=== PATIENT | male | born 1990 | race Caucasian/White ===

== ENCOUNTER 2016-10-01 17:45 | Emergency (ER) | payer OTHER ==
[~2016-10-01] VITALS: Ht 165.1 cm; Wt 89.3 kg
[~2016-10-01 17:45] MED LIST: ATOR-22 PO; HMLI SC
[2016-10-01 17:59] VITALS: TEMP 37.1; Ht 165.1 cm; Wt 89.3 kg
--- NOTE | 2016-10-01 18:12 | EMERGENCY ROOM VISIT NOTE ---
ED Visit Note First contact with patient: 18:04 CHIEF COMPLAINT: Hand injury HISTORY OF PRESENT ILLNESS: This 25-year-old male patient presented to the emergency department ambulatory after they injured the right hand when he punched a treadmill 2 days ago because he was angry and didn't want to punch the other person. He denies any suicidal or homicidal ideation. There was no audible snap or crack at that time. The patient rates the pain as sharp and 4 / 10. The patient denies any numbness or tingling. The patient does not have injuries to the wrist. Normal range of motion of the wrist. The patient states he had a ligament in the right fifth finger repaired last December by an orthopedist in [place]. The patient states he was initially able to bend and straighten the right fifth finger but over time swelling has developed and he is unable to straighten the finger. REVIEW OF SYSTEMS: A 6 system review of systems was completed with positives and pertinent negatives in the HPI. ALLERGIES: Tylenol, Keflex, morphine, Zofran MEDICATIONS: Insulin, Protonix, Lipitor PMH: Diabetes, hyperlipidemia, GERD SOCIAL HISTORY: The patient does not smoke. PHYSICAL EXAM: Vital Signs: Reviewed Nurse's notes, vital signs stable. GENERAL : This is a 25-year-old male, in no acute distress, but appears to be in pain, well-developed, well-nourished. MUSCULOSKELETAL: There is deformity of the right hand, fifth finger. There is tenderness diffusely over the finger and over the third MCP. There is no thenar or hypothenar eminence atrophy. The patient is unable to fully extend the right fifth finger. [employer] strength 4/5. There is no laceration. Capillary refill less than 2 seconds. No tenderness of the fingers or wrist. Full range of motion of the wrist. No snuff box tenderness. Radial pulse 2+. NEURO: Alert and oriented to person, place, and time. Normal sensation to light and sharp touch. EMERGENCY DEPARTMENT COURSE: I examined the patient. An x-ray of the right hand was reviewed by myself and radiology and shows old traumatic change with no acute fracture. The patient was placed in a metal splint by the emergency department sterile preparation technician and the position was satisfactory. The patient states that he had ligamentous repair to the right fifth finger last December by an orthopedist in [place]. There is no obvious acute bony abnormality. The patient insists that he is normally able to fully extend and bend his finger. He was put in a splint and should contact his orthopedist first thing in the morning to schedule a follow-up appointment for further evaluation and management. He should return with any worsening symptoms. The patient was discharged home in good condition. RIGHT HAND MIN 3 VIEWS ROUTINE CLINICAL HISTORY: right hand injury, pain Right trauma. Pain. COMPARISON: None. DISCUSSION: Deformity of proximal interphalangeal joint fifth finger. This has the appearance of an old posttraumatic finding. No well-defined acute bony abnormality. Mild soft tissue edema. Deformity distal phalanx of the thumb again felt to be secondary to old post traumatic change. There is no evidence for soft tissue swelling. IMPRESSION: Findings consistent with old post traumatic changes involving the thumb and fifth finger. Mild soft tissue edema. No well-defined acute bony abnormality. Problem List Medical Problems: (1) Acute renal insufficiency Status: Resolved (2) Anxiety Status: Chronic (3) Anxiety Status: Resolved (4) Anxiety Status: Resolved (5) Arm pain, right Status: Resolved (6) DIAB MARIAH WO COMPL, TYPE I [JUVENILE TYPE], NOT UNCNTRLD Status: Chronic (7) Diabetic ketoacidosis Status: Resolved (8) DKA, type 1, not at goal Status: Resolved (9) Fall Status: Resolved (10) Foot pain Status: Resolved (11) Fractured great toe Status: Resolved (12) Hyperglycemia Status: Resolved (13) Hyperglycemia Status: Resolved (14) Injury of wrist, left Status: Resolved (15) Substance abuse Status: Chronic (16) Substance abuse Status: Resolved Surgical Problems: (1) ACUTE APPENDICITIS NOS Status: Resolved (2) Arthroscopy of knee joint Status: Resolved Current/Historical Medications Scheduled Aspirin (Aspirin Ec), 81 MG PO QAM Atorvastatin (Lipitor), 20 MG PO QAM Biotin (Biotin), 1,000 MCG PO DAILY Cinnamon (Cinnamon), 1,000 MG PO QAM Insulin Glargine (Lantus Solostar), 60 UNITS SC HS Insulin Lispro (Human) (Humalog), 1 DOSE SC ACHS Multivitamin (Multivitamin), 1 TAB PO QAM Pantoprazole (Protonix), 40 MG PO QAM Allergies Coded Allergies: Cephalexin (Verified Allergy, Unknown, hives, 06/05/16) Ondansetron (Verified Allergy, Unknown, HIVES, 06/05/16) Acetaminophen (Verified Adverse Reaction, Unknown, GI SYMPTOMS, 06/05/16) Morphine (Unverified Adverse Reaction, Unknown, does not want it, 06/05/16 ) Vital Signs Date Time Temp Pulse Resp B/P Pulse Ox O2 Delivery O2 Flow Rate FiO2 10/01/16 19:37 108 18 110/72 97 10/01/16 17:59 37.1 108 20 120/76 97 Room Air Departure Information Impression Primary Impression: Finger sprain Additional Impression: Hand contusion Dispostion Home / Self-Care Condition GOOD Referrals Wilber Madrid M.D. (PCP) Patient Instructions ED Sprain Finger, My [facility] Additional Instructions Contact your orthopedist first thing in the morning to schedule a follow-up appointment for further evaluation and management Wear the splint until seen by orthopedics Motrin 600 mg every 6-8 hours for moderate pain Return with any worsening symptoms Problem Qualifiers Primary Impression: Finger sprain Encounter type: initial encounter
--- NOTE | 2016-10-01 18:35 | DIAGNOSTIC IMAGING REPORT ---
RIGHT HAND MIN 3 VIEWS ROUTINE CLINICAL HISTORY: right hand injury, pain Right trauma. Pain. COMPARISON: None. DISCUSSION: Deformity of proximal interphalangeal joint fifth finger. This has the appearance of an old posttraumatic finding. No well-defined acute bony abnormality. Mild soft tissue edema. Deformity distal phalanx of the thumb again felt to be secondary to old post traumatic change. There is no evidence for soft tissue swelling. IMPRESSION: Findings consistent with old post traumatic changes involving the thumb and fifth finger. Mild soft tissue edema. No well-defined acute bony abnormality. Electronically signed by: Keyshawn Ziegler M.D. 10/01/2016 6:34 PM Dictated Date/Time: 10/01/2016 6:33 PM
[2016-10-01 19:37] VITALS: BP 110/72; PULSE 108; O2SAT 97
[2016-10-15] MEDS ORDERED: SULF800T23 PO (09:54)
[2017-02-10] MEDS ORDERED: INSDGIPEN SC (02:07)
[2017-02-10] MEDS ORDERED: PANT40TA PO (02:24)
[2017-02-10] MEDS ORDERED: MULT-506 PO (02:25)
[2017-02-10] MEDS ORDERED: CINN500T PO (09:17)
[2017-02-10] MEDS ORDERED: ASPI81TA28 PO (15:40)
[2017-02-10] MEDS ORDERED: INSU100I SC (19:05)
[2017-02-12] MEDS ORDERED: LORA-741 PO (15:28)
[2017-02-12] MEDS ORDERED: INSDGIPEN SC (15:28)
[2017-02-12] MEDS ORDERED: FLX10 PO (15:28)
[2017-02-12] MEDS ORDERED: INSU100I SC (15:28)
[2017-02-12] MEDS ORDERED: ULT50X PO (15:28)
[2017-02-12] MEDS ORDERED: PANT40TA PO (15:28)
[2017-02-12] MEDS ORDERED: PROM12.56 PO (15:28)
== END 2016-10-01 19:26 | disposition home or self-care (01) ==
LOC: C.EDB 17:47 → C.EDD 19:26
DX: S63.616A Unspecified sprain of right little finger, initial encounter (principal); S60.221A Contusion of right hand, initial encounter; W22.8XXA Striking against or struck by other objects, initial encounter; E11.9 Type 2 diabetes mellitus without complications; E78.5 Hyperlipidemia, unspecified; K21.9 Gastro-esophageal reflux disease without esophagitis; F41.9 Anxiety disorder, unspecified; Z79.4 Long term (current) use of insulin

== ENCOUNTER 2016-10-03 16:10 | Emergency (ER) | payer OTHER ==
[~2016-10-03] VITALS: Ht 165.1 cm; Wt 87.9 kg
[2016-10-03 16:17] VITALS: TEMP 36.4; Ht 165.1 cm; Wt 87.9 kg
--- NOTE | 2016-10-03 16:40 | EMERGENCY ROOM VISIT NOTE ---
ED Visit Note First contact with patient: 16:20 CHIEF COMPLAINT: Finger injury HISTORY OF PRESENT ILLNESS: This 25-year-old male patient presents to the emergency department ambulatory complaining of pain in the right third finger. The patient reports that he punched a treadmill 4 days ago and injured his right hand. He was seen here 2 days ago and diagnosed with a sprain. He reports that he previously had a surgery on the right fifth finger and it has been swollen since the surgery. He has followed up with his orthopedist, who told him there is nothing to do about it. He is concerned because there has been increased swelling and pain in the right third finger. He has not been wearing a finger splint. He reports he has been icing the finger and taking naproxen at home without relief. He denies any new injuries to the hand. Full range of motion of the finger. No previous fractures of this finger. He rates his discomfort a 4/10. REVIEW OF SYSTEMS: A 6 system review of systems was completed with positives and pertinent negatives in the HPI. ALLERGIES: Acetaminophen, cephalexin, morphine, Zofran MEDICATIONS: See med list PMH: Diabetes SOCIAL HISTORY: The patient lives locally with family. Nonsmoker. PHYSICAL EXAM: Vital Signs: Reviewed Nurse's notes, vital signs stable. GENERAL : This is a 25-year-old male, in no acute distress, well-developed, well- nourished. MUSCULOSKELETAL: There is no deformity of the right third finger. There is mild swelling, ecchymosis and tenderness of the MCP as well as mild tenderness of the PIP. The patient has full flexion and extension of the right third finger and strength to resistance is 5/5. There is no laceration. Capillary refill less than 2 seconds. No tenderness of the remaining fingers or hand. Full range of motion of the wrist. NEURO: Alert and oriented to person, place, and time. Normal sensation to light and sharp touch. RADIOGRAPHIC FINDINGS: RIGHT FINGER(S) MIN 2 VIEWS ROUTINE CLINICAL HISTORY: right third finger pain, worsening swelling Right pain COMPARISON: None. DISCUSSION: Moderate generalized soft tissue edema. No acute bony abnormality. Cortical margins are intact. IMPRESSION: Soft tissue edema. No acute bony abnormality. EMERGENCY DEPARTMENT COURSE: I examined the patient. An x-ray of the right third finger was reviewed by myself and radiology and showed no acute findings. The finger was immobilized by a metal finger splint under my direction and the position was satisfactory. The patient was encouraged to continue taking naproxen and applying ice to the finger at home. He will follow-up with his established orthopedist if his symptoms do not improve in 1-2 weeks. I did review the patient's record on the [place] prescription drug monitoring program. In the last year, he has received 36 prescriptions for controlled medications from 16 different prescribers and has felt these and 15 different pharmacies. I do feel there is concern for drug-seeking behavior. The patient verbalized his understanding of my assessment and treatment plan and was discharged home in good condition. DIAGNOSIS: Right finger pain Problem List Medical Problems: (1) Acute renal insufficiency Status: Resolved (2) Anxiety Status: Chronic (3) Anxiety Status: Resolved (4) Anxiety Status: Resolved (5) Arm pain, right Status: Resolved (6) DIAB MARIAH WO COMPL, TYPE I [JUVENILE TYPE], NOT UNCNTRLD Status: Chronic (7) Diabetic ketoacidosis Status: Resolved (8) DKA, type 1, not at goal Status: Resolved (9) Fall Status: Resolved (10) Foot pain Status: Resolved (11) Fractured great toe Status: Resolved (12) Hyperglycemia Status: Resolved (13) Hyperglycemia Status: Resolved (14) Injury of wrist, left Status: Resolved (15) Substance abuse Status: Chronic (16) Substance abuse Status: Resolved Surgical Problems: (1) ACUTE APPENDICITIS NOS Status: Resolved (2) Arthroscopy of knee joint Status: Resolved Current/Historical Medications Scheduled Aspirin (Aspirin Ec), 81 MG PO QAM Atorvastatin (Lipitor), 20 MG PO QAM Biotin (Biotin), 1,000 MCG PO DAILY Cinnamon (Cinnamon), 1,000 MG PO QAM Insulin Glargine (Lantus Solostar), 60 UNITS SC HS Insulin Lispro (Human) (Humalog), 1 DOSE SC ACHS Multivitamin (Multivitamin), 1 TAB PO QAM Pantoprazole (Protonix), 40 MG PO QAM Allergies Coded Allergies: Cephalexin (Verified Allergy, Unknown, hives, 10/03/16) Ondansetron (Verified Allergy, Unknown, HIVES, 10/03/16) Acetaminophen (Verified Adverse Reaction, Unknown, GI SYMPTOMS, 10/03/16) Morphine (Unverified Adverse Reaction, Unknown, does not want it, 10/03/16) Vital Signs Date Time Temp Pulse Resp B/P Pulse Ox O2 Delivery O2 Flow Rate FiO2 10/03/16 16:17 36.4 115 16 126/64 98 Room Air Departure Information Impression Primary Impression: Finger injury Dispostion Home / Self-Care Condition GOOD Referrals Wilber Madrid M.D. (PCP) Patient Instructions My [facility] Additional Instructions You have been treated in the Emergency Department for finger Pain. For pain control, you can use the following [id number] medicines (if >12 yo): - Regular strength (325mg/tab) Tylenol (acetaminophen) 2 tabs every 4-6 hours as needed. Do not exceed 12 tablets in a 24 hour period. Avoid taking more than 4 grams (4000 mg) of Tylenol per day. This includes any other sources of acetaminophen you may take on a regular basis. - Regular strength (200 mg/tab) Advil (ibuprofen) 1-2 tabs every 4-6 hours as needed. Do not exceed a dose of 3200 mg per day. If this is a recent injury (<24 hrs), ice can be applied to the area of pain for the first 3 days to help decrease pain and inflammation. Wear the splint for the next 4-5 days, then as needed for pain. Follow-up with your established orthopedist if you have persistent pain in 1-2 weeks. Return to the Emergency Department if your current symptoms worsen despite treatment course outlined above, or if you develop any of the following symptoms : intractable pain despite aforementioned treatment course or new onset of numbness or tingling of the fingers. Problem Qualifiers Primary Impression: Finger injury Laterality: right
--- NOTE | 2016-10-03 16:51 | DIAGNOSTIC IMAGING REPORT ---
RIGHT FINGER(S) MIN 2 VIEWS ROUTINE CLINICAL HISTORY: right third finger pain, worsening swelling Right pain COMPARISON: None. DISCUSSION: Moderate generalized soft tissue edema. No acute bony abnormality. Cortical margins are intact. IMPRESSION: Soft tissue edema. No acute bony abnormality. Electronically signed by: Keyshawn Ziegler M.D. 10/03/2016 4:50 PM Dictated Date/Time: 10/03/2016 4:50 PM
[2016-10-03 17:05] VITALS: BP 129/79; PULSE 99; O2SAT 98
[2016-10-15] MEDS ORDERED: SULF800T23 PO (09:54)
[2017-02-10] MEDS ORDERED: INSDGIPEN SC (02:07)
[2017-02-10] MEDS ORDERED: PANT40TA PO (02:24)
[2017-02-10] MEDS ORDERED: MULT-506 PO (02:25)
[2017-02-10] MEDS ORDERED: CINN500T PO (09:17)
[2017-02-10] MEDS ORDERED: ASPI81TA28 PO (15:40)
[2017-02-10] MEDS ORDERED: INSU100I SC (19:05)
[2017-02-12] MEDS ORDERED: PANT40TA PO (15:28)
[2017-02-12] MEDS ORDERED: PROM12.56 PO (15:28)
[2017-02-12] MEDS ORDERED: INSU100I SC (15:28)
[2017-02-12] MEDS ORDERED: ULT50X PO (15:28)
[2017-02-12] MEDS ORDERED: INSDGIPEN SC (15:28)
[2017-02-12] MEDS ORDERED: LORA-741 PO (15:28)
[2017-02-12] MEDS ORDERED: FLX10 PO (15:28)
== END 2016-10-03 17:06 | disposition home or self-care (01) ==
LOC: C.EDB 16:11 → C.EDD 17:06
DX: S69.91XA Unspecified injury of right wrist, hand and finger(s), initial encounter (principal); W22.8XXA Striking against or struck by other objects, initial encounter; E11.9 Type 2 diabetes mellitus without complications; F41.9 Anxiety disorder, unspecified; Z79.82 Long term (current) use of aspirin; Z79.4 Long term (current) use of insulin

== ENCOUNTER 2016-10-05 18:19 | Emergency (ER) | payer OTHER ==
[~2016-10-05] VITALS: Ht 165.1 cm; Wt 87.8 kg
[~2016-10-05 18:19] MED LIST changes: -HMLI SC
[2016-10-05 18:39] VITALS: TEMP 37; Ht 165.1 cm; Wt 87.8 kg
--- NOTE | 2016-10-05 20:29 | DIAGNOSTIC IMAGING REPORT ---
LEFT HAND MIN 3 VIEWS ROUTINE CLINICAL HISTORY: left hand eval for fx trauma. Pain. COMPARISON: None. DISCUSSION: The bones and joint spaces appear intact. There is no evidence of fracture, dislocation or bony disease. There is no evidence for soft tissue swelling. IMPRESSION: Negative study. Electronically signed by: Keyshawn Ziegler M.D. 10/05/2016 8:28 PM Dictated Date/Time: 10/05/2016 8:28 PM
[2016-10-05] MEDS ORDERED: IBUPROFEN 600 MG TAB PO STA (21:07)
[2016-10-05 21:51] VITALS: BP 124/84; PULSE 84; O2SAT 96
--- NOTE | 2016-10-06 01:06 | EMERGENCY ROOM VISIT NOTE ---
History Report prepared by Waqas: Michelet Polanco Under the Supervision of: Dr. Sumit Gilbert M.D. First contact with patient: 19:44 Chief Complaint: LACERATION/CUT (NON-SUTURE) Stated Complaint: FELT A POP,CAN'T MOVE LF INDEX FINGER,STITCHES Nursing Triage Summary: I had stitches put in 8 days ago. I took my stitches out by myself. I think I took them out to early the wound "came back open" History of Present Illness The patient is a 25 year old male who presents to the Emergency Room with complaints of a finger laceration on his left hand that occurred somewhere between 8-12 days ago. The patient was seen by Michael Medina, where he had sutures placed. The patient removed the sutures himself two days ago, and has since experienced opening of the laceration. The patient notes that he felt a popping sensation in the hand at approximately 1130 this morning when he was grasping something. He has had trouble moving the pointer finger since he heard the popping sound. The patient's laceration was from a knife. The patient was here for a right hand injury on the 15 and 17 of this month. The patient follows up with Orthopedics in [place]. Source of History: patient Onset: 8-12 days ago Position: hand (left) Quality: other (actively bleeding laceration) Timing: other (persistent) Note: Patient unable to move pointer finger right hand. Review of Systems See HPI for pertinent positives & negatives. A total of 6 systems reviewed and were otherwise negative. Past Medical & Surgical Medical Problems: (1) Acute renal insufficiency (2) Anxiety (3) Anxiety (4) Anxiety (5) Arm pain, right (6) DIAB MARIAH WO COMPL, TYPE I [JUVENILE TYPE], NOT UNCNTRLD (7) Diabetic ketoacidosis (8) DKA, type 1, not at goal (9) Fall (10) Foot pain (11) Fractured great toe (12) Hyperglycemia (13) Hyperglycemia (14) Injury of wrist, left (15) Substance abuse (16) Substance abuse Surgical Problems: (1) ACUTE APPENDICITIS NOS (2) Arthroscopy of knee joint Family History Diabetes mellitus FHx: hypertension FHx: seizures Kidney disease Social History Smoking Status: Never Smoker Alcohol Use: none Marital Status: single Housing Status: lives with family Occupation Status: unemployed Current/Historical Medications Scheduled Aspirin (Aspirin Ec), 81 MG PO QAM Atorvastatin (Lipitor), 20 MG PO QAM Biotin (Biotin), 1,000 MCG PO DAILY Cinnamon (Cinnamon), 1,000 MG PO QAM Insulin Glargine (Lantus Solostar), 60 UNITS SC HS Insulin Lispro (Human) (Humalog), 1 DOSE SC ACHS Multivitamin (Multivitamin), 1 TAB PO QAM Pantoprazole (Protonix), 40 MG PO QAM Allergies Coded Allergies: Cephalexin (Verified Allergy, Unknown, hives, 10/03/16) Ondansetron (Verified Allergy, Unknown, HIVES, 10/03/16) Acetaminophen (Verified Adverse Reaction, Unknown, GI SYMPTOMS, 10/03/16) Morphine (Unverified Adverse Reaction, Unknown, does not want it, 10/03/16) Physical Exam Vital Signs Date Time Temp Pulse Resp B/P Pulse Ox O2 Delivery O2 Flow Rate FiO2 10/05/16 21:51 84 16 124/84 96 10/05/16 20:59 84 16 124/84 95 Room Air 10/05/16 18:39 37.0 118 18 120/73 97 Room Air Physical Exam Constitutional: Vital signs reviewed. Musculoskeletal: There is a healing laceration to the left hand between the second and first digit. There is dehiscence of the wound on the dorsum of the hand without active bleeding. No signs of cellulitis or discharge. Distal capillary refill is less than 2 seconds. The patient is unable to extend the left second digit at the MCP, DIP or PIP. He is able to flex the finger against resistance. Integumentary: See above. Neurological: The patient is awake and alert. As above. Psychiatric: Normal affect. Medical Decision & Procedures ER Provider Diagnostic Interpretation: X-ray results as stated below per interpretation by me and the radiologist: LEFT HAND MIN 3 VIEWS ROUTINE CLINICAL HISTORY: left hand eval for fx trauma. Pain. COMPARISON: None. DISCUSSION: The bones and joint spaces appear intact. There is no evidence of fracture, dislocation or bony disease. There is no evidence for soft tissue swelling. IMPRESSION: Negative study. Electronically signed by: Keyshawn Ziegler M.D. 10/05/2016 8:28 PM Dictated Date/Time: 10/05/2016 8:28 PM Medications Administered Medications (Trade) Dose Ordered Sig/Oral Route Start Time Stop Time Status Last Admin Dose Admin Ibuprofen (Motrin Tab) 600 mg NOW STAT PO 10/05/16 21:07 10/05/16 21:08 DC 10/05/16 21:25 600 MG ED Course 1948: The patient was evaluated in room A11a. A complete history and physical exam was performed. 2034: Discussed the X-ray findings and diagnosis. He verbalized agreement of the treatment plan. He was discharged home. Medical Decision This is a 25-year-old male presents with left hand pain. I did perform a limited focused review of portions of the patient's old chart on the electronic medical record. The patient was here two days ago for right 3rd finger pain. He had an unremarkable hand X-ray, and was placed in a splint. The patient was here on the after punching a treadmill two days prior. He had an X-ray of the right hand that showed old traumatic changes of the thumb and 5th finger. I did evaluate the patient as noted above. The patient has wound dehiscence from a laceration that was repaired approximately 9-12 days ago at another hospital. He took out his own stitches which likely caused the dehiscence. I explained to them that we could not repair the wound at this time as this will cause increased likelihood of infection. The patient also developed pain today and when grasping an object. He is unable to extend the left second digit and likely has a extensor tendon injury. It seems most likely that the patient suffered a partial tendon injury from the knife wound which then ruptured today while he was grasping something. I did order and personally review the patient' s hand x-ray as described above. The patient's wound was cleaned and dressed. He was placed in a volar splint extending all the way to the fingers in extension. I did offer to refer him to our orthopedic doctors here but he stated that he would prefer to follow up with his own orthopedic physician in [place]. He was told that he should see his orthopedist in the next several days for repair of his extensor tendon injury. The patient is currently on an antibiotic and will continue to take this antibiotic to prevent infection. He was discharged in good condition. Impression Primary Impression: Injury of extensor tendon of left hand Additional Impression: Wound dehiscence Scribe Attestation The scribe's documentation has been prepared under my direct and personally reviewed by me in its entirety. I confirm that the note above accurately reflects all work, treatment, procedures, and medical decision making performed by me. Departure Information Dispostion Home / Self-Care Referrals Wilber Madrid M.D. (PCP) Forms HOME CARE DOCUMENTATION FORM, IMPORTANT VISIT INFORMATION, WORK / SCHOOL INSTRUCTIONS Patient Instructions ED Rupture Tendon Finger, My [facility] Additional Instructions You have been examined and treated today on an emergency basis only. This is not a substitute for, or an effort to provide, complete comprehensive medical care. It is impossible to recognize and treat all injuries or illnesses in a single emergency department visit. It is therefore important that you follow up closely with your orthopedic physician early this week. Call as soon as possible for an appointment. Return for worsening symptoms or if you develop fever, vomiting, pus from the wound or any other concerning symptoms. Do not remove your splint. Problem Qualifiers Primary Impression: Injury of extensor tendon of left hand
[2016-10-15] MEDS ORDERED: SULF800T23 PO (09:54)
[2017-02-10] MEDS ORDERED: INSDGIPEN SC (02:07)
[2017-02-10] MEDS ORDERED: PANT40TA PO (02:24)
[2017-02-10] MEDS ORDERED: MULT-506 PO (02:25)
[2017-02-10] MEDS ORDERED: CINN500T PO (09:17)
[2017-02-10] MEDS ORDERED: ASPI81TA28 PO (15:40)
[2017-02-10] MEDS ORDERED: INSU100I SC (19:05)
[2017-02-12] MEDS ORDERED: LORA-741 PO (15:28)
[2017-02-12] MEDS ORDERED: PANT40TA PO (15:28)
[2017-02-12] MEDS ORDERED: ULT50X PO (15:28)
[2017-02-12] MEDS ORDERED: INSU100I SC (15:28)
[2017-02-12] MEDS ORDERED: FLX10 PO (15:28)
[2017-02-12] MEDS ORDERED: INSDGIPEN SC (15:28)
[2017-02-12] MEDS ORDERED: PROM12.56 PO (15:28)
== END 2016-10-05 21:25 | disposition home or self-care (01) ==
LOC: C.EDB 18:20 → C.EDA 21:25
DX: T81.30XA Disruption of wound, unspecified, initial encounter (principal); S69.91XA Unspecified injury of right wrist, hand and finger(s), initial encounter; W22.8XXA Striking against or struck by other objects, initial encounter; E11.9 Type 2 diabetes mellitus without complications; F41.9 Anxiety disorder, unspecified; Z79.4 Long term (current) use of insulin

== ENCOUNTER 2016-10-06 00:45 | Emergency (ER) | payer OTHER ==
[~2016-10-06] VITALS: Ht 165.1 cm; Wt 89.8 kg
[2016-10-06 00:50] VITALS: TEMP 37; Ht 165.1 cm; Wt 89.8 kg
--- NOTE | 2016-10-06 01:24 | EMERGENCY ROOM VISIT NOTE ---
History Report prepared by Waqas: Carlos Stephens Under the Supervision of: Dr. Anh Minaya M.D. First contact with patient: 00:55 Chief Complaint: MENTAL HEALTH EVALUATION Stated Complaint: [facility] History of Present Illness The patient is a 25 year old male who presents to the Emergency Room with complaints of his current mental status that began to worsen several weeks prior to arrival. The patient was in the Emergency Department yesterday for an injury to his left hand. After returning home from this visit the patient admittedly took 8-9 Klonopin pills, that he admits to buying off of the street. He estimates that he took the pills at 2230. He attributes his declining mental status to the stress he has been experiencing in his life. He notes that he recently lost a good job and cannot find a new one and has had to get several surgeries lately. The patient denies having any suicidal plans but claims that he "wouldn't care" if he were to kill himself. He has tried to get help from [facility] and [facility] and [facility] said they were not compatible due to a missed appointment. He is currently on antibiotics for a staff infection in his finger. 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 Review of Systems See HPI for pertinent positives & negatives. A total of 10 systems reviewed and were otherwise negative. Past Medical & Surgical Medical Problems: (1) Acute renal insufficiency (2) Anxiety (3) Anxiety (4) Anxiety (5) Arm pain, right (6) DIAB MARIAH WO COMPL, TYPE I [JUVENILE TYPE], NOT UNCNTRLD (7) Diabetic ketoacidosis (8) DKA, type 1, not at goal (9) Fall (10) Foot pain (11) Fractured great toe (12) Hyperglycemia (13) Hyperglycemia (14) Injury of wrist, left (15) Substance abuse (16) Substance abuse Surgical Problems: (1) ACUTE APPENDICITIS NOS (2) Arthroscopy of knee joint Family History Diabetes mellitus FHx: hypertension FHx: seizures Kidney disease Social History Smoking Status: Never Smoker Alcohol Use: none Marital Status: single Housing Status: lives with family Occupation Status: unemployed Current/Historical Medications Scheduled Aspirin (Aspirin Ec), 81 MG PO QAM Atorvastatin (Lipitor), 20 MG PO QAM Biotin (Biotin), 1,000 MCG PO DAILY Cinnamon (Cinnamon), 1,000 MG PO QAM Insulin Glargine (Lantus Solostar), 60 UNITS SC HS Insulin Lispro (Human) (Humalog), 1 DOSE SC ACHS Multivitamin (Multivitamin), 1 TAB PO QAM Pantoprazole (Protonix), 40 MG PO QAM Allergies Coded Allergies: Cephalexin (Verified Allergy, Unknown, hives, 10/06/16) Ondansetron (Verified Allergy, Unknown, HIVES, 10/06/16) Acetaminophen (Verified Adverse Reaction, Unknown, GI SYMPTOMS, 10/06/16) Morphine (Unverified Adverse Reaction, Unknown, does not want it, 10/06/16) Physical Exam Vital Signs Date Time Temp Pulse Resp B/P Pulse Ox O2 Delivery O2 Flow Rate FiO2 10/06/16 05:16 98 18 133/79 98 Room Air 10/06/16 04:10 109 18 106/84 99 Room Air 10/06/16 03:00 110 20 145/92 96 Room Air 10/06/16 00:50 37.0 98 18 123/83 97 Room Air Physical Exam Vital signs reviewed. General: Well-appearing male, in no significant distress. HEENT: No scleral icterus, PERRLA, neck supple. Atraumatic. Cardiovascular: Regular rate and rhythm, no extra sounds. Pulmonary: Clear to auscultation bilaterally, normal work of breathing. Abdomen: Soft, nontender, nondistended, positive bowel sounds. Musculoskeletal: Atraumatic, no peripheral edema. Extremities: Bandage over the left hand. Neurologic: Patient awake alert and oriented x 3, full strength in all 4 extremities. Cranial nerves 2 through 12 grossly intact. Skin: Warm, dry, no rash Psych: Positive passive suicidal ideation, negative homicidal. Medical Decision & Procedures Laboratory Results 10/06/16 00:25 Red Blood Count 5.63, Mean Corpuscular Volume 75.7, Mean Corpuscular Hemoglobin 26.3, Mean Corpuscular Hemoglobin Concent 34.7, Mean Platelet Volume 11.6, Neutrophils (%) (Auto) 57.6, Lymphocytes (%) (Auto) 35.8, Monocytes (%) (Auto) 5.4, Eosinophils (%) (Auto) 0.8, Basophils (%) (Auto) 0.2, Neutrophils # (Auto) 2.98, Lymphocytes # (Auto) 1.85, Monocytes # (Auto) 0.28, Eosinophils # (Auto) 0.04, Basophils # (Auto) 0.01 10/06/16 00:25 Test 10/06/16 00:00 10/06/16 00:25 10/06/16 06:02 Urine Color YELLOW Urine Appearance CLEAR (CLEAR) Urine pH 7.5 (4.5-7.5) Urine Specific [place] 1.032 (1.000-1.030) Urine Protein NEG (NEG) Urine Glucose (UA) 3+ (NEG) Urine Ketones NEG (NEG) Urine Occult Blood NEG (NEG) Urine Nitrite NEG (NEG) Urine Bilirubin NEG (NEG) Urine Urobilinogen NEG (NEG) Urine Leukocyte Esterase NEG (NEG) Urine Opiates Screen NEG (NEG) Urine Methadone, Qualitative NEG (NEG) Urine Barbiturates NEG (NEG) Urine Phencyclidine (PCP) Level NEG (NEG) Ur Amphetamine/Methamphetamine NEG (NEG) MDMA (Ecstasy) Screen NEG (NEG) Urine Benzodiazepines Screen NEG (NEG) Urine Cocaine Metabolite NEG (NEG) Urine Marijuana (THC) NEG (NEG) White Blood Count 5.17 K/uL (4.8-10.8) Red Blood Count 5.63 M/uL (4.7-6.1) Hemoglobin 14.8 g/dL (14.0-18.0) Hematocrit 42.6 % (42-52) Mean Corpuscular Volume 75.7 fL (80-100) Mean Corpuscular Hemoglobin 26.3 pg (25-34) Mean Corpuscular Hemoglobin Concent 34.7 g/dl (32-36) Platelet Count 184 K/uL (130-400) Mean Platelet Volume 11.6 fL (7.4-10.4) Neutrophils (%) (Auto) 57.6 % Lymphocytes (%) (Auto) 35.8 % Monocytes (%) (Auto) 5.4 % Eosinophils (%) (Auto) 0.8 % Basophils (%) (Auto) 0.2 % Neutrophils # (Auto) 2.98 K/uL (1.4-6.5) Lymphocytes # (Auto) 1.85 K/uL (1.2-3.4) Monocytes # (Auto) 0.28 K/uL (0.11-0.59) Eosinophils # (Auto) 0.04 K/uL (0-0.5) Basophils # (Auto) 0.01 K/uL (0-0.2) RDW Standard Deviation 36.9 fL (36.4-46.3) RDW Coefficient of Variation 13.4 % (11.5-14.5) Immature Granulocyte % (Auto) 0.2 % Immature Granulocyte # (Auto) 0.01 K/uL (0.00-0.02) Anion Gap 13.0 mmol/L (3-11) Est Creatinine Clear Calc Drug Dose 68.4 ml/min Estimated GFR () 63.6 Estimated GFR (Non- 54.8 BUN/Creatinine Ratio 8.2 (10-20) Calcium Level 9.1 mg/dl (8.5-10.1) Total Bilirubin 1.1 mg/dl (0.2-1) Direct Bilirubin 0.2 mg/dl (0-0.2) Aspartate Amino Transf (AST/SGOT) 20 U/L (15-37) Alanine Aminotransferase (ALT/SGPT) 35 U/L (12-78) Alkaline Phosphatase 85 U/L (45-117) Total Protein 7.5 gm/dl (6.4-8.2) Albumin 3.7 gm/dl (3.4-5.0) Beta-Hydroxybutyric Acid 1.06 mg/dL (0.2-2.81) Salicylates Level < 1.7 mg/dl (2.8-20) Acetaminophen Level < 2 ug/ml (10-30) Ethyl Alcohol mg/dL < 3.0 mg/dl (0-3) Bedside Glucose 235 mg/dl (70-99) Laboratory results per my review. Medications Administered Medications (Trade) Dose Ordered Sig/Oral Route Start Time Stop Time Status Last Admin Dose Admin Insulin Human Regular (novoLIN-R U-100 PER UNIT) 10 units NOW STAT SC 10/06/16 02:32 10/06/16 02:33 DC 10/06/16 02:42 10 UNITS Insulin Human Regular 10 units 10 units NOW STAT SC 10/06/16 03:48 10/06/16 03:50 DC 10/06/16 04:06 10 UNITS Sodium Chloride (Nss 1000ml) 1,000 ml @ 999 mls/hr Q1H1M STAT IV 10/06/16 03:48 10/06/16 04:48 DC 10/06/16 04:12 999 MLS/HR Hydroxyzine HCl (Vistaril Tab) 50 mg NOW STAT PO 10/06/16 04:38 10/06/16 04:39 DC 10/06/16 04:43 50 MG Insulin Human Regular (novoLIN-R U-100 PER UNIT) 10 units NOW STAT SC 10/06/16 05:19 10/06/16 05:20 DC 10/06/16 05:25 10 UNITS ED Course 0112: Past medical records reviewed. The patient was evaluated in room A7. A complete history and physical examination was performed. 0232: Ordered 10 unites Regular Human Insulin SC. 0348: Ordered Sodium Chloride 1000 mL @ 999 mL/hr IV, Regular Human Insulin 10 unites SC. 0438: Ordered Hydroxyzine HCl 50 mg PO. 0519: Ordered Regular Human Insulin 10 units SC. 0730: The patient will be signed out to Dr. Shirley at change of shift. Medical Decision The patient's history was concerning for possible psychiatric disturbance. Differential diagnosis: Etiologies such as mood disorder, infection, hypoglycemia, electrolyte abnormalities, cardiac sources, intracerebral event, toxicologic, neurologic, as well as others were entertained. This patient was evaluated and appeared to be in no significant distress. Physical examination reveals a bandage to the left hand that was placed several hours prior to arrival by this emergency department. The patient admits that he took 8-9 Klonopin tablets after getting home last evening. He brought this medication "on the street." His father noticed that he was behaving in an odd manner and force the patient to vomit. At this time the patient has no altered mentation. He does not appear to be lethargic. Patient was medically evaluated and found to be markedly hyperglycemic with a blood sugar of around 700. Patient was given several doses of subcutaneous regular insulin. He states he has been compliant with his insulin although he was recently discharged from his primary care's practice. The patient was hydrated with normal saline solution. He was tolerating by mouth food and fluid. The patient will remain on frequent every 4 hour blood sugar checks while awaiting mental health evaluation. A 302 petitioning statement has been placed on the chart by the county delegate as the patient verbalized a thought to shoot himself in the head. The case has been signed out to Dr. Shirley at the change of shift pending placement. Impression Primary Impression: Suicidal ideation Additional Impressions: Overdose of drug/medicinal substance Substance abuse Hyperglycemia Non-compliance Scribe Attestation The scribe's documentation has been prepared under my direction and personally reviewed by me in its entirety. I confirm that the note above accurately reflects all work, treatment, procedures, and medical decision making performed by me. Departure Information Dispostion Still a Patient (Pt will be signed out to Dr. Shirley at change of shift) Referrals Wilber Madrid M.D. (PCP) Patient Instructions My [facility] Problem Qualifiers Additional Impressions: Overdose of drug/medicinal substance Encounter type: initial encounter Injury intent: undetermined intent Qualified Codes: T50.904A - Poisoning by unspecified drugs, medicaments and biological substances, undetermined, initial encounter
[2016-10-06 01:38] LABS: BASO % 0.2 %; BASO ABS # 0.01 K/uL (0-0.2); COMPLETE YES; EOS % 0.8 %; HEMATOCRIT 42.6 % (42-52); IG% 0.2 %; LYMPH % 35.8 %; LYMPH ABS # 1.85 K/uL (1.2-3.4); MEAN CELL VOLUME 75.7 fL (80-100); MEAN CORPUSCULAR HEMOGLOBIN 26.3 pg (25-34); MEAN CORPUSCULAR HGB CONC 34.7 g/dl (32-36); MEAN PLATELET VOLUME 11.6 fL (7.4-10.4); MONO % 5.4 %; NEUT % 57.6 %; PLATELET COUNT 184 K/uL (130-400); RED BLOOD COUNT 5.63 M/uL (4.7-6.1); WHITE BLOOD COUNT 5.17 K/uL (4.8-10.8)
[2016-10-06 01:48] LABS: URINE APPEARANCE CLEAR (CLEAR); URINE BILIRUBIN NEG (NEG); URINE COLOR YELLOW; URINE NITRITE NEG (NEG); URINE PH 7.5 (4.5-7.5); URINE SPECIFIC GRAVITY 1.032 (1.000-1.030); UROBILINOGEN NEG (NEG); ZZUR CULT IF INDIC CLEAN CATCH NO
[2016-10-06 01:53] LABS: MANUAL MICROSCOPIC REQUIRED? NO; REVIEW REQ? NO
[2016-10-06 02:06] LABS: ACETAMINOPHEN < 2 ug/ml (10-30)
[2016-10-06 02:07] LABS: BUN/CREATININE RATIO 8.2 (10-20); CALCIUM 9.1 mg/dl (8.5-10.1); CREATININE 1.7 mg/dl (0.60-1.40); POTASSIUM 4.6 mmol/L (3.5-5.1)
[2016-10-06 02:08] LABS: BENZODIAZEPINE, URINE NEG (NEG); COCAINE,URINE NEG (NEG); PHENCYCLIDINE, URINE NEG (NEG)
[2016-10-06 02:28] LABS: BETA-HYDROXYBUTYRATE 1.06 mg/dL (0.2-2.81)
[2016-10-06] MEDS ORDERED: NovoLIN-R INSULIN PER UNIT CHARGE SC STA ×3 (02:32→05:19)
[2016-10-06] MEDS ORDERED: SODIUM CHLORIDE 0.9% 1000ML 1,000 ML IV STA (03:48)
[2016-10-06] MEDS ORDERED: hydrOXYzine HCL 25 MG TAB PO STA (04:38)
[2016-10-06] MEDS ORDERED: IBUPROFEN 600 MG TAB PO STA (09:15)
[2016-10-06] MEDS ORDERED: LORAZEPAM 1 MG TAB SL STA (09:26)
--- NOTE | 2016-10-06 10:23 | EMERGENCY ROOM VISIT NOTE ---
ED Visit Note 25-year-old male signed off to me from Dr. Minaya at change of shift. The patient is awaiting bed placement and transport. Medications were renewed. Patient was ordered pain medication and anxiolytic. Patient was evaluated at 1020. Patient is now asleep.
[2016-10-06 12:27] VITALS: BP 99/56; PULSE 76; O2SAT 96
[2016-10-12 14:31] LABS: SYNTHETIC CANNABINOIDS QL URIN NEGATIVE (Negative)
[2016-10-15] MEDS ORDERED: SULF800T23 PO (09:54)
[2017-02-10] MEDS ORDERED: INSDGIPEN SC (02:07)
[2017-02-10] MEDS ORDERED: PANT40TA PO (02:24)
[2017-02-10] MEDS ORDERED: MULT-506 PO (02:25)
[2017-02-10] MEDS ORDERED: CINN500T PO (09:17)
[2017-02-10] MEDS ORDERED: ASPI81TA28 PO (15:40)
[2017-02-10] MEDS ORDERED: INSU100I SC (19:05)
[2017-02-12] MEDS ORDERED: FLX10 PO (15:28)
[2017-02-12] MEDS ORDERED: PANT40TA PO (15:28)
[2017-02-12] MEDS ORDERED: INSDGIPEN SC (15:28)
[2017-02-12] MEDS ORDERED: LORA-741 PO (15:28)
[2017-02-12] MEDS ORDERED: ULT50X PO (15:28)
[2017-02-12] MEDS ORDERED: PROM12.56 PO (15:28)
[2017-02-12] MEDS ORDERED: INSU100I SC (15:28)
== END 2016-10-06 12:45 ==
LOC: C.EDB 00:46 → C.EDA 12:45
DX: T50.904A Poisoning by unspecified drugs, medicaments and biological substances, undetermined, initial encounter (principal); F41.9 Anxiety disorder, unspecified; E11.65 Type 2 diabetes mellitus with hyperglycemia; R45.851 Suicidal ideations; Z91.19 Patient's noncompliance with other medical treatment and regimen

== ENCOUNTER → 2016-10-15 | Day surgery (SDC) | payer OTHER ==
[~2016-10-15] MED LIST changes: +ASPI81TA28 PO; +ATROPINE SULFATE 0.1 MG/ML 5ML SYR IV PRN; +BIOT1TAB5 PO; +BUPIVACAINE 0.5 % 5 MG/1 ML MPF 30ML VIAL ONE; +CEFAZOLIN 1000MG/55 ML D5W IV SCH; +CINN500T PO; +DEXAMETHASONE SOD INJ 4 MG/ML VIAL ONE; +DiphenhydrAMINE HCL 50 MG/ML VIAL ONE; +FENTANYL CITRATE INJ 50 MCG/1 ML 2 ML VIAL IV PRN; +FENTANYL CITRATE INJ 50 MCG/1 ML 2 ML VIAL ONE; +FLX10 PO; +INSDGI SC; +INSDGIPEN SC; +INSU100I SC; +LACTATED RINGER'S 1000ML 1,000 ML IV SCH; +LIDOCAINE HCL 1% 20 ML VIAL ONE; +LIDOCAINE HCL 2% 2 ML VIAL (20MG/ML) ONE; +LIDOCAINE/EPINEPHRINE 1% INJ 50 ML VIAL ONE; +LORA-741 PO; +METOCLOPRAMIDE HCL INJ 5 MG/ML 2 ML VIAL IV PRN; +METOCLOPRAMIDE HCL INJ 5 MG/ML 2 ML VIAL ONE; +METOPROLOL TARTRATE 1 MG/ML VIAL ONE; +MIDAZOLAM HCL 1 MG/ML 2ML VIAL ONE; +MULT-506 PO; +NAPR-1169 PO; +OXYCODONE HCL IR 5 MG TAB (IMMEDIATE RELEASE) PO PRN; +PANT40TA PO; +POVIDONE-IODINE OP SOLN 30 ML BTL ONE; +PROM12.56 PO; +PROM25TA9 PO; +PROPOFOL IV EMULSION 10 MG/ML 20 ML VIAL IV ONE; +SODIUM CHLORIDE 0.9% 1000ML 1,000 ML IV SCH; +SULF800T23 PO; +ULT50X PO
--- NOTE | 2016-10-15 07:55 | History & Physical Bridge Note ---
H&P Re-Evaluation Bridge Note: I have examined the patient, reviewed the History & Physical and in the interval since the performance of the History & Physical I have noted the following changes of clinical significance: No changes noted
--- NOTE | 2016-10-15 09:49 | [facility] Post Operative Brief Note ---
Immediate Operative Summary Operative Date Oct 15, 2016. Pre-Operative Diagnosis Left Index Finger Extensor Tendon Laceration Post-Operative Diagnosis Same Procedure(s) Performed Left Index Finger Extensor Tendon Repair Surgeon Dr. Rodriguez [employer] Supervisor Surgeon(s) Omi Wyatt PA-C Estimated Blood Loss Minimal Findings partial EIP and complete EDC lacerations to left index finger with laceration to exctensor ryan Specimens None Anesthesia general Complication(s) None Disposition Recovery Room / PACU
--- NOTE | 2016-10-15 09:58 | Discharge Instructions-SurgCtr ---
Discharge Instructions Visit Reason for Visit: Left Index Finger Extensor Tendon Laceration Discharge Discharge Diagnosis / Problem: s/p left index finger extensor tendon repair Discharge Goals Goal(s): Decrease discomfort, Improve function, Increase independence Activity Recommendations Activity Limitations: as noted below Lifting Limitations: none Exercise/Sports Limitations: none (with left upper extremity ) Shower/Bathe: keep incision dry Driving or Machine Use: not until cleared by Dr. Rodriguez Anesthesia . Post Anesthesia Instructions: If you have had General Anesthesia or IV Sedation: * Do not drive today. * Resume driving when surgeon permits. * Do not make important decisions or sign legal documents today. * Call surgeon for: 1. Temperature elevations greater than 101 degrees F. 2. Uncontrollable pain. 3. Excessive bleeding. 4. Persistent nausea and vomiting. 5. Medication intolerance (nausea, vomiting or rash). * For nausea and vomiting use only clear liquids such as: tea, soda, bouillon until nausea subsides, then gradually increase diet as tolerated. * If you have any concerns or questions, call your surgeon's office. If physician is unavailable and it is an emergency, call 911 or go to the nearest emergency room. . Instructions / Follow-Up Instructions / Follow-Up DIET: * Resume previous diet. MEDICATIONS: * Please take your prescriptions as instructed at your pre-op appointment and/ or see medication discharge instructions listed above. * If concerns develop, call your physician's office at . SPECIAL CARE INSTRUCTIONS: * Ice/Elevate as instructed. * Keep dressing clean, dry, intact. * Your surgical extremity may be discolored due to prepping agents used on the skin. A bluish-green tint is a normal variant and should not cause alarm. Call your doctor at [phone] if: * Temperature above 101 degrees * Pain not relieved by pain medicine ordered * There is increased drainage or redness from any incision * You have any unanswered questions, problems or concerns. FOLLOW UP VISIT: * If not already scheduled, please call the office at to schedule a follow-up appointment. Diet Recommendations Home Diet: resume previous diet Procedures Procedures Performed: Left Index Finger Extensor Tendon Repair Pending Studies Studies pending at discharge: no Medical Emergencies . Who to Call and When: Medical Emergencies: If at any time you feel your situation is an emergency, please call 911 immediately. . Non-Emergent Contact Non-Emergency issues call your: Primary Care Provider . . "Provider Documentation" section prepared by Naun Wyatt. [place] Drug Monitoring Program Search Results: patient reviewed within database
--- NOTE | 2016-10-15 10:03 | [facility] Operative Report ---
Operative Report Operative Date Oct 15, 2016. Pre-Operative Diagnosis Left Index Finger Extensor Tendon Laceration Post-Operative Diagnosis Same Procedure(s) Performed Left Index Finger Extensor Tendon Repair Surgeon Dr. Rodriguez Multi Operation Forming Machine Setter Surgeon(s) Omi Wyatt PA-C Estimated Blood Loss Minimal Findings same Specimens None Drains none Anesthesia general Complication(s) None Disposition Recovery Room / PACU Implants none Indications sustained injury to left hand, MRI obtained, surgery recommended, consents signed. Description of Procedure taken to the OR, prepped and draped, I was present the entire case, please see Dr. Rodriguez's op note for further detail. I attest to the content of the Intraoperative Record and any orders documented therein. Any exceptions are noted below.
--- NOTE | 2016-10-15 10:32 | OPERATIVE REPORT ---
DATE OF OPERATION: 10/15/2016 PREOPERATIVE DIAGNOSIS: Left hand index finger extensor tendon laceration. POSTOPERATIVE DIAGNOSIS: Same. PROCEDURE: Repair of partial laceration to the extensor indices proprius and complete laceration to the extensor digitorum communis as well as the radial side of the extensor ryan on the left index finger. SURGEON: Dr. Rodriguez. DOCUMENT MANAGEMENT CONSULTANT: Naun Wyatt PA-C. SECOND DOCUMENT MANAGEMENT CONSULTANT: СЕРГЕЙ S[employer]iqi student. ANESTHESIA: General. INDICATIONS FOR PROCEDURE: The patient is a 25-year-old male who is 2 weeks status post a laceration to the right first webspace. He had this treated initially in an Emergency Room. He states that 1 week ago, he developed pain and a pop and lost the ability to extend his index finger. He was evaluated, had an MRI done. His exam is suggestive of extensor tendon injury in zone 6. MRI confirms injury to the extensor digitorum communis tendon. His treatment options, risks and benefits were discussed, and he elected to proceed with operative intervention and exploration. PROCEDURE IN DETAIL: Informed consent was obtained. The patient identified as Kenny Oliva. He identified the operative site as the left index finger, I marked it with my initials. A preop surgical timeout performed. A preop dose of IV antibiotics was given. He was taken to the operating room, positioned supine on the operating room table with left arm on a hand table, tourniquet was applied to the left upper arm. The limb was prepped and draped in usual sterile fashion. DVT prophylaxis was not indicated. The arm was prescrubbed prior to start of the procedure. The cascade of the hand looked normal. There was a 2 cm laceration with some induration and swelling in the first webspace area. This was healed without any evidence of infection, drainage or erythema. The limb was exsanguinated with Esmarch, tourniquet inflated to 225 mmHg after standard prep and drape. A longitudinal incision was made from the MP joint, about 4 cm proximally. Blunt dissection was performed down to the subcutaneous tissues. Granulation tissue was noted and debrided. The extensor digitorum communis tendon was completely lacerated and retracted proximally. It was easily retrieved and opposed. There was at least a 50% laceration of the EIP tendon located ulnarly. These lacerations were just at the proximal extent of the extensor ryan. There was also a complete laceration down to the bone of the extensor ryan radially. The granulation tissue was debrided. The injury did not involve the joint. Irrigation with sterile saline and Betadine lavage was performed. I then repaired both the EIP and EDC tendons to the index finger using 4-0 FiberWire, modified Thapa stitch, reinforced with a 6-0 Prolene running reversed locked cross stitch. The extensor ryan laceration which was about 1.5 cm in length was repaired with a #4 FiberWire running reversed locked cross stitch. The tourniquet was let down after 34 minutes of inflation. 0.5% Marcaine plain was injected into the skin and subcutaneous tissues and superficial radial nerve block. 10 mL of the Marcaine were utilized. About 10 mL of 1% lidocaine with epinephrine was placed with sponge and used topically to help control bleeding. Hemostasis was controlled with electrocautery and pressure as well as the lidocaine with epinephrine. The skin was then closed with interrupted 4-0 nylon horizontal mattress stitches. A bulky hand dressing was applied, Xeroform, 4 x 4's, and a splint with all of the fingers in neutral extension, the thumb was left free. This was a volar splint. The patient was then awakened from anesthesia without difficulty and taken to recovery room in stable condition. There were no specimens or complications. Counts were correct at the end of case. Blood loss was minimal. At the conclusion of the operation, I spoke to the patient's family and informed them of my findings. Postoperative instructions were given. Plan will be likely for immobilization as being best suited for this patient rather than the dynamic splinting. The drug website is queried. He has multiple prescriptions over the past several months from multiple providers and I discussed with the patient before surgery that if he has a narcotic issue, that he should seek help. We would do management of his postoperative pain with narcotics as is appropriate. I attest to the content of the Intraoperative Record and any orders documented therein. Any exceptions are noted below. BRISA
--- NOTE | 2016-10-15 10:36 | Anesthesia Progress Nt - [facility] ---
Anesthesia Post Op Note Date & Time Oct 15, 2016 at 10:35 Vital Signs Pain Intensity: 2 Vital Signs Past 12 Hours Date Time Temp Pulse Resp B/P Pulse Ox O2 Delivery O2 Flow Rate FiO2 10/15/16 10:30 102 16 95 10/15/16 10:30 98 16 10/15/16 10:29 127/94 10/15/16 10:25 91 15 100 10/15/16 10:25 90 15 10/15/16 10:24 121/86 10/15/16 10:20 91 14 100 10/15/16 10:20 91 14 10/15/16 10:19 127/85 10/15/16 10:15 92 12 95 10/15/16 10:15 88 12 10/15/16 10:14 126/95 10/15/16 10:10 91 13 10/15/16 10:10 91 13 100 10/15/16 10:09 112/89 10/15/16 10:05 92 14 10/15/16 10:05 92 14 99 10/15/16 10:04 118/86 10/15/16 10:00 99 17 100 10/15/16 10:00 98 17 10/15/16 09:59 132/89 10/15/16 09:56 36.2 99 16 121/95 100 Mask 6 10/15/16 09:55 98 15 10/15/16 09:55 97 15 100 10/15/16 07:31 36.6 100 20 130/102 98 Room Air Notes Mental Status: alert / awake / arousable, participated in evaluation Pt Amnestic to Procedure: Yes Nausea / Vomiting: adequately controlled Pain: adequately controlled Airway Patency, RR, SpO2: stable & adequate BP & HR: stable & adequate Hydration State: stable & adequate Anesthetic Complications: no major complications apparent
[2016-10-15 11:00] VITALS: TEMP 36.5
[2016-10-15 11:18] VITALS: BP 119/78; PULSE 93; O2SAT 97
== END | disposition home or self-care (01) ==
LOC: X.SURG 07:19
PROVIDERS: ATTEND Physical Medicine & Rehabilitation Sports Medicine
DX: S66.321A Laceration of extensor muscle, fascia and tendon of left index finger at wrist and hand level, initial encounter (principal); X58.XXXA Exposure to other specified factors, initial encounter; E11.9 Type 2 diabetes mellitus without complications; E66.9 Obesity, unspecified; Z79.4 Long term (current) use of insulin

== ENCOUNTER 2016-10-22 00:57 | Emergency (ER) | payer OTHER ==
[~2016-10-22] VITALS: Ht 152.4 cm; Wt 91.2 kg
[~2016-10-22 00:57] MED LIST changes: -ASPI81TA28 PO; -ATROPINE SULFATE 0.1 MG/ML 5ML SYR IV PRN; -BIOT1TAB5 PO; -BUPIVACAINE 0.5 % 5 MG/1 ML MPF 30ML VIAL ONE; -CEFAZOLIN 1000MG/55 ML D5W IV SCH; -CINN500T PO; -DEXAMETHASONE SOD INJ 4 MG/ML VIAL ONE; -DiphenhydrAMINE HCL 50 MG/ML VIAL ONE; -FENTANYL CITRATE INJ 50 MCG/1 ML 2 ML VIAL IV PRN; -FENTANYL CITRATE INJ 50 MCG/1 ML 2 ML VIAL ONE; -FLX10 PO; -INSDGI SC; -INSDGIPEN SC; -INSU100I SC; -LACTATED RINGER'S 1000ML 1,000 ML IV SCH; -LIDOCAINE HCL 1% 20 ML VIAL ONE; -LIDOCAINE HCL 2% 2 ML VIAL (20MG/ML) ONE; -LIDOCAINE/EPINEPHRINE 1% INJ 50 ML VIAL ONE; -LORA-741 PO; -METOCLOPRAMIDE HCL INJ 5 MG/ML 2 ML VIAL IV PRN; -METOCLOPRAMIDE HCL INJ 5 MG/ML 2 ML VIAL ONE; -METOPROLOL TARTRATE 1 MG/ML VIAL ONE; -MIDAZOLAM HCL 1 MG/ML 2ML VIAL ONE; -MULT-506 PO; -NAPR-1169 PO; -OXYCODONE HCL IR 5 MG TAB (IMMEDIATE RELEASE) PO PRN; -PANT40TA PO; -POVIDONE-IODINE OP SOLN 30 ML BTL ONE; -PROM12.56 PO; -PROM25TA9 PO; -PROPOFOL IV EMULSION 10 MG/ML 20 ML VIAL IV ONE; -SODIUM CHLORIDE 0.9% 1000ML 1,000 ML IV SCH; -SULF800T23 PO; -ULT50X PO
[2016-10-22 01:02] VITALS: TEMP 37; Ht 152.4 cm; Wt 91.2 kg
[2016-10-22] MEDS ORDERED: LORAZEPAM 1 MG TAB SL STA (01:19)
[2016-10-22 01:37] LABS: BASO % 0.3 %; BASO ABS # 0.02 K/uL (0-0.2); EOS % 2.3 %; HEMATOCRIT 43.2 % (42-52); IG% 0.2 %; LYMPH % 46.2 %; LYMPH ABS # 2.79 K/uL (1.2-3.4); MEAN CELL VOLUME 74.7 fL (80-100); MEAN CORPUSCULAR HEMOGLOBIN 26.8 pg (25-34); MEAN CORPUSCULAR HGB CONC 35.9 g/dl (32-36); MEAN PLATELET VOLUME 10.8 fL (7.4-10.4); MONO % 5.6 %; NEUT % 45.4 %; PLATELET COUNT 340 K/uL (130-400); RED BLOOD COUNT 5.78 M/uL (4.7-6.1); WHITE BLOOD COUNT 6.04 K/uL (4.8-10.8)
[2016-10-22 01:54] LABS: BUN/CREATININE RATIO 12.7 (10-20); CALCIUM 8.9 mg/dl (8.5-10.1); CREATININE 1.3 mg/dl (0.60-1.40); POTASSIUM 3.8 mmol/L (3.5-5.1)
[2016-10-22 02:04] LABS: BETA-HYDROXYBUTYRATE 1.17 mg/dL (0.2-2.81); THYROID STIMULATING HORMONE 1.16 uIu/ml (0.300-4.500)
[2016-10-22] MEDS ORDERED: KETOROLAC TROMETHAMINE 60 MG/2 ML VIAL IM STA (02:09)
[2016-10-22] MEDS ORDERED: METOCLOPRAMIDE HCL 5 MG TAB PO ONE (02:15)
[2016-10-22 02:32] LABS: BENZODIAZEPINE, URINE NEG (NEG); COCAINE,URINE NEG (NEG); PHENCYCLIDINE, URINE NEG (NEG)
--- NOTE | 2016-10-22 02:33 | EMERGENCY ROOM VISIT NOTE ---
History First contact with patient: 01:12 Chief Complaint: ANXIETY Stated Complaint: SLEEPING HEADACHES ANXIETY History of Present Illness The patient is a 25 year old male who presents to the Emergency Room with complaints of feeling anxious, unable to sleep and headache for the past few days. Patient was discharged from [facility] last week for behavioral health issues. He has a scheduled follow-up for his exam. Patient states the doctor there was listed schedule this but has not. Patient denies chest pain, dyspnea , fever, chills, vomiting, diarrhea, cough, congestion. Patient denies suicidal or homicidal ideations. Patient states he would like to see a therapist does not currently have one. He just had hand surgery last week and like to have this checked out to make sure it is okay. He had a tendon repair by orthopedics here. Review of Systems See HPI for pertinent positives & negatives. A total of 10 systems reviewed and were otherwise negative. Past Medical/Surgical History Medical Problems: (1) Acute renal insufficiency (2) Anxiety (3) Anxiety (4) Anxiety (5) Arm pain, right (6) DIAB MARIAH WO COMPL, TYPE I [JUVENILE TYPE], NOT UNCNTRLD (7) Diabetic ketoacidosis (8) DKA, type 1, not at goal (9) Fall (10) Foot pain (11) Fractured great toe (12) Hyperglycemia (13) Hyperglycemia (14) Injury of wrist, left (15) Substance abuse (16) Substance abuse Surgical Problems: (1) ACUTE APPENDICITIS NOS (2) Arthroscopy of knee joint Family History Diabetes mellitus FHx: hypertension FHx: seizures Kidney disease Social History Smoking Status: Never Smoker Alcohol Use: none Marital Status: single Housing Status: lives with family Occupation Status: unemployed Current/Historical Medications Scheduled Aspirin (Aspirin Ec), 81 MG PO QAM Atorvastatin (Lipitor), 20 MG PO QAM Biotin (Biotin), 1,000 MCG PO DAILY Cinnamon (Cinnamon), 1,000 MG PO QAM Insulin Glargine (Lantus Solostar), 60 UNITS SC HS Insulin Lispro (Human) (Humalog), 1 DOSE SC ACHS Multivitamin (Multivitamin), 1 TAB PO QAM Pantoprazole (Protonix), 40 MG PO QAM Allergies Coded Allergies: Cephalexin (Verified Allergy, Unknown, hives, 10/22/16) Ondansetron (Verified Allergy, Unknown, HIVES, 10/22/16) Acetaminophen (Verified Adverse Reaction, Unknown, GI SYMPTOMS, 10/22/16) Morphine (Unverified Adverse Reaction, Unknown, does not want it, 10/22/16) Physical Exam Vital Signs Date Time Temp Pulse Resp B/P Pulse Ox O2 Delivery O2 Flow Rate FiO2 10/22/16 02:08 118 18 131/95 97 Room Air 10/22/16 01:02 37.0 132 20 144/94 97 Room Air Physical Exam VITALS: Vitals are noted on the nurse's note and reviewed by myself. Vital signs stable. GENERAL: White male anxious-appearing, in no acute distress, nondiaphoretic, well-developed well-nourished. SKIN: The skin was without rashes, erythema, edema, or bruising. There is no tenting of the skin. Capillary reflex less than 2 seconds. HEAD: Normocephalic atraumatic. EARS: External auditory canals clear, tympanic membranes pearly [place] without erythema or effusion bilaterally. EYES: Pupils equal round and reactive to light and accommodation. Conjunctivae without injection, sclerae without icterus. Extraocular movements intact. NOSE: Patent, turbinates without inflammation or discharge. MOUTH: Mucous membranes moist. Pharynx without erythema or exudate. Uvula midline. Airway patent. Tongue does not deviate. NECK: Supple without nuchal rigidity. No lymphadenopathy. No thyromegaly. Cervical spine is nontender. No JVD. HEART: Regular rate and rhythm without murmurs gallops or rubs. LUNGS: Clear to auscultation bilaterally without wheezes, rales or rhonchi. No dullness to percussion. No retractions or accessory muscle use. ABDOMEN: Positive bowel sounds x 4. Normal tympanic percussion. Soft, nontender, without masses or organomegaly. Funez sign negative. No guarding or rebound tenderness. MUSCULOSKELETAL: No muscle atrophy, erythema, or edema noted. Left hand with sutures intact with no signs of infection. NEURO: Patient was alert and oriented to person place and time. Normal sensation to light and sharp touch. No focal neurological deficits. Cranial nerves II through XII grossly intact. Cerebellar exam intact. No pronator drift Psych: Cooperative, anxious Medical Decision & Procedures Laboratory Results 10/22/16 01:30 Red Blood Count 5.78, Mean Corpuscular Volume 74.7, Mean Corpuscular Hemoglobin 26.8, Mean Corpuscular Hemoglobin Concent 35.9, Mean Platelet Volume 10.8, Neutrophils (%) (Auto) 45.4, Lymphocytes (%) (Auto) 46.2, Monocytes (%) (Auto) 5.6, Eosinophils (%) (Auto) 2.3, Basophils (%) (Auto) 0.3, Neutrophils # (Auto) 2.74, Lymphocytes # (Auto) 2.79, Monocytes # (Auto) 0.34, Eosinophils # (Auto) 0.14, Basophils # (Auto) 0.02 10/22/16 01:30 Test 10/22/16 01:30 10/22/16 01:46 10/22/16 02:08 White Blood Count 6.04 K/uL (4.8-10.8) Red Blood Count 5.78 M/uL (4.7-6.1) Hemoglobin 15.5 g/dL (14.0-18.0) Hematocrit 43.2 % (42-52) Mean Corpuscular Volume 74.7 fL (80-100) Mean Corpuscular Hemoglobin 26.8 pg (25-34) Mean Corpuscular Hemoglobin Concent 35.9 g/dl (32-36) Platelet Count 340 K/uL (130-400) Mean Platelet Volume 10.8 fL (7.4-10.4) Neutrophils (%) (Auto) 45.4 % Lymphocytes (%) (Auto) 46.2 % Monocytes (%) (Auto) 5.6 % Eosinophils (%) (Auto) 2.3 % Basophils (%) (Auto) 0.3 % Neutrophils # (Auto) 2.74 K/uL (1.4-6.5) Lymphocytes # (Auto) 2.79 K/uL (1.2-3.4) Monocytes # (Auto) 0.34 K/uL (0.11-0.59) Eosinophils # (Auto) 0.14 K/uL (0-0.5) Basophils # (Auto) 0.02 K/uL (0-0.2) RDW Standard Deviation 37.8 fL (36.4-46.3) RDW Coefficient of Variation 14.1 % (11.5-14.5) Immature Granulocyte % (Auto) 0.2 % Immature Granulocyte # (Auto) 0.01 K/uL (0.00-0.02) Anion Gap 13.0 mmol/L (3-11) Est Creatinine Clear Calc Drug Dose 81.7 ml/min Estimated GFR () 87.9 Estimated GFR (Non- 75.8 BUN/Creatinine Ratio 12.7 (10-20) Calcium Level 8.9 mg/dl (8.5-10.1) Total Bilirubin 1.2 mg/dl (0.2-1) Direct Bilirubin 0.2 mg/dl (0-0.2) Aspartate Amino Transf (AST/SGOT) 21 U/L (15-37) Alanine Aminotransferase (ALT/SGPT) 35 U/L (12-78) Alkaline Phosphatase 82 U/L (45-117) Total Protein 7.8 gm/dl (6.4-8.2) Albumin 3.8 gm/dl (3.4-5.0) Beta-Hydroxybutyric Acid 1.17 mg/dL (0.2-2.81) Thyroid Stimulating Hormone (TSH) 1.160 uIu/ml (0.300-4.500) Medications Administered Medications (Trade) Dose Ordered Sig/Oral Route Start Time Stop Time Status Last Admin Dose Admin Lorazepam (Ativan Tab) 1 mg NOW STAT SL 10/22/16 01:19 10/22/16 01:22 DC 10/22/16 01:30 1 MG Ketorolac Tromethamine (Toradol Inj) 60 mg NOW STAT IM 10/22/16 02:09 10/22/16 02:11 DC 10/22/16 02:16 60 MG Metoclopramide HCl (Reglan Tab) 10 mg NOW ONCE PO 10/22/16 02:15 10/22/16 02:16 DC 10/22/16 02:14 10 MG ED Course Prior records/ancillary studies reviewed. Triage Nursing notes reviewed. Additional history obtained from friends. The patient's history was concerning for possible psychiatric disturbance. Differential diagnosis: Etiologies such as mood disorder, infection, hypoglycemia, electrolyte abnormalities, cardiac sources, intracerebral event, toxicologic, neurologic, as well as others were entertained. Physical examination: The physical examination was performed as above and was completely benign. No emergent medical pathologies were noted. ER treatment provided: Ativan, Toradol, Reglan On reassessment the patient felt better. Diagnostic interpretation by me: The labs revealed hyperglycemia without DKA Patient's right had to leave and patient stated he wanted no further workup and would like to leave. I felt this is reasonable as he had no thoughts of suicidal or homicidal ideation. He was strongly encouraged to follow up outpatient with family care and psychiatry. He was encouraged to stay but declined. He was discharged home in his friends care in stable condition By the evaluation outlined above emergent etiologies such as infection, hypoglycemia, electrolyte abnormalities, cardiac sources, intracerebral event, toxicologic, neurologic,as well as others were deemed relatively unlikely. It appears the patient is dealing with a psychiatric disturbance. The pt informed about the findings as listed above. All questions were answered and pleased with the treatment. Return instructions were outlined and the patient was discharged in stable condition. Referral: The patient was referred back to their primary care physician for follow-up in 2 to 3 days for a recheck of the current condition. Case reviewed with my attending Medical Decision As above Impression Primary Impression: Acute anxiety Additional Impressions: Headache Hyperglycemia Departure Information Dispostion Home / Self-Care Condition GOOD Referrals No Doctor, Assigned (PCP) Forms HOME CARE DOCUMENTATION FORM, IMPORTANT VISIT INFORMATION Patient Instructions My [facility] Additional Instructions DO NOT drive, drink alcohol, operate machinery, or perform dangerous activities today. You were given medications in the ER that can affect your ability to safely function or operate a vehicle. Monitor your blood sugars. Rest today in a quiet, peaceful, dark environment and get a full 8-10 hrs of sleep tonight. Avoid loud noises, smoke/smoking, alcohol, bright lights, stress, or physical exertion today to minimize the chance the headache may return. Continue current medications. Ibuprofen(Motrin, Advil) may be used for fever or pain. Use 600mg every six hours as needed. Take with food. Avoid using more than 2400mg in a 24 hour period. Do not use 2400mg per day for more than three consecutive days without physician direction. Prolonged inappropriate use can lead to stomach upset or ulcers. Return to the ER for passing out, worsening headache, vision problems, neck stiffness/pain, fevers, vomiting, worsening of your condition, or as needed. Follow up with your primary physician and/or a neurologist in 2-3 days for a recheck of your current condition and for further workup for your anxiety. Problem Qualifiers
[2016-10-22 02:35] VITALS: BP 136/91; PULSE 109; O2SAT 98
[2016-10-22 02:36] LABS: ANISOCYTOSIS PRESENT; COMPLETE YES
[2017-02-10] MEDS ORDERED: INSDGIPEN SC (02:07)
[2017-02-10] MEDS ORDERED: PANT40TA PO (02:24)
[2017-02-10] MEDS ORDERED: MULT-506 PO (02:25)
[2017-02-10] MEDS ORDERED: CINN500T PO (09:17)
[2017-02-10] MEDS ORDERED: ASPI81TA28 PO (15:40)
[2017-02-10] MEDS ORDERED: INSU100I SC (19:05)
[2017-02-12] MEDS ORDERED: INSDGIPEN SC (15:28)
[2017-02-12] MEDS ORDERED: FLX10 PO (15:28)
[2017-02-12] MEDS ORDERED: PANT40TA PO (15:28)
[2017-02-12] MEDS ORDERED: LORA-741 PO (15:28)
[2017-02-12] MEDS ORDERED: PROM12.56 PO (15:28)
[2017-02-12] MEDS ORDERED: ULT50X PO (15:28)
[2017-02-12] MEDS ORDERED: INSU100I SC (15:28)
== END 2016-10-22 02:37 | disposition home or self-care (01) ==
LOC: C.EDB 00:58 → C.EDA 02:37
DX: F41.9 Anxiety disorder, unspecified (principal); E11.65 Type 2 diabetes mellitus with hyperglycemia; R51 Headache

== ENCOUNTER 2017-01-29 14:05 | Emergency (ER) | payer OTHER ==
[~2017-01-29] VITALS: Ht 165.1 cm; Wt 86.9 kg
[2017-01-29 14:09] VITALS: TEMP 36.8; Ht 165.1 cm; Wt 86.9 kg
--- NOTE | 2017-01-29 16:29 | EMERGENCY ROOM VISIT NOTE ---
History First contact with patient: 16:19 Chief Complaint: DEHYDRATION Stated Complaint: SUNBURN, FATIGUE, VOMITING, DEHYDRATION-WORK REL History of Present Illness The patient is a 26 year old male who presents to the Emergency Room via private vehicle with complaints of "sunburn, fatigue, vomiting, dehydration, work-related". 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 Sunburn also extends down his backside of his legs. He states that he felt fatigued, and since then every time he tries to drink water he vomits. There is now associated headache and nausea which he rates as a 5/ 10. He feels dehydrated and his mouth is dry. He has feels lightheaded and fatigued. He believes that he has vomited 7 or 9 times a day. He states that he makes quick movements like crouching down he will become lightheaded and blurred vision. He has not urinated since yesterday. Review of Systems A complete 10-point Review of Systems was discussed with the patient, with pertinent positives and negatives listed in the History of Present Illness. All remaining Review of Systems questions can be considered negative unless otherwise specified. Past Medical/Surgical History Medical Problems: (1) Acute renal insufficiency (2) Anxiety (3) Anxiety (4) Anxiety (5) Arm pain, right (6) DIAB MARIAH WO COMPL, TYPE I [JUVENILE TYPE], NOT UNCNTRLD (7) Diabetic ketoacidosis (8) DKA, type 1, not at goal (9) Fall (10) Foot pain (11) Fractured great toe (12) Hyperglycemia (13) Hyperglycemia (14) Injury of wrist, left (15) Substance abuse (16) Substance abuse Surgical Problems: (1) ACUTE APPENDICITIS NOS (2) Arthroscopy of knee joint Family History Diabetes mellitus FHx: hypertension FHx: seizures Kidney disease Social History Smoking Status: Never Smoker Alcohol Use: none Marital Status: single Housing Status: lives with family Occupation Status: employed Current/Historical Medications Scheduled Aspirin (Aspirin Ec), 81 MG PO QAM Biotin (Biotin), 1,000 MCG PO DAILY Cinnamon (Cinnamon), 1,000 MG PO QAM Insulin Glargine (Lantus Solostar), 60 UNITS SC HS Insulin Lispro (Human) (Humalog), 1 DOSE SC ACHS Multivitamin (Multivitamin), 1 TAB PO QAM Naproxen (Naprosyn), 1,000 MG PO DAILY Pantoprazole (Protonix), 40 MG PO QAM Allergies Coded Allergies: Cephalexin (Verified Allergy, Unknown, hives, 01/29/17) Ondansetron (Verified Allergy, Unknown, HIVES, 01/29/17) Acetaminophen (Verified Adverse Reaction, Unknown, GI SYMPTOMS, 01/29/17) Morphine (Unverified Adverse Reaction, Unknown, does not want it, 01/29/17) Physical Exam Vital Signs Date Time Temp Pulse Resp B/P (MAP) Pulse Ox O2 Delivery O2 Flow Rate FiO2 01/29/17 19:36 84 18 136/94 92 01/29/17 17:46 89 01/29/17 17:36 79 22 144/84 100 Room Air 83 146/95 98 155/91 01/29/17 17:04 98 Room Air 01/29/17 17:04 102 18 102/70 97 Room Air 01/29/17 16:09 97 20 124/80 97 Room Air 01/29/17 14:09 36.8 107 18 136/74 98 Room Air Physical Exam VITAL SIGNS - Vital signs and nursing notes were reviewed. Afebrile, normotensive, tachycardic at a rate of 107 bpm, and is saturating well on room air 98%. GENERAL -26-year-old male appearing his stated age who is in no acute distress. Communicates well with provider and answers questions appropriately. SKIN - there is evidence of first-degree burn on the head, neck, shoulders and some the face. This is consistent with a sunburn. HEAD - NC/AT. EYES - PERRL with EOMI bilaterally. Sclera anicteric. Palpebral conjunctiva pink and moist with no injection noted. EARS - No deformities of external structures noted on gross examination bilaterally. No pain elicited with palpation of the tragus bilaterally. External auditory canals without discharge or otorrhea. Tympanic membranes pearly [place] without retraction or bulging. No fluid or purulent material visualized behind the TM. Handle of malleus, umbo, cone of light, pars tensa/ flaccid all easily visualized. NOSE - Midline and without cyanosis. No epistaxis or purulent drainage noted. Septum midline without deviation or septal hematoma noted. MOUTH/OROPHARYNX - Without perioral cyanosis. Buccal mucosa pink and moist but showing signs of dehydration and without leukoplakia. Tongue midline with equal elevation of palate bilaterally. No tonsillar hypertrophy, erythema, or exudates noted. Fair dentition noted. NECK - Neck with FROM. Supple to palpation. No lymphadenopathy noted. No nuchal rigidity. No meningismus. LUNGS - Chest wall symmetric without accessory muscle use, intercostals retractions, or central cyanosis. Normal vesicular breath sounds CTA B/L. No wheezes, rales, or rhonchi appreciated. CARDIAC - RRR with S1/S2. No murmur, rubs, or gallops appreciated. ABDOMEN - Abdominal contour without pulsations or visible masses. BS normoactive all four quadrants. No tenderness, palpable masses, hepatosplenomegaly, or ascites noted. EXTREMITIES - No clubbing or peripheral cyanosis. No pretibial edema present. +5 /5 strength noted in UE/LE bilaterally. NEUROLOGIC - Cranial nerves II through XII grossly intact. Sensory intact to light touch throughout. PSYCH - A&OPt is very pleasant and interacts well with examiner. Medical Decision & Procedures Laboratory Results 01/29/17 17:00 Red Blood Count 5.74, Mean Corpuscular Volume 77.7, Mean Corpuscular Hemoglobin 27.2, Mean Corpuscular Hemoglobin Concent 35.0, Mean Platelet Volume 10.1, Neutrophils (%) (Auto) 61.5, Lymphocytes (%) (Auto) 28.2, Monocytes (%) (Auto) 9.3, Eosinophils (%) (Auto) 0.6, Basophils (%) (Auto) 0.2, Neutrophils # (Auto) 3.10, Lymphocytes # (Auto) 1.42, Monocytes # (Auto) 0.47, Eosinophils # (Auto) 0.03, Basophils # (Auto) 0.01 01/29/17 17:00 Test 01/29/17 17:00 01/29/17 17:29 01/29/17 17:37 White Blood Count 5.04 K/uL (4.8-10.8) Red Blood Count 5.74 M/uL (4.7-6.1) Hemoglobin 15.6 g/dL (14.0-18.0) Hematocrit 44.6 % (42-52) Mean Corpuscular Volume 77.7 fL (80-100) Mean Corpuscular Hemoglobin 27.2 pg (25-34) Mean Corpuscular Hemoglobin Concent 35.0 g/dl (32-36) Platelet Count 273 K/uL (130-400) Mean Platelet Volume 10.1 fL (7.4-10.4) Neutrophils (%) (Auto) 61.5 % Lymphocytes (%) (Auto) 28.2 % Monocytes (%) (Auto) 9.3 % Eosinophils (%) (Auto) 0.6 % Basophils (%) (Auto) 0.2 % Neutrophils # (Auto) 3.10 K/uL (1.4-6.5) Lymphocytes # (Auto) 1.42 K/uL (1.2-3.4) Monocytes # (Auto) 0.47 K/uL (0.11-0.59) Eosinophils # (Auto) 0.03 K/uL (0-0.5) Basophils # (Auto) 0.01 K/uL (0-0.2) RDW Standard Deviation 38.1 fL (36.4-46.3) RDW Coefficient of Variation 13.6 % (11.5-14.5) Immature Granulocyte % (Auto) 0.2 % Immature Granulocyte # (Auto) 0.01 K/uL (0.00-0.02) Anion Gap 5.0 mmol/L (3-11) Est Creatinine Clear Calc Drug Dose 153.3 ml/min Estimated GFR () 147.5 Estimated GFR (Non- 127.3 BUN/Creatinine Ratio 15.9 (10-20) Calcium Level 7.9 mg/dl (8.5-10.1) Magnesium Level 2.4 mg/dl (1.8-2.4) Total Bilirubin 0.2 mg/dl (0.2-1) Aspartate Amino Transf (AST/SGOT) 18 U/L (15-37) Alanine Aminotransferase (ALT/SGPT) 82 U/L (12-78) Alkaline Phosphatase 150 U/L (45-117) Total Creatine Kinase 128 U/L (39-308) Creatine Kinase MB 1.4 ng/ml (0.5-3.6) Creatine Kinase MB Ratio 1.1 (0-3.0) Total Protein 6.3 gm/dl (6.4-8.2) Albumin 3.0 gm/dl (3.4-5.0) Globulin 3.3 gm/dl (2.5-4.0) Albumin/Globulin Ratio 0.9 (0.9-2) Lipase 314 U/L (73-393) Beta-Hydroxybutyric Acid 2.08 mg/dL (0.2-2.81) Thyroid Stimulating Hormone (TSH) 0.501 uIu/ml (0.300-4.500) Urine Color YELLOW Urine Appearance CLEAR (CLEAR) Urine pH 6.5 (4.5-7.5) Urine Specific [place] 1.018 (1.000-1.030) Urine Protein NEG (NEG) Urine Glucose (UA) 3+ (NEG) Urine Ketones NEG (NEG) Urine Occult Blood 2+ (NEG) Urine Nitrite NEG (NEG) Urine Bilirubin NEG (NEG) Urine Urobilinogen NEG (NEG) Urine Leukocyte Esterase NEG (NEG) Urine WBC (Auto) 1-5 /hpf (0-5) Urine RBC (Auto) >30 /hpf (0-4) Urine Hyaline Casts (Auto) 0 /lpf (0-5) Urine Epithelial Cells (Auto) 0-5 /lpf (0-5) Urine Bacteria (Auto) NEG (NEG) Urine Opiates Screen NEG (NEG) Urine Methadone, Qualitative NEG (NEG) Urine Barbiturates NEG (NEG) Urine Phencyclidine (PCP) Level NEG (NEG) Ur Amphetamine/Methamphetamine NEG (NEG) MDMA (Ecstasy) Screen NEG (NEG) Urine Benzodiazepines Screen NEG (NEG) Urine Cocaine Metabolite NEG (NEG) Urine Marijuana (THC) NEG (NEG) Lactic Acid Level 1.6 mmol/L (0.4-2.0) Medications Administered Medications (Trade) Dose Ordered Sig/Oarl Route Start Time Stop Time Status Last Admin Dose Admin Sodium Chloride 1,000 ml @ 999 mls/hr Q1H1M STAT IV 01/29/17 16:30 01/29/17 17:30 DC 01/29/17 17:26 999 MLS/HR Ketorolac Tromethamine (Toradol Inj) 15 mg NOW STAT IV 01/29/17 16:35 01/29/17 16:37 DC 01/29/17 17:27 15 MG Promethazine HCl 12.5 mg/Sodium Chloride 50.5 ml @ 204 mls/hr NOW STAT IV 01/29/17 16:35 01/29/17 16:49 DC 01/29/17 17:26 204 MLS/HR Sodium Chloride 1,000 ml @ 200 mls/hr Q5H STAT IV 01/29/17 17:25 01/29/17 20:09 DC 01/29/17 17:25 200 MLS/HR Potassium Chloride (Klor-Con M10) 40 meq NOW STAT PO 01/29/17 18:28 01/29/17 18:29 DC 01/29/17 19:14 40 MEQ Ketorolac Tromethamine (Toradol Inj) 15 mg NOW STAT IV 01/29/17 18:41 01/29/17 18:42 DC 01/29/17 19:14 15 MG Medical Decision Patient was seen and evaluated as above. He presents to us today after working out in the hot sun yesterday as well as today symptoms to include fatigue, vomiting, and dehydration. The patient is nontoxic in appearance. There is no evidence of meningitis. There has been no fevers. He is afebrile upon presentation. He is slightly tachycardic, which I believe is likely secondary to dehydration. IV access was initiated, and the above workup was performed. His CBC reveals no leukocytosis or concerning anemia. His CMP does reveal potassium low at 3.4, carbon dioxide high at 34, glucose of 126, lactic 1.6, calcium low 7.9, this corrected ionized calcium was found to be normal, ALT high at 82, alkaline phosphatase high at 150, total protein low at 6.3, albumin low at 3. His beta hydroxybutyric acid was normal at 2.08. TSH within normal limits. Urine reveals 2+ occult blood, greater than 30 red blood cells. Urine drug screen is negative. The patient was treated with 15 mg of Toradol intravenously as I was concerned that he may have impaired kidney function, however this was not the case and he is reevaluated and was still feeling pain therefore was given another 15 mg. I do believe he could've tolerated the 30 mg dose initially therefore believe that the 2 smaller 15 mg doses will be okay. I do not believe imaging would be of any benefit. He was hydrated with normal saline. He is reevaluated and still was not feeling any better, and the case was discussed with my attending. The decision was made then to obtain a bladder scan. Orthostatics negative. Before the bladder scan could be completed, I was informed by the staff that the patient was requesting to be discharged. I then went to the patient and he states that the person that he has with has to go to work, and that is his only ride therefore he would like to leave. I informed him that we have not completed his workup or treatment however he states that he would like to be discharged. I will accommodate this request. This request was at 7:10 PM. Patient was educated to return with any worrisome symptoms and is to follow-up with his family doctor. He states that he was in the process of attempting to find one, therefore informed him that he should call back to our emergency department here, with number provided first thing tomorrow morning to speak with our immigration case manager regarding help to establish follow-up. I do believe this is reasonable. He was educated upon worrisome symptoms which to return, had questions answered prior to discharge, and was discharged home in good condition. He was given 40 MEQ of KDUR for the hypokalemia. EKG reveals normal sinus rhythm, rate of 84 bpm, no ectopy or ischemic change noted. In evaluation short of this patient following differential diagnoses were entertained: Sepsis, rhabdomyolysis, fatigue, dehydration, sunburn, among others. I suspect the patient is likely expressing fatigue secondary to dehydration. I do not suspect any emergent process. Impression Primary Impression: Fatigue Additional Impressions: Dehydration Hypokalemia Departure Information Dispostion Home / Self-Care Condition FAIR Referrals No Doctor, Assigned (PCP) Patient Instructions My [facility] Additional Instructions You were seen in the emergency Department for fatigue, dehydration and other pains. At your request, you are respectfully being discharged. I do recommend that you follow-up with a family doctor, for your low calcium, potassium, and for your elevated liver chemical and alkaline phosphatase. It is recommended that you call here to the emergency department at [phone] and asked for a continuous pillowcase cutter to help find a family doctor for you Please return with any worsening of your symptoms. Please return to the emergency department with any new/concerning symptoms. Thank you for your time. Problem Qualifiers
[2017-01-29] MEDS ORDERED: SODIUM CHLORIDE 0.9% 1000ML 1,000 ML IV STA ×2 (16:30→17:25)
[2017-01-29] MEDS ORDERED: PROMETHAZINE HCL INJ 12.5 MG in SODIUM CHLORIDE 0.9% 50ML 50 ML IV STA (16:35)
[2017-01-29] MEDS ORDERED: KETOROLAC TROMETHAMINE 15 MG/ML VIAL IV STA ×2 (16:35→18:41)
[2017-01-29] MEDS ORDERED: NAPR-1169 PO (16:36)
[2017-01-29 17:04] VITALS: O2SAT 98
[2017-01-29 17:12] LABS: BASO % 0.2 %; BASO ABS # 0.01 K/uL (0-0.2); COMPLETE YES; EOS % 0.6 %; HEMATOCRIT 44.6 % (42-52); IG% 0.2 %; LYMPH % 28.2 %; LYMPH ABS # 1.42 K/uL (1.2-3.4); MEAN CELL VOLUME 77.7 fL (80-100); MEAN CORPUSCULAR HEMOGLOBIN 27.2 pg (25-34); MEAN PLATELET VOLUME 10.1 fL (7.4-10.4); MONO % 9.3 %; NEUT % 61.5 %; PLATELET COUNT 273 K/uL (130-400); RED BLOOD COUNT 5.74 M/uL (4.7-6.1); WHITE BLOOD COUNT 5.04 K/uL (4.8-10.8)
[2017-01-29 17:32] LABS: BUN/CREATININE RATIO 15.9 (10-20); CALCIUM 7.9 mg/dl (8.5-10.1); CREATININE 0.74 mg/dl (0.60-1.40); MAGNESIUM 2.4 mg/dl (1.8-2.4); POTASSIUM 3.4 mmol/L (3.5-5.1)
[2017-01-29 17:43] LABS: ALB/GLOB RATIO 0.9 (0.9-2); CKMB/CK RATIO 1.1 (0-3.0); THYROID STIMULATING HORMONE 0.501 uIu/ml (0.300-4.500)
[2017-01-29 18:05] LABS: URINE APPEARANCE CLEAR (CLEAR); URINE BILIRUBIN NEG (NEG); URINE COLOR YELLOW; URINE EPITHELIAL CELL AUTO 0-5 /lpf (0-5); URINE NITRITE NEG (NEG); URINE PH 6.5 (4.5-7.5); URINE SPECIFIC GRAVITY 1.018 (1.000-1.030); UROBILINOGEN NEG (NEG); ZZUR CULT IF INDIC CLEAN CATCH NO
[2017-01-29 18:07] LABS: MANUAL MICROSCOPIC REQUIRED? NO; REVIEW REQ? NO
[2017-01-29] MEDS ORDERED: POTASSIUM CHLORIDE 10 MEQ TABCR PO STA (18:28)
[2017-01-29 19:15] LABS: BENZODIAZEPINE, URINE NEG (NEG); COCAINE,URINE NEG (NEG); PHENCYCLIDINE, URINE NEG (NEG)
[2017-01-29 19:36] VITALS: BP 136/94; PULSE 84; O2SAT 92
[2017-02-10] MEDS ORDERED: INSDGIPEN SC (02:07)
[2017-02-10] MEDS ORDERED: PANT40TA PO (02:24)
[2017-02-10] MEDS ORDERED: MULT-506 PO (02:25)
[2017-02-10] MEDS ORDERED: CINN500T PO (09:17)
[2017-02-10] MEDS ORDERED: ASPI81TA28 PO (15:40)
[2017-02-10] MEDS ORDERED: INSU100I SC (19:05)
[2017-02-12] MEDS ORDERED: ULT50X PO (15:28)
[2017-02-12] MEDS ORDERED: PANT40TA PO (15:28)
[2017-02-12] MEDS ORDERED: PROM12.56 PO (15:28)
[2017-02-12] MEDS ORDERED: FLX10 PO (15:28)
[2017-02-12] MEDS ORDERED: LORA-741 PO (15:28)
[2017-02-12] MEDS ORDERED: INSDGIPEN SC (15:28)
[2017-02-12] MEDS ORDERED: INSU100I SC (15:28)
== END 2017-01-29 19:37 | disposition home or self-care (01) ==
LOC: C.EDB 14:07 → C.EDC 19:37
DX: E86.0 Dehydration (principal); E87.6 Hypokalemia; L55.9 Sunburn, unspecified; E10.9 Type 1 diabetes mellitus without complications; R53.83 Other fatigue

== ENCOUNTER 2017-02-02 07:06 | Emergency (ER) | payer OTHER ==
[~2017-02-02] VITALS: Ht 165.1 cm; Wt 88.5 kg
[2017-02-02 07:06] VITALS: TEMP 36.6; Ht 165.1 cm; Wt 88.5 kg
[~2017-02-02 07:06] MED LIST changes: -ATOR-22 PO; +NAPR-1169 PO
[2017-02-02] MEDS ORDERED: SODIUM CHLORIDE 0.9% 1000ML 1,000 ML IV STA (07:41)
--- NOTE | 2017-02-02 07:51 | EMERGENCY ROOM VISIT NOTE ---
History Report prepared by Waqas: Mignon Hassan Under the Supervision of: Dr. Anh Minaya M.D. First contact with patient: 07:15 Chief Complaint: ABDOMINAL PAIN Stated Complaint: STOMACH AND BACK PAIN, CRAMPING IN LEGS History of Present Illness The patient is a 26 year old male who presents to the Emergency Room with complaints of constant left lower quadrant abdominal pain that started 4 days ago. He describes the pain as discomfort. The patient was evaluated in the ED 4 days ago for sunburn, dehydration, fatigue, and vomiting. He got sunburn at work 5 days ago. When he was evaluated in the ED 4 days ago, he was experiencing nausea and persistent vomiting. The patient states that he has not vomited since being evaluated, but he is still nauseous. He is also experiencing bilateral leg cramping. The patient states that he has not had a bowel movement for the last 2 days. He was experiencing diarrhea 4 days ago, but he states that he has not experienced any diarrhea since then. However, he states that he has only had 1 bowel movement since he was evaluated in the ED. The patient denies fevers, but states that he doesn't check his fever. He also denies chest pain and shortness of breath. He states that he was also experiencing bilateral back pain 4 days ago and he states that has worsened since he was evaluated. The patient expresses concern about his kidneys because he is diabetic. He states that he would like to make sure there is nothing wrong with his kidneys before he returns to work. The patient states that his blood sugars have been normal and his BSG this morning was 174. The patient states that he has been urinating more than when he was last evaluated in the ED , but he is still not urinating as much as he normally does. Source of History: patient, other (Patient's EMR) Onset: 4 days ago Position: abdomen (LLQ) Quality: other (discomfort) Timing: constant Associated Symptoms: + nausea, + back pain (bilateral), + urinary symptoms ( somewhat decreased frequency), No fevers, No chest pain, No SOB, No vomiting, No diarrhea Note: bilateral leg cramping Review of Systems See HPI for pertinent positives & negatives. A total of 10 systems reviewed and were otherwise negative. Past Medical & Surgical Medical Problems: (1) Acute renal insufficiency (2) Anxiety (3) Anxiety (4) Anxiety (5) Arm pain, right (6) DIAB MARIAH WO COMPL, TYPE I [JUVENILE TYPE], NOT UNCNTRLD (7) Diabetic ketoacidosis (8) DKA, type 1, not at goal (9) Fall (10) Foot pain (11) Fractured great toe (12) Hyperglycemia (13) Hyperglycemia (14) Injury of wrist, left (15) Substance abuse (16) Substance abuse Surgical Problems: (1) ACUTE APPENDICITIS NOS (2) Arthroscopy of knee joint Family History Diabetes mellitus FHx: hypertension FHx: seizures Kidney disease Social History Smoking Status: Never Smoker Alcohol Use: none Marital Status: single Housing Status: lives with family Occupation Status: employed Current/Historical Medications Scheduled Aspirin (Aspirin Ec), 81 MG PO QAM Biotin (Biotin), 1,000 MCG PO DAILY Cinnamon (Cinnamon), 1,000 MG PO QAM Insulin Glargine (Lantus Solostar), 60 UNITS SC HS Insulin Lispro (Human) (Humalog), 1 DOSE SC ACHS Multivitamin (Multivitamin), 1 TAB PO QAM Pantoprazole (Protonix), 40 MG PO QAM Allergies Coded Allergies: Cephalexin (Verified Allergy, Unknown, hives, 01/29/17) Ondansetron (Verified Allergy, Unknown, HIVES, 01/29/17) Acetaminophen (Verified Adverse Reaction, Unknown, GI SYMPTOMS, 01/29/17) Physical Exam Vital Signs Date Time Temp Pulse Resp B/P (MAP) Pulse Ox O2 Delivery O2 Flow Rate FiO2 02/02/17 10:17 72 20 122/78 98 02/02/17 08:39 78 20 136/85 98 Room Air 02/02/17 07:06 36.6 82 20 124/83 99 Room Air Physical Exam Vital signs reviewed. General: Well-appearing male, in no significant distress. HEENT: No scleral icterus, PERRLA, neck supple, sunburn to back of neck. Atraumatic. Cardiovascular: Regular rate and rhythm, no extra sounds. Pulmonary: Clear to auscultation bilaterally, normal work of breathing. Abdomen: Soft, left lower quadrant tenderness, no rebound, no guarding, nondistended, positive bowel sounds. Musculoskeletal: Atraumatic, mild bilateral CVA tenderness, no peripheral edema. Neurologic: Patient awake alert and oriented x 3, full strength in all 4 extremities. Cranial nerves 2 through 12 grossly intact. Skin: Warm, dry, no rash Medical Decision & Procedures Laboratory Results 02/02/17 07:25 Red Blood Count 5.20, Mean Corpuscular Volume 78.8, Mean Corpuscular Hemoglobin 27.1, Mean Corpuscular Hemoglobin Concent 34.4, Mean Platelet Volume 10.5, Neutrophils (%) (Auto) 35.8, Lymphocytes (%) (Auto) 49.1, Monocytes (%) (Auto) 10.8, Eosinophils (%) (Auto) 4.0, Basophils (%) (Auto) 0.3, Neutrophils # (Auto ) 1.26, Lymphocytes # (Auto) 1.73, Monocytes # (Auto) 0.38, Eosinophils # (Auto ) 0.14, Basophils # (Auto) 0.01 02/02/17 07:25 Test 02/02/17 07:25 02/02/17 09:54 02/02/17 09:55 White Blood Count 3.52 K/uL (4.8-10.8) Red Blood Count 5.20 M/uL (4.7-6.1) Hemoglobin 14.1 g/dL (14.0-18.0) Hematocrit 41.0 % (42-52) Mean Corpuscular Volume 78.8 fL (80-100) Mean Corpuscular Hemoglobin 27.1 pg (25-34) Mean Corpuscular Hemoglobin Concent 34.4 g/dl (32-36) Platelet Count 245 K/uL (130-400) Mean Platelet Volume 10.5 fL (7.4-10.4) Neutrophils (%) (Auto) 35.8 % Lymphocytes (%) (Auto) 49.1 % Monocytes (%) (Auto) 10.8 % Eosinophils (%) (Auto) 4.0 % Basophils (%) (Auto) 0.3 % Neutrophils # (Auto) 1.26 K/uL (1.4-6.5) Lymphocytes # (Auto) 1.73 K/uL (1.2-3.4) Monocytes # (Auto) 0.38 K/uL (0.11-0.59) Eosinophils # (Auto) 0.14 K/uL (0-0.5) Basophils # (Auto) 0.01 K/uL (0-0.2) RDW Standard Deviation 38.4 fL (36.4-46.3) RDW Coefficient of Variation 13.5 % (11.5-14.5) Immature Granulocyte % (Auto) 0.0 % Immature Granulocyte # (Auto) 0.00 K/uL (0.00-0.02) Anion Gap 7.0 mmol/L (3-11) Est Creatinine Clear Calc Drug Dose 104.1 ml/min Estimated GFR () 106.8 Estimated GFR (Non- 92.2 BUN/Creatinine Ratio 6.1 (10-20) Calcium Level 8.3 mg/dl (8.5-10.1) Magnesium Level 1.8 mg/dl (1.8-2.4) Total Bilirubin 0.7 mg/dl (0.2-1) Direct Bilirubin 0.2 mg/dl (0-0.2) Aspartate Amino Transf (AST/SGOT) 20 U/L (15-37) Alanine Aminotransferase (ALT/SGPT) 25 U/L (12-78) Alkaline Phosphatase 84 U/L (45-117) Total Protein 6.8 gm/dl (6.4-8.2) Albumin 3.2 gm/dl (3.4-5.0) Beta-Hydroxybutyric Acid 0.94 mg/dL (0.2-2.81) Urine Color DK YELLOW Urine Appearance CLEAR (CLEAR) Urine pH 5.5 (4.5-7.5) Urine Specific [place] 1.029 (1.000-1.030) Urine Protein NEG (NEG) Urine Glucose (UA) 3+ (NEG) Urine Ketones NEG (NEG) Urine Occult Blood 3+ (NEG) Urine Nitrite NEG (NEG) Urine Bilirubin NEG (NEG) Urine Urobilinogen NEG (NEG) Urine Leukocyte Esterase NEG (NEG) Urine WBC (Auto) 1-5 /hpf (0-5) Urine RBC (Auto) >30 /hpf (0-4) Urine Hyaline Casts (Auto) 0 /lpf (0-5) Urine Epithelial Cells (Auto) 5-10 /lpf (0-5) Urine Bacteria (Auto) NEG (NEG) Bedside Glucose 226 mg/dl (70-99) Laboratory results per my review. Medications Administered Medications (Trade) Dose Ordered Sig/Oral Route Start Time Stop Time Status Last Admin Dose Admin Sodium Chloride 1,000 ml @ 999 mls/hr Q1H1M STAT IV 02/02/17 07:41 02/02/17 08:41 DC 02/02/17 07:49 999 MLS/HR ED Course 0723: Past medical records reviewed. The patient was evaluated in room A2. A complete history and physical examination was performed. 0741: Ordered Sodium Chloride 1000 ml @ 999 mls/hr IV 0928: Ordered Insulin Human Regular 10 units SC 1004: The patient's nurse informed me that the patient's BSG is 226 so I canceled the insulin. 1014: Upon reevaluation, the patient appeared to have improvement of his symptoms. I discussed findings with him. He verbalized agreement of the treatment plan. He was discharged home. Medical Decision Differentials include gastroenteritis, food borne illness, infections, appendicitis, diverticulitis, inflammatory bowel disease, obstruction, GI bleed , biliary pathology. Medication Reconciliation: I attest that I have personally reviewed the patient' s current medication list. Blood Pressure Screening: Patient was found to have a slightly elevated blood pressure due to circumstances. I do not believe that the patient requires hypertension monitoring. This pt was evaluated and appeared to be in no distress. IVF were initiated and lab work was sent. Pt is noted to be hyperglycemic and to have a mild leukopenia. This is likely a viral illness. Insulin was ordered, but after recheck of BG the insulin was cancelled. Pt was asked to continue his medication regimen as he would normally. He was made aware of the findings and agrees with plan for outpt management. He will return to the ED for worsening of symptoms or any medical concerns. Impression Primary Impression: Nausea Additional Impression: Hyperglycemia Scribe Attestation The scribe's documentation has been prepared under my direction and personally reviewed by me in its entirety. I confirm that the note above accurately reflects all work, treatment, procedures, and medical decision making performed by me. Departure Information Dispostion Home / Self-Care Referrals No Doctor, Assigned (PCP) Forms HOME CARE DOCUMENTATION FORM, IMPORTANT VISIT INFORMATION Patient Instructions My [facility] Additional Instructions Diagnosis: Hyperglycemia, nausea Please drink plenty of clear fluids. Check your blood sugars frequently and correct with insulin as directed. Follow-up with your physician this week for reevaluation. Return to the ER for worsening of symptoms or any medical concerns. Problem Qualifiers
[2017-02-02 07:54] LABS: BASO % 0.3 %; BASO ABS # 0.01 K/uL (0-0.2); COMPLETE YES; LYMPH % 49.1 %; LYMPH ABS # 1.73 K/uL (1.2-3.4); MEAN CELL VOLUME 78.8 fL (80-100); MEAN CORPUSCULAR HEMOGLOBIN 27.1 pg (25-34); MEAN CORPUSCULAR HGB CONC 34.4 g/dl (32-36); MEAN PLATELET VOLUME 10.5 fL (7.4-10.4); MONO % 10.8 %; NEUT % 35.8 %; PLATELET COUNT 245 K/uL (130-400); WHITE BLOOD COUNT 3.52 K/uL (4.8-10.8)
[2017-02-02 08:10] LABS: BUN/CREATININE RATIO 6.1 (10-20); CREATININE 1.1 mg/dl (0.60-1.40); MAGNESIUM 1.8 mg/dl (1.8-2.4); POTASSIUM 4.1 mmol/L (3.5-5.1)
[2017-02-02 08:11] LABS: CALCIUM 8.3 mg/dl (8.5-10.1)
[2017-02-02 08:20] LABS: BETA-HYDROXYBUTYRATE 0.94 mg/dL (0.2-2.81)
[2017-02-02] MEDS ORDERED: NovoLIN-R INSULIN PER UNIT CHARGE SC STA (09:28)
[2017-02-02 10:07] LABS: URINE APPEARANCE CLEAR (CLEAR); URINE BILIRUBIN NEG (NEG); URINE NITRITE NEG (NEG); URINE PH 5.5 (4.5-7.5); URINE SPECIFIC GRAVITY 1.029 (1.000-1.030); UROBILINOGEN NEG (NEG); ZZUR CULT IF INDIC CLEAN CATCH NO
[2017-02-02 10:09] LABS: MANUAL MICROSCOPIC REQUIRED? NO; REVIEW REQ? NO; URINE COLOR DK YELLOW
[2017-02-02 10:17] VITALS: BP 122/78; PULSE 72; O2SAT 98
[2017-02-10] MEDS ORDERED: INSDGIPEN SC (02:07)
[2017-02-10] MEDS ORDERED: PANT40TA PO (02:24)
[2017-02-10] MEDS ORDERED: MULT-506 PO (02:25)
[2017-02-10] MEDS ORDERED: CINN500T PO (09:17)
[2017-02-10] MEDS ORDERED: ASPI81TA28 PO (15:40)
[2017-02-10] MEDS ORDERED: INSU100I SC (19:05)
[2017-02-12] MEDS ORDERED: LORA-741 PO (15:28)
[2017-02-12] MEDS ORDERED: PROM12.56 PO (15:28)
[2017-02-12] MEDS ORDERED: INSU100I SC (15:28)
[2017-02-12] MEDS ORDERED: ULT50X PO (15:28)
[2017-02-12] MEDS ORDERED: FLX10 PO (15:28)
[2017-02-12] MEDS ORDERED: PANT40TA PO (15:28)
[2017-02-12] MEDS ORDERED: INSDGIPEN SC (15:28)
== END 2017-02-02 10:18 | disposition home or self-care (01) ==
LOC: C.EDB 07:07 → C.EDA 10:18
DX: R11.0 Nausea (principal); E10.65 Type 1 diabetes mellitus with hyperglycemia; F41.9 Anxiety disorder, unspecified; Z79.82 Long term (current) use of aspirin; Z79.4 Long term (current) use of insulin; Z83.3 Family history of diabetes mellitus; Z82.49 Family history of ischemic heart disease and other diseases of the circulatory system; Z82.0 Family history of epilepsy and other diseases of the nervous system

== ENCOUNTER 2017-02-05 07:43 | Emergency (ER) | payer OTHER ==
[~2017-02-05] VITALS: Ht 165.1 cm; Wt 86.6 kg
[2017-02-05 07:46] VITALS: TEMP 36.7; Ht 165.1 cm; Wt 86.6 kg
[2017-02-05] MEDS ORDERED: PROMETHAZINE HCL INJ 12.5 MG in SODIUM CHLORIDE 0.9% 50ML 50 ML IV STA (08:16)
[2017-02-05] MEDS ORDERED: SODIUM CHLORIDE 0.9% 1000ML 2,000 ML IV STA (08:16)
[2017-02-05] MEDS ORDERED: ACETAMINOPHEN IV 1,000 MG in EMPTY BAG 0 ML IV STA (08:48)
[2017-02-05 08:54] LABS: BASO % 0.2 %; BASO ABS # 0.01 K/uL (0-0.2); COMPLETE YES; EOS % 2.8 %; IG% 0.2 %; LYMPH % 45.3 %; LYMPH ABS # 2.42 K/uL (1.2-3.4); MEAN CELL VOLUME 76.9 fL (80-100); MEAN CORPUSCULAR HEMOGLOBIN 26.9 pg (25-34); MONO % 7.7 %; NEUT % 43.8 %; PLATELET COUNT 305 K/uL (130-400); RED BLOOD COUNT 5.72 M/uL (4.7-6.1); WHITE BLOOD COUNT 5.34 K/uL (4.8-10.8)
[2017-02-05 09:04] LABS: BENZODIAZEPINE, URINE NEG (NEG); COCAINE,URINE NEG (NEG); PHENCYCLIDINE, URINE NEG (NEG)
[2017-02-05 09:05] VITALS: O2SAT 99
[2017-02-05 09:14] LABS: BUN/CREATININE RATIO 10.3 (10-20); CALCIUM 8.9 mg/dl (8.5-10.1); CREATININE 1.1 mg/dl (0.60-1.40); MAGNESIUM 1.9 mg/dl (1.8-2.4)
[2017-02-05 09:25] LABS: BETA-HYDROXYBUTYRATE 0.99 mg/dL (0.2-2.81); THYROID STIMULATING HORMONE 2.86 uIu/ml (0.300-4.500)
--- NOTE | 2017-02-05 09:45 | EMERGENCY ROOM VISIT NOTE ---
History First contact with patient: 07:53 Chief Complaint: NAUSEA Stated Complaint: NAUSEA, DIZZY, MUSCLE CRAMPING/PAIN Nursing Triage Summary: Pt verbalizes this is his 3rd visit since last . Pt verbalizes dizziness, nausea, and stomach cramps ongoing since he had a really bad sunburn that brought him in the first time. History of Present Illness The patient is a 26 year old male who presents to the Emergency Room with complaints of nausea with occasional vomiting, lightheadedness, leg cramps that has been going on for the past week. This is the patient's third ER visit for the same symptoms. He was initially seen after a bad sunburn, he was given IV hydration and states he had been feeling better when he went home. His main complaints today are persistent nausea and his leg cramps. He has not been taking any medications at home for his pain or nausea. He is a type I diabetic and states he has been taking his insulin as prescribed, blood sugars have been in the 200s per patient. He denies any fevers or chills, hematemesis, headache , vision changes, neck pain, chest pain, shortness of breath, abdominal pain, diarrhea, dysuria or urinary frequency. Patient does note that he currently does not have a PCP and is trying to get established with someone to follow up. Review of Systems A complete 10 point review of systems was reviewed with the patient with pertinent positives and negatives as per history of present illness. All else were negative. Past Medical/Surgical History Medical Problems: (1) Acute renal insufficiency (2) Anxiety (3) Anxiety (4) Anxiety (5) Arm pain, right (6) DIAB MARIAH WO COMPL, TYPE I [JUVENILE TYPE], NOT UNCNTRLD (7) Diabetic ketoacidosis (8) DKA, type 1, not at goal (9) Fall (10) Foot pain (11) Fractured great toe (12) Hyperglycemia (13) Hyperglycemia (14) Injury of wrist, left (15) Substance abuse (16) Substance abuse Surgical Problems: (1) ACUTE APPENDICITIS NOS (2) Arthroscopy of knee joint Family History Diabetes mellitus FHx: hypertension FHx: seizures Kidney disease Social History Smoking Status: Never Smoker Alcohol Use: none Marital Status: single Housing Status: lives with family Occupation Status: employed Current/Historical Medications Scheduled Aspirin (Aspirin Ec), 81 MG PO QAM Biotin (Biotin), 1,000 MCG PO DAILY Cinnamon (Cinnamon), 1,000 MG PO QAM Insulin Glargine (Lantus Solostar), 60 UNITS SC HS Insulin Lispro (Human) (Humalog), 1 DOSE SC ACHS Multivitamin (Multivitamin), 1 TAB PO QAM Pantoprazole (Protonix), 40 MG PO QAM Allergies Coded Allergies: Cephalexin (Verified Allergy, Unknown, hives, 01/29/17) Ondansetron (Verified Allergy, Unknown, HIVES, 01/29/17) Acetaminophen (Verified Adverse Reaction, Unknown, GI SYMPTOMS, 01/29/17) Physical Exam Vital Signs Date Time Temp Pulse Resp B/P (MAP) Pulse Ox O2 Delivery O2 Flow Rate FiO2 02/05/17 11:20 70 18 121/74 97 02/05/17 10:25 80 16 115/68 99 Room Air 02/05/17 09:18 71 16 112/81 97 Room Air 02/05/17 09:06 77 16 125/89 99 02/05/17 09:05 99 Room Air 02/05/17 08:51 78 129/82 81 126/85 82 125/89 02/05/17 08:45 88 02/05/17 07:46 36.7 92 18 130/84 97 Room Air Physical Exam CONSTITUTIONAL: No acute distress. Nontoxic-appearing, mildly dehydrated. Well appearing and well nourished. Alert and oriented X 4 with normal affect. HEENT: Normocephalic, atraumatic. Pupils equal, round and reactive to light, EOMI. TMs normal. Pharynx normal. Tacky mucous membranes. NECK: Supple, full active range of motion without discomfort. RESPIRATORY: Clear to auscultation bilaterally with no wheezing, crackles, rhonchi or stridor. Equal expansion bilaterally. CARDIOVASCULAR: Regular rate and rhythm with no murmurs, rubs or gallops. Normal peripheral perfusion. No edema. GASTROINTESTINAL: Soft, nontender, nondistended. Bowel sounds present in all quadrants. No CVA tenderness. MUSCULOSKELETAL: Full range of motion of all joints without discomfort. Bilateral mild tenderness to the calves, no swelling or edema, no warmth, no erythema. INTEGUMENTARY: No rash or other significant dermatologic conditions noted. NEUROLOGIC: Cranial nerves II-XII grossly intact. No focal neurologic deficits noted. Medical Decision & Procedures Laboratory Results 02/05/17 08:45 Red Blood Count 5.72, Mean Corpuscular Volume 76.9, Mean Corpuscular Hemoglobin 26.9, Mean Corpuscular Hemoglobin Concent 35.0, Mean Platelet Volume 10.0, Neutrophils (%) (Auto) 43.8, Lymphocytes (%) (Auto) 45.3, Monocytes (%) (Auto) 7.7, Eosinophils (%) (Auto) 2.8, Basophils (%) (Auto) 0.2, Neutrophils # (Auto) 2.34, Lymphocytes # (Auto) 2.42, Monocytes # (Auto) 0.41, Eosinophils # (Auto) 0.15, Basophils # (Auto) 0.01 02/05/17 08:45 Test 02/05/17 08:00 02/05/17 08:26 02/05/17 08:45 02/05/17 08:48 Urine Color YELLOW Urine Appearance CLEAR (CLEAR) Urine pH 5.0 (4.5-7.5) Urine Specific [place] 1.030 (1.000-1.030) Urine Protein NEG (NEG) Urine Glucose (UA) 3+ (NEG) Urine Ketones NEG (NEG) Urine Occult Blood 3+ (NEG) Urine Nitrite NEG (NEG) Urine Bilirubin NEG (NEG) Urine Urobilinogen NEG (NEG) Urine Leukocyte Esterase NEG (NEG) Urine WBC (Auto) 1-5 /hpf (0-5) Urine RBC (Auto) >30 /hpf (0-4) Urine Hyaline Casts (Auto) 1-5 /lpf (0-5) Urine Epithelial Cells (Auto) 0-5 /lpf (0-5) Urine Bacteria (Auto) NEG (NEG) Urine Opiates Screen NEG (NEG) Urine Methadone, Qualitative NEG (NEG) Urine Barbiturates NEG (NEG) Urine Phencyclidine (PCP) Level NEG (NEG) Ur Amphetamine/Methamphetamine NEG (NEG) MDMA (Ecstasy) Screen NEG (NEG) Urine Benzodiazepines Screen NEG (NEG) Urine Cocaine Metabolite NEG (NEG) Urine Marijuana (THC) NEG (NEG) Bedside Glucose 229 mg/dl (70-99) White Blood Count 5.34 K/uL (4.8-10.8) Red Blood Count 5.72 M/uL (4.7-6.1) Hemoglobin 15.4 g/dL (14.0-18.0) Hematocrit 44.0 % (42-52) Mean Corpuscular Volume 76.9 fL (80-100) Mean Corpuscular Hemoglobin 26.9 pg (25-34) Mean Corpuscular Hemoglobin Concent 35.0 g/dl (32-36) Platelet Count 305 K/uL (130-400) Mean Platelet Volume 10.0 fL (7.4-10.4) Neutrophils (%) (Auto) 43.8 % Lymphocytes (%) (Auto) 45.3 % Monocytes (%) (Auto) 7.7 % Eosinophils (%) (Auto) 2.8 % Basophils (%) (Auto) 0.2 % Neutrophils # (Auto) 2.34 K/uL (1.4-6.5) Lymphocytes # (Auto) 2.42 K/uL (1.2-3.4) Monocytes # (Auto) 0.41 K/uL (0.11-0.59) Eosinophils # (Auto) 0.15 K/uL (0-0.5) Basophils # (Auto) 0.01 K/uL (0-0.2) RDW Standard Deviation 36.9 fL (36.4-46.3) RDW Coefficient of Variation 13.2 % (11.5-14.5) Immature Granulocyte % (Auto) 0.2 % Immature Granulocyte # (Auto) 0.01 K/uL (0.00-0.02) Anion Gap 7.0 mmol/L (3-11) Est Creatinine Clear Calc Drug Dose 103.0 ml/min Estimated GFR () 106.8 Estimated GFR (Non- 92.2 BUN/Creatinine Ratio 10.3 (10-20) Calcium Level 8.9 mg/dl (8.5-10.1) Magnesium Level 1.9 mg/dl (1.8-2.4) Total Bilirubin 0.7 mg/dl (0.2-1) Direct Bilirubin 0.2 mg/dl (0-0.2) Aspartate Amino Transf (AST/SGOT) 14 U/L (15-37) Alanine Aminotransferase (ALT/SGPT) 25 U/L (12-78) Alkaline Phosphatase 94 U/L (45-117) Total Creatine Kinase 47 U/L (39-308) Total Protein 7.7 gm/dl (6.4-8.2) Albumin 3.8 gm/dl (3.4-5.0) Beta-Hydroxybutyric Acid 0.99 mg/dL (0.2-2.81) Thyroid Stimulating Hormone (TSH) 2.860 uIu/ml (0.300-4.500) Bedside Lactic Acid Venous 1.89 mmol/L (0.90-1.70) Medications Administered Medications (Trade) Dose Ordered Sig/Oral Route Start Time Stop Time Status Last Admin Dose Admin Sodium Chloride 2,000 ml @ 999 mls/hr Q2H1M STAT IV 02/05/17 08:16 02/05/17 10:16 DC 02/05/17 08:16 999 MLS/HR Promethazine HCl 12.5 mg/Sodium Chloride 50.5 ml @ 204 mls/hr NOW STAT IV 02/05/17 08:16 02/05/17 08:30 DC 02/05/17 08:16 204 MLS/HR Acetaminophen 1000 mg/Empty Bag 100 ml @ 400 mls/hr NOW STAT IV 02/05/17 08:48 02/05/17 09:02 DC 02/05/17 09:12 400 MLS/HR Medical Decision CC: Patient presenting with complaint of nausea, lightheadedness, leg cramps Interpretation of Labs: No leukocytosis, no anemia, hyperglycemic, no other significant electrolyte abnormalities, normal bicarbonate and gap is closed, normal renal function, normal liver function, normal CPK level. Negative serum acetones. Glucosuria, but no ketonuria. Differential Diagnosis: Includes, but not limited to dehydration, electrolyte abnormalities, DKA, rhabdomyolysis, deconditioning, muscle spasms, muscle cramping, viral illness, myositis Medication Reconciliation: I attest that I have personally reviewed the patient' s current medication list. Vital signs review: I reviewed the patient's vital signs and interpret them as follows: T: Afebrile; BP: normotensive; HR: Within normal limits; RR: Within normal limits; Pulse Ox: Within normal limits on room air. Blood pressure screening: The patient was found to have normal blood pressure on screening and does not require follow-up for repeat blood pressure check. Summary: Patient was evaluated at bedside, history of physical exam performed. Patient is alert and oriented, no acute distress and nontoxic appearing. He appears mildly dehydrated by exam. Orthostatic vital signs performed which are negative per nursing staff. Patient's greatest complaint is his nausea and his muscle cramps in his legs. Orders were placed at bedside for labs, UA, IV fluid bolus, IV Tylenol and Phenergan, to evaluate for dehydration, DKA, rhabdomyolysis, etc. Patient discussed with Dr. Wolff, who agrees with my assessment and plan. Labs reviewed, patient noted to be hyperglycemic, but no other lab findings to support diagnosis of DKA, no rhabdomyolysis, normal renal function. Patient does not significantly dehydrated on labs, and he was adequately fluid resuscitated. Patient reassessed multiple times throughout ED stay, he did have good improvement in his symptoms after medications, IV fluids. This is the patient's third visit to the ED for the same complaints. When asked about a PCP, he states he has been dismissed from multiple practices because he did not keep appointments. Case management spoke with the patient and provided him with contact information for multiple family practices he may contact to get established with a new PCP. Patient was updated on all results and plan for discharge home, he was comfortable with this plan and verbalized understanding. Patient was instructed to follow up with a PCP regarding his diabetes management , as he does not currently have a PCP. Patient was discharged home in stable condition and ambulatory. Impression Primary Impression: Dehydration, mild Additional Impression: Muscle cramps Departure Information Dispostion Home / Self-Care Condition GOOD Referrals No Doctor, Assigned (PCP) Patient Instructions ED Dehydration, ED Hyperglycemia Diabetic, [facility] Additional Instructions You have been treated in the Emergency Department today for Dehydration and muscle cramps. Laboratory results have ruled out any emergent reasons for further evaluation or admission. It is ESSENTIAL that you maintain adequate hydration with oral fluids! Some suggestions include: - Water is the IDEAL replacement for lost fluids. You should initially sip at the water to help facilitate increased intestinal absorption rate and to decrease the possibility of nausea/vomiting. - Carbohydrate/Electrolyte-Containing Drinks (i.e. Gatorade, Powerade, Pedialyte). All of these are good choices, but it is important to remember that all of these drinks contain a high concentration of sugar. - Popsicles, ice chips, and fruit juices are all other options. - My FAVORITE dehydration remedy is to mix a 1:1 solution of bottled Gatorade with bottled water. This dilution allows for a palatable flavor with added benefit of a reduction in the amount of sugar consumption. As with all Emergency Department visits, you should follow-up with a Primary Care Provider for reevaluation. You have been provided with contact information , it is important for you to get established with a PCP to continue managing your symptoms, as well as monitor and manage your diabetes. Return to the Emergency Department if your current symptoms worsen despite treatment course outlined above, or if you develop any of the following symptoms : increased thirst, weakness, severe dizziness or passing out, palpitations, confusion, sluggishness, inability to sweat, or decreased urine output. Work Instructions Return To Work: 1 day Specific Date: 02/05/2017 Lifting Limitations: none Additional Work Instructions: Patient may return to work with no restrictions. Problem Qualifiers
[2017-02-05 09:52] LABS: URINE APPEARANCE CLEAR (CLEAR); URINE BILIRUBIN NEG (NEG); URINE COLOR YELLOW; URINE EPITHELIAL CELL AUTO 0-5 /lpf (0-5); URINE NITRITE NEG (NEG); UROBILINOGEN NEG (NEG); ZZUR CULT IF INDIC CLEAN CATCH NO
[2017-02-05 10:00] LABS: MANUAL MICROSCOPIC REQUIRED? NO; REVIEW REQ? NO
[2017-02-05 11:20] VITALS: BP 121/74; PULSE 70; O2SAT 97
[2017-02-10] MEDS ORDERED: INSDGIPEN SC (02:07)
[2017-02-10] MEDS ORDERED: PANT40TA PO (02:24)
[2017-02-10] MEDS ORDERED: MULT-506 PO (02:25)
[2017-02-10] MEDS ORDERED: CINN500T PO (09:17)
[2017-02-10] MEDS ORDERED: ASPI81TA28 PO (15:40)
[2017-02-10] MEDS ORDERED: INSU100I SC (19:05)
[2017-02-12] MEDS ORDERED: LORA-741 PO (15:28)
[2017-02-12] MEDS ORDERED: FLX10 PO (15:28)
[2017-02-12] MEDS ORDERED: INSDGIPEN SC (15:28)
[2017-02-12] MEDS ORDERED: ULT50X PO (15:28)
[2017-02-12] MEDS ORDERED: INSU100I SC (15:28)
[2017-02-12] MEDS ORDERED: PROM12.56 PO (15:28)
[2017-02-12] MEDS ORDERED: PANT40TA PO (15:28)
== END 2017-02-05 11:21 | disposition home or self-care (01) ==
LOC: C.EDB 07:45
DX: E86.0 Dehydration (principal); R25.2 Cramp and spasm; E10.9 Type 1 diabetes mellitus without complications; Z79.4 Long term (current) use of insulin; F41.9 Anxiety disorder, unspecified; Z83.3 Family history of diabetes mellitus; Z82.49 Family history of ischemic heart disease and other diseases of the circulatory system; Z84.1 Family history of disorders of kidney and ureter; Z82.0 Family history of epilepsy and other diseases of the nervous system; Z79.82 Long term (current) use of aspirin; Z79.899 Other long term (current) drug therapy

== ENCOUNTER 2017-02-10 19:23 | Observation (INO) | payer OTHER ==
[~2017-02-10] VITALS: Ht 165.1 cm; Wt 86.5 kg
[~2017-02-10 19:23] MED LIST changes: +ASPI81TA28 PO; +CINN500T PO; +INSDGIPEN SC; +INSU100I SC; +MULT-506 PO; -NAPR-1169 PO; +PANT40TA PO
[2017-02-10] MEDS ORDERED: DiphenhydrAMINE HCL 50 MG/ML VIAL IV STA (20:11)
[2017-02-10] MEDS ORDERED: METOCLOPRAMIDE HCL INJ 5 MG/ML 2 ML VIAL IV STA (20:11)
[2017-02-10] MEDS ORDERED: MoRPHine SULFATE 4 MG/ML 1 ML CARP\\VIAL IV STA ×2 (20:11→22:32)
[2017-02-10 20:15] LABS: COMPLETE YES; EOS % 1.4 %; HEMATOCRIT 41.5 % (42-52); IG% 0.2 %; LYMPH % 33.9 %; LYMPH ABS # 1.69 K/uL (1.2-3.4); MEAN CORPUSCULAR HEMOGLOBIN 25.9 pg (25-34); MEAN CORPUSCULAR HGB CONC 33.3 g/dl (32-36); MEAN PLATELET VOLUME 10.7 fL (7.4-10.4); MONO % 8.6 %; NEUT % 55.9 %; PLATELET COUNT 303 K/uL (130-400); RED BLOOD COUNT 5.32 M/uL (4.7-6.1); WHITE BLOOD COUNT 4.99 K/uL (4.8-10.8)
[2017-02-10 20:41] LABS: ALB/GLOB RATIO 0.9 (0.9-2); ALKALINE PHOSPHATASE 104 U/L (45-117); ALT/SGPT 19 U/L (12-78); BLOOD UREA NITROGEN 12 mg/dl (7-18); BUN/CREATININE RATIO 10.3 (10-20); CALCIUM 8.7 mg/dl (8.5-10.1); CARBON DIOXIDE 29 mmol/L (21-32); CHLORIDE 102 mmol/L (98-107); GLUCOSE 376 mg/dl (70-99); SODIUM 138 mmol/L (136-145)
[2017-02-10 20:50] LABS: URINE APPEARANCE CLEAR (CLEAR); URINE BILIRUBIN NEG (NEG); URINE COLOR YELLOW; URINE NITRITE NEG (NEG); URINE PH 8.5 (4.5-7.5); URINE SPECIFIC GRAVITY 1.031 (1.000-1.030); UROBILINOGEN NEG (NEG)
[2017-02-10 20:55] LABS: BETA-HYDROXYBUTYRATE 1.26 mg/dL (0.2-2.81)
[2017-02-10 20:57] LABS: MANUAL MICROSCOPIC REQUIRED? NO; REVIEW REQ? NO
[2017-02-10 21:26] LABS: POTASSIUM 4.4 mmol/L (3.5-5.1)
[2017-02-10] MEDS ORDERED: SODIUM CHLORIDE 0.9% 1000ML 1,000 ML IV STA ×2 (21:27→22:24)
[2017-02-10] MEDS ORDERED: PROCHLORPERAZINE 5 MG/ML 2 ML VIAL IV STA (21:42)
[2017-02-10] MEDS ORDERED: BIOT1TAB5 PO (21:47)
[2017-02-10] MEDS ORDERED: OPTIRAY 320 IV PRN (22:15)
--- NOTE | 2017-02-10 22:15 | DIAGNOSTIC IMAGING REPORT ---
ABDOMEN AND PELVIS CT WITH IV AND ORAL CONTRAST CT DOSE: 414.99 mGy.cm HISTORY: Pain abd pain, n/v TECHNIQUE: Multiaxial CT images of the abdomen and pelvis were performed following the use of intravenous and oral contrast. COMPARISON STUDY: 06/01/2016 FINDINGS: The lung bases are clear. The liver, spleen, gallbladder, pancreas, kidneys, and adrenal glands are within normal limits. No bowel wall thickening or obstruction. The pelvic organs are unremarkable. No suspicious lytic or blastic osseous lesions. IMPRESSION: No significant abnormality identified within the abdomen or pelvis. Electronically signed by: Keyshawn Ziegler M.D. 02/10/2017 10:14 PM Dictated Date/Time: 02/10/2017 10:11 PM
[2017-02-10] MEDS ORDERED: NovoLIN-R INSULIN PER UNIT CHARGE IV STA (22:24)
[2017-02-10] MEDS ORDERED: PROMETHAZINE HCL INJ 25 MG in SODIUM CHLORIDE 0.9% 50ML 50 ML IV STA (22:32)
[2017-02-10] MEDS ORDERED: PANTOprazole INJ 40 MG in SYRINGE 0 ML IV ONE (22:45)
[2017-02-10] MEDS ORDERED: LORAZEPAM 2 MG/ML 1 ML VIAL IV STA (23:05)
--- NOTE | 2017-02-10 23:10 | EMERGENCY ROOM VISIT NOTE ---
History Report prepared by Waqas: Sheryl Griffin Under the Supervision of: Dr. Roxanna Aguilar D.O. First contact with patient: 19:35 Chief Complaint: ABDOMINAL PAIN Stated Complaint: STOMACH PAIN, NAUSEA,LWR CRAMPS,BACK PAIN Nursing Triage Summary: pt reports abdominal pain X 1 week with NV that has increased since that time , reports inability to keep food down History of Present Illness The patient is a 26 year old male who presents to the Emergency Room with complaints of persistent upper abdominal pain starting 1.5 weeks ago. He describes his pain as sharp. He also complains of nausea and vomiting. His symptoms worsen when he eats. When he eats, he first develops abdominal pain. 20 -30 minutes later he starts becoming nauseous and vomits. He has been unable to keep food down. He also has had lower extremity cramping for the past 2 weeks. He has been urinating less. He is passing gas, but has not had a bowel movement in 4 days. He has a history of acid reflux. He currently denies any acid or belching. He denies any diet changes or medication changes. He denies any sick contacts. He has not had any abdominal surgeries. He has a history of diabetes and his blood sugar has been in control. He did not take Lantus today because he did not eat. Source of History: patient Onset: 1.5 weeks ago Position: abdomen (upper) Quality: sharp Timing: other (persistent) Modifying Factors (Worsening): eating Associated Symptoms: + nausea, + vomiting Note: Pt reports decreased urination, lower extremity cramping, constipation. Pt denies belching. Review of Systems See HPI for pertinent positives & negatives. A total of 10 systems reviewed and were otherwise negative. Past Medical & Surgical Medical Problems: (1) Acute renal insufficiency (2) Anxiety (3) Anxiety (4) Anxiety (5) Arm pain, right (6) DIAB MARIAH WO COMPL, TYPE I [JUVENILE TYPE], NOT UNCNTRLD (7) Diabetic ketoacidosis (8) DKA, type 1, not at goal (9) Fall (10) Foot pain (11) Fractured great toe (12) Hyperglycemia (13) Hyperglycemia (14) Injury of wrist, left (15) Substance abuse (16) Substance abuse Surgical Problems: (1) ACUTE APPENDICITIS NOS (2) Arthroscopy of knee joint Family History Diabetes mellitus FHx: hypertension FHx: seizures Kidney disease Social History Smoking Status: Never Smoker Alcohol Use: none Marital Status: single Housing Status: lives with family Occupation Status: employed Current/Historical Medications Scheduled Aspirin (Aspirin Ec), 81 MG PO QAM Biotin (Biotin), 1,000 MCG PO DAILY Cinnamon (Cinnamon), 1,000 MG PO QAM Insulin Glargine (Lantus Solostar), 60 UNITS SC HS Insulin Lispro (Human) (Humalog), 1 DOSE SC ACHS Multivitamin (Multivitamin), 1 TAB PO QAM Pantoprazole (Protonix), 40 MG PO QAM Allergies Coded Allergies: Cephalexin (Verified Allergy, Unknown, hives, 01/29/17) Ondansetron (Verified Allergy, Unknown, HIVES, 01/29/17) Acetaminophen (Verified Adverse Reaction, Unknown, GI SYMPTOMS, 01/29/17) Physical Exam Vital Signs Date Time Temp Pulse Resp B/P (MAP) Pulse Ox O2 Delivery O2 Flow Rate FiO2 02/10/17 23:13 73 24 02/10/17 23:01 134/89 02/10/17 22:58 74 16 130/75 02/10/17 22:58 71 16 130/75 98 Room Air 02/10/17 22:43 84 20 02/10/17 22:28 87 25 02/10/17 21:52 75 16 118/77 96 Room Air 02/10/17 21:43 90 21 02/10/17 21:31 118/77 02/10/17 21:28 70 27 98 02/10/17 21:13 76 25 97 02/10/17 21:01 133/78 02/10/17 20:58 72 15 98 02/10/17 20:53 70 21 98 02/10/17 20:44 132/79 02/10/17 20:44 71 20 132/79 97 Room Air 02/10/17 20:38 88 16 02/10/17 20:23 74 27 98 02/10/17 20:14 89 02/10/17 19:27 36.8 105 20 125/78 98 Room Air Physical Exam GENERAL: alert, well appearing, well nourished, no distress, non-toxic EYE EXAM: normal conjunctiva, PERRL and EOM's grossly intact OROPHARYNX: no exudate, no erythema, lips, buccal mucosa, and tongue normal and mucous membranes are moist NECK: supple, no nuchal rigidity, no adenopathy, non-tender LUNGS: Clear to auscultation. Normal chest wall mechanics HEART: no murmurs, S1 normal and S2 normal ABDOMEN: abdomen soft, mid abdominal tenderness to palpation, normo-active bowel sounds, no masses, no rebound or guarding, no organomegaly. BACK: Back is symmetrical on inspection and there is no deformity, no midline tenderness, no CVA tenderness. SKIN: no rashes and no bruising UPPER EXTREMITIES: upper extremities are grossly normal. LOWER EXTREMITIES: No pitting edema. NEURO EXAM: Normal sensorium, cranial nerves II-XII grossly intact, normal speech, no gross weakness of arms, no gross weakness of legs. Medical Decision & Procedures ER Provider Diagnostic Interpretation: Radiology results have been interpreted by the radiologist and reviewed by me. ABDOMEN AND PELVIS CT WITH IV AND ORAL CONTRAST CT DOSE: 414.99 mGy.cm HISTORY: Pain abd pain, n/v TECHNIQUE: Multiaxial CT images of the abdomen and pelvis were performed following the use of intravenous and oral contrast. COMPARISON STUDY: 06/01/2016 FINDINGS: The lung bases are clear. The liver, spleen, gallbladder, pancreas, kidneys, and adrenal glands are within normal limits. No bowel wall thickening or obstruction. The pelvic organs are unremarkable. No suspicious lytic or blastic osseous lesions. IMPRESSION: No significant abnormality identified within the abdomen or pelvis. Electronically signed by: Keyshawn Ziegler M.D. 02/10/2017 10:14 PM Dictated Date/Time: 02/10/2017 10:11 PM Laboratory Results Test 02/10/17 20:00 02/10/17 20:40 Globulin 3.8 gm/dl (2.5-4.0) Albumin/Globulin Ratio 0.9 (0.9-2) Lipase 158 U/L (73-393) Beta-Hydroxybutyric Acid 1.26 mg/dL (0.2-2.81) Urine Color YELLOW Urine Appearance CLEAR (CLEAR) Urine pH 8.5 (4.5-7.5) Urine Specific [place] 1.031 (1.000-1.030) Urine Protein NEG (NEG) Urine Glucose (UA) 3+ (NEG) Urine Ketones NEG (NEG) Urine Occult Blood NEG (NEG) Urine Nitrite NEG (NEG) Urine Bilirubin NEG (NEG) Urine Urobilinogen NEG (NEG) Urine Leukocyte Esterase NEG (NEG) Urine Opiates Screen POS (NEG) Urine Methadone, Qualitative NEG (NEG) Urine Barbiturates NEG (NEG) Urine Phencyclidine (PCP) Level NEG (NEG) Ur Amphetamine/Methamphetamine NEG (NEG) MDMA (Ecstasy) Screen NEG (NEG) Urine Benzodiazepines Screen NEG (NEG) Urine Cocaine Metabolite NEG (NEG) Urine Marijuana (THC) NEG (NEG) Laboratory results per my review. Medications Administered Medications (Trade) Dose Ordered Sig/Oral Route Start Time Stop Time Status Last Admin Dose Admin Morphine Sulfate (MoRPHine SULFATE INJ) 4 mg NOW STAT IV 02/10/17 20:11 02/10/17 20:13 DC 02/10/17 20:26 4 MG Metoclopramide HCl (Reglan Inj) 10 mg NOW STAT IV 02/10/17 20:11 02/10/17 20:13 DC 02/10/17 20:22 10 MG Diphenhydramine HCl (Benadryl Inj) 25 mg NOW STAT IV 02/10/17 20:11 02/10/17 20:13 DC 02/10/17 20:19 25 MG Sodium Chloride 1,000 ml @ 999 mls/hr Q1H1M STAT IV 02/10/17 21:27 02/10/17 22:27 DC 02/10/17 21:47 999 MLS/HR Prochlorperazine Edisylate (Compazine Inj) 5 mg NOW STAT IV 02/10/17 21:42 02/10/17 21:43 DC 02/10/17 21:51 5 MG Insulin Human Regular (novoLIN-R U-100 PER UNIT) 4 units NOW STAT IV 02/10/17 22:24 02/10/17 22:25 DC 02/10/17 22:49 4 UNITS Sodium Chloride 1,000 ml @ 999 mls/hr Q1H1M STAT IV 02/10/17 22:24 02/10/17 23:24 DC 02/10/17 22:54 999 MLS/HR Morphine Sulfate (MoRPHine SULFATE INJ) 4 mg NOW STAT IV 02/10/17 22:32 02/10/17 22:33 DC 02/10/17 22:51 4 MG Pantoprazole Sodium 40 mg/ Syringe 10 ml @ 5 mls/min NOW ONCE IV 02/10/17 22:45 02/10/17 22:46 DC 02/10/17 22:53 5 MLS/MIN Promethazine HCl 25 mg/Sodium Chloride 51 ml @ 204 mls/hr NOW STAT IV 02/10/17 22:32 02/10/17 22:46 DC 02/10/17 22:55 204 MLS/HR Lorazepam (Ativan Inj) 1 mg NOW STAT IV 02/10/17 23:05 02/10/17 23:06 DC 02/10/17 23:05 1 MG ED Course 1935: The patient was evaluated in room C1B. A complete history and physical exam was performed. 2011: Benadryl Inj 25 mg IV, Reglan Inj 10 mg IV, Morphine Sulfate 4 mg IV. 2126: NSS 1000 ml @ 999 mls/hr IV. 2: Compazine Inj 5 mg IV. 4: NSS 1000 ml @ 999 mls/hr IV, Insulin Human Regular 4 units IV. 2226: I reevaluated the patient. He is still having pain and was actively vomiting as I entered the room. I discussed the findings and the treatment plan with the patient. He expresses agreement and understanding. He will be evaluated for further management. 2232: Promethazine HCl 25 mg/Sodium Chloride 51 ml @ 204 mls/hr IV, Morphine Sulfate 4 mg IV. 2245: Pantoprazole Sodium 40 mg/Syringe 10 ml @ 5 mls/min IV. 2259: I reviewed the patient's case with Dr. Christianson, [facility] hosptialist. He will evaluate the patient for further management. 2305: Lorazepam 1 mg IV. Medical Decision Differential diagnosis: Etiologies such as appendicitis, diverticulitis, PUD, biliary pathology, UTI, pancreatitis, obstruction, volvulus, perforation, mesenteric ischemia, aortic pathology, infections, inflammatory bowel disease, renal colic, as well as others were entertained. Medication Reconciliation: I attest that I have personally reviewed the patient' s current medication list. Blood pressure screening: Patient was found to have a slightly elevated blood pressure due to circumstances. I do not believe that the patient requires hypertension monitoring. Pt with persistent vomiting and pain despite hydration, antiemetics, and pain meds. Labs and imaging otw reassuring. Doubt DKA. Given hx of DM, possible gastroparesis. Discussed possible med rxn, viral syndrome also. This is now pt 's 3rd visit to ER in a week for these sx. Pt admitted for continued treatment. Consults Time Called: 2238 Consulting Physician: Dr. Christianson, [facility] hosptialist Returned Call: [phone] I reviewed the patient's case with him. He will evaluate the patient for further management. Impression Primary Impression: Abdominal pain Additional Impressions: Vomiting Gastroparesis Hyperglycemia Scribe Attestation The scribe's documentation has been prepared under my direction and personally reviewed by me in its entirety. I confirm that the note above accurately reflects all work, treatment, procedures, and medical decision making performed by me. Departure Information Dispostion Being Evaluated By Hospitalist Referrals No Doctor, Assigned (PCP) Patient Instructions My [facility] Problem Qualifiers Primary Impression: Abdominal pain Abdominal location: generalized Qualified Codes: R10.84 - Generalized abdominal pain Additional Impressions: Vomiting Vomiting type: unspecified Vomiting Intractability: non-intractable Nausea presence: unspecified Qualified Codes: R11.10 - Vomiting, unspecified
[2017-02-10] MEDS ORDERED: GLUCOSE 10 TABS/TUBE PO PRN (23:15)
[2017-02-10] MEDS ORDERED: GLUCOSE 40% GEL 15 GM TUBE PO PRN (23:15)
[2017-02-10] MEDS ORDERED: INSULIN GLARGINE SOLOSTAR 100 UNITS/ML 3 ML PEN SC SCH (23:15)
[2017-02-10] MEDS ORDERED: GLUCAGON FOR INJ 1 MG VIAL SQ PRN (23:15)
[2017-02-10] MEDS ORDERED: DEXTROSE 50% 50 ML SYR IV PRN (23:15)
[2017-02-10] MEDS ORDERED: NSS + 20MEQ KCL 1000ML 1,000 ML IV SCH (23:15)
[2017-02-10] MEDS ORDERED: KETOROLAC TROMETHAMINE 30 MG/ML VIAL IV PRN (23:30)
--- NOTE | 2017-02-10 23:33 | History and Physical ---
History & Physical Date & Time of Service: Feb 10, 2017 at 23:23 Chief Complaint: Stomach Pain, Nausea,Lwr Cramps,Back Pain Primary Care Physician: No Doctor, Assigned History of Present Illness Source: patient The patient is a 26-year-old male presents emergency department with generalized abdominal pain over the past 1 1/2 weeks, with the development of nausea and vomiting over the past 2-3 days. He has not had symptoms such as these in the past. He has not had any significant oral intake in the past 4 days, and reports she's been holding his Lantus insulin at bedtime and primarily controlling his blood sugars with Humalog. He has not had any recent travels or sick exposures. He has not eaten any questionable foods in his refrigerator, and has not eaten out recently either. He has not had any bowel movement in the past 4 days. He feels generally fatigued, has had intermittent leg cramps of the past 1-2 weeks, and reports an approximate 10 pound weight loss during that interval time. Past Medical/Surgical History Medical Problems: (1) Acute renal insufficiency Status: Resolved (2) Anxiety Status: Chronic (3) Anxiety Status: Resolved (4) Anxiety Status: Resolved (5) Arm pain, right Status: Resolved (6) DIAB MARIAH WO COMPL, TYPE I [JUVENILE TYPE], NOT UNCNTRLD Status: Chronic (7) Diabetic ketoacidosis Status: Resolved (8) DKA, type 1, not at goal Status: Resolved (9) Fall Status: Resolved (10) Foot pain Status: Resolved (11) Fractured great toe Status: Resolved (12) Hyperglycemia Status: Resolved (13) Hyperglycemia Status: Resolved (14) Injury of wrist, left Status: Resolved (15) Substance abuse Status: Chronic (16) Substance abuse Status: Resolved Surgical Problems: (1) ACUTE APPENDICITIS NOS Status: Resolved (2) Arthroscopy of knee joint Status: Resolved Family History Diabetes mellitus FHx: hypertension FHx: seizures Kidney disease Social History Smoking Status: Never Smoker Smokeless Tobacco Use: No Alcohol Use: none Drug Use: none Marital Status: single Housing status: lives with family Occupational Status: employed Multi-Drug Resistant Organisms History of MDRO: No Allergies Coded Allergies: Cephalexin (Verified Allergy, Unknown, hives, 01/29/17) Ondansetron (Verified Allergy, Unknown, HIVES, 01/29/17) Acetaminophen (Verified Adverse Reaction, Unknown, GI SYMPTOMS, 01/29/17) Home Medications Scheduled Aspirin (Aspirin Ec), 81 MG PO QAM Biotin (Biotin), 1,000 MCG PO DAILY Cinnamon (Cinnamon), 1,000 MG PO QAM Insulin Glargine (Lantus Solostar), 60 UNITS SC HS Insulin Lispro (Human) (Humalog), 1 DOSE SC ACHS Multivitamin (Multivitamin), 1 TAB PO QAM Pantoprazole (Protonix), 40 MG PO QAM Review of Systems The patient denies chest pain, palpitations, shortness of breath, cough, lower extremity swelling, sore throat, fevers, chills, sweats, fatigue, blood in urine or stool, dysuria, urinary frequency or urgency, lightheadedness, dizziness, headache, memory loss, rash, abnormal bruising or bleeding, imbalance , focal or generalized weaknesS, arthralgias, back or neck pain, night sweats, or allergy symptoms. The review of systems is otherwise negative other than for that already noted above, and at least 10 systems have been reviewed. Physical Exam Vital Signs Date Time Temp Pulse Resp B/P (MAP) Pulse Ox O2 Delivery O2 Flow Rate FiO2 02/10/17 22:58 71 16 130/75 98 Room Air 02/10/17 21:52 75 16 118/77 96 Room Air 02/10/17 20:53 70 21 98 02/10/17 20:44 132/79 02/10/17 20:44 71 20 132/79 97 Room Air 02/10/17 20:38 88 16 02/10/17 20:23 74 27 98 02/10/17 20:14 89 02/10/17 19:27 36.8 105 20 125/78 98 Room Air The patient is awake, well-developed and adequately nourished, alert and oriented 3, normocephalic and atraumatic, lying in bed and in no acute distress. HEENT--PERRL, EOMI, mucous membranes and oropharynx dry. Neck--supple, no JVD or bruits, thyroid normal, trachea midline, no adenopathy. Heart--normal S1 and S2, no extra beats, no murmurs, rubs or gallops. Lungs--clear bilaterally with good air movement, no respiratory distress, no accessory muscle use. Abdomen--normal bowel sounds and soft, nontender and nondistended, no hernias or masses, no organomegaly. Extremities--no cyanosis, clubbing or edema. There are good distal pulses b/l. Dermatologic--normal skin turgor, normal color, warm and dry, no abnormal lymph nodes, no rash. Neurologic--cranial nerves II through XII grossly intact. Rheumatologic--normal range of motion, nontender, muscles and joints. Psychiatric--normal affect. Diagnostics Laboratory Results Results Past 24 Hours Test 02/10/17 20:00 02/10/17 20:40 02/10/17 21:06 02/10/17 22:45 Range/Units White Blood Count 4.99 4.8-10.8 K/uL Red Blood Count 5.32 4.7-6.1 M/uL Hemoglobin 13.8 14.0-18.0 g/dL Hematocrit 41.5 42-52 % Mean Corpuscular Volume 78.0 80-100 fL Mean Corpuscular Hemoglobin 25.9 25-34 pg Mean Corpuscular Hemoglobin Concent 33.3 32-36 g/dl Platelet Count 303 130-400 K/uL Mean Platelet Volume 10.7 7.4-10.4 fL Neutrophils (%) (Auto) 55.9 % Lymphocytes (%) (Auto) 33.9 % Monocytes (%) (Auto) 8.6 % Eosinophils (%) (Auto) 1.4 % Basophils (%) (Auto) 0.0 % Neutrophils # (Auto) 2.79 1.4-6.5 K/uL Lymphocytes # (Auto) 1.69 1.2-3.4 K/uL Monocytes # (Auto) 0.43 0.11-0.59 K/uL Eosinophils # (Auto) 0.07 0-0.5 K/uL Basophils # (Auto) 0.00 0-0.2 K/uL RDW Standard Deviation 37.5 36.4-46.3 fL RDW Coefficient of Variation 13.3 11.5-14.5 % Immature Granulocyte % (Auto) 0.2 % Immature Granulocyte # (Auto) 0.01 0.00-0.02 K/uL Sodium Level 138 136-145 mmol/L Potassium Level 4.4 3.5-5.1 mmol/L Chloride Level 102 98-107 mmol/L Carbon Dioxide Level 29 21-32 mmol/L Anion Gap 7.0 3-11 mmol/L Blood Urea Nitrogen 12 7-18 mg/dl Creatinine 1.20 0.60-1.40 mg/dl Est Creatinine Clear Calc Drug Dose 94.3 ml/min Estimated GFR () 96.1 Estimated GFR (Non- 83.0 BUN/Creatinine Ratio 10.3 10-20 Random Glucose 376 70-99 mg/dl Lactic Acid Level 3.3 0.4-2.0 mmol/L Calcium Level 8.7 8.5-10.1 mg/dl Total Bilirubin 0.7 0.2-1 mg/dl Aspartate Amino Transf (AST/SGOT) 8 15-37 U/L Alanine Aminotransferase (ALT/SGPT) 19 12-78 U/L Alkaline Phosphatase 104 45-117 U/L Total Protein 7.4 6.4-8.2 gm/dl Albumin 3.6 3.4-5.0 gm/dl Globulin 3.8 2.5-4.0 gm/dl Albumin/Globulin Ratio 0.9 0.9-2 Lipase 158 73-393 U/L Beta-Hydroxybutyric Acid 1.26 0.2-2.81 mg/dL Urine Color YELLOW Urine Appearance CLEAR CLEAR Urine pH 8.5 4.5-7.5 Urine Specific [place] 1.031 1.000-1.030 Urine Protein NEG NEG Urine Glucose (UA) 3+ NEG Urine Ketones NEG NEG Urine Occult Blood NEG NEG Urine Nitrite NEG NEG Urine Bilirubin NEG NEG Urine Urobilinogen NEG NEG Urine Leukocyte Esterase NEG NEG Bedside Glucose 385 70-99 mg/dl Test 02/10/17 23:05 Range/Units Diagnostic Radiology Patient Name: BRIE MENDEZ Unit Number: [id number] Dictated: 02/10/172210 Transcribed: 02/10/172210 MS Printed Date/Time: [~ rep prt dt]/[~ rep prt tm] [~ rep ct labl] - [~ rep ct ivnm] [facility] [place] [address] Dictated: 02/10/172210 Transcribed: 02/10/172210 MS Printed Date/Time: [~ rep prt dt]/[~ rep prt tm] [~ rep ct labl] - [~ rep ct ivnm] [~ rep ct add3]] ABDOMEN AND PELVIS CT WITH IV AND ORAL CONTRAST CT DOSE: 414.99 mGy.cm HISTORY: Pain abd pain, n/v TECHNIQUE: Multiaxial CT images of the abdomen and pelvis were performed following the use of intravenous and oral contrast. COMPARISON STUDY: 06/01/2016 FINDINGS: The lung bases are clear. The liver, spleen, gallbladder, pancreas, kidneys, and adrenal glands are within normal limits. No bowel wall thickening or obstruction. The pelvic organs are unremarkable. No suspicious lytic or blastic osseous lesions. IMPRESSION: No significant abnormality identified within the abdomen or pelvis. Electronically signed by: Keyshawn Ziegler M.D. 02/10/2017 10:14 PM Dictated Date/Time: 02/10/2017 10:11 PM The status of this report is Signed. Draft = Not yet reviewed or approved by Radiologist. Signed = Reviewed and approved by Radiologist. <AttendingPhy></AttendingPhy> <FamilyPhy>No Doctor, Assigned</FamilyPhy> < PrimaryPhy>No Doctor, Assigned</PrimaryPhy> <UnitNumber>[id number]</UnitNumber> <VisitNumber>[id number]</VisitNumber> <PatientName>BRIE MENDEZ</ PatientName> <DateOfBirth>1990</DateOfBirth> <Location>[facility]</Location> < ServiceDate>02/10/17</ServiceDate> <MNE>ESINDI</MNE> <OrderingPhy>Roxanna Aguilar DO</OrderingPhy> <OrderingPhyMNE>f rep ord dr quiroz</OrderingPhyMNE> < DictatingPhyMNE>f rep dict dr quiroz</DictatingPhyMNE> <CCListMNE>f rep ct mne</ CCListMNE> <AdmittingPhyMNE>f pt admit dr quiroz</AdmittingPhyMNE> <AttendingPhyMNE >f pt attend dr quiroz</AttendingPhyMNE> <ConsultingPhyMNE>f pt consult dr quiroz</ConsultingPhyMNE> <FamilyPhyMNE>f pt fam dr quiroz</FamilyPhyMNE> <OtherPhyMNE>f pt other dr quiroz</OtherPhyMNE> < PrimaryPhyMNE>f pt prim care dr quiroz</PrimaryPhyMNE> <ReferringPhyMNE>f pt referring dr quiroz</ReferringPhyMNE> Impression Assessment and Plan Intractable nausea, vomiting, abdominal pain with dehydration and lactic acidosis--patient will be admitted to the medical surgical floor, with diabetic diet as tolerated. We'll aggressively hydrate with IV fluids. Patient reports an allergy to Zofran. He'll be placed on Phenergan 25 mg IV every 6 hours when necessary, continue his pantoprazole 40 mg by mouth every morning, and add dicyclomine 10 mg by mouth every 6 hours when necessary. Lorazepam 1 mg IV every 6 hours when necessary to help with spasms if not controlled by above. Diabetes mellitus type 1--usually is on Lantus 60 units subcutaneous at bedtime. We'll place him on 15 units of Lantus subcutaneous tonight. Place on Accu-Cheks before meals and at bedtime with NovoLog coverage per scale. Patient may choose his own diabetic coverage. We will hold cinnamon and aspirin for tonight. GERD--continue pantoprazole 40 mg by mouth every morning. The patient may have an element of diabetic gastroparesis, but this workup can be a pursued in the outpatient setting, unless his symptoms are persistent. Level of Care Med/Surg Advanced Directives Existing Advance Directive: No Existing Living Will: No Existing Power of Welder Fitter Helper: No Resuscitation Status FULL RESUSCITATION VTE Prophylaxis VTE Risk Assessment Done? Y/N: Yes Risk Level: Low Given or contraindicated: Treatment not indicated Social Service Consult None Apply
[2017-02-10] MEDS ORDERED: LORAZEPAM 2 MG/ML 1 ML VIAL IV PRN (23:45)
[2017-02-11 00:05] VITALS: BP 148/94; PULSE 77; TEMP 36.7; O2SAT 100; BMI 31.7
[2017-02-11] MEDS: NSS + 20MEQ KCL 1000ML 1,000 ML IV SCH ×4 (00:51→15:56)
[2017-02-11 00:57] LABS: BENZODIAZEPINE, URINE NEG (NEG); COCAINE,URINE NEG (NEG); PHENCYCLIDINE, URINE NEG (NEG)
[2017-02-11] MEDS: ZOLPIDEM TARTRATE 5 MG TAB PO PRN ×2 (00:59→22:00)
[2017-02-11] MEDS: DICYCLOMINE HCL 10 MG CAP PO PRN ×2 (01:40→16:00)
[2017-02-11 06:58] VITALS: BP 129/84; PULSE 79; TEMP 36.5; O2SAT 99
[2017-02-11 07:25] LABS: MEAN CELL VOLUME 77.6 fL (80-100); MEAN CORPUSCULAR HEMOGLOBIN 25.3 pg (25-34); MEAN CORPUSCULAR HGB CONC 32.6 g/dl (32-36); MEAN PLATELET VOLUME 10.2 fL (7.4-10.4); PLATELET COUNT 246 K/uL (130-400); WHITE BLOOD COUNT 5.86 K/uL (4.8-10.8)
[2017-02-11 07:38] LABS: PROTHROMBIN TIME (PATIENT) 10.9 SECONDS (9.0-12.0)
[2017-02-11 07:56] LABS: BUN/CREATININE RATIO 8.9 (10-20); CALCIUM 8.2 mg/dl (8.5-10.1); CREATININE 0.89 mg/dl (0.60-1.40); MAGNESIUM 1.7 mg/dl (1.8-2.4); POTASSIUM 4.2 mmol/L (3.5-5.1)
[2017-02-11 08:03] LABS: BASO % 0.2 %; BASO ABS # 0.01 K/uL (0-0.2); COMPLETE YES; EOS % 2.4 %; LARGE PLATELETS 1+; LYMPH % 51.7 %; LYMPH ABS # 3.03 K/uL (1.2-3.4); MICROCYTOSIS PRESENT; MONO % 9.9 %; NEUT % 35.8 %
[2017-02-11] MEDS: IV FLUIDS COMPLETED PRN (08:52)
[2017-02-11] MEDS: INSULIN ASPART 100 UNITS/ML 3 ML PEN SC SCH ×4 (08:57→20:54)
[2017-02-11] MEDS ORDERED: NON-FORMULARY MEDICATION (Biotin 1,000 MCG) PO SCH (09:00)
[2017-02-11] MEDS: MULTIVITAMIN TAB PO SCH (10:00)
[2017-02-11] MEDS: PROMETHAZINE HCL INJ 25 MG in SODIUM CHLORIDE 0.9% 50ML 50 ML IV PRN ×2 (10:00→16:44)
[2017-02-11] MEDS: PANTOprazole SOD 40 MG TAB PO SCH (10:00)
[2017-02-11] MEDS ORDERED: NURSING VERBAL MED ORDER ONE ×3 (11:30→18:30)
[2017-02-11] MEDS ORDERED: INSULIN GLARGINE SOLOSTAR 100 UNITS/ML 3 ML PEN SC SCH ×2 (12:00→21:00)
[2017-02-11] MEDS ORDERED: METOCLOPRAMIDE HCL INJ 10 MG in SYRINGE 0 ML IV ONE (13:15)
--- NOTE | 2017-02-11 15:24 | Progress Note ---
Subjective Date of Service: Feb 11, 2017. Subjective Pt evaluation today including: conversation w/ patient, physical exam, lab review, review of studies, review of inpatient medication list Pain: moderate abdominal pain, 5 out of 10 PO Intake: improving Voiding: no voiding problems seemed to respond to Reglan, will continue discussed that imaging and lab work without etiology of symptoms Problem List Medical Problems: (1) Abdominal pain Status: Acute (2) Acute anxiety Status: Acute (3) Anxiety Status: Chronic (4) Dehydration Status: Acute (5) Dehydration, mild Status: Acute (6) DIAB MARIAH WO COMPL, TYPE I [JUVENILE TYPE], NOT UNCNTRLD Status: Chronic (7) Fatigue Status: Acute (8) Finger injury Status: Acute (9) Finger sprain Status: Acute (10) Gastroparesis Status: Acute (11) Hand contusion Status: Acute (12) Herpes labialis Status: Acute (13) Hypokalemia Status: Acute (14) Migraine Status: Acute (15) Muscle cramps Status: Acute (16) Nausea Status: Acute (17) Non-compliance Status: Acute (18) Overdose of drug/medicinal substance Status: Acute (19) Substance abuse Status: Chronic (20) Suicidal ideation Status: Acute (21) Vomiting Status: Acute Review of Systems Constitutional: + weakness, + fatigue Abdomen: + pain, + nausea, + vomiting, + constipation All Other Systems: Reviewed and Negative Medications Current Inpatient Medications Medications (Trade) Dose Ordered Sig/Oral Route Start Time Stop Time Status Last Admin Dose Admin Ioversol (Optiray 320) 111 ml UD PRN IV 02/10/17 22:15 02/14/17 22:14 Zolpidem Tartrate (Ambien Tab) 5 mg HSZ PRN PO 02/10/17 23:15 03/12/17 23:14 02/11/17 00:59 5 MG Multivitamins (Multivitamin Tab) 1 tab QAM PO 02/11/17 09:00 03/13/17 08:59 02/11/17 10:00 1 TAB Pantoprazole Sodium (Protonix Tab) 40 mg QAM PO 02/11/17 09:00 03/13/17 08:59 02/11/17 10:00 40 MG Insulin Aspart (novoLOG ASPART) SLIDING SCALE If C... ACHS SC 02/11/17 06:30 03/13/17 06:29 02/11/17 12:06 11 UNITS Glucose (Glucose 40% Gel) UD PRN PO 02/10/17 23:15 03/12/17 23:14 Glucose (Glucose Chew Tab) 1 tabs UD PRN PO 02/10/17 23:15 03/12/17 23:14 Dextrose (Dextrose 50% 50ML Syringe) 50 ml UD PRN IV 02/10/17 23:15 03/12/17 23:14 Glucagon (Glucagon Inj) 1 mg UD PRN SQ 02/10/17 23:15 03/12/17 23:14 Promethazine HCl 25 mg/Sodium Chloride 51 ml @ 204 mls/hr Q6H PRN IV 02/10/17 23:15 03/12/17 23:14 02/11/17 10:00 204 MLS/HR Potassium Chloride/Sodium Chloride 1,000 ml @ 100 mls/hr Q10H IV 02/11/17 00:12 03/13/17 00:11 02/11/17 08:52 250 MLS/HR Ketorolac Tromethamine (Toradol Inj) 30 mg Q6H PRN IV 02/10/17 23:30 02/15/17 23:29 Dicyclomine HCl (Bentyl Cap) 10 mg Q6H PRN PO 02/10/17 23:30 03/12/17 23:29 02/11/17 01:40 10 MG Miscellaneous (Iv Fluids Completed) 1 ea PRN PRN N/A 02/10/17 23:45 02/10/18 23:44 02/11/17 08:52 1 EA Lorazepam 1 mg/ Syringe 1 ml @ 1 mls/min Q6H PRN IV 02/11/17 00:15 03/13/17 00:14 Insulin Glargine (Lantus Solostar Pen) 60 unit HS SC 02/11/17 21:00 03/12/17 23:14 Metoclopramide HCl (Reglan Inj) 10 mg Q6H PRN IV 02/11/17 15:30 03/13/17 15:29 UNV Objective Vital Signs Date Time Temp Pulse Resp B/P (MAP) Pulse Ox O2 Delivery O2 Flow Rate FiO2 02/11/17 09:03 Room Air 02/11/17 06:58 36.5 79 18 129/84 (99) 99 Room Air 02/11/17 00:05 36.7 77 18 148/94 100 Room Air 02/10/17 23:54 69 22 98 02/10/17 23:39 72 20 98 02/10/17 23:35 71 16 145/101 97 02/10/17 23:34 145/101 02/10/17 23:13 73 24 02/10/17 23:01 134/89 02/10/17 22:58 74 16 130/75 02/10/17 22:58 71 16 130/75 98 Room Air 02/10/17 22:43 84 20 02/10/17 22:28 87 25 02/10/17 21:52 75 16 118/77 96 Room Air 02/10/17 21:43 90 21 02/10/17 21:31 118/77 02/10/17 21:28 70 27 98 02/10/17 21:13 76 25 97 02/10/17 21:01 133/78 02/10/17 20:58 72 15 98 02/10/17 20:53 70 21 98 02/10/17 20:44 132/79 02/10/17 20:44 71 20 132/79 97 Room Air 02/10/17 20:38 88 16 02/10/17 20:23 74 27 98 02/10/17 20:14 89 02/10/17 19:27 36.8 105 20 125/78 98 Room Air Physical Exam General Appearance: WD/WN, no apparent distress Eyes: normal inspection, EOMI, sclerae normal Neck: supple, no adenopathy, no JVD, trachea midline Respiratory/Chest: chest non-tender, lungs clear, normal breath sounds, no respiratory distress, no accessory muscle use Cardiovascular: regular rate, rhythm, no edema, no gallop, no JVD, no murmur Abdomen: normal bowel sounds, non tender, soft, no organomegaly Extremities: normal range of motion, non-tender, normal inspection, no pedal edema, no calf tenderness Neurologic/Psychiatric: 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 tested, no motor/sensory deficits, alert, normal mood/affect, oriented x 3 Skin: normal color, warm/dry, no rash Laboratory Results Last 24 Hours Test 6/27/17 20:00 02/10/17 20:40 02/10/17 21:06 02/10/17 22:45 White Blood Count 4.99 K/uL Red Blood Count 5.32 M/uL Hemoglobin 13.8 g/dL Hematocrit 41.5 % Mean Corpuscular Volume 78.0 fL Mean Corpuscular Hemoglobin 25.9 pg Mean Corpuscular Hemoglobin Concent 33.3 g/dl Platelet Count 303 K/uL Mean Platelet Volume 10.7 fL Neutrophils (%) (Auto) 55.9 % Lymphocytes (%) (Auto) 33.9 % Monocytes (%) (Auto) 8.6 % Eosinophils (%) (Auto) 1.4 % Basophils (%) (Auto) 0.0 % Neutrophils # (Auto) 2.79 K/uL Lymphocytes # (Auto) 1.69 K/uL Monocytes # (Auto) 0.43 K/uL Eosinophils # (Auto) 0.07 K/uL Basophils # (Auto) 0.00 K/uL RDW Standard Deviation 37.5 fL RDW Coefficient of Variation 13.3 % Immature Granulocyte % (Auto) 0.2 % Immature Granulocyte # (Auto) 0.01 K/uL Sodium Level 138 mmol/L Potassium Level mmol/L 4.4 mmol/L Chloride Level 102 mmol/L Carbon Dioxide Level 29 mmol/L Anion Gap 7.0 mmol/L Blood Urea Nitrogen 12 mg/dl Creatinine 1.20 mg/dl Est Creatinine Clear Calc Drug Dose 94.3 ml/min Estimated GFR () 96.1 Estimated GFR (Non- 83.0 BUN/Creatinine Ratio 10.3 Random Glucose 376 mg/dl Lactic Acid Level 3.3 mmol/L Calcium Level 8.7 mg/dl Total Bilirubin 0.7 mg/dl Aspartate Amino Transf (AST/SGOT) U/L 8 U/L Alanine Aminotransferase (ALT/SGPT) 19 U/L Alkaline Phosphatase 104 U/L Total Protein 7.4 gm/dl Albumin 3.6 gm/dl Globulin 3.8 gm/dl Albumin/Globulin Ratio 0.9 Lipase 158 U/L Beta-Hydroxybutyric Acid 1.26 mg/dL Urine Color YELLOW Urine Appearance CLEAR Urine pH 8.5 Urine Specific [place] 1.031 Urine Protein NEG Urine Glucose (UA) 3+ Urine Ketones NEG Urine Occult Blood NEG Urine Nitrite NEG Urine Bilirubin NEG Urine Urobilinogen NEG Urine Leukocyte Esterase NEG Urine Opiates Screen POS Urine Methadone, Qualitative NEG Urine Barbiturates NEG Urine Phencyclidine (PCP) Level NEG Ur Amphetamine/Methamphetamine NEG MDMA (Ecstasy) Screen NEG Urine Benzodiazepines Screen NEG Urine Cocaine Metabolite NEG Urine Marijuana (THC) NEG Bedside Glucose 385 mg/dl Test 02/10/17 23:33 02/11/17 00:23 02/11/17 06:42 02/11/17 07:08 Bedside Glucose 231 mg/dl 242 mg/dl 157 mg/dl Lactic Acid Level 1.7 mmol/L White Blood Count 5.86 K/uL Red Blood Count 4.90 M/uL Hemoglobin 12.4 g/dL Hematocrit 38.0 % Mean Corpuscular Volume 77.6 fL Mean Corpuscular Hemoglobin 25.3 pg Mean Corpuscular Hemoglobin Concent 32.6 g/dl Platelet Count 246 K/uL Mean Platelet Volume 10.2 fL Neutrophils (%) (Auto) 35.8 % Lymphocytes (%) (Auto) 51.7 % Monocytes (%) (Auto) 9.9 % Eosinophils (%) (Auto) 2.4 % Basophils (%) (Auto) 0.2 % Neutrophils # (Auto) 2.10 K/uL Lymphocytes # (Auto) 3.03 K/uL Monocytes # (Auto) 0.58 K/uL Eosinophils # (Auto) 0.14 K/uL Basophils # (Auto) 0.01 K/uL RDW Standard Deviation 37.2 fL RDW Coefficient of Variation 13.2 % Immature Granulocyte % (Auto) 0.0 % Immature Granulocyte # (Auto) 0.00 K/uL Large Platelets 1+ Microcytosis PRESENT Prothrombin Time 10.9 SECONDS Prothromb Time International Ratio 1.0 Activated Partial Thromboplast Time 26.7 SECONDS Partial Thromboplastin Ratio 1.0 Sodium Level 142 mmol/L Potassium Level 4.2 mmol/L Chloride Level 108 mmol/L Carbon Dioxide Level 28 mmol/L Anion Gap 6.0 mmol/L Blood Urea Nitrogen 8 mg/dl Creatinine 0.89 mg/dl Est Creatinine Clear Calc Drug Dose 127.2 ml/min Estimated GFR () 136.8 Estimated GFR (Non- 118.0 BUN/Creatinine Ratio 8.9 Random Glucose 190 mg/dl Calcium Level 8.2 mg/dl Magnesium Level 1.7 mg/dl Total Bilirubin 1.0 mg/dl Direct Bilirubin 0.2 mg/dl Aspartate Amino Transf (AST/SGOT) 8 U/L Alanine Aminotransferase (ALT/SGPT) 14 U/L Alkaline Phosphatase 67 U/L Total Protein 5.8 gm/dl Albumin 2.9 gm/dl Test 02/11/17 11:20 Bedside Glucose 330 mg/dl Assessment and Plan Intractable nausea, vomiting, abdominal pain with dehydration and lactic acidosis-- patient feeling better, responded well to Reglan planning on continuing Reglan CT scan and lab work without specific etiology could be viral illness or perhaps gastroparesis? would need outpatient work up continue fluids overnight and try to d/c tomorrow Diabetes mellitus type 1-- resume home dose of Lantus 60 units qHS, gave extra 15 units earlier today for hyperglycemia fluids Novolog GERD--continue pantoprazole 40 mg by mouth every morning. The patient may have an element of diabetic gastroparesis, but this workup can be a pursued in the outpatient setting, unless his symptoms are persistent.
[2017-02-11] MEDS ORDERED: METOCLOPRAMIDE HCL INJ 5 MG/ML 2 ML VIAL IV PRN (15:30)
[2017-02-11 16:00] VITALS: O2SAT 98
[2017-02-11 16:06] VITALS: BP 151/80; PULSE 74; TEMP 36.8; O2SAT 98
[2017-02-11 16:22] VITALS: BMI 31.7
[2017-02-11] MEDS: LORAZEPAM INJ 1 MG in SYRINGE 0.5 ML IV PRN (16:44)
[2017-02-11] MEDS: CYCLOBENZAPRINE HCL 10 MG TAB PO PRN (19:50)
[2017-02-11 23:38] VITALS: BP 134/82; PULSE 77; TEMP 36.7; O2SAT 97
[2017-02-12] MEDS: NSS + 20MEQ KCL 1000ML 1,000 ML IV SCH ×2 (00:32→08:22)
[2017-02-12 06:57] LABS: BASO % 0.2 %; BASO ABS # 0.01 K/uL (0-0.2); COMPLETE YES; EOS % 2.5 %; HEMATOCRIT 38.5 % (42-52); IG% 0.2 %; LYMPH % 44.8 %; LYMPH ABS # 2.52 K/uL (1.2-3.4); MEAN CELL VOLUME 77.2 fL (80-100); MEAN CORPUSCULAR HEMOGLOBIN 26.5 pg (25-34); MEAN CORPUSCULAR HGB CONC 34.3 g/dl (32-36); MEAN PLATELET VOLUME 10.4 fL (7.4-10.4); MONO % 5.7 %; NEUT % 46.6 %; PLATELET COUNT 259 K/uL (130-400); RED BLOOD COUNT 4.99 M/uL (4.7-6.1); WHITE BLOOD COUNT 5.62 K/uL (4.8-10.8)
[2017-02-12 07:06] LABS: PROTHROMBIN TIME (PATIENT) 10.7 SECONDS (9.0-12.0)
[2017-02-12 07:42] VITALS: BP 130/79; PULSE 65; TEMP 36.6; O2SAT 100
[2017-02-12 07:52] LABS: BUN/CREATININE RATIO 10.2 (10-20); CALCIUM 8.8 mg/dl (8.5-10.1); CREATININE 0.97 mg/dl (0.60-1.40); MAGNESIUM 1.6 mg/dl (1.8-2.4); POTASSIUM 4.4 mmol/L (3.5-5.1)
[2017-02-12 08:10] LABS: BETA-HYDROXYBUTYRATE 1.98 mg/dL (0.2-2.81)
[2017-02-12] MEDS: MULTIVITAMIN TAB PO SCH (08:22)
[2017-02-12] MEDS: PANTOprazole SOD 40 MG TAB PO SCH (08:23)
[2017-02-12] MEDS: DICYCLOMINE HCL 10 MG CAP PO PRN (08:23)
[2017-02-12] MEDS: IV FLUIDS COMPLETED PRN (08:23)
[2017-02-12] MEDS: CYCLOBENZAPRINE HCL 10 MG TAB PO PRN (08:23)
[2017-02-12] MEDS: INSULIN ASPART 100 UNITS/ML 3 ML PEN SC SCH ×2 (08:29→12:51)
[2017-02-12] MEDS: LORAZEPAM INJ 1 MG in SYRINGE 0.5 ML IV PRN ×2 (08:36→15:56)
[2017-02-12] MEDS: MAGNESIUM SULFATE 1GM / D5W 1 GM in PREMIXED IN D5W 100 ML IV SCH ×2 (10:14→11:37)
[2017-02-12] MEDS: TRAMADOL HCL 50 MG TAB PO PRN ×2 (10:38→14:28)
--- NOTE | 2017-02-12 11:08 | DIAGNOSTIC IMAGING REPORT ---
KUB HISTORY: Abdominal pain, nausea, left flank pain COMPARISON: Abdomen and pelvis CT 02/10/2017. FINDINGS: The bowel gas pattern is unremarkable. There are no dilated loops of small bowel to suggest an obstruction. No renal calculi. No ureteral calculi. No pneumoperitoneum or pneumatosis. IMPRESSION: No renal or ureteral stones. No evidence for bowel obstruction. Electronically signed by: Samuel Ramos M.D. 02/12/2017 11:07 AM Dictated Date/Time: 02/12/2017 11:06 AM
[2017-02-12 14:25] VITALS: Ht 165.1 cm; Wt 86.5 kg
[2017-02-12] MEDS ORDERED: LORA-741 PO (15:28)
[2017-02-12] MEDS ORDERED: PANT40TA PO (15:28)
[2017-02-12] MEDS ORDERED: PROM12.56 PO (15:28)
[2017-02-12] MEDS ORDERED: FLX10 PO (15:28)
[2017-02-12] MEDS ORDERED: ULT50X PO (15:28)
[2017-02-12] MEDS ORDERED: INSDGIPEN SC (15:28)
[2017-02-12] MEDS ORDERED: INSU100I SC (15:28)
--- NOTE | 2017-02-12 15:49 | Discharge Instructions ---
Discharge Instructions Date of Service Feb 12, 2017. Admission Reason for Admission: Abdominal Pain, Vomiting Discharge Discharge Diagnosis / Problem: Vomiting, left lower quadrant pain and flank pain, muscle spasms Discharge Goals Goal(s): Improve function, Improve disease control, Specific goals (follow up with new [facility] PCP) Activity Recommendations Activity Limitations: resume your previous activity Lifting Limitations: none Exercise/Sports Limitations: as tolerated May Resume Sexual Activity: when tolerated Shower/Bathe: no limitations Driving or Machine Use: DO NOT DRIVE WHILE ON ATIVAN OR ULTRAM . 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 CT of the abdomen/pelvis was normal, no evidence of kidney stones, diverticulitis, pancreatitis, enteritis, bowel obstruction. Lab work was also normal. suspect there are two issues: musculoskeletal pain and spasms as well as possible gastroparesis will provide you with Ultram, Flexeril and Ativan for muscle pain and spasms will provide you with Phenergan for nausea. Reglan is not intended for adjunct faculty for medical terminology use due to detrimental side effects and no real indication without a diagnosis Could consider getting a gastric emptying study to look for gastroparesis ( problem common to diabetics) but this can only be done as outpatient. FOLLOW UP - extremely important for you to keep your appointment with [facility] in 2 weeks - also, you need to re-establish care with endocrinology Current Hospital Diet Patient's current hospital diet: Diabetes Type 1 Diet Discharge Diet Recommended Diet: Diabetes Type 1 Diet Pending Studies Studies pending at discharge: no Medical Emergencies . Who to Call and When: Medical Emergencies: If at any time you feel your situation is an emergency, please call 911 immediately. . Non-Emergent Contact Non-Emergency issues call your: Primary Care Provider Call Non-Emergent contact if: you have any medication questions . . "Provider Documentation" section prepared by Delvin Arana. . VTE Core Measure Inpt VTE Proph given/why not?: Treatment not indicated [place] Drug Monitoring Program Search Results: patient reviewed within database Drug Monitoring Findings: last prescriptions filled were in November, short courses of both
[2017-02-12 16:06] VITALS: BP 124/71; PULSE 96; TEMP 36.7; O2SAT 96
[2017-02-12 16:08] VITALS: BP 124/71; PULSE 96; TEMP 36.7; O2SAT 96
[2017-02-13 12:34] LABS: COD UR NEGATIVE NG/ML (CUTOFF=50); HYDROCOD UR NEGATIVE NG/ML (CUTOFF=50); HYDROMOR UR NEGATIVE NG/ML (CUTOFF=50); MORPHINE UR 1050 NG/ML (CUTOFF=50); NORHYDROCODONE CONF UR NEGATIVE NG/ML (CUTOFF=50); OXYMORPH UR NEGATIVE NG/ML (CUTOFF=50)
--- NOTE | 2017-02-14 09:03 | Discharge Summary ---
Discharge Summary Date of Service February 12, 2017. Discharge Summary Admission Date: Feb 10, 2017 at 23:14 Discharge Date: Feb 12, 2017 Discharge Disposition: Home Principal Diagnosis: Abdominal pain, nausea vomiting Problems/Secondary Diagnoses: DM type I, poorly controlled, non-compliant Opioid abuse Procedures: none Consultations: none Medication Reconciliation New Medications: Lorazepam (Ativan) 0.5 Mg Tab 0.5 MG PO Q12 PRN for Muscle Spasms, #20 TAB Promethazine Hcl (Phenergan) 12.5 Mg Tab 1 TAB PO Q6 PRN for Nausea or Vomiting for 7 Days, #30 TAB Cyclobenzaprine HCl (Cyclobenzaprine HCl) 10 Mg Tab 10 MG PO Q8H PRN for MUSCLE SPASM, #20 TAB 0 Refills Insulin Glargine (Lantus Solostar) 100 Unit/Ml Inj 20 UNIT SC HS, #1 BOX 3 Refills Tramadol HCl (Tramadol HCl) 50 Mg Tab 50 MG PO Q4H PRN for Pain, #20 TAB 0 Refills Continued Medications: Aspirin (Aspirin Ec) 81 Mg Tab 81 MG PO QAM Biotin (Biotin) 1,000 Mcg Tab 1000 MCG PO DAILY Cinnamon (Cinnamon) 500 Mg Tab 1000 MG PO QAM Insulin Lispro (Human) (Humalog) 100 Unit/Ml Inj 1 DOSE SC ACHS, #1 BOX 3 Refills (This prescription has been renewed) COVERAGE DIRECTED BY SLIDING SCALE AND CARBOHYDRATE INTAKE Multivitamin (Multivitamin) Tab 1 TAB PO QAM Pantoprazole (Protonix) 40 Mg Tab 40 MG PO QAM, #30 TABS 3 Refills (This prescription has been renewed) Discontinued Medications: Insulin Glargine (Lantus Solostar) 100 Unit/Ml Inj 60 UNITS SC HS Discharge Exam Patient felt better on day of discharge but not great. He was keeping meals down but still had some nausea. He was urinating more. He was moving bowels. Discussed that the etiology of his symptoms was unclear, imaging and lab work did not show any abnormalities. Suggested a gastric emptying study to look for gastroparesis as he has long standing DM and poorly controlled, would need done as outpatient. He had some relief with Reglan but discussed that would not recommend continuing this outpatient due to detrimental sided effects, also, would not continue unless we actually had the diagnosis of gastroparesis. D/c home on Ultram for the pain and Flexeril and Ativan for his muscle spasms which were intense but relieved with these medications. Very short prescription given, told patient he needs to follow up with his new [facility] PCP in 2 weeks as previously scheduled. Prior to leaving, he said that he did not have a glucometer or test strips or lancets and would need new prescriptions. Checked with DM educator about what was on formulary for him and provided him with the prescriptions and a glucometer. Educator visited with him prior to d/c and discussed plan for his DM. Review of Systems: Constitutional: + weakness, No fever, No chills, No sweats, No weight loss, No fatigue, No problem reported Eyes: No worsening of vision, No eye pain, No redness, No discharge, No diplopia, No problem reported ENT: No hearing loss, No unusual epistaxis, No nasal symptoms, No sore throat, No tinnitus, No dental problems, No trouble swallowing, No problem reported Respiratory: No cough, No sputum, No wheezing, No shortness of breath, No dyspnea on exertion, No dyspnea at rest, No hemoptysis, No problem reported Cardiovascular: No chest pain, No orthopnea, No PND, No edema, No claudication, No palpitations, No problem reported Abdomen: + pain, + nausea, No vomiting, No diarrhea, No constipation, No GI bleeding Musculoskeletal: + muscle pain (spasms, intense in legs), No joint pain, No swelling, No calf pain, No problem reported Genitourinary - Male: No hematuria, No dysuria, No urinary frequency, No urinary urgency Neurologic: No memory loss, No paralysis, No weakness, No numbness/tingling , No vertigo, No balance problems, No problem reported Psychiatric: No depression symptoms, No anhedonism, No anxiety, No insomnia , No substance abuse, No problem reported Endocrine: No fatigue, No excessive thirst, No excessive urination, No problem reported Hematologic / Lymphatic: No abnormal bleeding/bruising, No clotting problems , No swollen lymph nodes, No night sweats, No problem reported Integumentary: No rash, No itch, No new/changing skin lesions, No color change, No bleeding, No problem reported Physical Exam: General Appearance: WD/WN, no apparent distress Eyes: normal inspection, EOMI, sclerae normal ENT: normal ENT inspection, hearing grossly normal, pharynx normal Neck: supple, no adenopathy, no JVD, trachea midline Respiratory/Chest: chest non-tender, lungs clear, normal breath sounds, no respiratory distress, no accessory muscle use Cardiovascular: regular rate, rhythm, no edema, no gallop, no JVD, no murmur , normal peripheral pulses Abdomen / GI: normal bowel sounds, non tender, soft, no organomegaly Extremities: normal inspection, no calf tenderness, normal capillary refill , no pedal edema, normal range of motion, pelvis stable Neurologic/Psychiatric: handbook writer II-XII nml as tested, no motor/sensory deficits , alert, normal mood/affect, normal reflexes, oriented x 3 Skin: normal color, warm/dry, no rash Hospital Course Intractable nausea, vomiting, abdominal pain with dehydration and lactic acidosis-- patient feeling better, responded well to Reglan suspect he has gastroparesis but would need gastric emptying study as outpatient CT scan and lab work without specific etiology tolerating diet, no vomiting d/c home on Phenergan PRN follow up with new [facility] PCP in 2 weeks, already scheduled, discuss getting a gastric emptying study Severe muscle cramps: better with Flexeril and Ativan reviewed [place] prescription monitoring, last script for Ativan was in November, only a few tablets will give a one week supply for the cramps to help keep him out of the hospital Diabetes mellitus type 1-- discussed with pharmacy, he received 15 units of Lantus the night before and sugars were 88 in the AM doubt that the 60 units he reported was accurate recommend 15 units of Lantus at night, Novolog SS and meal coverage provided patient with new glucometer, scripts for pen needles, test strips and finger stick follow with PCP and needs to re-establish care with endocrinology discussed all of this in detail with patient, unsure if he will be compliant GERD--continue pantoprazole 40 mg by mouth every morning Total Time Spent: Greater than 30 minutes This includes examination of the patient, discharge planning, medication reconciliation, and communication with other providers. Discharge Instructions Please refer to the electronic Patient Visit Report (Discharge Instructions) for additional information. Follow-Up [facility] PCP in two weeks Endocrinology
== END 2017-02-12 17:19 | disposition home or self-care (01) ==
LOC: C.EDB 19:24 → C.MS2W 23:14 → ENRESERV 23:26
PROVIDERS: ADMIT Hospitalist; ATTEND Internal Medicine
DX: R10.9 Unspecified abdominal pain (principal); R11.2 Nausea with vomiting, unspecified; K21.9 Gastro-esophageal reflux disease without esophagitis; E10.9 Type 1 diabetes mellitus without complications; Z79.82 Long term (current) use of aspirin; Z79.4 Long term (current) use of insulin; Z83.3 Family history of diabetes mellitus; Z82.49 Family history of ischemic heart disease and other diseases of the circulatory system; Z82.0 Family history of epilepsy and other diseases of the nervous system; Z84.1 Family history of disorders of kidney and ureter

== ENCOUNTER 2017-03-30 21:52 | Emergency (ER) | payer SELFPAY ==
[~2017-03-30] VITALS: Ht 165.1 cm; Wt 89.4 kg
[~2017-03-30 21:52] MED LIST changes: +BIOT1TAB5 PO; +FLX10 PO; +ULT50X PO
[2017-03-30 21:56] VITALS: TEMP 36.7; Ht 165.1 cm; Wt 89.4 kg
[2017-03-30] MEDS ORDERED: NovoLIN-R INSULIN PER UNIT CHARGE IV STA (22:17)
[2017-03-30] MEDS ORDERED: PROMETHAZINE HCL INJ 25 MG/ML 1 ML VIAL IV STA (22:17)
[2017-03-30] MEDS ORDERED: SODIUM CHLORIDE 0.9% 1000ML 1,000 ML IV STA ×2 (22:17)
[2017-03-30 22:32] LABS: COMPLETE YES; EOS % 2.1 %; HEMATOCRIT 39.8 % (42-52); IG% 0.2 %; LYMPH % 30.4 %; LYMPH ABS # 1.62 K/uL (1.2-3.4); MEAN CORPUSCULAR HEMOGLOBIN 25.9 pg (25-34); MEAN CORPUSCULAR HGB CONC 33.7 g/dl (32-36); MEAN PLATELET VOLUME 10.2 fL (7.4-10.4); MONO % 5.1 %; NEUT % 62.2 %; PLATELET COUNT 307 K/uL (130-400); RED BLOOD COUNT 5.17 M/uL (4.7-6.1); WHITE BLOOD COUNT 5.33 K/uL (4.8-10.8)
[2017-03-30 22:33] LABS: URINE APPEARANCE CLEAR (CLEAR); URINE BILIRUBIN NEG (NEG); URINE COLOR YELLOW; URINE NITRITE NEG (NEG); URINE SPECIFIC GRAVITY 1.021 (1.000-1.030); UROBILINOGEN NEG (NEG); ZZUR CULT IF INDIC CLEAN CATCH NO
[2017-03-30 22:36] LABS: MANUAL MICROSCOPIC REQUIRED? NO; REVIEW REQ? NO
--- NOTE | 2017-03-30 22:39 | EMERGENCY ROOM VISIT NOTE ---
History Report prepared by Waqas: Sheryl Griffin Under the Supervision of: Dr. Terry Benjamin M.D. First contact with patient: 22:06 Chief Complaint: HYPERGLYCEMIA Stated Complaint: HIGH BS,ABD PAIN,STIFF MUSCLES Nursing Triage Summary: pt reports my blood sugar is high and I have a stomach thing going on I was here befor for this. History of Present Illness The patient is a 26 year old male who presents to the Emergency Room with complaints of persistent hyperglycemia starting last night. The patient has a history of insulin dependent diabetes. He checked his blood sugar last night and found it to be 423. He ran out of Humalog yesterday and went to the pharmacy today, but found out that his insurance had lapsed. He took 80 units of Lantus 4 hours ago. He has also been having lower abdominal pain, nausea, vomiting, muscle aches for the past 5 days. He is sipping liquids, but unable to eat without vomiting. He rates his abdominal pain as a 4/10 in severity. He feels dehydrated. He denies any fever, cough, rhinorrhea, or sore throat. He notes that he had ulcers in his mouth which have resolved. He has had an appendectomy. He has a history of GERD. He has been told that he might have gastroparesis. He does not have a GI doctor. Source of History: patient Onset: last night Position: other (global) Symptom Intensity: 423 Quality: other (hyperglycemia) Timing: other (persistent) Associated Symptoms: + nausea, + vomiting, + abdominal pain, No fevers, No sorethroat, No cough Note: Pt reports muscle aches. Pt denies rhinorrhea. Review of Systems See HPI for pertinent positives & negatives. A total of 10 systems reviewed and were otherwise negative. Past Medical & Surgical Medical Problems: (1) Acute renal insufficiency (2) Anxiety (3) Anxiety (4) Anxiety (5) Arm pain, right (6) DIAB MARIAH WO COMPL, TYPE I [JUVENILE TYPE], NOT UNCNTRLD (7) Diabetic ketoacidosis (8) DKA, type 1, not at goal (9) Fall (10) Foot pain (11) Fractured great toe (12) Hyperglycemia (13) Hyperglycemia (14) Injury of wrist, left (15) Substance abuse (16) Substance abuse Surgical Problems: (1) ACUTE APPENDICITIS NOS (2) Arthroscopy of knee joint Family History Diabetes mellitus FHx: hypertension FHx: seizures Kidney disease Social History Smoking Status: Never Smoker Alcohol Use: none Drug Use: none Marital Status: single Housing Status: lives with family Occupation Status: employed Current/Historical Medications Scheduled Aspirin (Aspirin Ec), 81 MG PO QAM Biotin (Biotin), 1,000 MCG PO DAILY Cinnamon (Cinnamon), 1,000 MG PO QAM Insulin Glargine (Lantus Solostar), 20 UNIT SC HS Insulin Lispro (Human) (Humalog), 1 DOSE SC ACHS Multivitamin (Multivitamin), 1 TAB PO QAM Pantoprazole (Protonix), 40 MG PO QAM Scheduled PRN Cyclobenzaprine HCl (Cyclobenzaprine HCl), 10 MG PO Q8H PRN for MUSCLE SPASM Promethazine Hcl (Phenergan), 25 MG PO Q6H PRN for Nausea Allergies Coded Allergies: Cephalexin (Verified Allergy, Unknown, hives, 03/30/17) Ondansetron (Verified Allergy, Unknown, HIVES, 03/30/17) Acetaminophen (Verified Adverse Reaction, Unknown, GI SYMPTOMS, 03/30/17) Physical Exam Vital Signs Date Time Temp Pulse Resp B/P (MAP) Pulse Ox O2 Delivery O2 Flow Rate FiO2 03/30/17 23:00 96 18 169/86 99 Room Air 03/30/17 21:56 36.7 88 18 150/82 97 Room Air Physical Exam GENERAL: Patient is in no acute distress. HEENT: No acute trauma, normocephalic atraumatic, mucous membranes dry, no nasal congestion, no scleral icterus. NECK: No stridor, no adenopathy, no meningismus, trachea is midline. LUNGS: Clear to auscultation bilaterally, no wheeze, no rhonchi, breath sounds equal. HEART: Tachycardic with a regular rhythm, no murmurs. ABDOMEN: Soft, moderately tender in the lower quadrants bilaterally, bowel sounds positive, no hernias, no peritonitis. EXTREMITIES: No cyanosis or edema, full range of motion of all the joints without pain or difficulty, no signs for acute trauma. NEUROLOGIC: Oriented x 3, no acute motor or sensory deficits, no focal weakness. SKIN: No rash, no jaundice, no diaphoresis. Medical Decision & Procedures ER Provider Diagnostic Interpretation: X-ray results as stated below per interpretation by me and reviewed by the radiologist: Chest/Abdomen X-ray: No pneumonia, bowel obstruction, or free air. No significant constipation. Laboratory Results 03/30/17 22:20 Red Blood Count 5.17, Mean Corpuscular Volume 77.0, Mean Corpuscular Hemoglobin 25.9, Mean Corpuscular Hemoglobin Concent 33.7, Mean Platelet Volume 10.2, Neutrophils (%) (Auto) 62.2, Lymphocytes (%) (Auto) 30.4, Monocytes (%) (Auto) 5.1, Eosinophils (%) (Auto) 2.1, Basophils (%) (Auto) 0.0, Neutrophils # (Auto) 3.32, Lymphocytes # (Auto) 1.62, Monocytes # (Auto) 0.27, Eosinophils # (Auto) 0.11, Basophils # (Auto) 0.00 03/30/17 22:20 Test 03/30/17 22:20 03/30/17 22:30 03/30/17 23:23 White Blood Count 5.33 K/uL (4.8-10.8) Red Blood Count 5.17 M/uL (4.7-6.1) Hemoglobin 13.4 g/dL (14.0-18.0) Hematocrit 39.8 % (42-52) Mean Corpuscular Volume 77.0 fL (80-100) Mean Corpuscular Hemoglobin 25.9 pg (25-34) Mean Corpuscular Hemoglobin Concent 33.7 g/dl (32-36) Platelet Count 307 K/uL (130-400) Mean Platelet Volume 10.2 fL (7.4-10.4) Neutrophils (%) (Auto) 62.2 % Lymphocytes (%) (Auto) 30.4 % Monocytes (%) (Auto) 5.1 % Eosinophils (%) (Auto) 2.1 % Basophils (%) (Auto) 0.0 % Neutrophils # (Auto) 3.32 K/uL (1.4-6.5) Lymphocytes # (Auto) 1.62 K/uL (1.2-3.4) Monocytes # (Auto) 0.27 K/uL (0.11-0.59) Eosinophils # (Auto) 0.11 K/uL (0-0.5) Basophils # (Auto) 0.00 K/uL (0-0.2) RDW Standard Deviation 36.3 fL (36.4-46.3) RDW Coefficient of Variation 13.0 % (11.5-14.5) Immature Granulocyte % (Auto) 0.2 % Immature Granulocyte # (Auto) 0.01 K/uL (0.00-0.02) Urine Color YELLOW Urine Appearance CLEAR (CLEAR) Urine pH 8.0 (4.5-7.5) Urine Specific [place] 1.021 (1.000-1.030) Urine Protein NEG (NEG) Urine Glucose (UA) 3+ (NEG) Urine Ketones NEG (NEG) Urine Occult Blood NEG (NEG) Urine Nitrite NEG (NEG) Urine Bilirubin NEG (NEG) Urine Urobilinogen NEG (NEG) Urine Leukocyte Esterase NEG (NEG) Anion Gap 3.0 mmol/L (3-11) Est Creatinine Clear Calc Drug Dose 104.6 ml/min Estimated GFR () 106.8 Estimated GFR (Non- 92.2 BUN/Creatinine Ratio 8.5 (10-20) Calcium Level 9.0 mg/dl (8.5-10.1) Total Bilirubin 0.5 mg/dl (0.2-1) Aspartate Amino Transf (AST/SGOT) 17 U/L (15-37) Alanine Aminotransferase (ALT/SGPT) 25 U/L (12-78) Alkaline Phosphatase 91 U/L (45-117) Total Creatine Kinase 66 U/L (39-308) Total Protein 7.4 gm/dl (6.4-8.2) Albumin 3.4 gm/dl (3.4-5.0) Globulin 4.0 gm/dl (2.5-4.0) Albumin/Globulin Ratio 0.9 (0.9-2) Lipase 101 U/L (73-393) Beta-Hydroxybutyric Acid 0.87 mg/dL (0.2-2.81) Lactic Acid Level 2.0 mmol/L (0.4-2.0) Bedside Glucose 238 mg/dl (70-99) Laboratory results reviewed by me. Medications Administered Medications (Trade) Dose Ordered Sig/Oral Route Start Time Stop Time Status Last Admin Dose Admin Sodium Chloride 1,000 ml @ 999 mls/hr Q1H1M STAT IV 03/30/17 22:17 03/30/17 23:17 DC 03/30/17 22:17 999 MLS/HR Insulin Human Regular (novoLIN-R U-100 PER UNIT) 8 units NOW STAT IV 03/30/17 22:17 03/30/17 22:20 DC 03/30/17 22:39 8 UNITS Promethazine HCl 12.5 mg/Sodium Chloride 50.5 ml @ 202 mls/hr NOW STAT IV 03/30/17 22:44 03/30/17 22:58 DC 03/30/17 22:59 202 MLS/HR ED Course 2206: The student evaluated the patient at this time. We discussed findings, differentials, and treatment plan. 2217: Insulin Human Regular 8 units IV, NSS 1000 ml @ 999 mls/hr IV, NSS 1000 ml @ 200 mls/hr IV, Phenergan Inj 12.5 mg IV. 2220: The patient was evaluated in room B9. A complete history and physical exam was performed. 2341: I reevaluated the patient. I discussed results and discharge instructions : he verbalized understanding and agreement. The patient is ready for discharge. 2344: Tramadol HCl 100 mg PO, Tramadol HCl 100 mg PO. 2345: Tramadol HCl 1 homepack PO, Novolog Pen 1 ea SC. Medical Decision Differential diagnoses considered include DKA, hyperglycemia, dehydration, gastroparesis, constipation, viral illness, UTI, pneumonia. There is no leukocytosis or concerning anemia. Renal panel testing shows a sugar elevated at around 400, no kidney failure, no acidosis. There is no hepatitis or pancreatitis. Lactic acid level is not elevated making sepsis or severe dehydration less likely. Urinalysis shows glucose, no evidence for infection. Obstruction series shows no pneumonia, bowel obstruction or free air. The patient received IV saline, IV insulin. He was given IV Phenergan for nausea. He received oral tramadol for pain-this has helped him in the past. The patient has done well. Blood sugar is now in the 200s, he is not in DKA by our workup. There is no bowel obstruction. No fever, he is not toxic, there is no peritonitis. He has had this abdominal pain before and states he needs a workup for gastroparesis. I do think the patient can be discharged. He was given a tramadol home pack for pain. He received some Phenergan tablets to take home for nausea. He was given a Phenergan prescription. The patient was given a NovoLog pen to use for his short acting insulin, hopefully, this will tide him over until he can get the prescription issue resolved. Patient was encouraged to follow with his family doctor's office for further workup for the possible gastroparesis. The patient was encouraged to return for fever, persistent vomiting or worsening symptoms. Impression Primary Impression: Hyperglycemia Additional Impressions: Dehydration Vomiting Scribe Attestation The scribe's documentation has been prepared under my direction and personally reviewed by me in its entirety. I confirm that the note above accurately reflects all work, treatment, procedures, and medical decision making performed by me. Departure Information Dispostion Home / Self-Care Prescriptions Promethazine Hcl (Phenergan) 25 Mg Tab 25 MG PO Q6H Y for Nausea, #15 TAB Prov: Terry Benjamin M.D. 03/30/17 Referrals No Doctor, Assigned (PCP) Forms HOME CARE DOCUMENTATION FORM, IMPORTANT VISIT INFORMATION, WORK / SCHOOL INSTRUCTIONS Patient Instructions My [facility] [email or web address] Additional Instructions talk with your doctor about a gastric emptying study to help evaluate your pain and vomiting tramadol 1 tab every 6 hours for sever pain phenergan 1 tab every 6 hours for nausea insulin use as before set up [facility] appt this week for a recheck stay well hydated return for worsening symptoms or continued vomiting call your insurance company tomorrow imaging today was ok Problem Qualifiers
[2017-03-30] MEDS ORDERED: PROMETHAZINE HCL INJ 12.5 MG in SODIUM CHLORIDE 0.9% 50ML 50 ML IV STA (22:44)
[2017-03-30 23:04] LABS: ALB/GLOB RATIO 0.9 (0.9-2); BUN/CREATININE RATIO 8.5 (10-20); CREATININE 1.1 mg/dl (0.60-1.40); POTASSIUM 4.6 mmol/L (3.5-5.1)
[2017-03-30 23:25] LABS: BETA-HYDROXYBUTYRATE 0.87 mg/dL (0.2-2.81)
[2017-03-30] MEDS ORDERED: TRAMADOL HCL 50 MG TAB PO STA (23:44)
[2017-03-30] MEDS ORDERED: INSULIN ASPART 100 UNITS/ML 3 ML PEN SC SCH (23:45)
[2017-03-30] MEDS ORDERED: TRAMADOL HCL 50 MG HOME PACK PO ONE (23:45)
[2017-03-30] MEDS ORDERED: NURSING VERBAL MED ORDER ONE (23:45)
[2017-03-30] MEDS ORDERED: PROMETHAZINE HCL 25 MG TAB PO ONE (23:45)
[2017-03-30] MEDS ORDERED: PROM25TA9 PO (23:50)
[2017-03-30] MEDS ORDERED: EMPTY 8 DRAM VIAL ONE (23:53)
[2017-03-31 00:07] VITALS: BP 131/88; PULSE 97; O2SAT 99
[2017-03-31 06:17] LABS: ESTIMATED AVERAGE GLUCOSE 209 mg/dl; HA1C FLAG Normal (Normal)
--- NOTE | 2017-03-31 06:50 | DIAGNOSTIC IMAGING REPORT ---
ABDOMEN 2VIEW W/PA CHEST RTN CLINICAL HISTORY: 26 years-old Male presenting with ABDOMINAL PAIN/GI. TECHNIQUE: PA view of the chest and supine and upright views of the abdomen were obtained. COMPARISON: Plain radiograph of the abdomen from 02/12/2017. FINDINGS: Cardiomediastinal silhouette normal. Lungs and pleural spaces clear. Mild stool burden throughout the colon. Mild gaseous distention of small bowel in the right mid abdomen. No bowel obstruction. No evidence of free intraperitoneal gas, pneumatosis, or portal venous gas. No calcifications are notable over the kidneys or along the courses of the ureters allowing for stool and bowel gas somewhat degrading evaluation. Osseous structures normal. IMPRESSION: 1. No acute cardiopulmonary disease. 2. No convincing evidence of acute intra-abdominal pathology. Electronically signed by: Glen Quinn M.D. 03/31/2017 6:48 AM Dictated Date/Time: 03/31/2017 6:46 AM
== END 2017-03-31 00:14 | disposition home or self-care (01) ==
LOC: C.EDB 21:53
DX: E10.65 Type 1 diabetes mellitus with hyperglycemia (principal); E86.0 Dehydration; R11.10 Vomiting, unspecified; F41.9 Anxiety disorder, unspecified; K21.9 Gastro-esophageal reflux disease without esophagitis; Z87.81 Personal history of (healed) traumatic fracture; Z87.828 Personal history of other (healed) physical injury and trauma; Z91.81 History of falling; Z96.659 Presence of unspecified artificial knee joint; Z79.4 Long term (current) use of insulin; Z79.82 Long term (current) use of aspirin; Z79.899 Other long term (current) drug therapy; Z88.6 Allergy status to analgesic agent; Z88.8 Allergy status to other drugs, medicaments and biological substances; Z83.3 Family history of diabetes mellitus; Z82.49 Family history of ischemic heart disease and other diseases of the circulatory system; Z82.0 Family history of epilepsy and other diseases of the nervous system; Z84.1 Family history of disorders of kidney and ureter

== ENCOUNTER 2017-04-06 09:15 | Emergency (ER) | payer SELFPAY ==
[~2017-04-06] VITALS: Ht 165.1 cm; Wt 88.8 kg
[~2017-04-06 09:15] MED LIST changes: +PROM25TA9 PO; -ULT50X PO
[2017-04-06 09:22] VITALS: TEMP 36.9; Ht 165.1 cm; Wt 88.8 kg
[2017-04-06] MEDS ORDERED: INSDGI SC (10:05)
[2017-04-06] MEDS ORDERED: SODIUM CHLORIDE 0.9% 1000ML 1,000 ML IV STA ×2 (10:06→11:34)
[2017-04-06] MEDS ORDERED: METOCLOPRAMIDE HCL INJ 5 MG/ML 2 ML VIAL IV STA (10:06)
[2017-04-06] MEDS ORDERED: DiphenhydrAMINE HCL 50 MG/ML VIAL IV STA (10:06)
[2017-04-06 10:36] LABS: BASO % 0.2 %; BASO ABS # 0.01 K/uL (0-0.2); COMPLETE YES; EOS % 1.3 %; HEMATOCRIT 39.3 % (42-52); IG% 0.2 %; LYMPH % 30.4 %; LYMPH ABS # 1.82 K/uL (1.2-3.4); MEAN CELL VOLUME 76.3 fL (80-100); MEAN CORPUSCULAR HEMOGLOBIN 26.4 pg (25-34); MEAN CORPUSCULAR HGB CONC 34.6 g/dl (32-36); MEAN PLATELET VOLUME 10.5 fL (7.4-10.4); MONO % 5.5 %; NEUT % 62.4 %; PLATELET COUNT 257 K/uL (130-400); RED BLOOD COUNT 5.15 M/uL (4.7-6.1); WHITE BLOOD COUNT 5.98 K/uL (4.8-10.8)
--- NOTE | 2017-04-06 10:38 | EMERGENCY ROOM VISIT NOTE ---
History Report prepared by Waqas: Vadim Mckeon Under the Supervision of: Dr. Roxanna Aguilar D.O. First contact with patient: 09:48 Chief Complaint: ABDOMINAL PAIN Stated Complaint: STOMACH PAIN, NAUSEA Nursing Triage Summary: Pt c/o nausea, sharp pain in LLQ x 8 or 9 days. Pt associated constipation. Has been here 4-5 times. Did not follow up with GI. History of Present Illness The patient is a 26 year old male who presents to the Emergency Room with complaints of worsening sharp lower abdominal pain for the past 8-9 days. The patient additionally states that he has been having chills and vomiting at least 2-3 times per day, and it usually after eating or drinking. He states that he has been having normal bowel movements, and he states that he has not had any recent traumas. The patient also notes that he has been having dark urine recently. The patient states that he has not been taking his insulin recently because he does not have any insurance. States his glucose at home has been in the 300's when he checks it, but he doesn't check it regularly. States he did not follow-up with GI after his last visit. Pt denies headache, change in vision, fevers, chest pain, shortness of breath, nausea, vomiting, diarrhea, pain with urination, hematochezia and melena. Pt well known to the ER, has been here multiple times with complaints of abdominal pain or hyperglycemia and has been noncompliant following up with financial and community resources provided as well as resources provided for establishing a PCP and GI follow-up. Pt has previously has labs/xrays/CT and was admitted in the evaluation of his abdominal pain. Source of History: patient Onset: 8-9 days ago Position: abdomen (lower) Quality: sharp Timing: worsening Associated Symptoms: + chills, + vomiting Review of Systems See HPI for pertinent positives & negatives. A total of 10 systems reviewed and were otherwise negative. Past Medical & Surgical Medical Problems: (1) Acute renal insufficiency (2) Anxiety (3) Anxiety (4) Anxiety (5) Arm pain, right (6) DIAB MARIAH WO COMPL, TYPE I [JUVENILE TYPE], NOT UNCNTRLD (7) Diabetic ketoacidosis (8) DKA, type 1, not at goal (9) Fall (10) Foot pain (11) Fractured great toe (12) Hyperglycemia (13) Hyperglycemia (14) Injury of wrist, left (15) Substance abuse (16) Substance abuse Surgical Problems: (1) ACUTE APPENDICITIS NOS (2) Arthroscopy of knee joint Family History Diabetes mellitus FHx: hypertension FHx: seizures Kidney disease Social History Smoking Status: Never Smoker Alcohol Use: none Drug Use: none Marital Status: single Housing Status: lives with family Occupation Status: employed Current/Historical Medications Scheduled Aspirin (Aspirin Ec), 81 MG PO QAM Biotin (Biotin), 1,000 MCG PO DAILY Cinnamon (Cinnamon), 1,000 MG PO QAM Insulin Glargine (Lantus), 60 UNITS SC QPM Insulin Lispro (Human) (Humalog), 1 DOSE SC ACHS Multivitamin (Multivitamin), 1 TAB PO QAM Pantoprazole (Protonix), 40 MG PO QAM Scheduled PRN Promethazine Hcl (Phenergan), 25 MG PO Q6H PRN for Nausea Allergies Coded Allergies: Cephalexin (Verified Allergy, Unknown, hives, 04/06/17) Ondansetron (Verified Allergy, Unknown, HIVES, 04/06/17) Acetaminophen (Verified Adverse Reaction, Unknown, GI SYMPTOMS, 04/06/17) Physical Exam Vital Signs Date Time Temp Pulse Resp B/P (MAP) Pulse Ox O2 Delivery O2 Flow Rate FiO2 04/06/17 13:20 75 140/66 99 Room Air 04/06/17 11:11 86 18 121/74 99 Room Air 04/06/17 09:22 36.9 104 18 147/85 99 Room Air Physical Exam GENERAL: alert, well appearing, well nourished, no distress, non-toxic EYE EXAM: normal conjunctiva, PERRL and EOM's grossly intact OROPHARYNX: no exudate, no erythema, lips, buccal mucosa, and tongue normal and mucous membranes are moist NECK: supple, no nuchal rigidity, no adenopathy, non-tender LUNGS: Clear to auscultation. Normal chest wall mechanics HEART: no murmurs, S1 normal and S2 normal ABDOMEN: Mild lower abdominal pain with left greater than right. No pulsatile masses or organomegaly. Abdomen soft, normo-active bowel sounds, no masses, no rebound or guarding. BACK: Back is symmetrical on inspection and there is no deformity, no midline tenderness, no CVA tenderness. SKIN: no rashes and no bruising UPPER EXTREMITIES: upper extremities are grossly normal. LOWER EXTREMITIES: No pitting edema. NEURO EXAM: Normal sensorium, cranial nerves II-XII grossly intact, normal speech, no gross weakness of arms, no gross weakness of legs. Gross sensation intact. Medical Decision & Procedures ER Provider Diagnostic Interpretation: Radiology results have been interpreted by the radiologist and reviewed by me. ABDOMEN 2VIEW W/PA CHEST RTN HISTORY: 26 years-old Male abd pain, vomiting COMPARISON: Acute abdominal series radiographs 03/30/2017 TECHNIQUE: Frontal view of the chest with erect and supine views of the abdomen FINDINGS: Cardiac mediastinal and hilar silhouettes are within normal limits. No pneumothorax, pleural effusion or focal airspace consolidation. Postsurgical changes or posttraumatic osteolysis of the distal right clavicle is seen. No pneumoperitoneum or bowel obstruction identified. There are a few scattered air-fluid levels noted within gas-filled nondilated loops of small bowel throughout the abdomen. Negative for urolithiasis. IMPRESSION: 1. Nonobstructive bowel gas pattern without pneumoperitoneum. 2. A few scattered air-fluid levels within gas-filled nondilated loops of small bowel may reflect ileus or enteritis. 3. Postsurgical changes or posttraumatic osteolysis of the distal right clavicle is seen. The above report was generated using voice recognition software. It may contain grammatical, syntax or spelling errors. Electronically signed by: Sami Kevin M.D. 04/06/2017 12:13 PM Dictated Date/Time: 04/06/2017 12:11 PM Laboratory Results 04/06/17 10:20 Red Blood Count 5.15, Mean Corpuscular Volume 76.3, Mean Corpuscular Hemoglobin 26.4, Mean Corpuscular Hemoglobin Concent 34.6, Mean Platelet Volume 10.5, Neutrophils (%) (Auto) 62.4, Lymphocytes (%) (Auto) 30.4, Monocytes (%) (Auto) 5.5, Eosinophils (%) (Auto) 1.3, Basophils (%) (Auto) 0.2, Neutrophils # (Auto) 3.73, Lymphocytes # (Auto) 1.82, Monocytes # (Auto) 0.33, Eosinophils # (Auto) 0.08, Basophils # (Auto) 0.01 04/06/17 10:20 Test 04/06/17 10:20 04/06/17 11:10 04/06/17 11:57 04/06/17 13:14 White Blood Count 5.98 K/uL (4.8-10.8) Red Blood Count 5.15 M/uL (4.7-6.1) Hemoglobin 13.6 g/dL (14.0-18.0) Hematocrit 39.3 % (42-52) Mean Corpuscular Volume 76.3 fL (80-100) Mean Corpuscular Hemoglobin 26.4 pg (25-34) Mean Corpuscular Hemoglobin Concent 34.6 g/dl (32-36) Platelet Count 257 K/uL (130-400) Mean Platelet Volume 10.5 fL (7.4-10.4) Neutrophils (%) (Auto) 62.4 % Lymphocytes (%) (Auto) 30.4 % Monocytes (%) (Auto) 5.5 % Eosinophils (%) (Auto) 1.3 % Basophils (%) (Auto) 0.2 % Neutrophils # (Auto) 3.73 K/uL (1.4-6.5) Lymphocytes # (Auto) 1.82 K/uL (1.2-3.4) Monocytes # (Auto) 0.33 K/uL (0.11-0.59) Eosinophils # (Auto) 0.08 K/uL (0-0.5) Basophils # (Auto) 0.01 K/uL (0-0.2) RDW Standard Deviation 36.7 fL (36.4-46.3) RDW Coefficient of Variation 13.2 % (11.5-14.5) Immature Granulocyte % (Auto) 0.2 % Immature Granulocyte # (Auto) 0.01 K/uL (0.00-0.02) Anion Gap 9.0 mmol/L (3-11) Est Creatinine Clear Calc Drug Dose 104.2 ml/min Estimated GFR () 106.8 Estimated GFR (Non- 92.2 BUN/Creatinine Ratio 14.6 (10-20) Lactic Acid Level 2.4 mmol/L (0.4-2.0) Calcium Level 8.7 mg/dl (8.5-10.1) Total Bilirubin 0.5 mg/dl (0.2-1) Aspartate Amino Transf (AST/SGOT) 10 U/L (15-37) Alanine Aminotransferase (ALT/SGPT) 19 U/L (12-78) Alkaline Phosphatase 105 U/L (45-117) Total Protein 7.3 gm/dl (6.4-8.2) Albumin 3.5 gm/dl (3.4-5.0) Globulin 3.8 gm/dl (2.5-4.0) Albumin/Globulin Ratio 0.9 (0.9-2) Lipase 160 U/L (73-393) Beta-Hydroxybutyric Acid 1.06 mg/dL (0.2-2.81) Urine Color YELLOW Urine Appearance CLEAR (CLEAR) Urine pH 7.0 (4.5-7.5) Urine Specific [place] 1.037 (1.000-1.030) Urine Protein NEG (NEG) Urine Glucose (UA) 3+ (NEG) Urine Ketones NEG (NEG) Urine Occult Blood NEG (NEG) Urine Nitrite NEG (NEG) Urine Bilirubin NEG (NEG) Urine Urobilinogen NEG (NEG) Urine Leukocyte Esterase NEG (NEG) Urine Opiates Screen NEG (NEG) Urine Methadone, Qualitative NEG (NEG) Urine Barbiturates NEG (NEG) Urine Phencyclidine (PCP) Level NEG (NEG) Ur Amphetamine/Methamphetamine NEG (NEG) MDMA (Ecstasy) Screen NEG (NEG) Urine Benzodiazepines Screen NEG (NEG) Urine Cocaine Metabolite NEG (NEG) Urine Marijuana (THC) NEG (NEG) Bedside Glucose 196 mg/dl (70-99) Bedside Lactic Acid Venous 1.32 mmol/L (0.90-1.70) Laboratory results per my review. Medications Administered Medications (Trade) Dose Ordered Sig/Oral Route Start Time Stop Time Status Last Admin Dose Admin Sodium Chloride 1,000 ml @ 999 mls/hr Q1H1M STAT IV 04/06/17 10:06 04/06/17 11:06 DC 04/06/17 10:33 999 MLS/HR Metoclopramide HCl (Reglan Inj) 10 mg NOW STAT IV 04/06/17 10:06 04/06/17 10:09 DC 04/06/17 10:33 10 MG Diphenhydramine HCl (Benadryl Inj) 25 mg NOW STAT IV 04/06/17 10:06 04/06/17 10:09 DC 04/06/17 10:33 25 MG Sodium Chloride 1,000 ml @ 999 mls/hr Q1H1M STAT IV 04/06/17 11:34 04/06/17 12:34 DC 04/06/17 11:55 999 MLS/HR Dicyclomine HCl (Bentyl Tab) 20 mg NOW STAT PO 04/06/17 11:37 04/06/17 11:38 DC 04/06/17 11:55 20 MG ED Course 0948: The patient was evaluated in room B11. A complete history and physical exam was performed. 1006: Benadryl Inj 25mg IV, Reglan Inj 10mg IV, Sodium Chloride 1000 ml @ 999 mls/hr IV 1134: Sodium Chloride 1000 ml @ 999 mls/hr IV 1137: Bentyl Tab 20mg PO 1213: I reevaluated the patient, and he has had no real change, and I updated him on the results 1315: Upon reevaluation, the patient is feeling better. I discussed the findings and the treatment plan with the patient. He verbalizes agreement and understanding. He was discharged home. Medical Decision Differential diagnosis: Etiologies such as appendicitis, diverticulitis, PUD, biliary pathology, UTI, pancreatitis, obstruction, mesenteric ischemia, aortic pathology, infections, inflammatory bowel disease, renal colic, as well as others were entertained. Pt well known with chronic complaints of abdominal pain and with prior presentations no acute pathology has been found. I previously discussed with pt possibly due to constipation or gastroparesis, worsened with poor glucose control. No evidence this visit for acute infectious etiology, no evidence of DKA, renal impairment, no sbo, no perf, doubt mesenteric ischemia, uti, aaa, IBD. Pt tolerating po here. Likely component of malingering and drug seeking behavior and as asking for narcotics and has previously tested positive for them. Pt then requested to leave in order to see the eclipse outside. Pt well appearing here despite complaints. Pt discharged in good condition, seen here by lead case manager again and pt stated still has previously provided information for [facility]. Was encouraged to follow-up this time. Discussed sx to watch/return for , he verbalized understanding. No narcotics given during stay or at DC. Medication Reconcilliation Current Medication List: was personally reviewed by me Blood Pressure Screening Patient's blood pressure: Elevated blood pressure Blood pressure disposition: Elevated BP felt to be situational Impression Primary Impression: Left lower quadrant pain Additional Impression: Hyperglycemia Scribe Attestation The scribe's documentation has been prepared under my direction and personally reviewed by me in its entirety. I confirm that the note above accurately reflects all work, treatment, procedures, and medical decision making performed by me. Departure Information Dispostion Home / Self-Care Referrals No Doctor, Assigned (PCP) Forms HOME CARE DOCUMENTATION FORM, IMPORTANT VISIT INFORMATION Patient Instructions My [facility] Additional Instructions Please follow-up with [facility] as instructed by case management to get your routine medications and establish a local family doctor. If you have any new or concerning symptoms, worsening pain, very high or very low blood sugar readings , or any other new concerns, please return the emergency room. Problem Qualifiers
[2017-04-06 11:04] LABS: ALB/GLOB RATIO 0.9 (0.9-2); BUN/CREATININE RATIO 14.6 (10-20); CALCIUM 8.7 mg/dl (8.5-10.1); CREATININE 1.1 mg/dl (0.60-1.40)
[2017-04-06 11:17] LABS: BETA-HYDROXYBUTYRATE 1.06 mg/dL (0.2-2.81)
[2017-04-06 11:23] LABS: URINE APPEARANCE CLEAR (CLEAR); URINE BILIRUBIN NEG (NEG); URINE COLOR YELLOW; URINE NITRITE NEG (NEG); URINE SPECIFIC GRAVITY 1.037 (1.000-1.030); UROBILINOGEN NEG (NEG); ZZUR CULT IF INDIC CLEAN CATCH NO
[2017-04-06 11:30] LABS: MANUAL MICROSCOPIC REQUIRED? NO; REVIEW REQ? NO
[2017-04-06] MEDS ORDERED: DICYCLOMINE HCL 20 MG TAB PO STA (11:37)
[2017-04-06 11:42] LABS: BENZODIAZEPINE, URINE NEG (NEG); COCAINE,URINE NEG (NEG); PHENCYCLIDINE, URINE NEG (NEG)
--- NOTE | 2017-04-06 12:15 | DIAGNOSTIC IMAGING REPORT ---
ABDOMEN 2VIEW W/PA CHEST RTN HISTORY: 26 years-old Male abd pain, vomiting COMPARISON: Acute abdominal series radiographs 03/30/2017 TECHNIQUE: Frontal view of the chest with erect and supine views of the abdomen FINDINGS: Cardiac mediastinal and hilar silhouettes are within normal limits. No pneumothorax, pleural effusion or focal airspace consolidation. Postsurgical changes or posttraumatic osteolysis of the distal right clavicle is seen. No pneumoperitoneum or bowel obstruction identified. There are a few scattered air-fluid levels noted within gas-filled nondilated loops of small bowel throughout the abdomen. Negative for urolithiasis. IMPRESSION: 1. Nonobstructive bowel gas pattern without pneumoperitoneum. 2. A few scattered air-fluid levels within gas-filled nondilated loops of small bowel may reflect ileus or enteritis. 3. Postsurgical changes or posttraumatic osteolysis of the distal right clavicle is seen. The above report was generated using voice recognition software. It may contain grammatical, syntax or spelling errors. Electronically signed by: Sami Kevin M.D. 04/06/2017 12:13 PM Dictated Date/Time: 04/06/2017 12:11 PM
[2017-04-06 13:20] VITALS: BP 140/66; PULSE 75; O2SAT 99
== END 2017-04-06 13:39 | disposition home or self-care (01) ==
LOC: C.EDB 09:16
DX: R10.32 Left lower quadrant pain (principal); R73.9 Hyperglycemia, unspecified; F41.9 Anxiety disorder, unspecified; E11.9 Type 2 diabetes mellitus without complications; Z83.3 Family history of diabetes mellitus; Z82.49 Family history of ischemic heart disease and other diseases of the circulatory system; Z82.0 Family history of epilepsy and other diseases of the nervous system; Z79.82 Long term (current) use of aspirin; Z79.4 Long term (current) use of insulin

== ENCOUNTER 2017-05-10 02:29 | Emergency (ER) | payer OTHER ==
[~2017-05-10] VITALS: Ht 165.1 cm; Wt 90.0 kg
[~2017-05-10 02:29] MED LIST changes: -FLX10 PO; +INSDGI SC; -INSDGIPEN SC
[2017-05-10 02:35] VITALS: TEMP 37; Ht 165.1 cm; Wt 90.0 kg
[2017-05-10] MEDS ORDERED: ONDANSETRON INJ 2 MG/ML 2 ML VIAL IV STA (03:00)
[2017-05-10] MEDS ORDERED: SODIUM CHLORIDE 0.9% 1000ML 1,000 ML IV STA (03:00)
[2017-05-10] MEDS ORDERED: PROMETHAZINE HCL INJ 25 MG/ML 1 ML VIAL IV STA (03:11)
[2017-05-10 03:13] LABS: BASO % 0.2 %; BASO ABS # 0.01 K/uL (0-0.2); COMPLETE YES; EOS % 1.6 %; HEMATOCRIT 43.9 % (42-52); IG% 0.5 %; LYMPH % 41.1 %; MEAN CELL VOLUME 76.1 fL (80-100); MEAN CORPUSCULAR HEMOGLOBIN 26.2 pg (25-34); MEAN CORPUSCULAR HGB CONC 34.4 g/dl (32-36); MEAN PLATELET VOLUME 10.3 fL (7.4-10.4); MONO % 8.1 %; NEUT % 48.5 %; PLATELET COUNT 306 K/uL (130-400); RED BLOOD COUNT 5.77 M/uL (4.7-6.1); WHITE BLOOD COUNT 6.08 K/uL (4.8-10.8)
[2017-05-10 04:00] LABS: ALKALINE PHOSPHATASE 114 U/L (45-117); ALT/SGPT 30 U/L (12-78); AST/SGOT 15 U/L (15-37); BLOOD UREA NITROGEN 12 mg/dl (7-18); BUN/CREATININE RATIO 9.8 (10-20); CALCIUM 9.5 mg/dl (8.5-10.1); CARBON DIOXIDE 27 mmol/L (21-32); CHLORIDE 97 mmol/L (98-107); GLUCOSE 394 mg/dl (70-99); POTASSIUM 4.2 mmol/L (3.5-5.1); SODIUM 135 mmol/L (136-145)
[2017-05-10 04:02] LABS: URINE APPEARANCE CLEAR (CLEAR); URINE BILIRUBIN NEG (NEG); URINE COLOR YELLOW; URINE EPITHELIAL CELL AUTO 0-5 /lpf (0-5); URINE NITRITE NEG (NEG); UROBILINOGEN NEG (NEG); ZZUR CULT IF INDIC CLEAN CATCH NO
[2017-05-10 04:03] LABS: MANUAL MICROSCOPIC REQUIRED? NO; REVIEW REQ? NO
[2017-05-10 04:11] LABS: BETA-HYDROXYBUTYRATE 1.46 mg/dL (0.2-2.81)
--- NOTE | 2017-05-10 04:34 | EMERGENCY ROOM VISIT NOTE ---
History Report prepared by Waqas: Sheryl Griffin Under the Supervision of: Dr. Sahil Barrett D.O. First contact with patient: 02:51 Chief Complaint: ABDOMINAL PAIN Stated Complaint: ABD PAIN,VOMITING BLOOD Nursing Triage Summary: Patient reports a two month history of abdominal pain, now with hemtaemesis. Negative diarrhea. Intermittent pain. History of Present Illness The patient is a 26 year old male who presents to the Emergency Room with complaints of persistent hematemesis starting this morning. He woke up in the middle of the night today and vomited. He noticed some blood in the vomit. He vomited again upon arrival to the ED and he states that there was blood in the vomit again. He ate pizza today. The patient has been having intermittent lower abdominal pain and nausea for the past 2 months. The pain started to come back yesterday into today. He has been seen in the ED before and had a negative CT in January. 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 Source of History: patient Onset: this morning Position: other (global) Quality: other (hematemesis) Timing: other (persistent) Associated Symptoms: + nausea, + abdominal pain Review of Systems See HPI for pertinent positives & negatives. A total of 10 systems reviewed and were otherwise negative. Past Medical & Surgical Medical Problems: (1) Acute renal insufficiency (2) Anxiety (3) Anxiety (4) Anxiety (5) Arm pain, right (6) DIAB MARIAH WO COMPL, TYPE I [JUVENILE TYPE], NOT UNCNTRLD (7) Diabetic ketoacidosis (8) DKA, type 1, not at goal (9) Fall (10) Foot pain (11) Fractured great toe (12) Hyperglycemia (13) Hyperglycemia (14) Injury of wrist, left (15) Substance abuse (16) Substance abuse Surgical Problems: (1) ACUTE APPENDICITIS NOS (2) Arthroscopy of knee joint Family History Diabetes mellitus FHx: hypertension FHx: seizures Kidney disease Social History Smoking Status: Never Smoker Alcohol Use: none Drug Use: none Marital Status: single Housing Status: lives with family Occupation Status: employed Current/Historical Medications Scheduled Aspirin (Aspirin Ec), 81 MG PO QAM Biotin (Biotin), 1,000 MCG PO DAILY Cinnamon (Cinnamon), 1,000 MG PO QAM Insulin Glargine (Lantus), 60 UNITS SC QPM Insulin Lispro (Human) (Humalog), 1 DOSE SC ACHS Multivitamin (Multivitamin), 1 TAB PO QAM Pantoprazole (Protonix), 40 MG PO QAM Scheduled PRN Promethazine Hcl (Phenergan), 25 MG PO Q6H PRN for Nausea Allergies Coded Allergies: Cephalexin (Verified Allergy, Unknown, hives, 05/10/17) Ondansetron (Verified Allergy, Unknown, HIVES, 05/10/17) Acetaminophen (Verified Adverse Reaction, Unknown, GI SYMPTOMS, 05/10/17) Physical Exam Vital Signs Date Time Temp Pulse Resp B/P (MAP) Pulse Ox O2 Delivery O2 Flow Rate FiO2 05/10/17 02:35 37.0 122 18 144/88 97 Room Air Physical Exam CONSTITUTIONAL/VITAL SIGNS: Reviewed / noted above. GENERAL: Non-toxic in appearance. INTEGUMENTARY: Warm, dry, and [place]. HEAD: Normocephalic. EYES: without scleral icterus or trauma. ENT/OROPHARYNX: clear and moist. LYMPHADENOPATHY/NECK: Is supple without lymphadenopathy or meningismus. RESPIRATORY: Lungs clear and equal. CARDIOVASCULAR: Regular rate and rhythm. GI/ABDOMEN: Soft and nontender. No organomegaly or pulsatile mass. No rebound or guarding. Normal bowel sounds. EXTREMITIES: Warm and well perfused. BACK: No CVA tenderness. NEUROLOGICAL: Intact without focal deficits. PSYCHIATRIC: normal affect. MUSCULOSKELETAL: Normally developed with good muscle tone. Medical Decision & Procedures ER Provider Diagnostic Interpretation: Radiology results as stated below per my review and [facility] radiologist interpretation: CT Abdomen & Pelvis: No renal calculi. No hydronephrosis. No free fluid. Bowel is normal in caliber. Solid organs are otherwise unremarkable on a non-infused exam. Laboratory Results 05/10/17 03:00 Red Blood Count 5.77, Mean Corpuscular Volume 76.1, Mean Corpuscular Hemoglobin 26.2, Mean Corpuscular Hemoglobin Concent 34.4, Mean Platelet Volume 10.3, Neutrophils (%) (Auto) 48.5, Lymphocytes (%) (Auto) 41.1, Monocytes (%) (Auto) 8.1, Eosinophils (%) (Auto) 1.6, Basophils (%) (Auto) 0.2, Neutrophils # (Auto) 2.95, Lymphocytes # (Auto) 2.50, Monocytes # (Auto) 0.49, Eosinophils # (Auto) 0.10, Basophils # (Auto) 0.01 05/10/17 03:00 Test 05/10/17 03:00 05/10/17 03:30 White Blood Count 6.08 K/uL (4.8-10.8) Red Blood Count 5.77 M/uL (4.7-6.1) Hemoglobin 15.1 g/dL (14.0-18.0) Hematocrit 43.9 % (42-52) Mean Corpuscular Volume 76.1 fL (80-100) Mean Corpuscular Hemoglobin 26.2 pg (25-34) Mean Corpuscular Hemoglobin Concent 34.4 g/dl (32-36) Platelet Count 306 K/uL (130-400) Mean Platelet Volume 10.3 fL (7.4-10.4) Neutrophils (%) (Auto) 48.5 % Lymphocytes (%) (Auto) 41.1 % Monocytes (%) (Auto) 8.1 % Eosinophils (%) (Auto) 1.6 % Basophils (%) (Auto) 0.2 % Neutrophils # (Auto) 2.95 K/uL (1.4-6.5) Lymphocytes # (Auto) 2.50 K/uL (1.2-3.4) Monocytes # (Auto) 0.49 K/uL (0.11-0.59) Eosinophils # (Auto) 0.10 K/uL (0-0.5) Basophils # (Auto) 0.01 K/uL (0-0.2) RDW Standard Deviation 38.4 fL (36.4-46.3) RDW Coefficient of Variation 13.9 % (11.5-14.5) Immature Granulocyte % (Auto) 0.5 % Immature Granulocyte # (Auto) 0.03 K/uL (0.00-0.02) Anion Gap 11.0 mmol/L (3-11) Est Creatinine Clear Calc Drug Dose 96.2 ml/min Estimated GFR () 96.1 Estimated GFR (Non- 83.0 BUN/Creatinine Ratio 9.8 (10-20) Calcium Level 9.5 mg/dl (8.5-10.1) Total Bilirubin 0.5 mg/dl (0.2-1) Direct Bilirubin < 0.1 mg/dl (0-0.2) Aspartate Amino Transf (AST/SGOT) 15 U/L (15-37) Alanine Aminotransferase (ALT/SGPT) 30 U/L (12-78) Alkaline Phosphatase 114 U/L (45-117) Total Protein 8.1 gm/dl (6.4-8.2) Albumin 3.8 gm/dl (3.4-5.0) Lipase 127 U/L (73-393) Beta-Hydroxybutyric Acid 1.46 mg/dL (0.2-2.81) Urine Color YELLOW Urine Appearance CLEAR (CLEAR) Urine pH 7.0 (4.5-7.5) Urine Specific [place] 1.040 (1.000-1.030) Urine Protein NEG (NEG) Urine Glucose (UA) 3+ (NEG) Urine Ketones NEG (NEG) Urine Occult Blood NEG (NEG) Urine Nitrite NEG (NEG) Urine Bilirubin NEG (NEG) Urine Urobilinogen NEG (NEG) Urine Leukocyte Esterase NEG (NEG) Urine WBC (Auto) 0 /hpf (0-5) Urine RBC (Auto) 0-4 /hpf (0-4) Urine Hyaline Casts (Auto) 0 /lpf (0-5) Urine Epithelial Cells (Auto) 0-5 /lpf (0-5) Urine Bacteria (Auto) NEG (NEG) Laboratory results as stated above per my review. Medications Administered Medications (Trade) Dose Ordered Sig/Oral Route Start Time Stop Time Status Last Admin Dose Admin Sodium Chloride 1,000 ml @ 999 mls/hr Q1H1M STAT IV 05/10/17 03:00 05/10/17 04:00 DC 05/10/17 03:18 999 MLS/HR Promethazine HCl (Phenergan Inj) 25 mg NOW STAT IV 05/10/17 03:11 05/10/17 03:12 DC 05/10/17 03:17 25 MG ED Course 0253: Previous medical records were reviewed. The patient was evaluated in room B2. A complete history and physical examination was performed. 0300: NSS 1000 ml @ 999 mls/hr IV. 0311: Phenergan Inj 25 mg IV. 0435: On reevaluation, the patient is resting comfortably. I discussed the results and findings with the patient. He verbalized agreement of the treatment plan. He was discharged home. Medical Decision Differential diagnosis: Etiologies such as gastroenteritis, food borne illness, infections, appendicitis , diverticulitis, inflammatory bowel disease, obstruction, GI bleed, biliary pathology, as well as others were entertained. This is a 26-year-old male who presents to the ED with a chief complaint of nausea and vomiting. The patient states that he vomited tonight. He states that he has had some intermittent abdominal pain and vomiting for the past couple of months. He was concerned that he might have vomited blood. He states that he just ate pizza before vomiting. The patient has no other significant complaints. His vital signs revealed tachycardia with a heart rate of 122. CBC is normal, chemistry panel reveals elevated blood sugar with a glucose of 394. CT scan of the abdomen and pelvis did not show any acute process. Urine did not show infection. The patient was told the results. He was hydrated with IV fluids. He was given IV Phenergan. He was felt to be stable for discharge and outpatient follow-up. Medication Reconcilliation Current Medication List: was personally reviewed by me Blood Pressure Screening Patient's blood pressure: Elevated blood pressure Blood pressure disposition: Elevated BP felt to be situational Impression Primary Impression: Hyperglycemia Additional Impression: Abdominal pain, left lower quadrant Scribe Attestation The scribe's documentation has been prepared under my direction and personally reviewed by me in its entirety. I confirm that the note above accurately reflects all work, treatment, procedures, and medical decision making performed by me. Departure Information Dispostion Home / Self-Care Referrals No Doctor, Assigned (PCP) Patient Instructions Hyperglycemia, My [facility] Additional Instructions Your blood sugar today is high. Use your insulin as prescribed. Talk to your doctor for further evaluation of this. Your CAT scan did not show any abnormalities. Follow-up with your doctor for further care and evaluation in 1-2 days. Return to the emergency department for worsening or new symptoms or any concerns. You have been examined and treated today on an emergency basis only. This is not a substitute for, or an effort to provide, complete comprehensive medical care. It is impossible to recognize and treat all injuries or illnesses in a single emergency department visit. It is therefore important that you follow up closely with your doctor. Call as soon as possible for an appointment. Problem Qualifiers
[2017-05-10 05:01] VITALS: BP 137/84; PULSE 87; O2SAT 98
--- NOTE | 2017-05-10 06:45 | DIAGNOSTIC IMAGING REPORT ---
ABD/PELVIS WITHOUT FOR STONE CT DOSE: 1487.96 mGy.cm HISTORY: Pain LLQ pain TECHNIQUE: Multiaxial CT images of the abdomen and pelvis were performed without the use of intravenous and oral contrast according to the standard department stone protocol. A dose lowering technique was utilized adhering to the principles of ALARA. COMPARISON STUDY: 02/10/2017 FINDINGS: The lung bases are clear. The unenhanced liver, gallbladder, spleen, pancreas, and adrenal glands are unremarkable. No renal stones or hydronephrosis. No bowel wall thickening or obstruction. The pelvic organs are unremarkable. No suspicious lytic or blastic osseous lesions. IMPRESSION: No renal stones or hydronephrosis. Negative study The above report was generated using voice recognition software. It may contain grammatical, syntax or spelling errors. Electronically signed by: Keyshawn Ziegler M.D. 05/10/2017 6:44 AM Dictated Date/Time: 05/10/2017 6:43 AM
== END 2017-05-10 05:03 | disposition home or self-care (01) ==
LOC: C.EDB 02:30
DX: R11.2 Nausea with vomiting, unspecified (principal); E10.65 Type 1 diabetes mellitus with hyperglycemia; R10.32 Left lower quadrant pain; F41.9 Anxiety disorder, unspecified; Z83.3 Family history of diabetes mellitus; Z82.49 Family history of ischemic heart disease and other diseases of the circulatory system; Z82.0 Family history of epilepsy and other diseases of the nervous system; Z84.1 Family history of disorders of kidney and ureter; Z79.82 Long term (current) use of aspirin; Z79.4 Long term (current) use of insulin; Z79.899 Other long term (current) drug therapy

== ENCOUNTER → 2017-05-15 | Outpatient (CLI) | payer OTHER | END | disposition home or self-care (01) | LOC: C.RDSM 09:16 | PROVIDERS: ATTEND Physical Medicine & Rehabilitation Sports Medicine | DX: M79.642 Pain in left hand (principal); M79.641 Pain in right hand ==

== ENCOUNTER 2017-10-11 11:55 | Emergency (ER) | payer OTHER ==
[~2017-10-11] VITALS: Ht 165.1 cm; Wt 95.1 kg
[~2017-10-11 11:55] MED LIST changes: -PROM25TA9 PO
[2017-10-11 11:59] VITALS: TEMP 36.7; Ht 165.1 cm; Wt 95.1 kg
[2017-10-11 12:39] LABS: BASO % 0.3 %; BASO ABS # 0.02 K/uL (0-0.2); EOS % 3.4 %; HEMATOCRIT 43.5 % (42-52); HEMOGLOBIN 15.2 g/dL (14.0-18.0); IG# 0.01 K/uL (0.00-0.02); LYMPH % 47.9 %; LYMPH ABS # 2.79 K/uL (1.2-3.4); MEAN CELL VOLUME 75.9 fL (80-100); MEAN CORPUSCULAR HEMOGLOBIN 26.5 pg (25-34); MEAN CORPUSCULAR HGB CONC 34.9 g/dl (32-36); MEAN PLATELET VOLUME 10.2 fL (7.4-10.4); MONO % 9.1 %; MONO ABS # 0.53 K/uL (0.11-0.59); NEUT % 39.1 %; NEUT ABS # 2.28 K/uL (1.4-6.5); PLATELET COUNT 266 K/uL (130-400); RED CELL DISTRIBUTION WIDTH CV 14.1 % (11.5-14.5); RED CELL DISTRIBUTION WIDTH SD 38.7 fL (36.4-46.3); WHITE BLOOD COUNT 5.83 K/uL (4.8-10.8)
[2017-10-11 13:02] LABS: ALBUMIN 3.9 gm/dl (3.4-5.0); CALCIUM 9.2 mg/dl (8.5-10.1); CREATININE 1.07 mg/dl (0.60-1.40); POTASSIUM 3.4 mmol/L (3.5-5.1); TOTAL PROTEIN 7.6 gm/dl (6.4-8.2)
[2017-10-11] MEDS ORDERED: GI COCKTAIL PO STA (13:15)
[2017-10-11] MEDS ORDERED: SODIUM CHLORIDE 0.9% 1000ML 1,000 ML IV STA (13:15)
[2017-10-11] MEDS ORDERED: FAMOTIDINE 20 MG TAB PO ONE (13:15)
[2017-10-11] MEDS ORDERED: METOCLOPRAMIDE HCL INJ 5 MG/ML 2 ML VIAL IV. STA (13:23)
[2017-10-11] MEDS ORDERED: MoRPHine SULFATE 4 MG/ML 1 ML CARP\\VIAL IV STA (13:23)
--- NOTE | 2017-10-11 13:29 | EMERGENCY ROOM VISIT NOTE ---
History Report prepared by Sohaibsteve: Fabio Victoria Under the Supervision of: Dr. Jim Ruby M.D. First contact with patient: 12:55 Chief Complaint: ABDOMINAL PAIN Stated Complaint: NO INSULIN,STOMACH PAIN, CANT KEEP ANYTHING DOWN Nursing Triage Summary: patient with nausea and vomting for 6 days. lower abdominal pain and diarrhea. states that he as pain in the lower abdomen. states "I feel like shit"' patient also states he has been with out short acting insulin. he has lantus and has been taking. uable to find a doctor in the area per patient History of Present Illness The patient is a 26 year old white male with a past medical history of DM, DKA, and appendectomy who presents to the ED with a cc of constant lower abdominal pain beginning 8 days ago. He rates his discomfort as a 4/10 in severity. He reports he has not taken his insulin in a week. Positive nausea, vomiting, diarrhea, leg cramping, urinary discomfort, tobacco use and occasional alcohol use. Source of History: patient Onset: 8 days ago Position: abdomen (lower) Symptom Intensity: 4/10 Timing: constant Associated Symptoms: + nausea, + vomiting, + diarrhea, + urinary symptoms Review of Systems See HPI for pertinent positives and negatives. A total of ten systems were reviewed and were otherwise negative. Past Medical & Surgical Medical Problems: (1) Acute renal insufficiency (2) Anxiety (3) Anxiety (4) Anxiety (5) Arm pain, right (6) DIAB MARIAH WO COMPL, TYPE I [JUVENILE TYPE], NOT UNCNTRLD (7) Diabetic ketoacidosis (8) DKA, type 1, not at goal (9) Fall (10) Foot pain (11) Fractured great toe (12) Hyperglycemia (13) Hyperglycemia (14) Injury of wrist, left (15) Substance abuse (16) Substance abuse Surgical Problems: (1) ACUTE APPENDICITIS NOS (2) Arthroscopy of knee joint Family History Diabetes mellitus FHx: hypertension FHx: seizures Kidney disease Social History Smoking Status: Never Smoker Alcohol Use: none Drug Use: none Marital Status: single Housing Status: lives with family Occupation Status: employed Current/Historical Medications Scheduled Aspirin (Aspirin Ec), 81 MG PO QAM Biotin (Biotin), 1,000 MCG PO DAILY Cinnamon (Cinnamon), 1,000 MG PO QAM Insulin Glargine (Basaglar Kwikpen), 60 UNITS SQ HS Insulin Lispro (Human) (Humalog), 0 SQ ACHS Multivitamin (Multivitamin), 1 TAB PO QAM Pantoprazole (Protonix), 40 MG PO QAM Allergies Coded Allergies: Cephalexin (Verified Allergy, Unknown, hives, 10/11/17) Ondansetron (Verified Allergy, Unknown, HIVES, 10/11/17) Acetaminophen (Verified Adverse Reaction, Unknown, GI SYMPTOMS, 10/11/17) Physical Exam Vital Signs Date Time Temp Pulse Resp B/P (MAP) Pulse Ox O2 Delivery O2 Flow Rate FiO2 10/11/17 16:30 82 20 142/97 98 10/11/17 14:14 78 20 132/95 98 Room Air 10/11/17 11:59 36.7 91 20 134/57 96 Room Air Physical Exam GENERAL: Awake, alert, well-appearing, NAD, thinning hair, wears glasses. HENT: Normocephalic, atraumatic. EYES: Normal conjunctiva. Sclera non-icteric. NECK: Supple. No nuchal rigidity. FROM. RESPIRATORY: CTAB, no rhonchi, wheezing, crackles CARDIAC: RRR, no MRG ABDOMEN: Soft, NTND, BS+, nonsurgical abdomen. MSK: No chest wall TTP, no LE edema NEURO: GCS 15, CN 2-12 intact, moves all 4s on command SKIN: No rash or jaundice noted. Medical Decision & Procedures Laboratory Results 10/11/17 12:30 Red Blood Count 5.73, Mean Corpuscular Volume 75.9, Mean Corpuscular Hemoglobin 26.5, Mean Corpuscular Hemoglobin Concent 34.9, Mean Platelet Volume 10.2, Neutrophils (%) (Auto) 39.1, Lymphocytes (%) (Auto) 47.9, Monocytes (%) (Auto) 9.1, Eosinophils (%) (Auto) 3.4, Basophils (%) (Auto) 0.3, Neutrophils # (Auto) 2.28, Lymphocytes # (Auto) 2.79, Monocytes # (Auto) 0.53, Eosinophils # (Auto) 0.20, Basophils # (Auto) 0.02 10/11/17 12:30 Test 10/11/17 12:15 10/11/17 12:30 10/11/17 15:10/11/17 15:30 Bedside Glucose 156 mg/dl (70-99) White Blood Count 5.83 K/uL (4.8-10.8) Red Blood Count 5.73 M/uL (4.7-6.1) Hemoglobin 15.2 g/dL (14.0-18.0) Hematocrit 43.5 % (42-52) Mean Corpuscular Volume 75.9 fL (80-100) Mean Corpuscular Hemoglobin 26.5 pg (25-34) Mean Corpuscular Hemoglobin Concent 34.9 g/dl (32-36) Platelet Count 266 K/uL (130-400) Mean Platelet Volume 10.2 fL (7.4-10.4) Neutrophils (%) (Auto) 39.1 % Lymphocytes (%) (Auto) 47.9 % Monocytes (%) (Auto) 9.1 % Eosinophils (%) (Auto) 3.4 % Basophils (%) (Auto) 0.3 % Neutrophils # (Auto) 2.28 K/uL (1.4-6.5) Lymphocytes # (Auto) 2.79 K/uL (1.2-3.4) Monocytes # (Auto) 0.53 K/uL (0.11-0.59) Eosinophils # (Auto) 0.20 K/uL (0-0.5) Basophils # (Auto) 0.02 K/uL (0-0.2) RDW Standard Deviation 38.7 fL (36.4-46.3) RDW Coefficient of Variation 14.1 % (11.5-14.5) Immature Granulocyte % (Auto) 0.2 % Immature Granulocyte # (Auto) 0.01 K/uL (0.00-0.02) Anion Gap 7.0 mmol/L (3-11) Est Creatinine Clear Calc Drug Dose 110.9 ml/min Estimated GFR () 110.5 Estimated GFR (Non- 95.3 BUN/Creatinine Ratio 12.0 (10-20) Calcium Level 9.2 mg/dl (8.5-10.1) Phosphorus Level 3.2 mg/dl (2.5-4.9) Magnesium Level 1.8 mg/dl (1.8-2.4) Total Bilirubin 0.9 mg/dl (0.2-1) Direct Bilirubin 0.2 mg/dl (0-0.2) Aspartate Amino Transf (AST/SGOT) 25 U/L (15-37) Alanine Aminotransferase (ALT/SGPT) 29 U/L (12-78) Alkaline Phosphatase 78 U/L (45-117) Total Protein 7.7 gm/dl (6.4-8.2) Albumin 4.0 gm/dl (3.4-5.0) Globulin 3.7 gm/dl (2.5-4.0) Albumin/Globulin Ratio 1.1 (0.9-2) Lipase 88 U/L (73-393) Venous Blood pH 7.40 (7.36-7.41) Venous Blood Partial Pressure CO2 50 mmHg (38.0-50.0) Venous Blood Partial Pressure O2 41 mmHg Venous Blood HCO3 31 mmol/L Venous Blood Oxygen Saturation 73.3 % Venous Blood Base Excess 4.8 mEq/L Urine Color YELLOW Urine Appearance CLEAR (CLEAR) Urine pH 5.5 (4.5-7.5) Urine Specific [place] 1.017 (1.000-1.030) Urine Protein NEG (NEG) Urine Glucose (UA) 3+ (NEG) Urine Ketones NEG (NEG) Urine Occult Blood NEG (NEG) Urine Nitrite NEG (NEG) Urine Bilirubin NEG (NEG) Urine Urobilinogen NEG (NEG) Urine Leukocyte Esterase NEG (NEG) Laboratory results reviewed by me Medications Administered Medications (Trade) Dose Ordered Sig/Oral Route Start Time Stop Time Status Last Admin Dose Admin Famotidine (Pepcid Tab) 20 mg NOW ONCE PO 10/11/17 13:15 10/11/17 13:17 DC 10/11/17 14:06 20 MG Sodium Chloride 1,000 ml @ 999 mls/hr Q1H1M STAT IV 10/11/17 13:15 10/11/17 14:15 DC 10/11/17 14:08 999 MLS/HR Metoclopramide HCl (Reglan Inj) 10 mg NOW STAT IV. 10/11/17 13:23 10/11/17 13:25 DC 10/11/17 14:07 10 MG Morphine Sulfate (MoRPHine SULFATE INJ) 4 mg NOW STAT IV 10/11/17 13:23 10/11/17 13:25 DC 10/11/17 14:07 4 MG Lidocaine HCl (Viscous Lidocaine 2% Soln) 20 ml STK-MED ONCE .ROUTE 10/11/17 14:02 10/11/17 14:03 DC 10/11/17 14:02 20 ML Al Hydroxide/Mg Hydroxide (Maalox Susp) 30 ml STK-MED ONCE .ROUTE 10/11/17 14:02 10/11/17 14:03 DC 10/11/17 14:02 30 ML ED Course 1319: The patient was evaluated in room C05. A complete history and physical exam was performed. 1622: I reevaluated the patient. Discussed results and discharge instructions: He verbalized understanding and agreement. The patient is ready for discharge. Medical Decision Triage Nursing notes reviewed. The patient is a 26 year old white male with a past medical history of DM, DKA, and appendectomy who presents to the ED with a cc of constant abdominal pain beginning 8 days ago. The patient's presentation and history were concerning for etiologies such as appendicitis, diverticulitis, PUD, biliary pathology, UTI, pancreatitis, obstruction, mesenteric ischemia, aortic pathology, infections, inflammatory bowel disease, renal colic, as well as others were entertained. Patient was seen and evaluated the bedside. Patient is a prior history of diabetes and some renal insufficiency. Patient was complaining of some generalized abdominal pain 8 days with some associated loose nausea and vomiting. Patient is actively peeling water at the bedside. Patient has a fairly benign exam. Patient does not appear overly dry. Patient did have blood work completed along with a urinalysis and a VBG. Patient is a normal white blood cell count. Anion gap is normal. Blood glucose is less than 200. Patient does have some mild hyponatremia and some respiratory alkalosis. Patient's chest x-ray is clear. Patient was deemed suitable for outpatient follow-up and treatment at this time. Patient was spoken to by case management however the patient was uncooperative in terms of helping him find a PCP your help with his medication refills. Patient's VBG was fairly unremarkable. Patient is not in DKA and the patient does not have any other acute abnormality. Patient was deemed suitable for outpatient follow-up treatment at this time. Patient was given strict follow-up, discharge, and return precautions. All questions were answered. Patient was deemed suitable for outpatient follow-up at this time. Patient agreed with the plan of care and was safely discharged home. Medication Reconcilliation Current Medication List: was personally reviewed by [place] Blood Pressure Screening Patient's blood pressure: Elevated blood pressure Blood pressure disposition: Referred to PCP Impression Primary Impression: Abdominal pain Scribe Attestation The scribe's documentation has been prepared under my direction and personally reviewed by me in its entirety. I confirm that the note above accurately reflects all work, treatment, procedures, and medical decision making performed by me. Departure Information Dispostion Home / Self-Care Prescriptions Insulin Human Lispro (Humalog Kwikpen) 100 Units/Ml Inj 0 SC ACHS Y for sliding scale and carb countin for 30 Days, #30 PEN Prov: Jim Ruby M.D. 10/11/17 Insulin Lispro (Human) (Humalog) 100 Unit/Ml Inj 0 SQ ACHS, #1 VIAL per sliding scale and carb count Prov: Jim Ruby M.D. 10/11/17 Insulin Glargine (Basaglar Kwikpen) 100 Unit/Ml Inj 60 UNITS SQ HS for 30 Days, #1 VIAL 3 Refills Prov: Jim Ruby M.D. 10/11/17 Referrals Prince Rivero M.D. (PCP) Patient Instructions Abdominal Pain, Diabetes Activity Tips, Diabetes Body Care, My [facility] Additional Instructions Please return to the emergency department if you have worsening or recurrent symptoms not amenable to at-home treatment. Please call for a follow-up appointment with her primary care physician. Please take your medications as prescribed. If you have other concerns and/or complaints please feel free to also call your primary care physician's office or return the ED for further evaluation, management, and treatment. You may take 600 mg Ibuprofen every 6 hours as needed for pain with food for no more than 2 consecutive days. You may take tylenol 1000 mg every 6 hours as needed for pain. You may take motrin and tylenol separately or at the same time. Take your medications as prescribed. If taking an antibiotic consider taking a probiotic and/or eating yogurt, but at the least, please take with food as it can cause upset stomach. If culture results are not available at discharge, if they are positive for concern of infection, you will be informed of the results as soon as they are available. If you were seen between 11pm and 7AM all radiology reads will be re-read by our in house staff. If any major discrepancies are discovered, you will be notified. You have been examined and treated today on an emergency basis only. This is not a substitute for, or an effort to provide, complete comprehensive medical care. It is impossible to recognize and treat all injuries or illnesses in a single emergency department visit. It is therefore important that you follow up closely with [facility], your PCP, and/or your specialist(s). Call as soon as possible for an appointment. Thank you for your time and consideration. I look forward to speaking with you again soon. Please don't hesitate to call us if you have any questions. Problem Qualifiers Primary Impression: Abdominal pain Abdominal location: generalized Qualified Codes: R10.84 - Generalized abdominal pain
[2017-10-11] MEDS ORDERED: INSU100I SQ ×3 (13:46→16:43)
[2017-10-11] MEDS ORDERED: INSU100I23 SQ ×2 (13:46→16:33)
[2017-10-11 14:02] LABS: PHOSPHORUS 3.2 mg/dl (2.5-4.9); TOTAL PROTEIN 7.7 gm/dl (6.4-8.2)
[2017-10-11] MEDS ORDERED: ALUMINUM/MAGNESIUM SUSP 30 ML UDC ONE (14:02)
[2017-10-11] MEDS ORDERED: LIDOCAINE HCL 2% VISC SOLN 20 ML UDC ONE (14:02)
[2017-10-11 16:30] VITALS: BP 142/97; PULSE 82; O2SAT 98
[2017-10-11] MEDS ORDERED: HMLIS SC (17:04)
== END 2017-10-11 17:00 | disposition home or self-care (01) ==
LOC: C.EDB 11:57 → C.EDC 17:00
DX: R10.30 Lower abdominal pain, unspecified (principal); F17.200 Nicotine dependence, unspecified, uncomplicated; E10.9 Type 1 diabetes mellitus without complications; Z79.82 Long term (current) use of aspirin; Z79.4 Long term (current) use of insulin; Z83.3 Family history of diabetes mellitus; Z82.49 Family history of ischemic heart disease and other diseases of the circulatory system; Z82.0 Family history of epilepsy and other diseases of the nervous system; Z88.1 Allergy status to other antibiotic agents; Z88.8 Allergy status to other drugs, medicaments and biological substances; Z88.6 Allergy status to analgesic agent

== ENCOUNTER 2017-12-30 15:31 | Emergency (ER) | payer SELFPAY ==
[~2017-12-30] VITALS: Ht 167.6 cm; Wt 96.4 kg
[~2017-12-30 15:31] MED LIST changes: +HMLIS SC; -INSDGI SC; -INSU100I SC; +INSU100I SQ; +INSU100I23 SQ
[2017-12-30 15:40] VITALS: TEMP 36.9; Ht 167.6 cm; Wt 96.4 kg
--- NOTE | 2017-12-30 16:30 | DIAGNOSTIC IMAGING REPORT ---
R HAND MIN 3 VIEWS ROUTINE HISTORY: 27 years-old Male R hand pain and finger stiffness acute right hand pain with finger stiffness. Patient reports fixed flexion of the fifth digit COMPARISON: Right finger radiographs 05/15/2017 TECHNIQUE: 4 views of the right hand FINDINGS: Chronic appearing deformity of the first distal phalanx suggests sequela of remote trauma. Mild flexion of the fingers limits the study. Small somewhat out morphology of an osteophyte involves the radial base of the third proximal phalanx. There is approximately 70 degrees flexion of the fifth PIP joint with mild joint space narrowing and marginal osteophytic spurring. Mild soft tissue prominence. No acute fracture or opaque foreign body. IMPRESSION: 1. Unchanged flexion of the fifth PIP joint with mild associated degenerative changes, stable from comparison study 05/15/2017. 2. Suggested chronic posttraumatic morphology of the first distal phalanx. 3. No acute fracture. The above report was generated using voice recognition software. It may contain grammatical, syntax or spelling errors. Electronically signed by: Sami Kevin M.D. 12/30/2017 4:29 PM Dictated Date/Time: 12/30/2017 4:26 PM
[2017-12-30] MEDS ORDERED: CLIN300C10 PO (16:39)
[2017-12-30 16:54] VITALS: BP 155/87; PULSE 80; O2SAT 99
--- NOTE | 2017-12-30 20:17 | EMERGENCY ROOM VISIT NOTE ---
ED Visit Note First contact with patient: 15:43 Chief Complaint: Right hand pain and swelling. History of Present Illness: Mr. Oliva is a 27-year-old white male who ambulates into the ED complaining of right hand pain and swelling. Patient reports 5 or 6 days ago he was at work and does not remember what he struck the dorsal aspect of his right hand on but he sustained a superficial soft tissue injury. Over the last 5-6 days he reports he has been having increasing pain and swelling in the area of the soft tissue injury but also in the thenar eminence area. Currently he describes his pain as a throbbing sensation. Initial wound is between the second and third metacarpals. He rates his discomfort 6/10. His pain is nonradiating. His pain worsens with palpation and flexion and extension of the first through fourth MCP joints. He has not identified any alleviating factors related to the pain. He has not taken any medications for pain prior to arrival at the hospital. Associated with his pain he reports intermittently he has some mild paresthesias throughout the fingers and he has noted some mild redness over the dorsal aspect of the hand. He denies fevers, chills, sweats, other skin eruptions, other skin color changes , upper respiratory tract symptoms, shortness of breath, cough, decreased appetite, nausea, vomiting, forearm pain, wrist pain, other hand pain, finger pain, right hand weakness. Review of Systems: As noted above in history of present illness. Past Medical History: Diabetes, anxiety, renal insufficiency substance abuse, status post appendectomy, and unspecified knee joint arthroscopy Current Medications: Insulin. Allergies to Medications: Acetaminophen, cephalexin, Zofran. Social History: Patient is currently employed; he feels safe in his home environment; he denies tobacco use. Tetanus Immunization Status: Patient reports up-to-date. Physical Examination: Vital Signs: Date Time Temp Pulse Resp B/P (MAP) Pulse Ox O2 Delivery O2 Flow Rate FiO2 12/30/17 16:54 80 20 155/87 99 12/30/17 15:40 36.9 72 20 135/77 100 Room Air GENERAL: 27-year-old male in mild distress due to pain, nontoxic-appearing, afebrile and hemodynamically stable. NEUROLOGICAL: Awake, alert and oriented to person, place and time. Answering questions appropriately and following commands. Normal gait. Good hand eye coordination. SKIN: Warm, dry and pink. Right Hand: Over the dorsal aspect of the hand between the second and third metatarsals patient has a triangular-shaped superficial soft tissue injury. The wound does appear dirty but there is no active bleeding. There is mild erythema and swelling in the area but no lymphangitis. RIGHT HAND: Soft tissue injury as noted above. No gross bony deformity. There is also moderate tenderness and swelling over the thenar eminence but no erythema. The skin is not hot or does not appear cellulitic. Patient does have full range of motion of all MCP, PIP and DIP joints against resistance. He was able to feel light sensations to all dermatomes of his hands. Capillary refill was brisk in all fingers. ED Course: Patient is assessed as noted above. Patient's medication list was reviewed. Patient was offered pain medication and refused. Right Hand X-Rays: Were read by myself and the radiologist showing no acute fractures or dislocations. No foreign bodies noted in the tissue. Patient continues to have unchanged flexion of the fifth PIP joint with degenerative changes that was seen on a comparison film from 2017. Patient's wound was cleansed with antibacterial soap and water and a sterile bacitracin was applied. Additionally a marked up volar splint to immobilize his area of pain; the second and first MCP joint area was made and applied. Patient was educated about today's findings and instructed on his treatment plan ; he verbalized understanding and agreement with this plan. Clinical Impression: Localized swelling to the right hand. Right hand abrasion. Work-related injury. Decision-Making: Initially my differential diagnosis I considered foreign body, bony fracture, skin infection and other causes. Disposition: Patient discharged home in stable condition; prior to departure he was reassessed and subjectively reported he was feeling the same and rated his discomfort 6/10. Plan: Comfort measures were discussed with the patient including use of ibuprofen, ice and splint. Wound care, signs of infection were discussed with the patient. Patient was prescribed 300 mg of clindamycin 4 times a day for 7 days. Patient was signed off of work for 3 days and encouraged to follow-up with Workmen's Compensation for recheck and return to work instruction. Patient was encouraged return the ED for increasing swelling, uncontrolled pain , finger weakness/numbness, increasing redness/swelling, fevers or any new/ concerning symptoms.
== END 2017-12-30 16:56 | disposition home or self-care (01) ==
LOC: C.EDB 15:34 → C.EDD 16:56
DX: S60.511A Abrasion of right hand, initial encounter (principal); W22.8XXA Striking against or struck by other objects, initial encounter; Y99.0 Civilian activity done for income or pay; E11.9 Type 2 diabetes mellitus without complications; F41.9 Anxiety disorder, unspecified; Z90.49 Acquired absence of other specified parts of digestive tract; Z79.4 Long term (current) use of insulin; Z88.6 Allergy status to analgesic agent; Z88.1 Allergy status to other antibiotic agents; Z88.8 Allergy status to other drugs, medicaments and biological substances

== ENCOUNTER 2020-04-19 10:53 | Inpatient (IN) ==
[2020-04-19] MEDS ORDERED: KETOROLAC 30 MG/ML VIAL IV STA (11:40)
--- NOTE | 2020-04-19 11:40 | Emergency Department Note ---
History of Present Illness General Chief complaint: Foot Injury/Pain Stated complaint: left foot pain Time Seen by Provider: 04/19/20 11:07 History of Present Illness Maximum Pain Intensity: 8 This is a 29-year-old male that presents to the emergency department via private vehicle with complaints with left foot pain". The patient states that 2 days ago, around 8:30 in the morning on Thursday he began with left foot pain. He states that a few minutes before this he took off his boot and saw a brown spider. He then notes 2 small puncture wounds to the foot where the infection has seemed to develop from and now worsened. He was started on Augmentin when he initially presented here and states that despite taking this his symptoms continue to worsen. He now notes increased warmth, a burning/fiery sensation to the left foot and worsening redness. The pain is worse with movement and mildly better with rest. Overall discomfort is an 8/10. No fevers or chills. Home Medications Home Medications Medication Instructions Recorded Confirmed Type multivitamin,[id number] 1 tab PO QAM 12/13/19 04/19/20 History pantoprazole 40 mg tablet,delayed 40 mg PO BID #180 tab 01/13/20 04/19/20 Rx release atorvastatin 40 mg tablet 40 mg PO DAILY #90 tab 04/12/20 04/19/20 Rx insulin glargine 100 unit/mL (3 65 unit SQ QPM #15 ml 04/12/20 04/19/20 Rx mL) subcutaneous pen amoxicillin-pot clavulanate 1 tab PO Q12H 7 Days #14 tab 04/17/20 04/19/20 Rx [Augmentin] lisinopril 5 mg PO QAM 04/18/20 04/19/20 History trazodone 75 mg PO HS 04/18/20 04/19/20 History insulin aspart U-100 [Novolog 30 - 40 unit SQ DIRECTED 04/19/20 04/19/20 History Flexpen U-100 Insulin] naproxen sodium 220 mg PO Q12H PRN 04/19/20 04/19/20 History Allergies Allergy/AdvReac Type Severity Reaction Status Date / Time cephalexin Allergy Intermediate hives Verified 04/19/20 11:44 ondansetron Allergy Intermediate HIVES Verified 04/19/20 11:44 acetaminophen AdvReac Intermediate GI SYMPTOMS Verified 04/19/20 11:44 Past Med/Surg History Medical History Anxiety Diabetes mellitus type 1 Dyslipidemia Exercise-induced asthma no inhaler GERD (gastroesophageal reflux disease) Hypertension Migraine Substance abuse Surgical History History of appendectomy History of hand surgery History of inguinal hernia repair S/P shoulder surgery Family History Mother Gastroparesis Gastro-esophageal reflux Hypertension Family history of diabetes mellitus Father Hyperlipidemia Gastro-esophageal reflux Brother ADHD Grandfather Prostate cancer Myocardial infarction Aunt Diabetes Breast cancer Family history of diabetes mellitus Grandmother Liver cancer Lung cancer Family/Other Family history of diabetes mellitus cousin Other No family history of adverse response to anesthesia Denies family history of Ovarian cancer Colorectal cancer Social History Smoking Status: Never smoker Cigarettes Per Day: 1 can a day; Second Hand Exposure: No; Do You Dip or Chew Tobacco: Yes; Tobacco Cessation Education Requested by Patient: No Hx Alcohol Use: Yes Alcohol type: beer Hx Substance Use: No Preferred Language: Yoruba Communication Ability: Effective Visual Impairment: No Limitations Hearing Ability: Normal Liquor Establishment Manager Required: No Beliefs That Will Affect Care: None marital status: Single Current Living Situation: Parent and Family Other Information That Helps Us Care for You: No Feels Safe at Home: Yes Safety Concerns: Feels Safe At This Time Childhood Exposure to Second-Hand Smoke: No Dental Care, Regularly: Yes Physical Activity Frequency: 5-6 Times per Week Review of Systems A total of 10 systems reviewed and were otherwise negative Physical Exam Vital Signs Vital Signs - 24 hr 04/19/20 10:56 04/19/20 12:53 04/19/20 15:05 Temperature 36.6 C Temperature Source Oral Pulse Rate 104 H Pulse Rate [Right Finger] 96 H 89 Respiratory Rate 20 16 20 Respiratory Effort / Characteristics Non-Labored Spontaneous Non-Labored Spontaneous Non-Labored Spontaneous Respiratory Depth Normal Normal Normal Respiratory Pattern Regular Blood Pressure 149/90 H Blood Pressure [Right Arm] 145/108 H 158/107 H Blood Pressure Mean 109 Blood Pressure Mean [Right Arm] 120 124 Blood Pressure Position [Right Arm] Lying Pulse Oximetry 97 96 98 Oxygen Delivery Method Room Air Room Air Room Air Sepsis Recent Fever Within 48 Hours No Sepsis New/Unexplained Change in Mental Status No Sepsis Action Taken by Nursing No Action Required 04/19/20 16:43 Temperature Temperature Source Pulse Rate 89 Pulse Rate [Right Finger] Respiratory Rate 18 Respiratory Effort / Characteristics Respiratory Depth Respiratory Pattern Blood Pressure 143/88 H Blood Pressure [Right Arm] Blood Pressure Mean Blood Pressure Mean [Right Arm] Blood Pressure Position [Right Arm] Pulse Oximetry 97 Oxygen Delivery Method Room Air Sepsis Recent Fever Within 48 Hours Sepsis New/Unexplained Change in Mental Status Sepsis Action Taken by Nursing VITAL SIGNS - Vital signs and nursing notes were reviewed. Stable and afebrile. GENERAL -29 [id number] appearing his stated age who is in no acute distress. Communicates well with provider and answers questions appropriately. SKIN -overlying the distal/lateral aspect of dorsal left foot there is an area of erythema with a central 1.5 cm slight ulcerated area with a very small amount of yellowish drainage. No abscess. There is surrounding erythema that extends to cover about 75% of the dorsal left foot. It does not progress to the left ankle or left ledbetter. Cap refill in left toes are within normal limits. The plantar aspect of the foot is spared. Mild dorsal edema to the left foot. HEAD - NC/AT. LUNGS - Chest wall symmetric without accessory muscle use, intercostals retractions, or central cyanosis. Normal vesicular breath sounds CTA B/L. No wheezes, rales, or rhonchi appreciated. CARDIAC - RRR with S1/S2. No murmur, rubs, or gallops appreciated. EXTREMITIES - No clubbing or peripheral cyanosis. No pretibial edema present. Skin as above. Tenderness overlying the wound and erythema. There is mild increased warmth to the left foot. No fluctuance. +5/5 strength noted in UE/LE bilaterally. Patient is neurovascularly intact in the left lower extremity. Course Administered Medications Discontinued Medications Sodium Chloride (Nss 1000ml) 1,000 mls @ 999 mls/hr IV .Q1H1M [facility] Stop: 04/19/20 14:00 Last Infusion: 04/19/20 14:02 Dose: 0 mls/hr Documented by: [id number] Admin: 04/19/20 12:59 Dose: 999 mls/hr Documented by: [id number] Sodium Chloride (Nss 1000ml) 1,000 mls @ 999 mls/hr IV .Q1H1M [facility] Stop: 04/19/20 14:15 Last Infusion: 04/19/20 14:56 Dose: 0 mls/hr Documented by: [id number] Admin: 04/19/20 13:55 Dose: 999 mls/hr Documented by: [id number] Piperacillin Sod/Tazobactam Sod (Zosyn) 4.5 gm in 120 mls @ 240 mls/hr IV NOW ONE Stop: 04/19/20 14:40 Last Infusion: 04/19/20 14:56 Dose: 0 mls/hr Documented by: [id number] Admin: 04/19/20 14:25 Dose: 240 mls/hr Documented by: [id number] Daptomycin 475 mg/ Syringe 9.5 mls @ 4.75 mls/min IV NOW ONE; Protocol Stop: 04/19/20 14:12 Last Admin: 04/19/20 16:00 Dose: 4.75 mls/min Documented by: [id number] Ketorolac Tromethamine (Ketorolac 30 Mg/Ml Vial) 30 mg IV NOW STA Stop: 04/19/20 11:41 Last Admin: 04/19/20 12:04 Dose: Not Given Documented by: [id number] Ketorolac Tromethamine (Ketorolac 30 Mg/Ml Vial) Confirm Administered Dose 30 mg .ROUTE .STK-MED ONE Stop: 04/19/20 11:54 Last Admin: 04/19/20 12:42 Dose: Not Given Documented by: [id number] Ketorolac Tromethamine (Ketorolac 30 Mg/Ml Vial) 30 mg IV NOW ONE Stop: 04/19/20 15:09 Last Admin: 04/19/20 16:00 Dose: 30 mg Documented by: [id number] Morphine Sulfate (Morphine Sulfate 4 Mg/Ml 1 Ml Carp\\Vial) 4 mg IV NOW STA Stop: 04/19/20 11:59 Last Admin: 04/19/20 12:04 Dose: 4 mg Documented by: [id number] Morphine Sulfate (Morphine Sulfate 4 Mg/Ml 1 Ml Carp\\Vial) Confirm Administered Dose 4 mg .ROUTE .STK-MED ONE Stop: 04/19/20 12:03 Last Admin: 04/19/20 12:44 Dose: Not Given Documented by: [id number] Morphine Sulfate (Morphine Sulfate 4 Mg/Ml 1 Ml Carp\\Vial) 4 mg IV NOW STA Stop: 04/19/20 13:05 Last Admin: 04/19/20 13:56 Dose: 4 mg Documented by: [id number] Promethazine HCl (Promethazine Hcl 25 Mg Tab) 25 mg PO NOW ONE Stop: 04/19/20 15:07 Last Admin: 04/19/20 16:00 Dose: 25 mg Documented by: [id number] Medical Decision Making Laboratory Data Result diagrams: 04/19/20 11:58 04/19/20 11:58 Lab Results 04/19/20 04/19/20 04/19/20 Range/Units 11:58 11:58 11:58 WBC 6.11 (4.8-10.8) K/uL RBC 5.65 (4.7-6.1) M/uL Hgb 15.2 (14.0-18.0) g/dL Hct 44.5 (42-52) % MCV 78.8 L (80-100) fL MCH 26.9 (25-34) pg MCHC 34.2 (32-36) g/dL RDW Std Deviation 38.0 (36.4-46.3) fL RDW Coeff of Lana 13.5 (11.5-14.5) % Plt Count 196 (130-400) K/uL MPV 11.5 H (7.4-10.4) fL Immature Gran % (Auto) 0.3 % Neut % (Auto) 60.9 % Lymph % (Auto) 30.1 % [place] % (Auto) 6.9 % Eos % (Auto) 1.6 % Baso % (Auto) 0.2 % Neut # (Auto) 3.72 (1.4-6.5) K/uL Lymph # (Auto) 1.84 (1.2-3.4) K/uL [place] # (Auto) 0.42 (0.11-0.59) K/uL Eos # (Auto) 0.10 (0-0.5) K/uL Baso # (Auto) 0.01 (0-0.2) K/uL Immature Gran # (Auto) 0.02 (0.00-0.02) K/uL ESR (0-14) mm/hr Sodium 131 L (136-145) mmol/L Potassium 4.1 (3.5-5.1) mmol/L Chloride 96 L (98-107) mmol/L Carbon Dioxide 24 (21-32) mmol/L Anion Gap 11.0 (3-11) BUN 16 (7-18) mg/dl Creatinine 1.51 H (0.6-1.4) mg/dl Est Cr Clr Drug Dosing 82.4 ml/min Est GFR ( Amer) 71.3 Est GFR (Non-Af Amer) 61.5 BUN/Creatinine Ratio 10.6 (10-20) Glucose 583 H* (70-99) mg/dl POC Glucose (70-99) mg/dl Lactate 4.2 H* (0.4-2.0) mmol/L Calcium 9.7 (8.5-10.1) mg/dl Total Bilirubin 1.0 (0.2-1) mg/dl AST 65 H (15-37) U/L ALT 114 H (12-78) U/L Alkaline Phosphatase 131 H (45-117) U/L C-Reactive Protein (0-0.29) mg/dl Total Protein 7.8 (6.4-8.2) gm/dl Albumin 3.8 (3.4-5.0) gm/dl Globulin 4.0 (2.5-4.0) gm/dl Albumin/Globulin Ratio 1.0 (0.9-2) Beta-Hydroxybutyric Acd 1.73 (0.2-2.81) mg/dl 04/19/20 04/19/20 04/19/20 Range/Units 11:58 11:58 13:55 WBC (4.8-10.8) K/uL RBC (4.7-6.1) M/uL Hgb (14.0-18.0) g/dL Hct (42-52) % MCV (80-100) fL MCH (25-34) pg MCHC (32-36) g/dL RDW Std Deviation (36.4-46.3) fL RDW Coeff of Lana (11.5-14.5) % Plt Count (130-400) K/uL MPV (7.4-10.4) fL Immature Gran % (Auto) % Neut % (Auto) % Lymph % (Auto) % [place] % (Auto) % Eos % (Auto) % Baso % (Auto) % Neut # (Auto) (1.4-6.5) K/uL Lymph # (Auto) (1.2-3.4) K/uL [place] # (Auto) (0.11-0.59) K/uL Eos # (Auto) (0-0.5) K/uL Baso # (Auto) (0-0.2) K/uL Immature Gran # (Auto) (0.00-0.02) K/uL ESR 19 H (0-14) mm/hr Sodium (136-145) mmol/L Potassium (3.5-5.1) mmol/L Chloride (98-107) mmol/L Carbon Dioxide (21-32) mmol/L Anion Gap (3-11) BUN (7-18) mg/dl Creatinine (0.6-1.4) mg/dl Est Cr Clr Drug Dosing ml/min Est GFR ( Amer) Est GFR (Non-Af Amer) BUN/Creatinine Ratio (10-20) Glucose (70-99) mg/dl POC Glucose 411 H* (70-99) mg/dl Lactate (0.4-2.0) mmol/L Calcium (8.5-10.1) mg/dl Total Bilirubin (0.2-1) mg/dl AST (15-37) U/L ALT (12-78) U/L Alkaline Phosphatase (45-117) U/L C-Reactive Protein 0.92 H (0-0.29) mg/dl Total Protein (6.4-8.2) gm/dl Albumin (3.4-5.0) gm/dl Globulin (2.5-4.0) gm/dl Albumin/Globulin Ratio (0.9-2) Beta-Hydroxybutyric Acd (0.2-2.81) mg/dl 04/19/20 Range/Units 14:00 WBC (4.8-10.8) K/uL RBC (4.7-6.1) M/uL Hgb (14.0-18.0) g/dL Hct (42-52) % MCV (80-100) fL MCH (25-34) pg MCHC (32-36) g/dL RDW Std Deviation (36.4-46.3) fL RDW Coeff of Lana (11.5-14.5) % Plt Count (130-400) K/uL MPV (7.4-10.4) fL Immature Gran % (Auto) % Neut % (Auto) % Lymph % (Auto) % [place] % (Auto) % Eos % (Auto) % Baso % (Auto) % Neut # (Auto) (1.4-6.5) K/uL Lymph # (Auto) (1.2-3.4) K/uL [place] # (Auto) (0.11-0.59) K/uL Eos # (Auto) (0-0.5) K/uL Baso # (Auto) (0-0.2) K/uL Immature Gran # (Auto) (0.00-0.02) K/uL ESR (0-14) mm/hr Sodium (136-145) mmol/L Potassium (3.5-5.1) mmol/L Chloride (98-107) mmol/L Carbon Dioxide (21-32) mmol/L Anion Gap (3-11) BUN (7-18) mg/dl Creatinine (0.6-1.4) mg/dl Est Cr Clr Drug Dosing ml/min Est GFR ( Amer) Est GFR (Non-Af Amer) BUN/Creatinine Ratio (10-20) Glucose (70-99) mg/dl POC Glucose (70-99) mg/dl Lactate 2.4 H* (0.4-2.0) mmol/L Calcium (8.5-10.1) mg/dl Total Bilirubin (0.2-1) mg/dl AST (15-37) U/L ALT (12-78) U/L Alkaline Phosphatase (45-117) U/L C-Reactive Protein (0-0.29) mg/dl Total Protein (6.4-8.2) gm/dl Albumin (3.4-5.0) gm/dl Globulin (2.5-4.0) gm/dl Albumin/Globulin Ratio (0.9-2) Beta-Hydroxybutyric Acd (0.2-2.81) mg/dl ECG Data Additional Comments: Normal sinus rhythm at rate of 81 bpm. No ectopy or ischemic change. QRS 427. Compared EKG of May 31, 2018 and no significant change was found. MDM Narrative Patient was seen and evaluated as above in room B5. Review was performed of nursing notes and vital signs. I did review pertinent previous visits and patient history. After obtaining a thorough history and physical examination the above work up was performed. He presents to us today with worsening erythema and now pain to the dorsum of the left foot. I reviewed his previous record. He has been taking Augmentin. Vital signs stable. He is afebrile. X-ray was obtained as well as baseline labs. IV Toradol was ordered for pain but then I was called by the RN and notified that the patient took naproxen not long prior to arrival here and the patient would prefer to change to something different. A small dose of morphine was ordered pending work-up here. I also obtained blood cultures and lactic acid noting the increase in erythema and suspected infection. No leukocytosis or significant anemia. There is elevation in the patient's creatinine at 1.5 which is mildly elevated compared to baseline. Glucose and lactic acid elevated. I suspect a lactic acid elevation secondary to metabolic process and not infection. IV daptomycin and Zosyn ordered. Given the patient's hyperglycemia here in the setting of worsening infection despite p.o. antibiotics with further evaluation and management in the inpatient setting is warranted. Patient was in agreement and preferred inpatient management. Case was discussed with the attending physician. In the evaluation and treatment of this patient the following differential diagnoses were entertained: Fracture, dislocation, subluxation, contusion, cellulitis, abscess, osteomyelitis, sepsis, among others Impression & Plan Cellulitis of left foot, Elevated lactic acid level, Elevated LFTs, Hyperglyc emia Discharge Plan Visit Data Chief Complaint: Foot Injury/Pain Stated Complaint: left foot pain ED Provider: Anh Minaya ED Midlevel Provider: Nehemiah Reilly Discharge Problem: Cellulitis of left foot, Elevated lactic acid level, Elevated LFTs, Hyperglycemia Patient Disposition: Admitted As Inpatient Condition: Good Discharge Instructions Interventions: ED Discharge Assessment Last Done: 04/19/20 16:43 Forms Stand Alone Forms: [employer] Prescriptions Prescriptions: No Action pantoprazole 40 mg tablet,delayed release (DR/EC) 40 mg PO BID Qty: 180 RF: 1 Complete Multivitamin Tablet 1 tab PO QAM RF: 0 Lantus Solostar U-100 Insulin 100 unit/mL (3 mL) insulin pen 65 unit SQ QPM Qty: 15 RF: 5 atorvastatin 40 mg tablet 40 mg PO DAILY Qty: 90 RF: 3 trazodone 50 mg tablet 75 mg PO HS RF: 0 lisinopril 5 mg tablet 5 mg PO QAM RF: 0 amoxicillin-pot clavulanate [Augmentin] 875-125 mg tablet 1 tab PO Q12H 7 Days Qty: 14 RF: 0 naproxen sodium 220 mg Tablet 220 mg PO Q12H PRN (Reason: Pain) RF: 0 insulin aspart U-100 [Novolog Flexpen U-100 Insulin] 100 unit/mL (3 mL) insulin pen 30 - 40 unit SQ DIRECTED RF: 0 Referrals Referrals: Yamilex Booker CRNP [Primary Care Provider] -
[2020-04-19] MEDS ORDERED: KETOROLAC 30 MG/ML VIAL ONE (11:53)
[2020-04-19] MEDS ORDERED: MoRPHine SULFATE 4 MG/ML 1 ML CARP\\VIAL IV STA ×2 (11:58→13:04)
[2020-04-19] MEDS ORDERED: MoRPHine SULFATE 4 MG/ML 1 ML CARP\\VIAL ONE (12:02)
[2020-04-19 12:14] LABS: Basophils # (auto) 0.01 K/uL (0-0.2); Basophils % (auto) 0.2 %; Eosinophils % (auto) 1.6 %; Hematocrit (blood only) 44.5 % (42-52); Hemoglobin 15.2 g/dL (14.0-18.0); Immature Granulocytes # (auto) 0.02 K/uL (0.00-0.02); Immature Granulocytes % (auto) 0.3 %; Lymphocytes # (auto) 1.84 K/uL (1.2-3.4); Lymphocytes % (auto) 30.1 %; Mean Corpuscular Hemoglobin 26.9 pg (25-34); Mean Corpuscular Hgb Conc 34.2 g/dL (32-36); Mean Corpuscular Volume 78.8 fL (80-100); Mean Platelet Volume 11.5 fL (7.4-10.4); Monocytes # (auto) 0.42 K/uL (0.11-0.59); Monocytes % (auto) 6.9 %; Neutrophils # (auto) 3.72 K/uL (1.4-6.5); Neutrophils % (auto) 60.9 %; Platelet Count 196 K/uL (130-400); RDW Coefficient of Variation 13.5 % (11.5-14.5); Red Blood Count 5.65 M/uL (4.7-6.1); White Blood Count 6.11 K/uL (4.8-10.8)
[2020-04-19] MEDS ORDERED: SODIUM CHLORIDE 0.9% 1000ML 1,000 ML IV SCH ×2 (13:00→13:15)
--- NOTE | 2020-04-19 13:10 | XRay Report ---
LEFT FOOT 3 VIEWS HISTORY: L foot infection COMPARISON: None. FINDINGS: There is no fracture or dislocation. Medial soft tissue swelling within the midfoot. No rad iopaque foreign bodies. IMPRESSION: Medial soft tissue swelling within the left foot. No underlying bony abnormality. ACT 112: Negative or not required by law. Electronically signed by: Samuel Ramos M.D. 04/19/2020 12:41 PM
[2020-04-19 13:30] LABS: Albumin Level 3.8 gm/dl (3.4-5.0); BUN Creatinine Ratio 10.6 (10-20); Calcium 9.7 mg/dl (8.5-10.1); Creatinine Clr Calc Pharmacy 82.4 ml/min; Est GFR (African American) 71.3; Est GFR (Non-African American) 61.5; Potassium 4.1 mmol/L (3.5-5.1); Total Protein 7.8 gm/dl (6.4-8.2)
[2020-04-19 13:52] LABS: Beta-Hydroxybutyrate 1.73 mg/dl (0.2-2.81)
[2020-04-19] MEDS ORDERED: DAPTOmycin 475 MG in SYRINGE 0 ML IV ONE (14:11)
[2020-04-19] MEDS ORDERED: DAPTOMYCIN CONSULT ACTIVE PRN (14:11)
[2020-04-19] MEDS ORDERED: PIPERACILL/TAZOBAC CONSULT ACTIVE PRN (14:11)
[2020-04-19] MEDS ORDERED: PIPERACILLIN/TAZOBACTAM 4.5 GM/120 ML BAG IV ONE (14:11)
[2020-04-19] MEDS ORDERED: PROMETHAZINE HCL 25 MG TAB PO ONE (15:06)
[2020-04-19] MEDS ORDERED: KETOROLAC 30 MG/ML VIAL IV ONE (15:08)
--- NOTE | 2020-04-19 15:18 | History & Physical Report ---
Date of Service April 19, 2020 Assessment & Plan (1) Cellulitis of left foot: Previous history of MRSA, immunocompromise due to type 1 diabetes mellitus. Worsening despite Augmentin taken started 2 days ago in the ER. Daptomycin and Zosyn given in ER on this occasion - continue. Hold atorvastatin while on daptomycin. No abscess or necrotizing fasciitis suspected on exam. CRP/ESR added to labs to assess for progression. Good peripheral pulses - no need for arterial Doppler. Follow-up blood cultures. Elevate left lower extremity as much as possible to reduce swelling. Analgesia: Intolerant to acetaminophen 1st line: Toradol 15 mg IV PRN 2nd line: Tramadol 50 mg p.o. every 4 hourly PRN 3rd line: Morphine 2 mg IV q2h PRN Antiemetics: Allergy to ondansetron Phenergan 12.5 mg IV q6h PRN (2) Elevated lactic acid level: NSS to 1 L bolus given in ER. Continue IV fluids LR @ 150 ml/hr (3) Uncontrolled type 1 diabetes mellitus: HbA1c 10.3 Home regimen Lantus 65 units SQ every afternoon (took this last night), NovoLog 30-40 units before meals. Currently uncontrolled with hyperglycemia likely influenced by current infection. Give NovoLog 30 units now Increase Lantus dosing to 60 units SQ twice daily, NovoLog aim 140-180, correction 5mg/dL/unit, carb ratio 1 unit per 2g Additional NovoLog correction dose at midnight. (4) Smokeless tobacco use: (5) Insomnia: Trazodone 25 mg p.o. at bedtime as needed (6) Dyslipidemia: Atorvastatin on hold while taking daptomycin (7) GERD (gastroesophageal reflux disease): Continue pantoprazole 40 mg p.o. twice daily (8) Dysphagia: Pending outpatient GI work-up. Soft bite-sized diet. (9) Elevated LFTs: Appears to be longstanding. Recommend outpatient work-up for GALVAN if not previously done. Advised to stay away from alcohol. (10) DVT prophylaxis: Given young age and good mobility despite infection will defer chemical prophylaxis for now as patient is low risk for DVTs. SCDs of dubious benefit and would limit his mobility. Admission and Anticipated Discharge Date Admission Date: 04/19/2020 History of Present Illness Chief Complaint: Left foot cellulitis Primary Care Provider: SADIQ Posada Kenny Oliva is a 29-year-old male with uncontrolled type 1 diabetes mellitus who presents to the ER after failed outpatient antibiotic regimen with Augmentin for left lower extremity cellulitis. Initial wound was 3 days ago with concerns of a recluse spider bite that morning. More putting on his boots he is sore spider run out of his boots. He did not feel nothing by his mother time but several hours later when he took his boot off he noticed a blister that subsequently broke open. He came to the ER the same day and was given a dose of Augmentin. He reports picking up his prescription the following morning and compliance with taking this. Reports his tetanus is up-to-date. He has been feeling increasingly nauseous, was not able to sleep last night, erythema, swelling and left foot pain has been getting worse despite Augmentin use. Reports a possible MRSA infection requiring a PICC line and IV antibiotics in his right fifth finger previously. Allergies Allergy/AdvReac Type Severity Reaction Status Date / Time cephalexin Allergy Intermediate hives Verified 04/19/20 11:44 ondansetron Allergy Intermediate HIVES Verified 04/19/20 11:44 acetaminophen AdvReac Intermediate GI SYMPTOMS Verified 04/19/20 11:44 Home Medications Home Medications Medication Instructions Recorded Confirmed Type multivitamin,[id number] 1 tab PO QAM 12/13/19 04/19/20 History pantoprazole 40 mg tablet,delayed 40 mg PO BID #180 tab 01/13/20 04/19/20 Rx release atorvastatin 40 mg tablet 40 mg PO DAILY #90 tab 04/12/20 04/19/20 Rx insulin glargine 100 unit/mL (3 65 unit SQ QPM #15 ml 04/12/20 04/19/20 Rx mL) subcutaneous pen amoxicillin-pot clavulanate 1 tab PO Q12H 7 Days #14 tab 04/17/20 04/19/20 Rx [Augmentin] lisinopril 5 mg PO QAM 04/18/20 04/19/20 History trazodone 75 mg PO HS 04/18/20 04/19/20 History insulin aspart U-100 [Novolog 30 - 40 unit SQ DIRECTED 04/19/20 04/19/20 History Flexpen U-100 Insulin] naproxen sodium 220 mg PO Q12H PRN 04/19/20 04/19/20 History Past Med/Surg History Medical History Anxiety Diabetes mellitus type 1 Dyslipidemia Exercise-induced asthma no inhaler GERD (gastroesophageal reflux disease) Hypertension Migraine Substance abuse Surgical History History of appendectomy History of hand surgery History of inguinal hernia repair S/P shoulder surgery Family History Mother Gastroparesis Gastro-esophageal reflux Hypertension Family history of diabetes mellitus Father Hyperlipidemia Gastro-esophageal reflux Brother ADHD Grandfather Prostate cancer Myocardial infarction Aunt Diabetes Breast cancer Family history of diabetes mellitus Grandmother Liver cancer Lung cancer Family/Other Family history of diabetes mellitus cousin Other No family history of adverse response to anesthesia Denies family history of Ovarian cancer Colorectal cancer Social History Smoking Status: Never smoker Cigarettes Per Day: 1 can a day; Second Hand Exposure: No; Do You Dip or Chew Tobacco: Yes; Tobacco Cessation Education Requested by Patient: No Hx Alcohol Use: Yes Alcohol type: beer Hx Substance Use: No Preferred Language: Taiwanese Communication Ability: Effective Visual Impairment: No Limitations Hearing Ability: Normal Sheep Shearer Required: No Beliefs That Will Affect Care: None marital status: Single Current Living Situation: Parent and Family Other Information That Helps Us Care for You: No Feels Safe at Home: Yes Safety Concerns: Feels Safe At This Time Childhood Exposure to Second-Hand Smoke: No Dental Care, Regularly: Yes Physical Activity Frequency: 5-6 Times per Week Review of Systems Review of Systems: All systems reviewed & are unremarkable except as noted in HPI & below Physical Exam Constitutional: well developed, + acute distress and + obese; + not well nourished Nonseptic appearing Eyes: + anicteric sclerae; normal pupil size ENMT: external ear and nose normal, oropharynx normal Neck: + short neck and + thick neck Respiratory: normal respiratory effort, lungs clear to auscultation Cardiovascular: Rate/Rhythm: regular rhythm and + tachycardic Heart Sounds: no murmur Extremities: normal capillary refill (Distal to cellulitis) and + pedal edema (Trace ankles bilaterally); no calf tenderness Gastrointestinal (Abdomen): normal bowel sounds, soft, nontender, no hepatosplenomegaly Musculoskeletal: no cyanosis or clubbing, extremities motor strength 5/5 Skin: + erythema (Bright erythema surrounding 2 areas of granulation tissue on left foot up to ankle) No pus able to be expressed from 2 wounds on dorsal side of left foot Neurologic: moves all extremities and awake; no focal motor deficits and not confused Psychiatric: A+Ox3, euthymic affect Genitourinary: no CVA tenderness Results & Data Results & Data ([facility]) Vital Signs (Past 12 Hours) Vital Signs Temp Pulse Pulse Resp BP BP Pulse Ox 04/19/20 15:05 89 20 158/107 H 98 04/19/20 12:53 96 H 16 145/108 H 96 04/19/20 10:56 36.6 C 104 H 20 149/90 H 97 Diagnostic Findings LEFT FOOT 3 VIEWS IMPRESSION: Medial soft tissue swelling within the left foot. No underlying bony abnormality. ECG Indication: tachycardia Rate (beats per minute): 81 Rhythm: normal sinus Findings: no acute ischemic change Comparison ECG Date: from (May 31, 2018) Change: no significant change Code Status & VTE Plan Code Status Full as discussed with the patient VTE Prophylaxis Plan VTE Prophylaxis will be ordered: No PG Care Time/CCT Total # of Minutes Spent Total Time Spent with Patient: Total time spent is greater than 50% in coordination of care (as documented) at patient's floor/unit and/or counseling patient: Coding Level of Care Code 44408 Initial Inpt Care Lvl 3 Diagnoses Cellulitis of left foot L03.116 Elevated lactic acid level R79.89 Uncontrolled type 1 diabetes mellitus E10.65 Smokeless tobacco use Z72.0 Insomnia G47.00 Dyslipidemia E78.5 GERD (gastroesophageal reflux disease) K21.9 Dysphagia R13.10 Elevated LFTs R79.89 DVT prophylaxis Z29.9
[2020-04-19] MEDS ORDERED: GLUCOSE 10 TABS/TUBE PO PRN (18:00)
[2020-04-19] MEDS ORDERED: CARBOHYDRATES FOR HYPOGLYCEMIA PO PRN (18:00)
[2020-04-19] MEDS ORDERED: GLUCOSE 40% GEL 15 GM TUBE PO PRN (18:00)
[2020-04-19] MEDS ORDERED: ACETAMINOPHEN 325 MG TAB PO PRN (18:00)
[2020-04-19] MEDS ORDERED: GLUCAGON FOR INJ 1 MG VIAL SQ PRN (18:00)
[2020-04-19] MEDS ORDERED: ALUMINUM/MAGNESIUM SUSP 30 ML UDC PO PRN (18:00)
[2020-04-19] MEDS ORDERED: TRAZODONE HCL 50 MG TAB PO PRN (18:00)
[2020-04-19] MEDS ORDERED: DEXTROSE 50% 50 ML SYRINGE IV PRN (18:00)
[2020-04-19] MEDS ORDERED: KETOROLAC TROMETHAMINE 15 MG/ML VIAL IV PRN (18:00)
[2020-04-19] MEDS ORDERED: POLYETHYLENE (MIRALAX) 17 GM PACK PO PRN (18:00)
[2020-04-19] MEDS ORDERED: INSULIN ASPART 100 UNITS/ML 3 ML PEN SC ONE (18:15)
[2020-04-19] MEDS: TRAMADOL HCL 50 MG TABLET PO PRN (18:26)
[2020-04-19] MEDS: LACTATED RINGER'S 1,000 ML IV SCH (18:32)
[2020-04-19] MEDS: INSULIN ASPART 100 UNITS/ML 3 ML PEN SC SCH ×2 (18:43→21:13)
[2020-04-19] MEDS: MoRPHine SULFATE 2 MG/ML CARP IV PRN ×2 (21:08→23:36)
[2020-04-19] MEDS: PROMETHAZINE HCL 12.5 MG in SODIUM CHLORIDE 0.9% 50 ML IV PRN (21:09)
[2020-04-19] MEDS: PANTOprazole 40 MG TAB PO SCH (21:09)
[2020-04-19] MEDS: PIPERACILLIN/TAZOBACTAM 4.5 GM in DEXTROSE 5% 100 ML IV SCH (21:09)
[2020-04-19] MEDS: INSULIN GLARGINE 100 UNIT/ML VIAL SC SCH (21:10)
[2020-04-20] MEDS ORDERED: INSULIN ASPART 100 UNITS/ML 3 ML PEN SC ONE
[2020-04-20] MEDS: LACTATED RINGER'S 1,000 ML IV SCH ×4 (03:32→23:19)
[2020-04-20] MEDS: PIPERACILLIN/TAZOBACTAM 4.5 GM in DEXTROSE 5% 100 ML IV SCH ×3 (03:37→21:06)
[2020-04-20] MEDS: TRAMADOL HCL 50 MG TABLET PO PRN (03:43)
--- NOTE | 2020-04-20 06:58 | Electrocardiogram Report ---
Test Reason : Blood Pressure : / mmHG Vent. Rate : 081 BPM Atrial Rate : 081 BPM P-R Int : 146 ms QRS Dur : 092 ms QT Int : 368 ms P-R-T Axes : 045 -01 019 degrees QTc Int : 427 ms Normal sinus rhythm Low voltage QRS Borderline ECG When compared with ECG of 31-MAY-2018 16:27, No significant change was found Confirmed by Morales Zelaya ([id number]) on 04/20/2020 6:57:54 AM Referred By: REFERRED SELF Confirmed By:Morales Zelaya
[2020-04-20] MEDS: CEROVITE ADV FORMULA TAB PO SCH (08:23)
[2020-04-20] MEDS: PANTOprazole 40 MG TAB PO SCH ×2 (08:23→20:15)
[2020-04-20] MEDS: lisinopriL 5 MG TAB PO SCH (08:23)
[2020-04-20] MEDS: INSULIN ASPART 100 UNITS/ML 3 ML PEN SC SCH ×2 (08:52→12:44)
[2020-04-20 08:56] LABS: Basophils # (auto) 0.01 K/uL (0-0.2); Basophils % (auto) 0.2 %; Eosinophils # (auto) 0.16 K/uL (0-0.5); Eosinophils % (auto) 2.9 %; Hematocrit (blood only) 46.6 % (42-52); Immature Granulocytes # (auto) 0.01 K/uL (0.00-0.02); Immature Granulocytes % (auto) 0.2 %; Lymphocytes # (auto) 2.78 K/uL (1.2-3.4); Lymphocytes % (auto) 49.9 %; Mean Corpuscular Hemoglobin 26.2 pg (25-34); Mean Corpuscular Hgb Conc 32.2 g/dL (32-36); Mean Corpuscular Volume 81.3 fL (80-100); Mean Platelet Volume 11.3 fL (7.4-10.4); Monocytes # (auto) 0.43 K/uL (0.11-0.59); Monocytes % (auto) 7.7 %; Neutrophils # (auto) 2.18 K/uL (1.4-6.5); Neutrophils % (auto) 39.1 %; Platelet Count 195 K/uL (130-400); RDW Coefficient of Variation 13.7 % (11.5-14.5); RDW Standard Deviation 40.7 fL (36.4-46.3); Red Blood Count 5.73 M/uL (4.7-6.1); White Blood Count 5.57 K/uL (4.8-10.8)
[2020-04-20] MEDS: MoRPHine SULFATE 2 MG/ML CARP IV PRN ×3 (09:00→16:32)
[2020-04-20] MEDS: PROMETHAZINE HCL 12.5 MG in SODIUM CHLORIDE 0.9% 50 ML IV PRN (09:02)
[2020-04-20] MEDS: INSULIN GLARGINE 100 UNIT/ML VIAL SC SCH ×2 (09:07→20:31)
[2020-04-20 09:25] LABS: BUN Creatinine Ratio 9.2 (10-20); Creatinine Clr Calc Pharmacy 87.7 ml/min; Est GFR (African American) 76.2; Est GFR (Non-African American) 65.7; Potassium 4.1 mmol/L (3.5-5.1)
--- NOTE | 2020-04-20 09:51 | Hospitalist Progress Note ---
Date of Service April 20, 2020 Assessment & Plan (1) Cellulitis of left foot: Kenny Oliva is a 29-year-old male with uncontrolled type 1 diabetes mellitus who presented to the ER after failed outpatient antibiotic regimen with Augmentin for left lower extremity cellulitis. Initial wound was 3 days ago. Pt concerned for brown recluse spider bite--did not feel anything but several hours later when he took his boot off, he noticed a blister that subsequently broke open. He came to the ER the same day and was given a dose of Augmentin--unlikely spider bite per ER provider. He reports compliance with the medication. He has been feeling increasingly nauseous, was not able to sleep last night, erythema, swelling and left foot pain has been getting worse despite Augmentin use. Reports a MRSA infection requiring a PICC line and IV antibiotics in his right fifth finger previously. Cellulitis of left foot - Patient has previous history of MRSA and uncontrolled DM type 1 - Symptoms worse despite treatment w/ Augmentin for 2 days - Wound depth currently not concerning for osteomyelitis--consider further evaluation if no improvement - Left foot XR: Medial soft tissue swelling within the left foot. No underlying bony abnormality. - Daptomycin 475mg IV daily - Zosyn 4.5g IV q8h - Monitor clinically Uncontrolled type 1 diabetes mellitus - HbA1c 10.3 - Patient expresses understanding and correctly demonstrates examples of home insulin, but A1c and blood sugars on arrival point to noncompliance of diet/treatment - Basal currently: Lantus 60 units BID - Bolus currently: Novolog with correction factor of 5 and carb ratio of 1:1 - Adjust insulin as needed - Follow AM BMP Dyslipidemia - Atorvastatin held while on daptomycin treatment GERD - Continue on home pantoprazole 40mg PO BID Dysphagia - Has pending GI work up as outpatient - Soft, bite-sized diet Elevated LFT - Longstanding starting November 2019 - Recommend outpatient follow up - Recommend avoidance of EtOH intake DVT prophylaxis: Deferred due to age and good mobility FENGI: Carb count/DM1, soft bite-sized Dispo: Med/Surg Tele Code: Full Code (2) Uncontrolled type 1 diabetes mellitus: (3) Insomnia: (4) Dyslipidemia: (5) Dysphagia: (6) DVT prophylaxis: (7) Elevated LFTs: Admission and Anticipated Discharge Date Admission Date: April 19, 2020 Supervising Physician Co-Signing Physician Notes I personally examined the patient and verified all carias points of history and exam, discussed case, and agree with decision making with Dr Chávez foot alejo some and is numb a little on the side. in discussing DM he does not show awareness of hyperglycemia tying together to microvascular ischemic complications, but does show good proficiency in counting carbs and estimating insulin dosing. relates that when he checks sugars after meals it's always at goal range. does not give hx that defines his A1c. vitals noted nad heent nc at mmm breathing unlabored no accessory msucles good effort. L foot dorsal ulceration, thin exudate, dull and patchy surrounding erythema. no crepitis. foot infection - he relates spider bite. between this and prior MRSA in hand - MRSA coverage seems necessary. given longstanding uncontrolled DM - pseudomonal coverage as well. appears improving. continue current. uncontrolled DM1 - also definitely appears to show insulin resistance. tried to help educate/troubleshoot - he was simultaneously amenable and a bit closed off at the same time. earlier had to tighten carb ratio to 1:1 given sugars still at 300's despite 1:2 (and was more heavy with basal than bolus on overall dosing) -- now on re-review sugars are in lower end of euglycemia - will back down to 1:3 (he is 1:5 at home) otherwise as above Subjective Patient was seen today at bedside where he was laying comfortably and in no distress. His only current complaints are pain in his foot, discomfort from the swelling, and tingling on the lateral bottom aspect of his foot. He asks whether these sensations are expected to be permanent--reassured that they are most likely transient due to his infection. He expresses understanding of diabetes and the management of his insulin regimen. He is able to estimate carb count in his meal quite accurately and correctly explains how his insulin would be administered accordingly. Denies further symptoms. No CP, palpitations, SOB, cough, nausea, vomiting, abd pain, diarrhea, dysuria, urinary frequency. Review of Systems Constitutional: no fever, no chills, no sweats, no fatigue and no weakness Respiratory: no cough, no chest congestion and no dyspnea Cardiovascular: no chest pain, no palpitations and no edema Gastrointestinal: no abdominal pain, no nausea, no vomiting, no constipation and no diarrhea/loose stools Genitourinary: no dysuria, no difficulty urinating and no urinary frequency Physical Exam Constitutional: WD/WN, vitals as above no acute distress Respiratory: normal respiratory effort, lungs clear to auscultation Auscultation: no crackles, no rales, no rhonchi and no wheezes Cardiovascular: RRR, no murmur, no edema Heart Sounds: normal S1 and normal S2; no gallop, no murmur and no cardiac rub Gastrointestinal (Abdomen): normal bowel sounds, soft, nontender, no hepatosplenomegaly Skin: ~2cm ulcer on lateral dorsum of left food with surrounding erythema and edema Psychiatric: A+Ox3, euthymic affect Results & Data Results & Data ([facility]) Vital Signs (Past 12 Hours) Vital Signs Temp Pulse Pulse Resp BP BP Pulse Ox 04/20/20 07:10 36.5 C 85 20 114/72 96 04/20/20 04:00 36.5 C 79 20 126/83 95 04/20/20 03:51 73 04/19/20 23:00 37.2 C 60 20 137/76 97 Resident Activity Tracking Resident Involvement: Resident Care Provided Care Provided: Adult Hospital Medicine
[2020-04-20] MEDS: DAPTOmycin 475 MG in SYRINGE 0 ML IV SCH (13:34)
[2020-04-20] MEDS ORDERED: MoRPHine SULFATE 2 MG/ML CARP IV PRN ×2 (16:43→17:00)
[2020-04-20] MEDS ORDERED: HYDROCODONE/ACETAMINOPHEN 7.5/325MG TAB PO PRN (16:52)
[2020-04-20] MEDS: INSULIN ASPART 100 UNITS/ML VIAL SC SCH ×2 (17:26→20:32)
--- NOTE | 2020-04-20 18:17 | Billing Data ---
Date of Service April 20, 2020 Coding Level of Care Code 65707 Subseq Hosp Care Lvl 3
[2020-04-20] MEDS: OXYCODONE HCL IR 5 MG TAB (IMMEDIATE RELEASE) PO PRN (21:15)
[2020-04-21] MEDS: PROMETHAZINE HCL 12.5 MG in SODIUM CHLORIDE 0.9% 50 ML IV PRN ×2 (00:08→11:28)
[2020-04-21] MEDS: TRAMADOL HCL 50 MG TABLET PO PRN (00:09)
[2020-04-21] MEDS ORDERED: Nursing to Pharmacy Communication SCH (01:15)
[2020-04-21] MEDS: OXYCODONE HCL IR 5 MG TAB (IMMEDIATE RELEASE) PO PRN ×3 (03:17→22:16)
[2020-04-21] MEDS: PIPERACILLIN/TAZOBACTAM 4.5 GM in DEXTROSE 5% 100 ML IV SCH ×3 (05:01→20:15)
[2020-04-21] MEDS: LACTATED RINGER'S 1,000 ML IV SCH ×3 (06:07→20:13)
[2020-04-21 06:50] LABS: Basophils # (auto) 0.01 K/uL (0-0.2); Basophils % (auto) 0.2 %; Eosinophils # (auto) 0.14 K/uL (0-0.5); Eosinophils % (auto) 2.4 %; Hematocrit (blood only) 39.9 % (42-52); Hemoglobin 13.4 g/dL (14.0-18.0); Immature Granulocytes # (auto) 0.02 K/uL (0.00-0.02); Immature Granulocytes % (auto) 0.3 %; Lymphocytes % (auto) 37.2 %; Mean Corpuscular Hemoglobin 26.7 pg (25-34); Mean Corpuscular Hgb Conc 33.6 g/dL (32-36); Mean Corpuscular Volume 79.5 fL (80-100); Mean Platelet Volume 11.4 fL (7.4-10.4); Monocytes % (auto) 8.5 %; Neutrophils # (auto) 3.04 K/uL (1.4-6.5); Neutrophils % (auto) 51.4 %; Platelet Count 177 K/uL (130-400); RDW Coefficient of Variation 13.6 % (11.5-14.5); RDW Standard Deviation 38.7 fL (36.4-46.3); Red Blood Count 5.02 M/uL (4.7-6.1); White Blood Count 5.91 K/uL (4.8-10.8)
[2020-04-21 07:31] LABS: BUN Creatinine Ratio 9.4 (10-20); Calcium 8.6 mg/dl (8.5-10.1); Creatinine Clr Calc Pharmacy 95.4 ml/min; Est GFR (African American) 82.4; Est GFR (Non-African American) 71.1; Potassium 3.8 mmol/L (3.5-5.1)
[2020-04-21] MEDS: lisinopriL 5 MG TAB PO SCH (08:09)
[2020-04-21] MEDS: PANTOprazole 40 MG TAB PO SCH ×2 (08:09→20:14)
[2020-04-21] MEDS: CETIRIZINE HCL 10 MG TABLET PO SCH (08:11)
[2020-04-21] MEDS: CEROVITE ADV FORMULA TAB PO SCH (08:46)
[2020-04-21] MEDS: INSULIN ASPART 100 UNITS/ML VIAL SC SCH ×4 (08:48→20:18)
[2020-04-21] MEDS: INSULIN GLARGINE 100 UNIT/ML VIAL SC SCH ×2 (08:52→20:16)
[2020-04-21] MEDS ORDERED: OXYCODONE HCL IR 5 MG TAB (IMMEDIATE RELEASE) PO PRN (09:15)
--- NOTE | 2020-04-21 09:20 | Hospitalist Progress Note ---
Date of Service April 21, 2020 Assessment & Plan (1) Cellulitis of left foot: Kenny Oliva is a 29-year-old male with uncontrolled type 1 diabetes mellitus who presented to the ER after failed outpatient antibiotic regimen with Augmentin for left lower extremity cellulitis. Initial wound was 3 days ago. Pt concerned for brown recluse spider bite--did not feel anything but several hours later when he took his boot off, he noticed a blister that subsequently broke open. He came to the ER the same day and was given a dose of Augmentin--unlikely spider bite per ER provider. He reports compliance with the medication. He has been feeling increasingly nauseous, was not able to sleep last night, erythema, swelling and left foot pain has been getting worse despite Augmentin use. Reports a MRSA infection requiring a PICC line and IV antibiotics in his right fifth finger previously. Cellulitis of left foot - Patient has previous history of MRSA and uncontrolled DM type 1 - Symptoms worse despite treatment w/ Augmentin for 2 days - Wound depth currently not concerning for osteomyelitis--consider further evaluation if no improvement - Left foot XR: Medial soft tissue swelling within the left foot. No underlying bony abnormality. - Continue Daptomycin 475mg IV daily - Continue Zosyn 4.5g IV q8h - Monitor clinically Uncontrolled type 1 diabetes mellitus - HbA1c 10.3 - Patient expresses understanding and correctly demonstrates examples of home insulin, but A1c and blood sugars on arrival point to noncompliance of diet/treatment - Basal currently: Lantus 60 units BID - Bolus currently: Novolog with correction factor of 5 and carb ratio of 1:3 - Adjust insulin as needed - Follow AM BMP Dyslipidemia - Atorvastatin held while on daptomycin treatment GERD - Continue on home pantoprazole 40mg PO BID Dysphagia - Has pending GI work up as outpatient - Soft, bite-sized diet Elevated LFT - Longstanding starting November 2019 - Recommend outpatient follow up - Recommend avoidance of EtOH intake DVT prophylaxis: Deferred due to age and good mobility FENGI: Carb count/DM1, soft bite-sized Dispo: Med/Surg Tele Code: Full Code (2) Uncontrolled type 1 diabetes mellitus: (3) Insomnia: (4) Dyslipidemia: (5) Dysphagia: (6) DVT prophylaxis: (7) Elevated LFTs: Admission and Anticipated Discharge Date Admission Date: April 19, 2020 Supervising Physician Co-Signing Physician Notes I personally examined the patient and verified all carias points of history and exam, discussed case, and agree with decision making with Dr Chávez pain control improving, just worried about it wearing off. otherwise no new complaints. sugars doing better. vitals noted nad heent nc at mmm breathing unlabored no accessory msucles good effort. L foot dorsal ulceration, thin exudate, dull and patchy surrounding erythema improved from yseterday, still about the same amount swollen. no crepitis. foot infection - he relates spider bite. between this and prior MRSA in his hand - MRSA coverage seems necessary. long standing DM - cover for gram negatives. appears improving. pain control. uncontrolled DM1 - also definitely appears to show insulin resistance. sugar control ipmroved. loosened carb ratio to 1:3 (he's on 1:5 at home) otherwise as above Subjective Patient feels well overall today but reports some continued pain in his foot. I informed him that I'd adjust his pain meds but explained that it would be reasonable to expect some amount of pain given his open wound/infection. He reports some nausea overnight that resolved well when he was given phenergan. No vomiting. Otherwise able to eat and keep his food down, no decreased appetite. Denies fever chills, CP, palpitations, SOBm cough, abdominal pain, contipation, diarrhea, dysuria. Review of Systems Constitutional: no fever, no chills, no sweats and no fatigue Respiratory: no cough, no chest congestion and no dyspnea Cardiovascular: no chest pain, no palpitations and no edema Gastrointestinal: + nausea (resolved with phenergan prn (intolerant to Zofran)); no abdominal pain, no vomiting, no constipation and no diarrhea/loose stools Physical Exam Constitutional: WD/WN, vitals as above no acute distress Respiratory: normal respiratory effort, lungs clear to auscultation Auscultation: no crackles, no rales, no rhonchi and no wheezes Cardiovascular: RRR, no murmur, no edema Heart Sounds: normal S1 and normal S2; no gallop, no murmur and no cardiac rub Gastrointestinal (Abdomen): normal bowel sounds, soft, nontender, no hepatosplenomegaly Psychiatric: A+Ox3, euthymic affect Results & Data Results & Data ([facility]) Vital Signs (Past 12 Hours) Vital Signs Temp Pulse Pulse Resp BP BP Pulse Ox 04/21/20 07:14 36.8 C 79 17 176/80 H 96 04/21/20 04:19 37.2 C 78 15 139/76 94 04/20/20 23:41 36.9 C 90 15 136/80 95 04/20/20 22:20 92 H Resident Activity Tracking Resident Involvement: Resident Care Provided Care Provided: Adult Hospital Medicine
[2020-04-21] MEDS: DAPTOmycin 475 MG in SYRINGE 0 ML IV SCH (12:56)
--- NOTE | 2020-04-21 15:47 | Billing Data ---
Date of Service April 21, 2020 Coding Level of Care Code 72867 Subseq Hosp Care Lvl 3
[2020-04-22] MEDS: PROMETHAZINE HCL 12.5 MG in SODIUM CHLORIDE 0.9% 50 ML IV PRN ×2 (01:08→09:07)
[2020-04-22] MEDS: LACTATED RINGER'S 1,000 ML IV SCH ×3 (03:14→16:55)
[2020-04-22] MEDS: OXYCODONE HCL IR 5 MG TAB (IMMEDIATE RELEASE) PO PRN ×5 (03:16→21:56)
[2020-04-22] MEDS: PIPERACILLIN/TAZOBACTAM 4.5 GM in DEXTROSE 5% 100 ML IV SCH ×3 (03:37→19:14)
[2020-04-22 07:08] LABS: BUN Creatinine Ratio 9.9 (10-20); Calcium 9.3 mg/dl (8.5-10.1); Creatinine Clr Calc Pharmacy 99.6 ml/min; Est GFR (African American) 86.3; Est GFR (Non-African American) 74.4; Potassium 3.8 mmol/L (3.5-5.1)
[2020-04-22] MEDS: INSULIN ASPART 100 UNITS/ML VIAL SC SCH ×4 (08:08→20:29)
[2020-04-22] MEDS: INSULIN GLARGINE 100 UNIT/ML VIAL SC SCH ×2 (08:09→20:30)
[2020-04-22] MEDS: PANTOprazole 40 MG TAB PO SCH ×2 (08:10→20:33)
[2020-04-22] MEDS: lisinopriL 5 MG TAB PO SCH (08:11)
[2020-04-22] MEDS: CEROVITE ADV FORMULA TAB PO SCH (08:11)
[2020-04-22] MEDS: CETIRIZINE HCL 10 MG TABLET PO SCH (08:11)
--- NOTE | 2020-04-22 10:58 | Hospitalist Progress Note ---
Date of Service April 22, 2020 Assessment & Plan (1) Cellulitis of left foot: Kenny Oliva is a 29-year-old male with uncontrolled type 1 diabetes mellitus who presented to the ER after failed outpatient antibiotic regimen with Augmentin for left lower extremity cellulitis. Initial wound was 3 days ago. Pt concerned for brown recluse spider bite--did not feel anything but several hours later when he took his boot off, he noticed a blister that subsequently broke open. He came to the ER the same day and was given a dose of Augmentin--unlikely spider bite per ER provider. He reports compliance with the medication. He has been feeling increasingly nauseous, was not able to sleep last night, erythema, swelling and left foot pain has been getting worse despite Augmentin use. Reports a MRSA infection requiring a PICC line and IV antibiotics in his right fifth finger previously. Cellulitis of left foot - Patient has previous history of MRSA and uncontrolled DM type 1 - Symptoms worse despite treatment w/ Augmentin for 2 days - Wound depth currently not concerning for osteomyelitis--patient's pain continues and minimal improvement with treatment - Foot MRI today--moderate diffuse cellulitis & mild myositis of the dorsal lateral midfoot - Left foot XR: Medial soft tissue swelling within the left foot. No underlying bony abnormality. - Continue Daptomycin 475mg IV daily - Continue Zosyn 4.5g IV q8h - Monitor clinically Uncontrolled type 1 diabetes mellitus - HbA1c 10.3 - Patient expresses understanding and correctly demonstrates examples of home insulin, but A1c and blood sugars on arrival point to noncompliance of diet/treatment - Basal currently: Lantus 60 units BID - Bolus currently: Novolog with correction factor of 5 and carb ratio of 1:3 - Adjust insulin as needed - Follow AM BMP Dyslipidemia - Atorvastatin held while on daptomycin treatment GERD - Continue on home pantoprazole 40mg PO BID Dysphagia - Has pending GI work up as outpatient Elevated LFT - Longstanding starting November 2019 - Recommend outpatient follow up - Recommend avoidance of EtOH intake DVT prophylaxis: Deferred due to age and good mobility FENGI: Carb count/DM1 Dispo: Med/Surg Tele Code: Full Code (2) Uncontrolled type 1 diabetes mellitus: (3) Insomnia: (4) Dyslipidemia: (5) Dysphagia: (6) DVT prophylaxis: (7) Elevated LFTs: Admission and Anticipated Discharge Date Admission Date: April 19, 2020 Supervising Physician Co-Signing Physician Notes I personally examined the patient and verified all carias points of history and exam, discussed case, and agree with decision making with Dr Chávez pain in foot about the same as yesterday maybe a little worse but definitely no better vitals noted nad heent nc at mmm breathing unlabored no accessory muscles good effort. L foot dorsal ulceration, now crusting - no exudate. dull patchy resolving erythema on dorsum and side of foot no dramatically erythematous areas. L calf without TTP no crepitis, L knee maybe mildly vaguely tender no effusion no erythema. foot infection - he relates spider bite. between this and prior MRSA in his hand - MRSA coverage seems necessary - continue dapto. long standing DM - covering for gram negatives. with the stalling out of improvement - MRI obtained showing myositis - which fits clinical picture. more than likely this will just add to time requiring IVs - but as long as pain peaks/plateaus/improves - then highly unlikley to need repeat imaging or intervention. probably will need a little more prolonged course of abx once able to transtion to PO. wound itself appears healing now. uncontrolled DM1 - also definitely appears to show insulin resistance. sugar control adequate. continue current for now otherwise as above Subjective Patient seen at bedside today. He continued to complain of pain and actually feels it is worse and now hurts up to his knee. He feels he hasn't really improved on his current treatment. No new complaints. Denies fever, chills, CP, palpitations, SOB, cough, nausea, vomiting, diarrhea, abd pain. Review of Systems Constitutional: no fever, no chills, no sweats, no fatigue and no weakness Respiratory: no cough, no chest congestion and no dyspnea Cardiovascular: no chest pain, no palpitations and no edema Gastrointestinal: no abdominal pain, no nausea, no vomiting, no constipation and no diarrhea/loose stools Genitourinary: no dysuria, no urinary frequency and no flank pain Musculoskeletal: + swelling (Both feet) Physical Exam Constitutional: WD/WN, vitals as above no acute distress Respiratory: normal respiratory effort, lungs clear to auscultation Auscultation: no crackles, no rales, no rhonchi and no wheezes Cardiovascular: RRR, no murmur, no edema Heart Sounds: normal S1 and normal S2; no gallop, no murmur and no cardiac rub Gastrointestinal (Abdomen): normal bowel sounds, soft, nontender, no hepatosplenomegaly Musculoskeletal: ulcer on dorsum of left foot, pain on palpation around ulcer and generally up to knee Psychiatric: A+Ox3, euthymic affect Results & Data Results & Data ([facility]) Vital Signs (Past 12 Hours) Vital Signs Temp Pulse Pulse Resp BP BP Pulse Ox 04/22/20 09:32 83 04/22/20 07:05 37.1 C 88 17 162/84 H 96 04/22/20 04:33 37.4 C 81 18 136/77 95 04/22/20 02:26 90 04/21/20 23:36 37.5 C 87 20 142/85 H 95 Resident Activity Tracking Resident Involvement: Resident Care Provided Care Provided: Adult Hospital Medicine
[2020-04-22] MEDS ORDERED: GADOBUTROL 65ML VIAL IV ONE (14:35)
[2020-04-22] MEDS: DAPTOmycin 475 MG in SYRINGE 0 ML IV SCH (14:46)
--- NOTE | 2020-04-22 16:15 | Magnetic Resonance Report ---
MR foot LT wo/w con HISTORY: 29 years-old Male Left foot ulcer acute left foot cellulitis with recent spider bite COMPARISON: [Left foot radiographs 04/19/2020 TECHNIQUE: Multiplanar multisequence MRI of the left foot was obtained both with and without the use of 11.0 mL Gadavist FINDINGS: There is moderate diffuse subcutaneous edema throughout the foot and ankle. No bone marrow edema or o sseous erosion. No acute fracture or significant osteoarthritis. Minimal subcortical cyst involves th e volar aspect of the talar neck. The flexor and extensor tendons appear intact. No evidence of perin eural fibrosis (Wade neuroma) trace fluid within the first webspace may reflect intermetatarsal bur sitis. There is enhancement of the subcutaneous edema along the dorsal foot with minimal intramuscula r edema of the extensor digitorum brevis at the level of the midfoot hindfoot junction. IMPRESSION: 1. Moderate diffuse cellulitis, most pronounced dorsally and laterally. No drainable fluid collection . Additionally, there is mild myositis of the extensor digitorum brevis at the level of the midfoot h indfoot junction. 2. No acute fracture, bone marrow edema or osseous erosion. ACT 112: Negative or not required by law. The above report was generated using voice recognition software. It may contain grammatical, syntax o r spelling errors. Electronically signed by: Sami Kevin M.D. 04/23/2020 3:03 PM
[2020-04-22] MEDS ORDERED: MoRPHine SULFATE 4 MG/ML 1 ML CARP\\VIAL IV PRN (17:05)
--- NOTE | 2020-04-22 17:10 | Communication Note ---
Date of Service: April 22, 2020 was for outpt EGD for dysphagia on thursday (04/24). almost certainly will still be inpatient then w myositis. will need to coordinate w GI next week re ?seeing him while hospitalized vs delaying procedure. of note preop screening covid was negative.
[2020-04-23] MEDS: PIPERACILLIN/TAZOBACTAM 4.5 GM in DEXTROSE 5% 100 ML IV SCH ×3 (04:55→19:24)
[2020-04-23] MEDS: OXYCODONE HCL IR 5 MG TAB (IMMEDIATE RELEASE) PO PRN ×5 (04:58→21:06)
[2020-04-23 07:33] LABS: BUN Creatinine Ratio 9.9 (10-20); Creatinine Clr Calc Pharmacy 94.4 ml/min; Est GFR (African American) 80.9; Est GFR (Non-African American) 69.8; Potassium 4.1 mmol/L (3.5-5.1)
[2020-04-23] MEDS: PANTOprazole 40 MG TAB PO SCH ×2 (08:57→20:41)
[2020-04-23] MEDS: PROMETHAZINE HCL 12.5 MG in SODIUM CHLORIDE 0.9% 50 ML IV PRN ×2 (08:57→16:44)
[2020-04-23] MEDS: CEROVITE ADV FORMULA TAB PO SCH (08:58)
[2020-04-23] MEDS: CETIRIZINE HCL 10 MG TABLET PO SCH (08:58)
[2020-04-23] MEDS: lisinopriL 5 MG TAB PO SCH (08:58)
[2020-04-23] MEDS: INSULIN GLARGINE 100 UNIT/ML VIAL SC SCH ×2 (09:03→20:35)
[2020-04-23] MEDS: INSULIN ASPART 100 UNITS/ML VIAL SC SCH ×4 (09:13→20:16)
[2020-04-23] MEDS: DAPTOmycin 475 MG in SYRINGE 0 ML IV SCH (14:44)
--- NOTE | 2020-04-23 15:07 | Gastrointestinal Consultation ---
Date of Consultation April 23, 2020 Assessment & Plan (1) Dysphagia: (2) GERD (gastroesophageal reflux disease): possible peptic stricture vs. reflux esophagitis or other etiology (destin, EOE) He is already scheduled for an EGD on 04/24 (from outpt) with Dr. Arredondo, so will just proceed with this as planned. Recs: protonix 40 mg daily NPO post midnight EGD with Dr. Arredondo tomorrow as scheduled already Thank you for allowing me to participate in the care of this patient History of Present Illness Attending Physician: Massimo Campbell DO 29 yo male with hx DM here with cellulitis. GI consulted for dysphagia. He has been having dysphagia to solid foods on/off for the last 1.5 years. No specific food will cause it, it can be any solid food. Has been stable, not progressive. No abdominal pains or other symptoms. Has hx abdominal hernia surgery in the past. No smoking, no family hx esophageal cancer. His mother has gastroparesis. He notes some irregular bowel habits, alternating between hard and soft stools 1-2 times per day. Otherwise no significant issues. labs reviewed, mild anemia noted. Allergies Allergy/AdvReac Type Severity Reaction Status Date / Time cephalexin Allergy Intermediate hives Verified 04/19/20 11:44 ondansetron Allergy Intermediate HIVES Verified 04/19/20 11:44 acetaminophen AdvReac Intermediate GI SYMPTOMS Verified 04/19/20 11:44 Home Medications Home Medications Medication Instructions Recorded Confirmed Type multivitamin,rx-pobe-dmnihqmd 1 tab PO QAM 12/13/19 04/19/20 History pantoprazole 40 mg tablet,delayed 40 mg PO BID #180 tab 01/13/20 04/19/20 Rx release atorvastatin 40 mg tablet 40 mg PO DAILY #90 tab 04/12/20 04/19/20 Rx insulin glargine 100 unit/mL (3 65 unit SQ QPM #15 ml 04/12/20 04/19/20 Rx mL) subcutaneous pen amoxicillin-pot clavulanate 1 tab PO Q12H 7 Days #14 tab 04/17/20 04/19/20 Rx [Augmentin] lisinopril 5 mg PO QAM 04/18/20 04/19/20 History trazodone 75 mg PO HS 04/18/20 04/19/20 History insulin aspart U-100 [Novolog 30 - 40 unit SQ DIRECTED 04/19/20 04/19/20 History Flexpen U-100 Insulin] naproxen sodium 220 mg PO Q12H PRN 04/19/20 04/19/20 History Patient History Medical History Anxiety Diabetes mellitus type 1 Dyslipidemia Exercise-induced asthma no inhaler GERD (gastroesophageal reflux disease) Hypertension Migraine Substance abuse Surgical History History of appendectomy History of hand surgery History of inguinal hernia repair S/P shoulder surgery Family History Mother Gastroparesis Gastro-esophageal reflux Hypertension Family history of diabetes mellitus Father Hyperlipidemia Gastro-esophageal reflux Brother ADHD Grandfather Prostate cancer Myocardial infarction Aunt Diabetes Breast cancer Family history of diabetes mellitus Grandmother Liver cancer Lung cancer Family/Other Family history of diabetes mellitus cousin Other No family history of adverse response to anesthesia Denies family history of Ovarian cancer Colorectal cancer Social History Smoking Status: Never smoker Cigarettes Per Day: 1 can a day; Second Hand Exposure: No; Hx Alcohol Use: Yes Alcohol type: beer Hx Substance Use: No Preferred Language: Belarusian Communication Ability: Effective Visual Impairment: No Limitations Hearing Ability: Normal Front Man Required: No Beliefs That Will Affect Care: None marital status: Single Current Living Situation: Parent and Family Feels Safe at Home: Yes Childhood Exposure to Second-Hand Smoke: No Dental Care, Regularly: Yes Physical Activity Frequency: 5-6 Times per Week Review of Systems Constitutional: no fever, no chills and no weight loss Eyes: as per Subjective / HPI Ear, Nose, Mouth, Throat: as per Subjective / HPI Respiratory: no dyspnea and no dyspnea on exertion Cardiovascular: no chest pain and no palpitations Gastrointestinal: as per Subjective / HPI Musculoskeletal: no joint pain and no swelling Integumentary: no rash and no lesions Neurologic: no numbness and no paresthesia Psychiatric: no depression and no anxiety Endocrine: no fatigue Hematologic / Lymphatic: no easy bleeding and no easy bruising Physical Exam Constitutional: WD/WN, vitals as above Eyes: EOM intact bilaterally Neck: normal visual inspection Respiratory: normal respiratory effort, lungs clear to auscultation Cardiovascular: RRR, no murmur, no edema Gastrointestinal (Abdomen): Inspection/Auscultation: abdomen normal to in spection; abdomen not distended Percussion/Palpation: abdomen soft; abdomen nontender and no hepatosplenomegaly Musculoskeletal: Extremities: no cyanosis Gait: normal gait Skin: no rashes, warm and dry Neurologic: moves all extremities Psychiatric: A+Ox3, euthymic affect Results & Data ([facility]) Vital Signs (Past 12 Hours) Vital Signs Temp Pulse Pulse Resp BP Pulse Ox 04/23/20 13:03 80 04/23/20 11:51 37 C 91 H 18 145/75 H 91 04/23/20 07:05 36.8 C 81 20 126/77 95 04/23/20 04:13 37.0 C 86 17 120/69 95 PG Care Time/CCT Total # of Minutes Spent Total Time Spent with Patient: Total time spent is greater than 50% in coordination of care (as documented) at patient's floor/unit and/or counseling patient: Coding Level of Care Code 85961 Inpt Consult Level 4 Diagnoses Dysphagia R13.10 GERD (gastroesophageal reflux disease) K21.9
--- NOTE | 2020-04-23 15:51 | Hospitalist Progress Note ---
Date of Service April 23, 2020 Assessment & Plan (1) Cellulitis of left foot: Kenny Oliva is a 29-year-old male with uncontrolled type 1 diabetes mellitus who presented to the ER after failed outpatient antibiotic regimen with Augmentin for left lower extremity cellulitis. Initial wound was 3 days ago. Pt concerned for brown recluse spider bite--did not feel anything but several hours later when he took his boot off, he noticed a blister that subsequently broke open. He came to the ER the same day and was given a dose of Augmentin--unlikely spider bite per ER provider. He reports compliance with the medication. He has been feeling increasingly nauseous, was not able to sleep last night, erythema, swelling and left foot pain has been getting worse despite Augmentin use. Reports a MRSA infection requiring a PICC line and IV antibiotics in his right fifth finger previously. Cellulitis of left foot - Patient has previous history of MRSA and uncontrolled DM type 1 - Symptoms worse despite outpatient treatment w/ Augmentin for 2 days; failed outpatient treatment - Wound depth currently not concerning for osteomyelitis--patient's pain continues and minimal improvement with treatment - Foot MRI yesterday (04/22/20)--moderate diffuse cellulitis & mild myositis of the dorsal lateral midfoot - Left foot XR: Medial soft tissue swelling within the left foot. No underlying bony abnormality. - Continue Daptomycin 475mg IV daily - Continue Zosyn 4.5g IV q8h - Will continue to monitor clinically - ID consult placed for assistance with length of IV abx therapy Uncontrolled type 1 diabetes mellitus - HbA1c 10.3 - Patient expresses understanding and correctly demonstrates examples of home insulin, but A1c and blood sugars on arrival point to noncompliance of diet/treatment - Basal currently: Lantus 60 units BID - Bolus currently: Novolog with correction factor of 5 and carb ratio of 1:3 - Adjust insulin as needed - Follow AM BMP Dyslipidemia - Atorvastatin held while on daptomycin treatment GERD - Continue on home pantoprazole 40mg PO BID Dysphagia - Patient has pending workup with GI and EGD scheduled for tomorrow with Dr. Arredondo - GI consulted to consider EGD as inpatient vs. delaying EGD as outpatient - Appreciate GI consult and recommendations Elevated LFT - Longstanding starting November 2019 - Recommend outpatient follow up - Recommend avoidance of EtOH intake DVT prophylaxis: Deferred due to age and good mobility SIXTO: Carb count/DM1 Dispo: Will downgrade to [employer] Code: Full Code (2) Uncontrolled type 1 diabetes mellitus: (3) Insomnia: (4) Dyslipidemia: (5) Dysphagia: (6) DVT prophylaxis: (7) Elevated LFTs: Admission and Anticipated Discharge Date Admission Date: April 19, 2020 Supervising Physician Co-Signing Physician Notes Patient seen and examined with PGY-1 Dr. Hawthorne. Agree with history, exam findings, assessment and plan of care. In brief, Mr. Oliva is a 29 year old male with history of poorly controlled type 1 diabetes and MRSA admitted with left lower extremity cellulitis after outpatient antibiotic failure. Today, he continues to have pain in the dorsal and medial aspect of the left foot. Long history of dysphagia. VS and labs reviewed. Nursing notes reviewed. Left dorsum of the foot with soft tissue edema, tenderness. No erythema, drainage, or increased warmth. 1. cellulitis and myositis, left foot/leg. Elevated ESR and CRP on admission. MRI reviewed. No subcutaneous gas and no drainage fluid collection. Blood cultures negative. 2. DM1, uncontrolled. A1C 10.3 on admission. Basal bolus insulin 3. GERD, dysphagia. Continue home Protonix 40mg BID. EGD tomorrow to evaluate dysphagia. NPO at NC. Dispo: pending clinical improvement. Subjective Patient seen and examined at bedside this morning. He states that he overall feels okay. Still with persistent LLE pain rated at a 7-9/10 that is well managed with analgesics. No significant change in pain compared to yesterday. Patient does note some nausea that occurs after the IV abx but this resolves; no episodes of vomiting. He is eating well and sleeping well. Patient has been able to ambulate short distances (i.e. to the bathroom) but he notes that this exacerbates the LLE pain. To note, patient is scheduled for an EGD tomorrow with Dr. Cerna. Pt states that for ~1.5 years, he has been having intermittent difficulty swallowing foods. He clarifies that it's not as much "difficulty swallowing" but it's more that he sometimes feels that food gets stuck in his lower throat. There is no specific food that causes worsened symptoms. No difficulty swallowing water. No associated episodes of emesis. Review of Systems Constitutional: no fever, no chills and no fatigue Respiratory: no cough and no dyspnea Cardiovascular: no chest pain Gastrointestinal: + nausea and + dysphagia (see HPI); no abdominal pain and no vomiting Genitourinary: no dysuria and no hematuria Musculoskeletal: + swelling + leg pain, + leg weakness Neurologic: no headache(s) Physical Exam Physical Exam: GENERAL: No acute distress. Well developed and well nourished. Resting comfortably in bed. Vital signs reviewed as above. A/O x3. HENT: Moist mucous membranes. RESPIRATORY: Clear to auscultation bilaterally. No wheezing, rales, or rhonchi. CARDIOVASCULAR: Regular rate and rhythm. No murmurs. ABDOMEN: Obese abdomen. No tenderness to palpation. Normal bowel sounds. EXTREMITIES: LLE with slight edema as compared to RLE. With palpation, LLE edema is softer than the firmness of RLE. Pt is unable to flex left actively secondary to the swelling and pain; passive flexion of toes intact. There is full range of motion of right foot and toes. Moderate tenderness to palpation of LLE from foot to distal knee. There is no tenderness to palpation of the RLE. SKIN: Warm, dry. Left foot with bandage covering lesion on left mediolateral foot. Erythema has significantly improved and decreased from the drawn borders defining prior erythema. There is still with increased warmth in LLE compared to RLE. NEUROLOGIC: No focal neurological deficits. CN II-XII grossly intact, but not individually tested. PSYCHIATRIC: Cooperative. Appropriate mood and affect. Results & Data Results & Data ([facility]) Vital Signs (Past 12 Hours) Vital Signs Temp Pulse Pulse Resp BP Pulse Ox 04/23/20 15:21 37.1 C 92 H 20 138/71 95 04/23/20 13:03 80 04/23/20 11:51 37 C 91 H 18 145/75 H 91 04/23/20 07:05 36.8 C 81 20 126/77 95 04/23/20 04:13 37.0 C 86 17 120/69 95
[2020-04-24] MEDS: PROMETHAZINE HCL 12.5 MG in SODIUM CHLORIDE 0.9% 50 ML IV PRN ×3 (01:16→21:08)
[2020-04-24] MEDS: OXYCODONE HCL IR 5 MG TAB (IMMEDIATE RELEASE) PO PRN ×5 (01:16→21:49)
[2020-04-24] MEDS: PIPERACILLIN/TAZOBACTAM 4.5 GM in DEXTROSE 5% 100 ML IV SCH ×3 (04:11→21:28)
[2020-04-24] MEDS ORDERED: INSULIN ASPART 100 UNITS/ML 3 ML PEN SQ ONE (04:29)
[2020-04-24] MEDS ORDERED: INSULIN ASPART 100 UNITS/ML VIAL SQ ONE (05:00)
[2020-04-24] MEDS ORDERED: INSULIN HUMAN REGULAR PER UNIT 5 UNITS in SYRINGE 0 ML IV ONE (07:15)
[2020-04-24 07:19] LABS: BUN Creatinine Ratio 10.3 (10-20); Calcium 9.1 mg/dl (8.5-10.1); Creatinine Clr Calc Pharmacy 91.6 ml/min; Est GFR (African American) 78.1; Est GFR (Non-African American) 67.4; Potassium 4.1 mmol/L (3.5-5.1)
[2020-04-24] MEDS: lisinopriL 5 MG TAB PO SCH (07:38)
[2020-04-24] MEDS: CETIRIZINE HCL 10 MG TABLET PO SCH (07:38)
[2020-04-24] MEDS: CEROVITE ADV FORMULA TAB PO SCH (07:39)
[2020-04-24] MEDS: PANTOprazole 40 MG TAB PO SCH ×2 (07:39→21:18)
[2020-04-24] MEDS: INSULIN GLARGINE 100 UNIT/ML VIAL SC SCH ×2 (08:56→21:12)
[2020-04-24] MEDS: INSULIN ASPART 100 UNITS/ML VIAL SC SCH ×4 (09:30→21:13)
--- NOTE | 2020-04-24 09:30 | History & Physical Bridge Note ---
Date of Service April 24, 2020 History & Physical Bridge Note I have examined the patient, reviewed the History & Physical and in the interval since the performance of the History & Physical I have noted the following changes of clinical significance: no changes noted. Patient has been NPO. Proceed with EGD today. Supervising Physician Co-Signing Physician Notes Agree with STEPHANIE Tapia as above Abd: Soft, NT, ND, +BS Continue current therapy Proceed with EGD now
--- NOTE | 2020-04-24 09:46 | Hospitalist Progress Note ---
Date of Service April 24, 2020 Assessment & Plan (1) Cellulitis of left foot: Kenny Oliva is a 29-year-old male with uncontrolled type 1 diabetes mellitus who presented to the ER after failed outpatient antibiotic regimen with Augmentin for left lower extremity cellulitis. Initial wound was 3 days ago. Pt concerned for brown recluse spider bite--did not feel anything but several hours later when he took his boot off, he noticed a blister that subsequently broke open. He came to the ER the same day and was given a dose of Augmentin--unlikely spider bite per ER provider. He reports compliance with the medication. He has been feeling increasingly nauseous, was not able to sleep last night, erythema, swelling and left foot pain has been getting worse despite Augmentin use. Reports a MRSA infection requiring a PICC line and IV antibiotics in his right fifth finger previously. Cellulitis of left foot - Patient has previous history of MRSA and uncontrolled DM type 1 - Symptoms worse despite outpatient treatment w/ Augmentin for 2 days; failed outpatient treatment - Wound depth currently not concerning for osteomyelitis--patient's pain continues with minimal improvement with treatment; however, clinically swelling, erythema, and tenderness have significantly improved - Foot MRI 04/22/20 --moderate diffuse cellulitis & mild myositis of the dorsal lateral midfoot - Left foot XR: Medial soft tissue swelling within the left foot. No underlying bony abnormality. - Continue Daptomycin 475mg IV daily - Continue Zosyn 4.5g IV q8h - Will continue to monitor clinically - ID consult placed for assistance with length of IV abx therapy Uncontrolled type 1 diabetes mellitus - HbA1c 10.3 - Patient expresses understanding and correctly demonstrates examples of home insulin, but A1c and blood sugars on arrival point to noncompliance of diet/treatment - Basal currently: Lantus 60 units BID - Bolus currently: Novolog with correction factor of 5 and carb ratio of 1:3 - Adjust insulin as needed - Follow AM BMP Dyslipidemia - Atorvastatin held while on daptomycin treatment GERD - Continue on home pantoprazole 40mg PO BID Dysphagia - Patient has pending workup with GI - EGD scheduled for today with Dr. Arredondo; he has been NPO since midnight in preparation for this study - Appreciate GI consult and recommendations Elevated LFT - Longstanding starting November 2019 - Recommend outpatient follow up - Recommend avoidance of EtOH intake DVT prophylaxis: Deferred due to age and good mobility FENGI: Carb count/DM1 Dispo: Will downgrade to medsurge Code: Full Code (2) Uncontrolled type 1 diabetes mellitus: (3) Insomnia: (4) Dyslipidemia: (5) Dysphagia: (6) DVT prophylaxis: (7) Elevated LFTs: Admission and Anticipated Discharge Date Admission Date: April 19, 2020 Supervising Physician Co-Signing Physician Notes Patient seen and examined independently of PGY-1 Dr. Hawthorne. Agree with history, exam findings, assessment and plan of care. In brief, Mr. Oliva is a 29 year old male with history of poorly controlled type 1 diabetes and MRSA admitted with left lower extremity cellulitis after outpatient antibiotic failure. Today, he continues to have pain the left foot. He feels that the oxycodone 10mg is adequately controlling his pain. He reports he gets sick with Tylenol. Worried about taking NSAIDs due to renal function. Swelling is a bit less. VS and labs reviewed. Nursing notes reviewed. Left dorsum of the foot with soft tissue edema, tenderness. No erythema, drainage, or increased warmth. 1. cellulitis and myositis, left foot/leg. Elevated ESR and CRP on admission. MRI reviewed. No subcutaneous gas and no drainage fluid collection. Blood cultures negative. ID consult for recommendations for treatment length given potential infectious myositis seen on MRI. 2. DM1, uncontrolled. A1C 10.3 on admission. Basal-bolus insulin. 3. GERD, dysphagia. Continue home Protonix 40mg BID. EGD unremarkable. Remainder of work up can be done as an outpatient. Dispo: if no additional interventions, can consider dc home tomorrow as he continues to improve clinically. Subjective Patient seen and examined at bedside this morning, resting comfortably in bed watching TV. He complains of persistent LLE pain that is unchanged from yesterday; patient is concerned about going home with the pain and is inquiring about what his pain medication regimen will be upon discharge. Pt states that he is unable to tolerate Tylenol due to "stomach problems" and he also can't take Ibuprofen/Naproxen due to "his kidneys and bad diabetes." Patient reports persistent nausea after receiving IV abx but this resolves with Phenergan; there have been no episodes of vomiting. He is eating and sleeping well. Patient has been able to ambulate but he reports that this worsens the "tightness in the leg." To note, patient has been NPO since midnight in preparation for and EGD that had been scheduled as an outpatient for complaints of difficulty swallowing/intermittent food stuck in throat sensation. Review of Systems Constitutional: no fever and no chills Respiratory: no cough and no dyspnea Cardiovascular: no chest pain Gastrointestinal: + nausea and + dysphagia (see HPI); no abdominal pain and no vomiting Musculoskeletal: + swelling + leg pain, + leg weakness Physical Exam Physical Exam: GENERAL: No acute distress. Well developed and well nourished. Resting comfortably in bed watching TV. Vital signs reviewed as above. A/O x3. HENT: Moist mucous membranes. RESPIRATORY: Clear to auscultation bilaterally. No wheezing, rales, or rhonchi. CARDIOVASCULAR: Regular rate and rhythm. No murmurs. ABDOMEN: Obese abdomen. No tenderness to palpation. Normal bowel sounds. EXTREMITIES: LLE with slight edema as compared to RLE; significantly improved from exam yesterday. With palpation, LLE edema is softer than the firmness of RLE. Pt is unable to actively flex left toes secondary to the swelling and pain; passive flexion of toes intact. There is full range of motion of right foot and toes. Mild tenderness to palpation of LLE from lateral foot to mid calf; no tenderness to palpation in left medial foot. There is no tenderness to palpation of the RLE. SKIN: Warm, dry. Left foot with bandage covering lesion on left mediolateral foot. Erythema has significantly improved and decreased from the drawn borders defining prior erythema. There is still with mild increased warmth in LLE compared to RLE. PSYCHIATRIC: Cooperative. Appropriate mood and affect. Results & Data Results & Data ([facility]) Vital Signs (Past 12 Hours) Vital Signs Temp Pulse Resp BP Pulse Ox 04/24/20 07:00 36.7 C 83 18 158/83 H 95 04/24/20 03:51 37 C 86 18 133/76 96 04/23/20 23:14 37.1 C 83 19 129/83 96
[2020-04-24] MEDS ORDERED: SODIUM CHLORIDE 0.9% 1000ML 1,000 ML IV SCH (10:30)
--- NOTE | 2020-04-24 10:38 | Anesthesiology Consultation ---
Date of Service April 24, 2020 Assessment & Plan Chart Review Chart Review: Acceptable Risk for Surgery Consults Requested none History Surgery Operation Date: 04/24/20 09:45 Proposed Procedures p Esophagogastroduodenoscopy Dr Arnulfo Harvey Case, DO Height/Weight Height: 5 ft 6 in Weight: 112.3 kg Allergies Allergy/AdvReac Type Severity Reaction Status Date / Time cephalexin Allergy Intermediate hives Verified 04/24/20 10:34 ondansetron Allergy Intermediate HIVES Verified 04/24/20 10:34 acetaminophen AdvReac Intermediate GI SYMPTOMS Verified 04/24/20 10:34 Medications Home Medications Medication Instructions Recorded Confirmed Last Taken multivitamin,ys-avls-cjchdlrg 1 tab PO QAM 12/13/19 04/19/20 04/19/20 pantoprazole 40 mg tablet,delayed 40 mg PO BID #180 tab 01/13/20 04/19/20 04/19/20 release atorvastatin 40 mg tablet 40 mg PO DAILY #90 tab 04/12/20 04/19/20 04/18/20 insulin glargine 100 unit/mL (3 65 unit SQ QPM #15 ml 04/12/20 04/19/20 04/18/20 mL) subcutaneous pen 65 amoxicillin-pot clavulanate 1 tab PO Q12H 7 Days #14 tab 04/17/20 04/19/20 04/19/20 [Augmentin] lisinopril 5 mg PO QAM 04/18/20 04/19/20 04/19/20 trazodone 75 mg PO HS 04/18/20 04/19/20 04/18/20 insulin aspart U-100 [Novolog 30 - 40 unit SQ DIRECTED 04/19/20 04/19/20 04/19/20 Flexpen U-100 Insulin] 32 Units naproxen sodium 220 mg PO Q12H PRN 04/19/20 04/19/20 04/19/20 220 mg Active Medications Generic Name Dose Route Start Last Admin Trade Name Freq PRN Reason Stop Dose Admin Al Hydrox/Mg Hydrox/Simethicone 15 ml 04/19/20 18:00 04/23/20 17:20 Aluminum/Magnesium Susp 30 Ml Udc PO 05/19/20 17:59 15 ml Q4H PRN Administration Dyspepsia Cetirizine HCl 10 mg 04/21/20 09:00 04/24/20 07:38 Cetirizine Hcl 10 Mg Tablet PO 05/21/20 08:59 10 mg QAM FELICITA Administration Promethazine HCl 12.5 mg/ 50.5 mls @ 202 mls/hr 04/19/20 18:00 04/24/20 01:49 Sodium Chloride IV 05/19/20 17:59 Infused Q6H PRN Infusion Nausea And Vomiting Piperacillin Sod/Tazobactam 120 mls @ 30 mls/hr 04/19/20 20:00 04/24/20 08:14 Sod 4.5 gm/ Dextrose IV 04/26/20 19:59 Infused Q8H FELICITA Infusion Protocol Daptomycin 475 mg/ Syringe 9.5 mls @ 4.75 mls/min 04/20/20 14:00 04/23/20 14:44 IV 04/26/20 13:59 4.75 mls/min DAILY@1400 FELICITA Administration Protocol Insulin Aspart 0 units 04/20/20 16:30 04/24/20 09:30 Insulin Aspart 100 Units/Ml Vial SC 05/19/20 17:59 25 units ACHS FELICITA Administration Insulin Glargine 60 units 04/19/20 21:00 04/24/20 08:56 Insulin Glargine 100 Unit/Ml Vial SC 05/19/20 20:59 30 units BID FELICITA Administration Ketorolac Tromethamine 15 mg 04/19/20 18:00 04/19/20 22:14 Ketorolac Tromethamine 15 Mg/Ml Vial IV 04/24/20 17:59 15 mg Q6H PRN Administration Pain Lisinopril 5 mg 04/20/20 09:00 04/24/20 07:38 Lisinopril 5 Mg Tab PO 05/20/20 08:59 5 mg QAM FELICITA Administration Multivitamins/Minerals 1 tab 04/20/20 09:00 04/24/20 07:39 Cerovite Adv Formula Tab PO 05/20/20 08:59 1 tab QAM FELICITA Administration Oxycodone HCl 10 mg 04/21/20 14:22 04/24/20 06:38 Oxycodone Hcl Ir 5 Mg Tab (Immediate Release) PO 05/05/20 09:14 10 mg Q4H PRN Administration Pain Pantoprazole Sodium 40 mg 04/19/20 21:00 04/24/20 07:39 Pantoprazole 40 Mg Tab PO 05/19/20 20:59 40 mg BID FELICITA Administration Tramadol HCl 50 mg 04/19/20 18:00 04/21/20 00:09 Tramadol Hcl 50 Mg Tablet PO 05/19/20 17:59 50 mg Q4H PRN Administration Pain Trazodone HCl 75 mg 04/19/20 18:00 04/19/20 21:07 Trazodone Hcl 50 Mg Tab PO 05/19/20 17:59 75 mg HS PRN Administration Insomnia NPO Date Last Intake of Fluids: 04/24/20 Time Last Intake of Fluids: 07:30 Last Intake of Fluids Comment: AM meds Date Last Intake of Solids: 04/23/20 Time Last Intake of Solids: 23:00 Past Medical History Medical History Anxiety Diabetes mellitus type 1 Dyslipidemia Exercise-induced asthma no inhaler GERD (gastroesophageal reflux disease) Hypertension Migraine Substance abuse Past Family History Family History Mother Gastroparesis Gastro-esophageal reflux Hypertension Family history of diabetes mellitus Father Hyperlipidemia Gastro-esophageal reflux Brother ADHD Grandfather Prostate cancer Myocardial infarction Aunt Diabetes Breast cancer Family history of diabetes mellitus Grandmother Liver cancer Lung cancer Family/Other Family history of diabetes mellitus cousin Other No family history of adverse response to anesthesia Denies family history of Ovarian cancer Colorectal cancer Past Surgical History Surgical History History of appendectomy History of hand surgery History of inguinal hernia repair S/P shoulder surgery Social History Smoking Status: Never smoker tobacco type: smokeless tobacco Smoking cigarettes per day: 1 can a day Do You Dip or Chew Tobacco: Yes Hx Alcohol Use: Yes Alcohol type: beer alcohol intake frequency: other Alcohol Intake Frequency Comment: 2 times a month Hx Substance Use: No substance use type: does not use Physical Exam Vital Signs Last Vital Signs Temp 37.2 C 04/24/20 10:19 Pulse 95 H 04/24/20 10:19 Resp 20 04/24/20 10:19 BP 105/85 04/24/20 10:19 Pulse Ox 96 04/24/20 10:19 Testing Laboratory Results 04/21/20 06:29 04/24/20 06:21 04/19/20 11:40 Aerobic Blood Culture - Preliminary Blood No growth in Aerobic bottle after 48 hours. Anaerobic Blood Culture - Preliminary No growth in Anaerobic bottle after 48 hours. 04/19/20 11:58 Aerobic Blood Culture - Preliminary Blood No growth in Aerobic bottle after 48 hours. Anaerobic Blood Culture - Preliminary No growth in Anaerobic bottle after 48 hours. 04/24/20 04/24/20 04/24/20 09:24 06:38 04:14 POC Glucose 264 H 261 H 222 H 04/24/20 01:13 POC Glucose 226 H
--- NOTE | 2020-04-24 11:15 | GI REPORT ---
Patient Name: Kenny Oliva Procedure Date: 04/24/2020 10:52 AM Date of : 1990 Admit Type: Inpatient Age: 29 Gender: Male Attending MD: Salty Arredondo DO Procedure: Upper GI endoscopy Providers: Salty Arredondo DO Referring MD: Referred Self, Massimo Campbell Indications: Dysphagia Medicines: Monitored Anesthesia Care Complications: No immediate complications. Estimated Blood Loss: Estimated blood loss: none. Procedure: Pre-Anesthesia Assessment: - Prior to the procedure, a History and Physical was performed, and patient medications and allergies were reviewed. The patient's tolerance of previous anesthesia was also reviewed. The risks and benefits of the procedure and the sedation options and risks were discussed with the patient. All questions were answered, and informed consent was obtained. Prior Anticoagulants: The patient has taken no previous anticoagulant or antiplatelet agents. ASA Grade Assessment: III - A patient with severe systemic disease. After reviewing the risks and benefits, the patient was deemed in satisfactory condition to undergo the procedure. After obtaining informed consent, the endoscope was passed under direct vision. Throughout the procedure, the patient's blood pressure, pulse, and oxygen saturations were monitored continuously. The Endoscope was introduced through the mouth, and advanced to the third part of duodenum. The upper GI endoscopy was accomplished without difficulty. The patient tolerated the procedure well. Findings: No endoscopic abnormality was evident in the esophagus to explain the patient's complaint of dysphagia. It was decided, however, to proceed with dilation of the entire esophagus. A guidewire was placed and the scope was withdrawn. Dilation was performed with a Savary dilator with no resistance at 51 Fr. The dilation site was examined following endoscope reinsertion and showed no change. A medium-sized hiatal hernia was present. The examined duodenum was normal. Impression: - No endoscopic esophageal abnormality to explain patient's dysphagia. Esophagus dilated. Dilated. - Medium-sized hiatal hernia. - Normal examined duodenum. - No specimens collected. Recommendation: - [facility]. - Advance diet as tolerated. - Repeat upper endoscopy PRN for retreatment. - Continue present medications. Salty Arredondo DO 04/24/2020 11:14:59 AM This report has been signed electronically. Note Initiated On: 04/24/2020 10:52 AM Number of Addenda: 0 I attest to the content of the Intraoperative Record and orders documented therein, exceptions below {[id number]}
--- NOTE | 2020-04-24 11:42 | Anesthesiology Progress Note ---
Date of Service April 24, 2020 Anesthesia Post Procedure Vital Signs Vital Signs: Temp Pulse Pulse Resp BP BP Pulse Ox 04/24/20 11:29 93 H 18 130/85 95 04/24/20 11:15 95 H 20 139/118 H 95 04/24/20 10:19 37.2 C 95 H 20 105/85 96 04/24/20 07:00 36.7 C 83 18 158/83 H 95 04/24/20 03:51 37 C 86 18 133/76 96 04/23/20 23:14 37.1 C 83 19 129/83 96 04/23/20 19:08 36.8 C 87 18 131/83 90 04/23/20 15:21 37.1 C 92 H 20 138/71 95 04/23/20 13:03 80 04/23/20 11:51 37 C 91 H 18 145/75 H 91 Pain Intensity Left Foot: Pain Intensity: 8 Left Abdomen: Pain Intensity: 3 Transfer of Care Handoff Completed per policy Notes Mental Status: alert / awake / arousable and participated in evaluation Patient Amnestic to Procedure: Yes Nausea / Vomiting: adequately controlled Pain: adequately controlled Airway Patency, RR, SpO2: stable & adequate BP & HR: stable & adequate Hydration State: stable & adequate Anesthetic Complications: no major complications apparent
[2020-04-24] MEDS: DAPTOmycin 475 MG in SYRINGE 0 ML IV SCH (13:13)
[2020-04-24] MEDS ORDERED: ACETAMINOPHEN 1,000 MG/100 ML VIAL IV PRN (18:36)
[2020-04-25] MEDS: OXYCODONE HCL IR 5 MG TAB (IMMEDIATE RELEASE) PO PRN ×3 (01:50→12:36)
[2020-04-25] MEDS: PIPERACILLIN/TAZOBACTAM 4.5 GM in DEXTROSE 5% 100 ML IV SCH ×2 (03:52→11:32)
[2020-04-25 07:34] LABS: Basophils # (auto) 0.01 K/uL (0-0.2); Basophils % (auto) 0.2 %; Eosinophils # (auto) 0.17 K/uL (0-0.5); Eosinophils % (auto) 3.4 %; Hemoglobin 14.6 g/dL (14.0-18.0); Immature Granulocytes # (auto) 0.01 K/uL (0.00-0.02); Immature Granulocytes % (auto) 0.2 %; Lymphocytes # (auto) 2.12 K/uL (1.2-3.4); Lymphocytes % (auto) 42.7 %; Mean Corpuscular Hemoglobin 27.4 pg (25-34); Mean Corpuscular Volume 80.8 fL (80-100); Monocytes # (auto) 0.55 K/uL (0.11-0.59); Monocytes % (auto) 11.1 %; Neutrophils % (auto) 42.4 %; Platelet Count 194 K/uL (130-400); RDW Coefficient of Variation 13.6 % (11.5-14.5); RDW Standard Deviation 40.5 fL (36.4-46.3); Red Blood Count 5.32 M/uL (4.7-6.1); White Blood Count 4.96 K/uL (4.8-10.8)
[2020-04-25 08:00] LABS: BUN Creatinine Ratio 9.9 (10-20); Calcium 9.7 mg/dl (8.5-10.1); Creatinine Clr Calc Pharmacy 90.6 ml/min; Est GFR (African American) 76.2; Est GFR (Non-African American) 65.7; Potassium 4.5 mmol/L (3.5-5.1)
[2020-04-25] MEDS: INSULIN ASPART 100 UNITS/ML VIAL SC SCH ×2 (08:19→12:36)
[2020-04-25] MEDS: lisinopriL 5 MG TAB PO SCH (08:20)
[2020-04-25] MEDS: INSULIN GLARGINE 100 UNIT/ML VIAL SC SCH (08:20)
[2020-04-25] MEDS: CEROVITE ADV FORMULA TAB PO SCH (08:20)
[2020-04-25] MEDS: CETIRIZINE HCL 10 MG TABLET PO SCH (08:20)
[2020-04-25] MEDS: PANTOprazole 40 MG TAB PO SCH (08:20)
[2020-04-25] MEDS: PROMETHAZINE HCL 12.5 MG in SODIUM CHLORIDE 0.9% 50 ML IV PRN (08:55)
[2020-04-25] MEDS ORDERED: PROMETHAZINE HCL 25 MG TAB PO PRN (11:00)
--- NOTE | 2020-04-25 11:26 | Hospitalist Progress Note ---
Date of Service April 25, 2020 Assessment & Plan (1) Cellulitis of left foot: Kenny Oliva is a 29-year-old male with uncontrolled type 1 diabetes mellitus who presented to the ER after failed outpatient antibiotic regimen with Augmentin for left lower extremity cellulitis. Initial wound was 3 days ago. Pt concerned for brown recluse spider bite--did not feel anything but several hours later when he took his boot off, he noticed a blister that subsequently broke open. He came to the ER the same day and was given a dose of Augmentin--unlikely spider bite per ER provider. He reports compliance with the medication. He has been feeling increasingly nauseous, was not able to sleep last night, erythema, swelling and left foot pain has been getting worse despite Augmentin use. Reports a MRSA infection requiring a PICC line and IV antibiotics in his right fifth finger previously. Cellulitis of left foot - Patient has previous history of MRSA and uncontrolled DM type 1 - Symptoms worse despite outpatient treatment w/ Augmentin for 2 days; failed outpatient treatment - Wound depth currently not concerning for osteomyelitis--patient's pain continues with minimal improvement with treatment; however, clinically swelling, erythema, and tenderness have significantly improved - Foot MRI 04/22/20 --moderate diffuse cellulitis & mild myositis of the dorsal lateral midfoot - Left foot XR: Medial soft tissue swelling within the left foot. No underlying bony abnormality. - Continue Daptomycin 475mg IV daily - Continue Zosyn 4.5g IV q8h - Will continue to monitor clinically - ID consult placed for assistance with length of IV abx therapy Uncontrolled type 1 diabetes mellitus - HbA1c 10.3 - Patient expresses understanding and correctly demonstrates examples of home insulin, but A1c and blood sugars on arrival point to noncompliance of diet/treatment - Basal currently: Lantus 60 units BID - Bolus currently: Novolog with correction factor of 5 and carb ratio of 1:3 - Adjust insulin as needed - Follow AM BMP Dyslipidemia - Atorvastatin held while on daptomycin treatment GERD - Continue on home pantoprazole 40mg PO BID Dysphagia - Patient has pending workup with GI - EGD scheduled for today with Dr. Arredondo; he has been NPO since midnight in preparation for this study - Appreciate GI consult and recommendations Elevated LFT - Longstanding starting November 2019 - Recommend outpatient follow up - Recommend avoidance of EtOH intake DVT prophylaxis: Deferred due to age and good mobility LILIAI: Carb count/DM1 Dispo: Will downgrade to ArticleAlleysurge Code: Full Code (2) Uncontrolled type 1 diabetes mellitus: (3) Insomnia: (4) Dyslipidemia: (5) Dysphagia: (6) DVT prophylaxis: (7) Elevated LFTs: Admission and Anticipated Discharge Date Admission Date: April 19, 2020 Subjective Mr. Oliva is a 29 yo male who is currently admitted for cellulitis. He complains of persistent LLE foot pain, described as tightness; quality and severity of pain is reportedly unchanged from yesterday but patient does clarify that the distribution area has decreased to just the ankle and foot (was previously from knee to foot). He has persistent nausea, most prominent after dosage of IV abx; patient also had one episode of vomiting last night with the nausea but he attributes this to being s/p EGD procedure. He has been tolerating food intake well. Patient denies fever, chills, chest pain, SOB, cough, abdominal pain, urinary symptoms, RLE pain/swelling. Patient is ready to be discharged home but he is concerned about options for pain management as outpatient. Review of Systems Constitutional: no fever and no chills Respiratory: no cough and no dyspnea Cardiovascular: no chest pain Gastrointestinal: + nausea and + vomiting; no abdominal pain Musculoskeletal: + swelling + leg pain, + leg weakness Physical Exam Physical Exam: GENERAL: No acute distress. Well developed and well nourished. Vital signs reviewed as above. A/O x3. HENT: Moist mucous membranes. RESPIRATORY: Clear to auscultation bilaterally. No wheezing, rales, or rhonchi. CARDIOVASCULAR: Regular rate and rhythm. No murmurs. ABDOMEN: Obese abdomen. No tenderness to palpation. Normal bowel sounds. EXTREMITIES: No significant persistent LLE edema. No erythema within drawn borders from LLE cellulitis upon admission. Inciting lesion is dressed with bandage that is C/D/I. Minimal tenderness to palpation of left ankle and left lateral foot. Patient w/ minimal active flexion of left toes. No left calf tenderness to palpation. No right lower extremity tenderness to palpation. SKIN: Warm, dry. Left foot with bandage covering lesion on left mediolateral foot; bandage is C/D/I. PSYCHIATRIC: Cooperative. Appropriate mood and affect. Results & Data Results & Data ([facility]) Vital Signs (Past 12 Hours) Vital Signs Temp Pulse Resp BP BP Pulse Ox 04/25/20 07:00 36.5 C 83 18 159/96 H 96 04/24/20 22:40 36.8 C 98 H 20 152/84 H 95
[2020-04-25] MEDS: DAPTOmycin 475 MG in SYRINGE 0 ML IV SCH (13:37)
--- NOTE | 2020-04-25 17:23 | Discharge Summary ---
Date of Service April 25, 2020 Admission HPI Per Admitting Provider Kenny Oliva is a 29-year-old male with uncontrolled type 1 diabetes mellitus who presents to the ER after failed outpatient antibiotic regimen with Augmentin for left lower extremity cellulitis. Initial wound was 3 days ago with concerns of a recluse spider bite that morning. More putting on his boots he is sore spider run out of his boots. He did not feel nothing by his mother time but several hours later when he took his boot off he noticed a blister that subsequently broke open. He came to the ER the same day and was given a dose of Augmentin. He reports picking up his prescription the following morning and compliance with taking this. Reports his tetanus is up-to-date. He has been feeling increasingly nauseous, was not able to sleep last night, erythema, swelling and left foot pain has been getting worse despite Augmentin use. Reports a possible MRSA infection requiring a PICC line and IV antibiotics in his right fifth finger previously. Admission Exam Per Admitting Provider Constitutional: well developed, + acute distress and + obese; + not well nourished Nonseptic appearing Eyes: + anicteric sclerae; normal pupil size ENMT: external ear and nose normal, oropharynx normal Neck: + short neck and + thick neck Respiratory: normal respiratory effort, lungs clear to auscultation Cardiovascular: Rate/Rhythm: regular rhythm and + tachycardic Heart Sounds: no murmur Extremities: normal capillary refill (Distal to cellulitis) and + pedal edema (Trace ankles bilaterally); no calf tenderness Gastrointestinal (Abdomen): normal bowel sounds, soft, nontender, no hepatosplenomegaly Musculoskeletal: no cyanosis or clubbing, extremities motor strength 5/5 Skin: + erythema (Bright erythema surrounding 2 areas of granulation tissue on left foot up to ankle) No pus able to be expressed from 2 wounds on dorsal side of left foot Neurologic: moves all extremities and awake; no focal motor deficits and not confused Psychiatric: A+Ox3, euthymic affect Genitourinary: no CVA tenderness Principal Diagnosis cellulitis Discharge Exam GENERAL: No acute distress. Well developed and well nourished. Vital signs reviewed as above. A/O x3. HENT: Moist mucous membranes. RESPIRATORY: Clear to auscultation bilaterally. No wheezing, rales, or rhonchi. CARDIOVASCULAR: Regular rate and rhythm. No murmurs. ABDOMEN: Obese abdomen. No tenderness to palpation. Normal bowel sounds. EXTREMITIES: No significant persistent LLE edema. No erythema within drawn borders from LLE cellulitis upon admission. Inciting lesion is dressed with bandage that is C/D/I. Minimal tenderness to palpation of left ankle and left lateral foot. Patient w/ minimal active flexion of left toes. No left calf tenderness to palpation. No right lower extremity tenderness to palpation. SKIN: Warm, dry. Left foot with bandage covering lesion on left mediolateral foot; bandage is C/D/I. PSYCHIATRIC: Cooperative. Appropriate mood and affect. Discharge Data Allergies Allergy/AdvReac Type Severity Reaction Status Date / Time cephalexin Allergy Intermediate hives Verified 04/24/20 10:34 ondansetron Allergy Intermediate HIVES Verified 04/24/20 10:34 acetaminophen AdvReac Intermediate GI SYMPTOMS Verified 04/24/20 10:34 Consultations 04/19/20 14:24 ED Decision to Admit Stat 04/23/20 13:16 Consult Gastroenterology Routine 04/23/20 14:13 Consult Infectious Diseases Routine Procedures Performed Operation Date: 04/24/20 09:45 Actual Procedures p EGD Dilatation - Salty Harvey Case, DO Ordered Studies 04/22/20 10:43 MR foot LT wo/w con Routine Hospital Course (1) Cellulitis of left foot: Kenny Oliva is a 29-year-old male with uncontrolled type 1 diabetes mellitus who presented to the ER after failed outpatient antibiotic regimen with Augmentin for left lower extremity cellulitis. Initial wound was 3 days ago. Pt concerned for brown recluse spider bite--did not feel anything but several hours later when he took his boot off, he noticed a blister that subsequently broke open. He came to the ER the same day and was given a dose of Augmentin--unlikely spider bite per ER provider. He reports compliance with the medication. Upon arrival, he states that he has been feeling increasingly nauseous, was not able to sleep last night, erythema, swelling and left foot pain has been getting worse despite Augmentin use. Reports a MRSA infection requiring a PICC line and IV antibiotics in his right fifth finger previously. Upon evaluation this morning, he complains of persistent LLE foot pain, described as tightness; quality and severity of pain is reportedly unchanged from yesterday but patient does clarify that the distribution area has decreased to just the ankle and foot (was previously from knee to foot). He has persistent nausea, most prominent after dosage of IV abx; patient also had one episode of vomiting last night with the nausea but he attributes this to being s/p EGD procedure. He has been tolerating food intake well. Patient denies fever, chills, chest pain, SOB, cough, abdominal pain, urinary symptoms, RLE pain/swelling. Patient is ready to be discharged home but he is concerned about options for pain management as outpatient. Cellulitis of left foot - Patient has previous history of MRSA and uncontrolled DM type 1 - Patient failed outpatient treatment with Augtmentin; admitted to hospital 04/19/2020 - Foot MRI 04/22/20 --moderate diffuse cellulitis & mild myositis of the dorsal lateral midfoot - Left foot XR: Medial soft tissue swelling within the left foot. No underlying bony abnormality. - Received Daptomycin 475mg IV daily and Zosyn 4.5g IV q8h while admited - ID consulted, Dr. Perez, who recommended Linezolid 600mg po BID x7 days and Cipro 500mg po BID x7 days Uncontrolled type 1 diabetes mellitus - HbA1c 10.3 during exam - Patient expressed understanding and correctly demonstrated examples of home insulin, but A1c and blood sugars on arrival point to noncompliance of diet/treatment - Continue with Novolog and insulin glargine as prescribed at home - During admission, pt was covered with Lantus and Novolog Dyslipidemia - Atorvastatin held while on daptomycin treatment - Instructed to restart home atorvastatin upon d/c GERD - Continue on home pantoprazole 40mg PO BID Dysphagia - EGD had previously been scheduled as outpatient for EGD with Dr. Arredondo - This study was completed on 04/23 during admission; hiatal hernia visualized but otherwise EGD was unremarkable - Recommend that patient continue with GI follow up as outpatient Elevated LFT - Longstanding starting November 2019 - Recommend outpatient follow up - Recommend avoidance of EtOH intake (2) Uncontrolled type 1 diabetes mellitus: (3) Insomnia: (4) Dyslipidemia: (5) Dysphagia: (6) DVT prophylaxis: (7) Elevated LFTs: Total Time Total Time Spent Total Time Spent (In Minutes): See attending attestation Discharge Plan Discharge Items Patient Disposition: Home - Self-Care Reason For Visit: CELLULITIS, HYPERGLYCEMIA WITH T2DM ELEVATED LACTI Discharge Diagnosis: Cellulitis Condition on Discharge: Good Activity: Per Instructions section Non-emergency contact: Primary Care Provider Call non-emergency contact if: you have any medication questions, your symptoms worsen and you have a fever Follow-up/Referrals: Yamilex Booker CRNP [Primary Care Provider] - 04/30/20 10:30 am (You have an appt with your PCP ThursdayApr 30 at 1030am. Please arrive 15 minutes prior to your appt, and remember to bring your face mask. If this appt does not fit your schedule, please call and reschedule. [address] [place] [address] [phone]) Diet: Carb Count or DM1 Addtl Attending Provider Instructions: Mr. Menesespierre, Thank you for allowing us to care for you at [facility] from 04/19/20 to 04/25/20 for your left lower extremity cellulitis. Please see below for a summary of your care and future instructions. Cellulitis of left foot -You were admitted for cellulitis of your L foot that failed outpatient treatment. -You had imaging completed that shows the following: - Foot MRI 04/22/20 --moderate diffuse cellulitis & mild myositis of the dorsal lateral midfoot - Left foot XR: Medial soft tissue swelling within the left foot. No underlying bony abnormality. -You were initially started on two IV antibiotics Daptomycin and Zosyn that are going to be transitioned to oral medications. -Infectious disease Dr. Perez recommended the following for your treatment: -Linezolid 600mg twice a day by mouth for 7 days -Ciprofloxacin 500mg twice a day by mouth for 7 days -Please follow up with your PCP this coming Thursday04/27/20. Uncontrolled type 1 diabetes mellitus - Your most recent HbA1c was 10.3 - We would like you to continue with your home medications as prescribed. - Please follow up with your PCP regarding diabetes management on Thursday04/27/20 Dyslipidemia - Please continue your home atorvastatin. GERD - Please continue on home pantoprazole 40mg PO BID GI Concerns - During your admission you had an EGD completed. - This EGD showed a hiatal hernia, but was otherwise normal - Please continue to follow GI's recommendations and follow up with them in outpatient as needed. Pending Studies at Discharge: No Stand-Alone Forms: [facility], Smoking Cessation Medications and DC Order Prescriptions: New linezolid 600 mg tablet 600 mg PO BID 7 Days Qty: 14 RF: 0 ciprofloxacin HCl 500 mg tablet 500 mg PO BID 7 Days Qty: 14 RF: 0 oxycodone 10 mg tablet 10 mg PO Q6H PRN (Reason: pain) Qty: 8 RF: 0 Continued pantoprazole 40 mg tablet,delayed release (DR/EC) 40 mg PO BID Qty: 180 RF: 1 Lantus Solostar U-100 Insulin 100 unit/mL (3 mL) insulin pen 65 unit SQ QPM Qty: 15 RF: 5 atorvastatin 40 mg tablet 40 mg PO DAILY Qty: 90 RF: 3 trazodone 50 mg tablet 75 mg PO HS RF: 0 lisinopril 5 mg tablet 5 mg PO QAM RF: 0 naproxen sodium 220 mg Tablet 220 mg PO Q12H PRN (Reason: Pain) RF: 0 insulin aspart U-100 [Novolog Flexpen U-100 Insulin] 100 unit/mL (3 mL) insulin pen 30 - 40 unit SQ DIRECTED RF: 0 Discontinued Complete Multivitamin Tablet 1 tab PO QAM RF: 0 amoxicillin-pot clavulanate [Augmentin] 875-125 mg tablet 1 tab PO Q12H 7 Days Qty: 14 RF: 0 Discharge Orders: Discharge Order (Routine); Ordered 04/25/20 Ordered By: Digna Hawthorne Admission Data Admit Date/Time: 04/19/20 14:46 Attending Provider: Massimo Campbell Admit Provider: Selwyn Jane Primary Care Provider: Yamilex Booker Other Providers: Selwyn Jane ; Mundo Becerra ; Dony Stewart ; Ella Mortensen ; Manolo Graham I. ; Wilian Perez II ; Jennifer Melendez ; Alex Jay Other Interventions: Discharge Summary Assessment (RN) Last Done: 04/25/20 12:45 Supervising Physician Co-Signing Physician Notes Patient seen and examined with PGY-1 Dr. Hawthorne. Agree with history, exam findings, assessment and plan of care. In brief, Mr. Oliva is a 29 year old male with history of poorly controlled type 1 diabetes and MRSA admitted with left lower extremity cellulitis after outpatient antibiotic failure. Today, he continues to have pain the left foot. He feels that the oxycodone 10mg is adequately controlling his pain. He is reluctant to space out the oxycodone more than 4 hours as his pain starts to recur at the 4 hour alex. He is hopeful to go home today. VS and labs reviewed. Nursing notes reviewed. Left dorsum of the foot with soft tissue edema, tenderness. No erythema, drainage, or increased warmth. 1. cellulitis and myositis, left foot/leg. Elevated ESR and CRP on admission. MRI reviewed. No subcutaneous gas and no drainage fluid collection. Blood cultures negative. Seen by ID today. Recommend linezolid and Cipro for 7 more days as an outpatient. Small amount of oxy given on discharge today. Follow up with PCP by the end of the week. 2. DM1, uncontrolled. A1C 10.3 on admission. Basal-bolus insulin. 3. GERD, dysphagia. Continue home Protonix 40mg BID. EGD unremarkable. Remainder of work up can be done as an outpatient. Dispo: Discharge home today. I personally spent 35 minutes discharge planning for this patient.
== END 2020-04-25 14:20 | disposition home or self-care (01) | DRG 983 ==
LOC: ED 10:53 → SUATTDRO 14:46 → 2N 14:46

== ENCOUNTER 2021-01-30 23:57 | Observation (INO) ==
[2021-01-31] MEDS ORDERED: MoRPHine SULFATE 4 MG/ML 1 ML CARP\\VIAL IV STA (01:20)
[2021-01-31] MEDS ORDERED: PROMETHAZINE 12.5 MG/50.5 ML BAG IV STA (01:20)
[2021-01-31] MEDS ORDERED: SODIUM CHLORIDE 0.9% 1000ML 1,000 ML IV SCH ×3 (01:30→02:45)
[2021-01-31] MEDS ORDERED: HEPARIN 100 UNIT/ML 5ML FLUSH ONE (01:45)
[2021-01-31 01:51] LABS: Basophils # (auto) 0.01 K/uL (0-0.2); Basophils % (auto) 0.2 %; Eosinophils # (auto) 0.03 K/uL (0-0.5); Eosinophils % (auto) 0.5 %; Hematocrit (blood only) 34.9 % (42-52); Hemoglobin 11.8 g/dL (14.0-18.0); Immature Granulocytes # (auto) 0.02 K/uL (0.00-0.02); Immature Granulocytes % (auto) 0.3 %; Lymphocytes # (auto) 1.15 K/uL (1.2-3.4); Mean Corpuscular Hemoglobin 26.3 pg (25-34); Mean Corpuscular Hgb Conc 33.8 g/dL (32-36); Mean Corpuscular Volume 77.9 fL (80-100); Mean Platelet Volume 9.9 fL (7.4-10.4); Monocytes % (auto) 7.8 %; Neutrophils # (auto) 4.69 K/uL (1.4-6.5); Neutrophils % (auto) 73.2 %; Platelet Count 490 K/uL (130-400); RDW Coefficient of Variation 13.2 % (11.5-14.5); RDW Standard Deviation 37.5 fL (36.4-46.3); Red Blood Count 4.48 M/uL (4.7-6.1)
[2021-01-31 02:20] LABS: Albumin Globulin Ratio 0.6 (0.9-2); Albumin Level 3.1 gm/dl (3.4-5.0); BUN Creatinine Ratio 11.6 (10-20); Calcium 10.1 mg/dl (8.5-10.1); Creatinine Clr Calc Pharmacy 110.2 ml/min; Est GFR (African American) 106.2 ml/min; Est GFR (Non-African American) 91.6 ml/min; Globulin 5.4 gm/dl (2.5-4.0); Magnesium 1.6 mg/dl (1.8-2.4); Potassium 3.9 mmol/L (3.5-5.1); Total Protein 8.5 gm/dl (6.4-8.2)
[2021-01-31] MEDS: HYDROmorphone INJ 1 MG/ML SYRINGE IV PRN ×6 (02:41→10:27)
--- NOTE | 2021-01-31 02:47 | Emergency Department Note ---
History of Present Illness General Chief complaint: Leg Injury/Pain Stated complaint: LEG PAIN Time Seen by Provider: 01/31/21 01:11 History of Present Illness Maximum Pain Intensity: 9 This is a 30-year-old male that presents to the emergency department via private vehicle with complaints of "right leg pain". The patient notes that he underwent right hip labrum surgery on January 03. He was doing well in the postoperative setting. He states that this was performed by Dr. Beltran in [facility]. He states that he was doing well but 5 days later began with hallucinations and was found to have an infection near the operative site in the right hip region. He was then taken to [facility] where he notes that he underwent a right hip washout and started on IV antibiotics. He has a PICC line in place and notes that he has been receiving IV vancomycin. Last infusion was 9 PM this evening that lasted until 11 PM. He notes that he is here today secondary to nausea, vomiting and increased right hip pain. He rates his current pain at this time as a 9/10. Home Medications Medication Instructions Recorded Confirmed Type atorvastatin 40 mg tablet 40 mg PO DAILY #90 tab 10/15/20 01/31/21 Rx lisinopril 5 mg tablet 5 mg PO QAM #90 tab 10/15/20 01/31/21 Rx pantoprazole 40 mg tablet,delayed 40 mg PO BID #180 tab 10/15/20 01/31/21 Rx release cyclobenzaprine 10 mg tablet 10 mg PO TID PRN #60 tab 10/24/20 01/31/21 Rx insulin aspart U-100 100 unit/mL See Rx Instructions SQ DIRECTED 11/09/20 01/31/21 Rx (3 mL) subcutaneous pen #96 ml promethazine 25 mg tablet 25 mg PO Q6H PRN #30 tab 12/04/20 01/31/21 Rx pen needle, diabetic 31 gauge x #500 ea 12/14/20 01/23/21 Rx 5/16" blood sugar diagnostic #500 ea 12/18/20 01/23/21 Rx blood-glucose meter #1 ea 12/18/20 01/23/21 Rx oxycodone 10 mg tablet 10 mg PO Q6H PRN #120 tab 01/23/21 01/31/21 Rx diazepam 5 mg PO TID PRN 01/31/21 01/31/21 History insulin glargine [Lantus Solostar 65 unit SQ BID 01/31/21 01/31/21 History U-100 Insulin] Allergies Allergy/AdvReac Type Severity Reaction Status Date / Time cephalexin Allergy Intermediate hives Verified 01/31/21 00:54 ondansetron Allergy Intermediate HIVES Verified 01/31/21 00:54 acetaminophen AdvReac Intermediate GI SYMPTOMS Verified 01/31/21 00:54 quetiapine [From Seroquel] AdvReac Mild patient Verified 01/31/21 00:54 did not like how he felt with this Past Med/Surg History Medical History (Updated 01/31/21 @ 10:09 by Nehemiah Reilly PA-C) Anxiety Diabetes mellitus type 1 Dyslipidemia Exercise-induced asthma no inhaler GERD (gastroesophageal reflux disease) Hypertension Migraine Substance abuse Surgical History History of appendectomy History of hand surgery History of inguinal hernia repair S/P shoulder surgery Family History Mother Gastroparesis Gastro-esophageal reflux Hypertension Family history of diabetes mellitus Father Hyperlipidemia Gastro-esophageal reflux Brother ADHD Grandfather Prostate cancer Myocardial infarction Aunt Diabetes Breast cancer Family history of diabetes mellitus Grandmother Liver cancer Lung cancer Family/Other Family history of diabetes mellitus cousin Other No family history of adverse response to anesthesia Denies family history of Ovarian cancer Colorectal cancer Social History Smoking Status: Never smoker Tobacco Type: Smokeless Tobacco (Dip or Chew) Cigarettes Per Day: 1 can a day; Second Hand Exposure: No; Hx Alcohol Use: Yes Alcohol type: beer Hx Substance Use: No Preferred Language: Swedish Communication Ability: Effective Visual Impairment: No Limitations Hearing Ability: Normal 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 Beliefs That Will Affect Care: None marital status: Single Current Living Situation: Parent and Family Feels Safe at Home: Yes Childhood Exposure to Second-Hand Smoke: No Dental Care, Regularly: Yes Physical Activity Frequency: 5-6 Times per Week Assistive Devices: None Review of Systems A total of 10 systems reviewed and were otherwise negative Physical Exam Vital Signs Vital Signs - 24 hr 01/31/21 00:00 01/31/21 01:28 01/31/21 02:05 Temperature 36.3 C L Temperature Source Temporal Artery Scan Pulse Rate 112 H 103 H 107 H Pulse Rate from SpO2 Sensor 104 H 107 H Pulse Rhythm Respiratory Rate 16 18 21 Blood Pressure 143/75 H 143/92 H Blood Pressure Mean 97 109 Blood Pressure Position Sitting Pulse Oximetry 97 95 93 Oxygen Delivery Method Room Air Sepsis Recent Fever Within 48 Hours No Sepsis New/Unexplained Change in Mental Status No Sepsis Action Taken by Nursing No Action Required 01/31/21 02:18 01/31/21 02:30 01/31/21 03:00 Temperature Temperature Source Pulse Rate 108 H 105 H 100 H Pulse Rate from SpO2 Sensor 105 H 101 H Pulse Rhythm Regular Respiratory Rate 16 31 H 34 H Blood Pressure Blood Pressure Mean Blood Pressure Position Pulse Oximetry 98 93 91 Oxygen Delivery Method Room Air Sepsis Recent Fever Within 48 Hours Sepsis New/Unexplained Change in Mental Status Sepsis Action Taken by Nursing 01/31/21 03:36 01/31/21 03:37 01/31/21 04:00 Temperature Temperature Source Pulse Rate 102 H 110 H 97 H Pulse Rate from SpO2 Sensor 107 H 98 H Pulse Rhythm Respiratory Rate 20 34 H 23 Blood Pressure 145/94 H 129/87 Blood Pressure Mean 111 101 Blood Pressure Position Pulse Oximetry 94 90 Oxygen Delivery Method Sepsis Recent Fever Within 48 Hours Sepsis New/Unexplained Change in Mental Status Sepsis Action Taken by Nursing 01/31/21 04:30 01/31/21 05:00 01/31/21 05:30 Temperature Temperature Source Pulse Rate 93 H 102 H 111 H Pulse Rate from SpO2 Sensor 93 H 103 H 111 H Pulse Rhythm Respiratory Rate 22 21 16 Blood Pressure 131/88 140/72 133/81 Blood Pressure Mean 102 94 98 Blood Pressure Position Pulse Oximetry 97 93 95 Oxygen Delivery Method Sepsis Recent Fever Within 48 Hours Sepsis New/Unexplained Change in Mental Status Sepsis Action Taken by Nursing 01/31/21 06:20 01/31/21 06:21 01/31/21 06:30 Temperature Temperature Source Pulse Rate 94 H 102 H 97 H Pulse Rate from SpO2 Sensor 105 H 98 H Pulse Rhythm Respiratory Rate 18 16 16 Blood Pressure 142/91 H 142/91 H Blood Pressure Mean 108 108 Blood Pressure Position Pulse Oximetry 96 94 Oxygen Delivery Method Sepsis Recent Fever Within 48 Hours Sepsis New/Unexplained Change in Mental Status Sepsis Action Taken by Nursing VITAL SIGNS - Vital signs and nursing notes were reviewed. Stable and afebrile. GENERAL - 30-year-old male appearing his stated age who is in no acute distress. Communicates well with provider and answers questions appropriately. SKIN - Without rashes. Postoperative sites to the right proximal leg are without erythema. Sutures intact. HEAD - NC/AT. EYES - PERRL with EOMI bilaterally. Sclera anicteric. EARS - No deformities of external structures noted on gross examination bilaterally. NOSE - Midline and without cyanosis. No epistaxis or purulent drainage noted. MOUTH/OROPHARYNX - Without perioral cyanosis. NECK - Neck with FROM. No nuchal rigidity. LUNGS - Chest wall symmetric without accessory muscle use, intercostals retract ions, or central cyanosis. Normal vesicular breath sounds CTA B/L. No wheezes, rales, or rhonchi appreciated. CARDIAC - RRR with S1/S2. No murmur, rubs, or gallops appreciated. ABDOMEN - Abdominal contour normal without pulsations or visible masses. BS normoactive all four quadrants. No tenderness, palpable masses, hepatosplenomegaly, or ascites noted. EXTREMITIES - No clubbing or peripheral cyanosis. There is tenderness palpation overlying the patient's right anterior and lateral hip region. No crepitus. No fluctuance or drainage. Patient is neurovascularly intact in the right lower extremity. +5/5 strength noted in UE/LE bilaterally. NEUROLOGIC - Cranial nerves II through XII grossly intact. Sensory intact to light touch throughout. PSYCH - A&O, and cooperates fully with examiner. Pt is very pleasant and interacts well with examiner. Course Administered Medications Hydromorphone HCl (Hydromorphone Inj 1 Mg/Ml Syringe) 1 mg IV Q30M PRN PRN Reason: Pain Stop: 02/14/21 02:38 Last Admin: 01/31/21 08:36 Dose: 1 mg Documented by: [id number] Admin: 01/31/21 06:23 Dose: 1 mg Documented by: [id number] Admin: 01/31/21 04:47 Dose: 1 mg Documented by: [id number] Admin: 01/31/21 03:44 Dose: 1 mg Documented by: [id number] Admin: 01/31/21 02:41 Dose: 1 mg Documented by: [id number] Discontinued Medications Heparin Sodium (Porcine) (Heparin 100 Unit/Ml 5ml Flush) Confirm Administered Dose 5 ml .ROUTE .[facility] Stop: 01/31/21 01:46 Last Admin: 01/31/21 02:00 Dose: 5 ml Documented by: [id number] Sodium Chloride (Nss 1000ml) 1,000 mls @ 999 mls/hr IV .Q1H1M FELICITA Stop: 01/31/21 02:30 Last Infusion: 01/31/21 03:15 Dose: 0 mls/hr Documented by: [id number] Admin: 01/31/21 02:15 Dose: 999 mls/hr Documented by: [id number] Promethazine HCl (Phenergan) 12.5 mg in 50.5 mls @ 202 mls/hr IV NOW STA Stop: 01/31/21 01:34 Last Infusion: 01/31/21 02:08 Dose: 0 mls/hr Documented by: [id number] Admin: 01/31/21 01:53 Dose: 202 mls/hr Documented by: [id number] Sodium Chloride (Nss 1000ml) 1,000 mls @ 999 mls/hr IV .Q1H1M [facility] Stop: 01/31/21 03:45 Last Infusion: 01/31/21 04:21 Dose: 0 mls/hr Documented by: [id number] Admin: 01/31/21 03:20 Dose: 999 mls/hr Documented by: [id number] Piperacillin Sod/Tazobactam Sod (Zosyn) 4.5 gm in 120 mls @ 240 mls/hr IV NOW ONE Stop: 01/31/21 03:31 Last Infusion: 01/31/21 04:15 Dose: 0 mls/hr Documented by: [id number] Admin: 01/31/21 03:44 Dose: 240 mls/hr Documented by: [id number] Insulin Human Regular 5 units/ (Syringe) 5 mls @ 30 mls/min IV NOW ONE Stop: 01/31/21 07:31 Last Admin: 01/31/21 07:46 Dose: 30 mls/min Documented by: [id number] Cosigned by: [id number] Insulin Glargine (Lantus Per Unit Charge) 65 units SQ NOW ONE Stop: 01/31/21 07:31 Last Admin: 01/31/21 07:44 Dose: 65 units Documented by: [id number] Cosigned by: [id number] Insulin Human Regular (Novolin-R Insulin Per Unit Charge) 8 units IV NOW STA Stop: 01/31/21 04:34 Last Admin: 01/31/21 04:47 Dose: 8 units Documented by: [id number] Cosigned by: [id number] Insulin Human Regular (Novolin-R Insulin Per Unit Charge) Confirm Administered Dose 17 units .ROUTE .[facility]-MED ONE Stop: 01/31/21 08:52 Last Admin: 01/31/21 08:52 Dose: 17 units Documented by: [id number] Cosigned by: [id number] Insulin Human Regular (Novolin-R Insulin Per Unit Charge) 0 units SQ TODAY@0800 FELICITA Stop: 01/31/21 09:01 Last Admin: 01/31/21 08:58 Dose: Not Given Documented by: [id number] Ioversol (Optiray 320 100ml) 94 ml IV ONCE ONE Stop: 01/31/21 03:31 Last Admin: 01/31/21 03:31 Dose: 94 ml Documented by: [id number] Miscellaneous Information (Pharmacy Glycemic Mgmt Consult) 1 ea N/A NOW STA Stop: 01/31/21 07:09 Last Admin: 01/31/21 08:59 Dose: Not Given Documented by: [id number] Morphine Sulfate (Morphine Sulfate 4 Mg/Ml 1 Ml Carp\\Vial) 4 mg IV NOW STA Stop: 01/31/21 01:21 Last Admin: 01/31/21 01:54 Dose: 4 mg Documented by: [id number] Medical Decision Making Laboratory Data Result diagrams: 01/31/21 01:36 01/31/21 01:36 Lab Results 01/31/21 01/31/21 01/31/21 Range/Units 01:36 01:36 01:36 WBC 6.40 (4.8-10.8) K/uL RBC 4.48 L (4.7-6.1) M/uL Hgb 11.8 L (14.0-18.0) g/dL Hct 34.9 L (42-52) % MCV 77.9 L (80-100) fL MCH 26.3 (25-34) pg MCHC 33.8 (32-36) g/dL RDW Std Deviation 37.5 (36.4-46.3) fL RDW Coeff of Lana 13.2 (11.5-14.5) % Plt Count 490 H (130-400) K/uL MPV 9.9 (7.4-10.4) fL Immature Gran % (Auto) 0.3 % Neut % (Auto) 73.2 % Lymph % (Auto) 18.0 % Glynn % (Auto) 7.8 % Eos % (Auto) 0.5 % Baso % (Auto) 0.2 % Neut # (Auto) 4.69 (1.4-6.5) K/uL Lymph # (Auto) 1.15 L (1.2-3.4) K/uL Glynn # (Auto) 0.50 (0.11-0.59) K/uL Eos # (Auto) 0.03 (0-0.5) K/uL Baso # (Auto) 0.01 (0-0.2) K/uL Immature Gran # (Auto) 0.02 (0.00-0.02) K/uL Sodium 134 L (136-145) mmol/L Potassium 3.9 (3.5-5.1) mmol/L Chloride 96 L (98-107) mmol/L Carbon Dioxide 29 (21-32) mmol/L Anion Gap 9.0 (3-11) BUN 13 (7-18) mg/dl Creatinine 1.08 (0.6-1.4) mg/dl Est Cr Clr Drug Dosing 110.2 ml/min Est GFR ( Amer) 106.2 ml/min Est GFR (Non-Af Amer) 91.6 ml/min BUN/Creatinine Ratio 11.6 (10-20) Glucose 340 H* (70-99) mg/dl POC Glucose (70-99) mg/dl Lactate 3.0 H* (0.4-2.0) mmol/L Calcium 10.1 (8.5-10.1) mg/dl Magnesium 1.6 L (1.8-2.4) mg/dl Total Bilirubin 1.0 (0.2-1) mg/dl AST 10 L (15-37) U/L ALT 21 (12-78) U/L Alkaline Phosphatase 80 (45-117) U/L Total Protein 8.5 H (6.4-8.2) gm/dl Albumin 3.1 L (3.4-5.0) gm/dl Globulin 5.4 H (2.5-4.0) gm/dl Albumin/Globulin Ratio 0.6 L (0.9-2) Beta-Hydroxybutyric Acd 14.42 H (0.2-2.81) mg/dl Procalcitonin (0-0.5) ng/ml COVID-19 Eval Order SARS-CoV-2 (PCR) (Negative) 01/31/21 01/31/21 01/31/21 Range/Units 01:36 02:21 02:21 WBC (4.8-10.8) K/uL RBC (4.7-6.1) M/uL Hgb (14.0-18.0) g/dL Hct (42-52) % MCV (80-100) fL MCH (25-34) pg MCHC (32-36) g/dL RDW Std Deviation (36.4-46.3) fL RDW Coeff of Lana (11.5-14.5) % Plt Count (130-400) K/uL MPV (7.4-10.4) fL Immature Gran % (Auto) % Neut % (Auto) % Lymph % (Auto) % Glynn % (Auto) % Eos % (Auto) % Baso % (Auto) % Neut # (Auto) (1.4-6.5) K/uL Lymph # (Auto) (1.2-3.4) K/uL Glynn # (Auto) (0.11-0.59) K/uL Eos # (Auto) (0-0.5) K/uL Baso # (Auto) (0-0.2) K/uL Immature Gran # (Auto) (0.00-0.02) K/uL Sodium (136-145) mmol/L Potassium (3.5-5.1) mmol/L Chloride (98-107) mmol/L Carbon Dioxide (21-32) mmol/L Anion Gap (3-11) BUN (7-18) mg/dl Creatinine (0.6-1.4) mg/dl Est Cr Clr Drug Dosing ml/min Est GFR ( Amer) ml/min Est GFR (Non-Af Amer) ml/min BUN/Creatinine Ratio (10-20) Glucose (70-99) mg/dl POC Glucose (70-99) mg/dl Lactate (0.4-2.0) mmol/L Calcium (8.5-10.1) mg/dl Magnesium (1.8-2.4) mg/dl Total Bilirubin (0.2-1) mg/dl AST (15-37) U/L ALT (12-78) U/L Alkaline Phosphatase (45-117) U/L Total Protein (6.4-8.2) gm/dl Albumin (3.4-5.0) gm/dl Globulin (2.5-4.0) gm/dl Albumin/Globulin Ratio (0.9-2) Beta-Hydroxybutyric Acd (0.2-2.81) mg/dl Procalcitonin < 0.05 (0-0.5) ng/ml COVID-19 Eval Order Covid19 at [facility] SARS-CoV-2 (PCR) NEGATIVE (Negative) 01/31/21 01/31/21 01/31/21 Range/Units 04:12 04:36 05:57 WBC (4.8-10.8) K/uL RBC (4.7-6.1) M/uL Hgb (14.0-18.0) g/dL Hct (42-52) % MCV (80-100) fL MCH (25-34) pg MCHC (32-36) g/dL RDW Std Deviation (36.4-46.3) fL RDW Coeff of Lana (11.5-14.5) % Plt Count (130-400) K/uL MPV (7.4-10.4) fL Immature Gran % (Auto) % Neut % (Auto) % Lymph % (Auto) % Glynn % (Auto) % Eos % (Auto) % Baso % (Auto) % Neut # (Auto) (1.4-6.5) K/uL Lymph # (Auto) (1.2-3.4) K/uL Glynn # (Auto) (0.11-0.59) K/uL Eos # (Auto) (0-0.5) K/uL Baso # (Auto) (0-0.2) K/uL Immature Gran # (Auto) (0.00-0.02) K/uL Sodium (136-145) mmol/L Potassium (3.5-5.1) mmol/L Chloride (98-107) mmol/L Carbon Dioxide (21-32) mmol/L Anion Gap (3-11) BUN (7-18) mg/dl Creatinine (0.6-1.4) mg/dl Est Cr Clr Drug Dosing ml/min Est GFR ( Amer) ml/min Est GFR (Non-Af Amer) ml/min BUN/Creatinine Ratio (10-20) Glucose (70-99) mg/dl POC Glucose 360 H* 310 H* (70-99) mg/dl Lactate 1.5 (0.4-2.0) mmol/L Calcium (8.5-10.1) mg/dl Magnesium (1.8-2.4) mg/dl Total Bilirubin (0.2-1) mg/dl AST (15-37) U/L ALT (12-78) U/L Alkaline Phosphatase (45-117) U/L Total Protein (6.4-8.2) gm/dl Albumin (3.4-5.0) gm/dl Globulin (2.5-4.0) gm/dl Albumin/Globulin Ratio (0.9-2) Beta-Hydroxybutyric Acd (0.2-2.81) mg/dl Procalcitonin (0-0.5) ng/ml COVID-19 Eval Order SARS-CoV-2 (PCR) (Negative) Imaging Data Radiologist's Impression: Chest X-Ray 01/31/21 01:20 XR chest 1V portable CLINICAL HISTORY: nausea, vomiting, recent surgery COMPARISON STUDY: Chest radiograph April 14, 2018. FINDINGS: Lung volumes are normal. Lungs are clear. There is no pneumothorax or pleural effusion. Cardiac size is normal. Mediastinal contours are normal. There is no evidence for pulmonary edema. Left PICC is in place. The tip is difficult to visualize but probably at the cavoatrial junction. IMPRESSION: No acute cardiopulmonary findings. ACT 112: Negative or not required by law. Electronically signed by: Mehran Nielsen M.D. 01/31/2021 6:59 AM Abdomen/Pelvis CT 01/31/21 02:53 CT OF THE ABDOMEN AND PELVIS WITH CONTRAST CLINICAL HISTORY: s/p r hip surgery, n,v pain. COMPARISON STUDY: CT of the abdomen and pelvis December 10, 2019. TECHNIQUE: Following IV administration of 94 mL of Optiray, axial images of the abdomen and pelvis were obtained from the lung bases to the proximal femurs. Images were reviewed in the axial, sagittal, and coronal planes. IV contrast was administered without complication. Automated exposure control was utilized for the study. A dose lowering technique was utilized adhering to the principles of ALARA. CT DOSE: 839.23 mGy.cm FINDINGS: Lung bases are unremarkable. No pneumatosis, free air or portal venous gas is present. There is hepatic steatosis. The spleen, adrenal glands, kidneys and pancreas are unremarkable. There is no hydronephrosis. Nephrograms are symmetric. The caliber and wall thickness of small and large bowel are normal. The appendix is not visualized. Bladder is moderately distended. There is no evidence for a bowel obstruction. There is no ascites. Stranding overlying the right hip is noted. There is a small amount of gas and fluid within the musculature extending toward the right hip. Note is made of apparent joint space narrowing of the anterior aspect of the right hip. There is also osseous irregularity of the anterior wall the right acetabulum. No unexpected radiopaque foreign bodies are present. There may be a right hip joint effusion. IMPRESSION: 1. No acute process within the abdomen or pelvis. 2. No bowel obstruction. No bowel wall thickening. 3. Hepatic steatosis. 4. Stranding within the right hip with small amount of gas and fluid within the musculature extending toward the right hip and a small right hip joint effusion. These findings may be postsurgical. In addition, suspected right hip joint effusion with osseous irregularity of the right acetabulum. This irregularity could be postsurgical however an infectious process cannot be excluded. Right hip joint space narrowing. Correlation with surgical history is recommended. This finding be called/faxed to the report provided at time of dictation. ACT 112: Negative or not required by law. Electronically signed by: Mehran Nielsen M.D. 01/31/2021 6:43 AM Venous Doppler Study 01/31/21 05:07 RIGHT LOWER EXTREMITY VENOUS DOPPLER CLINICAL HISTORY: Right leg pain. COMPARISON STUDY: No previous studies for comparison. TECHNIQUE: Sonography of the deep venous system of the right lower extremity was performed. Compression and augmentation were evaluated. FINDINGS: The right common femoral, superficial femoral and popliteal veins were compressible. Augmentation was normal. Flow was shown within the deep calf vessels. IMPRESSION: No evidence of deep venous thrombus within the right lower extremity. ACT 112: Negative or not required by law. Electronically signed by: Mehran Nielsen M.D. 01/31/2021 6:[address] ABDOMEN & PELVIS With Contrast: No acute findings in the abdomen or pelvis. No evidence of small bowel obstruction or ileus. No significant ascites or free air in the abdomen or pelvis. Hepatomegaly and hepatic steatosis. Atrophy of the pancreas. No radiodense gallstones or gallbladder distention. No hydronephrosis. Mild fat stranding within the right anterior thigh, presumably postsurgical. Radiologist: Echo Le M.D. Study ready at 03:46 and initial results transmitted at 04:44 MDM Narrative Patient was seen and evaluated as above in room A10. Review was performed of nursing notes and vital signs. I did review pertinent previous visits and patient history. After obtaining a thorough history and physical examination the above work up was performed. Patient presents to us today with right leg pain status post surgery. Patient had surgery to the right hip on January 03. He subsequently developed an infection. He underwent washout of the right hip. He has been doing okay in the postoperative setting up until today when he began with nausea and vomiting about 5 hours prior to arrival. He notes increased pain to the right hip region as well. Clinically the patient appears to be in pain but there is no evidence of infection to the operative sites to the right hip region. He is well perfused in the right lower extremity and without deficit. Options of care were discussed with the patient. IV access established. Labs were drawn. CT scan was obtained of the abdomen and pelvis. I did discuss this with the learning technologies specialist to ensure that we were able to also obtain good images of the right hip. CT scan results as above. Mild fat stranding within the right anterior thigh, presumably postsurgical. The patient's laboratory studies at this time reveal no leukocytosis. Mild anemia but much improved compared to previous at 11.8. Mild hyponatremia at 134. No evidence of kidney or liver failure. Hyperglycemia in the 300s noted. Pro-Paul negative. Covid testing negative. Patient was ordered as needed IV analgesics. Ultrasound was also obtained the right lower extremity was negative for DVT. I discussed the case with the attending physician and at this time we will add empiric antibiotics pending further evaluation here and also pending the records from [place] which have been requested. I discussed the presentation with the hospitalist for further evaluation and management. It was recommended to discuss this with [facility] where the patient was recently discharged. I discussed this with Dr. Aguilera. We also discussed this with Dr. Snowden of orthopedics. Patient was accepted in transfer but unfortunately there is a greater than 24-hour wait for a bed availability. For this reason I did find it reasonable to admit the patient here but prior to doing so did discuss this with orthopedics. I spoke with Dr. Berman. They will be consulted. Patient was admitted here to the medicine service pending potential transfer to [facility] when a bed is available. Patient happy with this plan of care and actually notes that he would prefer to stay here rather than be transferred. Please refer to further documentation regarding his stay. I did place the fax report on the patient's chart. GCS: 15 In the evaluation and treatment of this patient the following differential diagnoses were entertained: Postoperative pain, infection, osteomyelitis, myositis, abscess, among others. Impression & Plan Post-operative pain, Elevated lactic acid level, PICC (peripherally inserted central catheter) in place, Hip pain, right, Hyperglycemia Discharge Plan Visit Data Chief Complaint: Leg Injury/Pain Stated Complaint: LEG PAIN ED Provider: Baltazar Wolff ED Midlevel Provider: Nehemiah Reilly Discharge Problem: Post-operative pain, Elevated lactic acid level, PICC (peripherally inserted central catheter) in place, Hip pain, right, Hyperglycemia Patient Disposition: Admitted As Inpatient Condition: Good Discharge Instructions Interventions: ED Discharge Assessment Last Done: 01/31/21 09:17
[2021-01-31 02:55] LABS: Beta-Hydroxybutyrate 14.42 mg/dl (0.2-2.81)
[2021-01-31] MEDS ORDERED: PIPERACILLIN/TAZOBACTAM 4.5 GM/120 ML BAG IV ONE (03:02)
[2021-01-31] MEDS ORDERED: PIPERACILL/TAZOBAC CONSULT ACTIVE PRN ×2 (03:02→10:51)
[2021-01-31] MEDS ORDERED: OPTIRAY 320 100ml IV ONE (03:30)
[2021-01-31] MEDS ORDERED: NovoLIN-R INSULIN PER UNIT CHARGE IV STA (04:33)
--- NOTE | 2021-01-31 06:45 | CT Scan Report ---
CT OF THE ABDOMEN AND PELVIS WITH CONTRAST CLINICAL HISTORY: s/p r hip surgery, n,v pain. COMPARISON STUDY: CT of the abdomen and pelvis December 10, 2019. TECHNIQUE: Following IV administration of 94 mL of Optiray, axial images of the abdomen and pelvis we re obtained from the lung bases to the proximal femurs. Images were reviewed in the axial, sagittal, and coronal planes. IV contrast was administered without complication. Automated exposure control wa s utilized for the study. A dose lowering technique was utilized adhering to the principles of ALARA . CT DOSE: 839.23 mGy.cm FINDINGS: Lung bases are unremarkable. No pneumatosis, free air or portal venous gas is present. Ther e is hepatic steatosis. The spleen, adrenal glands, kidneys and pancreas are unremarkable. There is n o hydronephrosis. Nephrograms are symmetric. The caliber and wall thickness of small and large bowel are normal. The appendix is not visualized. Bladder is moderately distended. There is no evidence for a bowel obstruction. There is no ascites. Stranding overlying the right hip is noted. There is a sma ll amount of gas and fluid within the musculature extending toward the right hip. Note is made of aga arent joint space narrowing of the anterior aspect of the right hip. There is also osseous irregulari ty of the anterior wall the right acetabulum. No unexpected radiopaque foreign bodies are present. Th ere may be a right hip joint effusion. IMPRESSION: 1. No acute process within the abdomen or pelvis. 2. No bowel obstruction. No bowel wall thickening. 3. Hepatic steatosis. 4. Stranding within the right hip with small amount of gas and fluid within the musculature extending toward the right hip and a small right hip joint effusion. These findings may be postsurgical. In ad dition, suspected right hip joint effusion with osseous irregularity of the right acetabulum. This ir regularity could be postsurgical however an infectious process cannot be excluded. Right hip joint sp denis narrowing. Correlation with surgical history is recommended. This finding be called/faxed to the report provided at time of dictation. ACT 112: Negative or not required by law. Electronically signed by: Mehran Nielsen M.D. 01/31/2021 6:43 AM
--- NOTE | 2021-01-31 06:59 | Ultrasound Report ---
RIGHT LOWER EXTREMITY VENOUS DOPPLER CLINICAL HISTORY: Right leg pain. COMPARISON STUDY: No previous studies for comparison. TECHNIQUE: Sonography of the deep venous system of the right lower extremity was performed. Compress ion and augmentation were evaluated. FINDINGS: The right common femoral, superficial femoral and popliteal veins were compressible. Augme ntation was normal. Flow was shown within the deep calf vessels. IMPRESSION: No evidence of deep venous thrombus within the right lower extremity. ACT 112: Negative or not required by law. Electronically signed by: Mehran Nielsen M.D. 01/31/2021 6:57 AM
--- NOTE | 2021-01-31 07:00 | XRay Report ---
XR chest 1V portable CLINICAL HISTORY: nausea, vomiting, recent surgery COMPARISON STUDY: Chest radiograph April 14, 2018. FINDINGS: Lung volumes are normal. Lungs are clear. There is no pneumothorax or pleural effusion. Car diac size is normal. Mediastinal contours are normal. There is no evidence for pulmonary edema. Left PICC is in place. The tip is difficult to visualize but probably at the cavoatrial junction. IMPRESSION: No acute cardiopulmonary findings. ACT 112: Negative or not required by law. Electronically signed by: Mehran Nielsen M.D. 01/31/2021 6:59 AM
--- NOTE | 2021-01-31 07:02 | History & Physical Report ---
Date of Service January 31, 2021 Assessment & Plan (1) Psoas abscess, right: Right psoas abscess/postoperative wound infection of right hip- Body fluid culture growth from washout collected on 01/18/2021 showed coag negative staph epidermidis that is pansensitive but resistant to clindamycin, erythromycin and oxacillin. Patient will be placed empirically on daptomycin IV and Zosyn IV. We will discontinue his current medication of vancomycin IV. Consult to [facility] Dr. Berman Patient is on hold to be transferred to [facility] when bed is available Present on Admission?: Yes (2) Postoperative wound infection of right hip: See above Present on Admission?: Yes (3) Staph infection: As noted above staph epidermidis, coag negative infection with above sensitivities Present on Admission?: Yes (4) Uncontrolled type 1 diabetes mellitus: Uncontrolled diabetes mellitus type 1/mild DKA- Patient has received dosages of regular insulin IV from the ED, along with 3 L normal saline. Placed on normal saline plus KCl 20 mEq at 200 mils per hour Continue usual dosing of insulin glargine 65 units subcu twice daily Placed on Accu-Cheks before meals and at bedtime with NovoLog coverage per scale BMP every 4 hours x3 Adjust dosages as laboratories return Present on Admission?: Yes (5) Hypertension: Hold lisinopril Present on Admission?: Yes (6) Anxiety and depression: Continue diazepam Present on Admission?: Yes (7) Dyslipidemia: Continue atorvastatin Present on Admission?: Yes (8) GERD (gastroesophageal reflux disease): Continue pantoprazole Present on Admission?: Yes History of Present Illness Chief Complaint: The patient presents to the emergency department with complaint of right hip pain which is 10 times worse than prior to his original orthopedic surgery on 01/03/2021 Primary Care Provider: SADIQ Posada The patient is a 30-year-old male with a past medical history including acute encephalopathy, right psoas abscess, vitamin D deficiency, tear of right acetabular labrum, tobacco use disorder, staph epidermidis infection, diabetic ulcer of left foot, tinea corporis, hypertension, elevated LFTs, uncontrolled diabetes mellitus type 1, insomnia, anxiety and depression, dyslipidemia and GERD. The patient initially underwent right labral repair on 01/03/2021. He later became confused, presented to the emergency department and do boys and was found to have psoas muscle abscess and was sent to [facility] on 01/12/2021. He underwent joint washout surgery on 01/18/2021. He was started on IV vancomycin twice daily x6 weeks discontinued home on 01/22/2021 with home nursing care and the PICC line is left upper arm. He was to follow-up with ID in [place] in 3 weeks, and had plans to follow-up with orthopedic surgery in 2 months when noted at his last primary care visit on 01/23/2021. Due to worsening pain, not controlled by his oral pain medications, he presented to the emergency department at [facility] for further assessment of. CT scan of abdomen and pelvis at [facility] was read as the following: Stranding within the right hip with small amount of gas and fluid within the musculature extending toward the right hip and a small right hip joint effusion. These findings may be postsurgical. In addition, suspected right hip joint effusion with osseous irregularity of the right acetabulum. This irregularity could be postsurgical however an infectious process cannot be excluded. Right hip joint space narrowing. Correlation with surgical history is recommended. [facility] surgeon Dr. Berman, who is on-call, agreed to see the patient in hospital, until the patient can be transferred to [facility] at [facility], where the right hip washout was performed. Allergies Allergy/AdvReac Type Severity Reaction Status Date / Time cephalexin Allergy Intermediate hives Verified 01/31/21 00:54 ondansetron Allergy Intermediate HIVES Verified 01/31/21 00:54 acetaminophen AdvReac Intermediate GI SYMPTOMS Verified 01/31/21 00:54 quetiapine [From Seroquel] AdvReac Mild patient Verified 01/31/21 00:54 did not like how he felt with this Home Medications Medication Instructions Recorded Confirmed Type atorvastatin 40 mg tablet 40 mg PO DAILY #90 tab 10/15/20 01/31/21 Rx lisinopril 5 mg tablet 5 mg PO QAM #90 tab 10/15/20 01/31/21 Rx pantoprazole 40 mg tablet,delayed 40 mg PO BID #180 tab 10/15/20 01/31/21 Rx release cyclobenzaprine 10 mg tablet 10 mg PO TID PRN #60 tab 10/24/20 01/31/21 Rx insulin aspart U-100 100 unit/mL See Rx Instructions SQ DIRECTED 11/09/20 01/31/21 Rx (3 mL) subcutaneous pen #96 ml promethazine 25 mg tablet 25 mg PO Q6H PRN #30 tab 12/04/20 01/31/21 Rx pen needle, diabetic 31 gauge x #500 ea 12/14/20 01/23/21 Rx 5/16" blood sugar diagnostic #500 ea 12/18/20 01/23/21 Rx blood-glucose meter #1 ea 12/18/20 01/23/21 Rx oxycodone 10 mg tablet 10 mg PO Q6H PRN #120 tab 01/23/21 01/31/21 Rx diazepam 5 mg PO TID PRN 01/31/21 01/31/21 History insulin glargine [Lantus Solostar 65 unit SQ BID 01/31/21 01/31/21 History U-100 Insulin] Past Med/Surg History Medical History (Updated 01/23/21 @ 16:27 by Chava Arguello, DO) Anxiety Diabetes mellitus type 1 Dyslipidemia Exercise-induced asthma no inhaler GERD (gastroesophageal reflux disease) Hypertension Migraine Substance abuse Surgical History History of appendectomy History of hand surgery History of inguinal hernia repair S/P shoulder surgery Family History Mother Gastroparesis Gastro-esophageal reflux Hypertension Family history of diabetes mellitus Father Hyperlipidemia Gastro-esophageal reflux Brother ADHD Grandfather Prostate cancer Myocardial infarction Aunt Diabetes Breast cancer Family history of diabetes mellitus Grandmother Liver cancer Lung cancer Family/Other Family history of diabetes mellitus cousin Other No family history of adverse response to anesthesia Denies family history of Ovarian cancer Colorectal cancer Social History Smoking Status: Never smoker Tobacco Type: Smokeless Tobacco (Dip or Chew) Cigarettes Per Day: 1 can a day; Second Hand Exposure: No; Hx Alcohol Use: Yes Alcohol type: beer Hx Substance Use: No Preferred Language: Thai Communication Ability: Effective Visual Impairment: No Limitations Hearing Ability: Normal Drum Puller Required: No Beliefs That Will Affect Care: None marital status: Single Current Living Situation: Parent and Family Feels Safe at Home: Yes Childhood Exposure to Second-Hand Smoke: No Dental Care, Regularly: Yes Physical Activity Frequency: 5-6 Times per Week Assistive Devices: None Review of Systems Review of Systems: The patient denies chest pain, palpitations, shortness of breath, dyspnea on exertion, cough, sore throat, fevers, chills, sweats, nausea, vomiting, diarrhea , constipation, abdominal pain, blood in urine or stool, dysuria, urinary frequency or urgency, lightheadedness, dizziness, headache, memory loss, loss of consciousness, rash, abnormal bruising or bleeding, focal or generalized weakness, numbness or tingling in arms, generalized arthralgias or myalgias, neck pain, or night sweats. The review of systems is otherwise negative other than for that already noted above, and at least 10 systems have been reviewed. Physical Exam Physical Exam: The patient is awake, alert and oriented 3, well developed and well nourished, normocephalic and atraumatic, lying in bed and in no acute distress. HEENT--PERRL, EOMI, mucous membranes and oropharynx dry. Neck--supple. No JVD. No bruits. Thyroid normal, trachea midline, no adenopathy. Heart--normal S1 and S2. No murmurs, rubs or gallops. Lungs--clear bilaterally, no respiratory distress, no accessory muscle use. Abdomen--normal bowel sounds and soft. Nontender. Nondistended, no hernias or masses, no organomegaly. Extremities--no cyanosis or clubbing. No edema. There are good distal pulses b/l. Dermatologic--normal skin turgor, normal color, no abnormal lymph nodes, no rash. Neurologic--cranial nerves II through XII grossly intact. Rheumatologic--exam limited by pain in right hip and pelvis Psychiatric--normal affect. Results & Data Results & Data ([facility]) Vital Signs (Past 12 Hours) Vital Signs Temp Pulse Resp BP Pulse Ox 01/31/21 06:20 94 H 18 142/91 H 01/31/21 05:30 111 H 16 133/81 95 01/31/21 05:00 102 H 21 140/72 93 01/31/21 04:30 93 H 22 131/88 97 01/31/21 04:00 97 H 23 129/87 90 01/31/21 03:37 110 H 34 H 145/94 H 94 01/31/21 03:36 102 H 20 01/31/21 03:00 100 H 34 H 91 01/31/21 02:30 105 H 31 H 93 01/31/21 02:18 108 H 16 98 01/31/21 02:05 107 H 21 93 01/31/21 01:28 103 H 18 143/92 H 95 01/31/21 00:00 97.3 F L 112 H 16 143/75 H 97 Laboratory Results Laboratory Results WBC 6.40 K/uL (4.8-10.8) 01/31/21 01:36 RBC 4.48 M/uL (4.7-6.1) L 01/31/21 01:36 Hgb 11.8 g/dL (14.0-18.0) L 01/31/21 01:36 Hct 34.9 % (42-52) L 01/31/21 01:36 MCV 77.9 fL (80-100) L 01/31/21 01:36 MCH 26.3 pg (25-34) 01/31/21 01:36 MCHC 33.8 g/dL (32-36) 01/31/21 01:36 RDW Std Deviation 37.5 fL (36.4-46.3) 01/31/21 01:36 RDW Coeff of Lana 13.2 % (11.5-14.5) 01/31/21 01:36 Plt Count 490 K/uL (130-400) H 01/31/21 01:36 MPV 9.9 fL (7.4-10.4) 01/31/21 01:36 Immature Gran % (Auto) 0.3 % 01/31/21 01:36 Neut % (Auto) 73.2 % 01/31/21 01:36 Lymph % (Auto) 18.0 % 01/31/21 01:36 [place] % (Auto) 7.8 % 01/31/21 01:36 Eos % (Auto) 0.5 % 01/31/21 01:36 Baso % (Auto) 0.2 % 01/31/21 01:36 Neut # (Auto) 4.69 K/uL (1.4-6.5) 01/31/21 01:36 Lymph # (Auto) 1.15 K/uL (1.2-3.4) L 01/31/21 01:36 [place] # (Auto) 0.50 K/uL (0.11-0.59) 01/31/21 01:36 Eos # (Auto) 0.03 K/uL (0-0.5) 01/31/21 01:36 Baso # (Auto) 0.01 K/uL (0-0.2) 01/31/21 01:36 Immature Gran # (Auto) 0.02 K/uL (0.00-0.02) 01/31/21 01:36 Sodium 134 mmol/L (136-145) L 01/31/21 01:36 Potassium 3.9 mmol/L (3.5-5.1) 01/31/21 01:36 Chloride 96 mmol/L (98-107) L 01/31/21 01:36 Carbon Dioxide 29 mmol/L (21-32) 01/31/21 01:36 Anion Gap 9.0 (3-11) 01/31/21 01:36 BUN 13 mg/dl (7-18) 01/31/21 01:36 Creatinine 1.08 mg/dl (0.6-1.4) 01/31/21 01:36 Est Cr Clr Drug Dosing 110.2 ml/min 01/31/21 01:36 Est GFR ( Amer) 106.2 ml/min 01/31/21 01:36 Est GFR (Non-Af Amer) 91.6 ml/min 01/31/21 01:36 BUN/Creatinine Ratio 11.6 (10-20) 01/31/21 01:36 Glucose 340 mg/dl (70-99) H* 01/31/21 01:36 POC Glucose 310 mg/dl (70-99) H* 01/31/21 05:57 Lactate 1.5 mmol/L (0.4-2.0) 01/31/21 04:36 Calcium 10.1 mg/dl (8.5-10.1) 01/31/21 01:36 Magnesium 1.6 mg/dl (1.8-2.4) L 01/31/21 01:36 Total Bilirubin 1.0 mg/dl (0.2-1) 01/31/21 01:36 AST 10 U/L (15-37) L 01/31/21 01:36 ALT 21 U/L (12-78) 01/31/21 01:36 Alkaline Phosphatase 80 U/L (45-117) 01/31/21 01:36 Total Protein 8.5 gm/dl (6.4-8.2) H 01/31/21 01:36 Albumin 3.1 gm/dl (3.4-5.0) L 01/31/21 01:36 Globulin 5.4 gm/dl (2.5-4.0) H 01/31/21 01:36 Albumin/Globulin Ratio 0.6 (0.9-2) L 01/31/21 01:36 Beta-Hydroxybutyric Acd 14.42 mg/dl (0.2-2.81) H 01/31/21 01:36 Procalcitonin < 0.05 ng/ml (0-0.5) 01/31/21 01:36 COVID-19 Eval Order Covid19 at [facility] 01/31/21 02:21 SARS-CoV-2 (PCR) NEGATIVE (Negative) 01/31/21 02:21 Impressions Abdomen/Pelvis CT 01/31/21 02:53 CT OF THE ABDOMEN AND PELVIS WITH CONTRAST CLINICAL HISTORY: s/p r hip surgery, n,v pain. COMPARISON STUDY: CT of the abdomen and pelvis December 10, 2019. TECHNIQUE: Following IV administration of 94 mL of Optiray, axial images of the abdomen and pelvis were obtained from the lung bases to the proximal femurs. Images were reviewed in the axial, sagittal, and coronal planes. IV contrast was administered without complication. Automated exposure control was utilized for the study. A dose lowering technique was utilized adhering to the principles of ALARA. CT DOSE: 839.23 mGy.cm FINDINGS: Lung bases are unremarkable. No pneumatosis, free air or portal venous gas is present. There is hepatic steatosis. The spleen, adrenal glands, kidneys and pancreas are unremarkable. There is no hydronephrosis. Nephrograms are symmetric. The caliber and wall thickness of small and large bowel are normal. The appendix is not visualized. Bladder is moderately distended. There is no evidence for a bowel obstruction. There is no ascites. Stranding overlying the right hip is noted. There is a small amount of gas and fluid within the musculature extending toward the right hip. Note is made of apparent joint space narrowing of the anterior aspect of the right hip. There is also osseous irregularity of the anterior wall the right acetabulum. No unexpected radiopaque foreign bodies are present. There may be a right hip joint effusion. IMPRESSION: 1. No acute process within the abdomen or pelvis. 2. No bowel obstruction. No bowel wall thickening. 3. Hepatic steatosis. 4. Stranding within the right hip with small amount of gas and fluid within the musculature extending toward the right hip and a small right hip joint effusion. These findings may be postsurgical. In addition, suspected right hip joint effusion with osseous irregularity of the right acetabulum. This irregularity could be postsurgical however an infectious process cannot be excluded. Right hip joint space narrowing. Correlation with surgical history is recommended. This finding be called/faxed to the report provided at time of dictation. ACT 112: Negative or not required by law. Electronically signed by: Mehran Nielsen M.D. 01/31/2021 6:43 AM Code Status & VTE Plan Code Status Full code VTE Prophylaxis Plan VTE Prophylaxis will be ordered: Yes PG Care Time/CCT Total # of Minutes Spent Total Time Spent with Patient: Total time spent is greater than 50% in coordination of care (as documented) at patient's floor/unit and/or counseling patient: Coding Level of Care Code 57306 Initial Inpt Care Lvl 3 Diagnoses Psoas abscess, right K68.12 Postoperative wound infection of right hip T81.49XA Staph infection B95.8 Uncontrolled type 1 diabetes mellitus E10.65 Coma presence: without coma Hypertension I10 Anxiety and depression F41.9; F32.9 Dyslipidemia E78.5 GERD (gastroesophageal reflux disease) K21.9 (1) Uncontrolled type 1 diabetes mellitus Coma presence: without coma
--- NOTE | 2021-01-31 07:06 | Hospitalist Progress Note ---
Date of Service January 31, 2021 Assessment & Plan (1) Psoas abscess, right: Right psoas abscess/postoperative wound infection of right hip- Body fluid culture growth from washout collected on 01/18/2021 showed coag negative staph epidermidis that is resistant to clindamycin, erythromycin and oxacillin. Patient will be placed empirically on daptomycin IV and Zosyn IV. We will discontinue his current medication of vancomycin IV. Consult to [facility] Dr. Berman pending MRI of hip Patient is on hold to be transferred to [facility] when bed is available (2) Postoperative wound infection of right hip: See above (3) Staph infection: As noted above staph epidermidis, coag negative infection with above sensitivities (4) Uncontrolled type 1 diabetes mellitus: Uncontrolled diabetes mellitus type 1/mild DKA- Patient has received dosages of regular insulin IV from the ED, along with 3 L normal saline. Placed on normal saline plus KCl 20 mEq at 200 mils per hour Continue usual dosing of insulin glargine 65 units subcu twice daily Placed on Accu-Cheks before meals and at bedtime with NovoLog coverage per scale BMP every 4 hours x3 pharmacy glycemic management assistance (5) Hypertension: Hold lisinopril (6) Anxiety and depression: Continue diazepam (7) Dyslipidemia: Continue atorvastatin (8) GERD (gastroesophageal reflux disease): Continue pantoprazole Results & Data Results & Data ([facility]) Vital Signs (Past 12 Hours) Vital Signs Temp Pulse Resp BP Pulse Ox 01/31/21 06:30 97 H 16 94 01/31/21 06:21 102 H 16 142/91 H 96 01/31/21 06:20 94 H 18 142/91 H 01/31/21 05:30 111 H 16 133/81 95 01/31/21 05:00 102 H 21 140/72 93 01/31/21 04:30 93 H 22 131/88 97 01/31/21 04:00 97 H 23 129/87 90 01/31/21 03:37 110 H 34 H 145/94 H 94 01/31/21 03:36 102 H 20 01/31/21 03:00 100 H 34 H 91 01/31/21 02:30 105 H 31 H 93 01/31/21 02:18 108 H 16 98 01/31/21 02:05 107 H 21 93 01/31/21 01:28 103 H 18 143/92 H 95 01/31/21 00:00 97.3 F L 112 H 16 143/75 H 97 PG Care Time/CCT Total # of Minutes Spent Total Time Spent with Patient: Total time spent is greater than 50% in coordination of care (as documented) at patient's floor/unit and/or counseling patient: Coding Level of Care Code None Diagnoses Psoas abscess, right K68.12 Postoperative wound infection of right hip T81.49XA Staph infection B95.8 Uncontrolled type 1 diabetes mellitus E10.65 Coma presence: without coma Hypertension I10 Anxiety and depression F41.9; F32.9 Dyslipidemia E78.5 GERD (gastroesophageal reflux disease) K21.9 (1) Uncontrolled type 1 diabetes mellitus Coma presence: without coma
[2021-01-31] MEDS ORDERED: PHARMACY GLYCEMIC MGMT CONSULT STA (07:08)
[2021-01-31] MEDS ORDERED: PHARMACY GLYCEMIC MGMT CONSULT PRN (07:12)
[2021-01-31] MEDS ORDERED: INSULIN HUMAN REGULAR PER UNIT 5 UNITS in SYRINGE 4.95 ML IV ONE (07:30)
[2021-01-31] MEDS ORDERED: LANTUS PER UNIT CHARGE SQ ONE (07:30)
[2021-01-31] MEDS ORDERED: NovoLIN-R INSULIN PER UNIT CHARGE IV SCH (08:00)
[2021-01-31] MEDS ORDERED: NovoLIN-R INSULIN PER UNIT CHARGE ONE (08:51)
[2021-01-31] MEDS ORDERED: NovoLIN-R INSULIN PER UNIT CHARGE SQ SCH (09:00)
[2021-01-31] MEDS ORDERED: GLUCAGON FOR INJ 1 MG VIAL SQ PRN (10:51)
[2021-01-31] MEDS ORDERED: GLUCOSE 10 TABS/TUBE PO PRN (10:51)
[2021-01-31] MEDS ORDERED: PROMETHAZINE HCL 25 MG TAB PO PRN (10:51)
[2021-01-31] MEDS ORDERED: GLUCOSE 40% GEL 15 GM TUBE PO PRN (10:51)
[2021-01-31] MEDS ORDERED: CARBOHYDRATES FOR HYPOGLYCEMIA PO PRN (10:51)
[2021-01-31] MEDS ORDERED: diazePAM 5 MG TABLET PO PRN (10:51)
[2021-01-31] MEDS ORDERED: NALOXONE HCL 0.4 MG/1 ML VIAL/CARP IV PRN (10:51)
[2021-01-31] MEDS ORDERED: ACETAMINOPHEN 325 MG TAB PO PRN (10:51)
[2021-01-31] MEDS ORDERED: DEXTROSE 50% 50 ML SYRINGE IV PRN (10:51)
[2021-01-31] MEDS ORDERED: CYCLOBENZAPRINE HCL 10 MG TAB PO PRN (11:12)
[2021-01-31] MEDS: SODIUM CHLORIDE 0.9% 1000ML 1,000 ML IV SCH ×2 (11:17→11:37)
[2021-01-31] MEDS: HYDROmorphone PCA 30 MG/30 ML IV PRN (11:19)
--- NOTE | 2021-01-31 11:24 | Pharmacy Report ---
Pharmacy Glycemic Short Note 2 - Date of Service January 31, 2021 - Glycemic Short BSG Results (Last 24 hours): 01/31/21 01/31/21 01/31/21 01:36 04:12 05:57 Glucose 340 H* POC Glucose 360 H* 310 H* 01/31/21 01/31/21 07:38 09:15 Glucose POC Glucose 334 H* 308 H* OUTPATIENT ANTIDIABETIC REGIMEN: * Lantus 65 units bid, Novolog SSI * A1c 10.3 - 04/19/20 / repeat ordered for tomorrow ASSESSMENT: * Patient admitted with concerns of postop wound infection of R hip, started on dapto/zosyn. Pharmacy consulted for diabetes management. Patient type 1 DM. BSGs on arrival in the upper 300s, given IV insulin in ER and also correctional. Home basal dose of Lantus ordered for this AM * Anticipate BSGs trending down with insulin given this AM. Patient on very large amounts of insulin at home * Plan to continue same basal insulin for now. Will start novolog at lunch time based upon stress of 2 dosing of home basal. Appears patient admitted last Apr 2020. Plan to utilize similar parameters from that admission as BSGs relatively controlled. PLAN FOR INPATIENT GLYCEMIC CONTROL: * Hold outpatient oral diabetes medications * Basal insulin * Lantus 65 units SQ BID * Bolus insulin * NovoLog per scale ACHS or Q6hrs while NPO * Goal Range: Low 110 mg/dL - High 140 mg/dL * Correction Factor: 8 mg/dL/unit * Nutritional / Prandial insulin per carb ratio of 1 unit per 3 grams CHO consumed PLAN FOR DISCHARGE: * tbd
[2021-01-31] MEDS: NSS + 20MEQ KCL 20 MEQ/1,000 ML BAG IV SCH ×3 (11:36→22:36)
[2021-01-31] MEDS: PIPERACILLIN/TAZOBACTAM 4.5 GM in DEXTROSE 5% 100 ML IV SCH ×2 (11:39→21:00)
[2021-01-31 11:48] LABS: BUN Creatinine Ratio 10.8 (10-20); Calcium 8.6 mg/dl (8.5-10.1); Creatinine Clr Calc Pharmacy 100.8 ml/min; Est GFR (African American) 95.4 ml/min; Est GFR (Non-African American) 82.3 ml/min; Potassium 3.5 mmol/L (3.5-5.1)
[2021-01-31] MEDS: INSULIN ASPART 100 UNITS/ML VIAL SC SCH ×3 (12:39→21:04)
[2021-01-31] MEDS: PANTOprazole 40 MG TAB PO SCH ×2 (12:54→21:00)
[2021-01-31] MEDS: ATORVASTATIN 40 MG TAB PO SCH (12:54)
[2021-01-31] MEDS: DAPTOmycin 475 MG in SYRINGE 0 ML IV SCH (12:55)
--- NOTE | 2021-01-31 16:18 | Orthopedic Consultation ---
Date of Consultation January 31, 2021 Assessment & Plan (1) Post-operative pain: His only obvious problem at this point is right hip postoperative pain after previous hip arthroscopy and subsequent irrigation and debridement surgery for postoperative infection. Again, it appears that he was only admitted to [facility] pending transfer to [facility] once a bed was available. However, patient is adamantly refusing any transfer. At this point I think we just need to figure out whether there is any residual postoperative infection that requires surgical intervention. ESR, CRP, and MRI are all pending, which may help answer this. If he does require further surgical or inpatient treatment, I think he would be best served by transfer back to [facility] as planned, where he was recently discharged. If work-up reveals no significant persistent infection, he could be discharged home with outpatient follow-up with Dr. Gastelum. History of Present Illness Reason for Consultation: Right hip postoperative pain Attending Physician: Dilan Christianson MD History of Present Illness Mr. Oliva is a 30-year-old male who recently underwent a right hip arthroscopy by Dr. Gastelum in [place]. This was complicated by postoperative infection. He was admitted to [facility] for 11 days and underwent an irrigation and debridement surgery by Dr. Gastelum on January 18. He reports that he was doing very well after that washout surgery until yesterday when he had sudden increase in pain without any obvious trauma or exacerbating event. He came to the emergency department last night. In reviewing the emergency department notes, it looks like they attempted to transfer him back to [facility] where he is r ecently discharged, but there were no available beds. He was therefore admitted to [facility] with the plan to transfer to [facility] as soon as a bed became available. The patient reports that "I am not infected" and he is refusing transfer to [facility]. I advised him that his previous surgeon is in [place], but he says since he is not infected and does not need surgery he is not going to agree to transfer and says "it is my choice". Allergies Allergy/AdvReac Type Severity Reaction Status Date / Time cephalexin Allergy Intermediate hives Verified 01/31/21 00:54 ondansetron Allergy Intermediate HIVES Verified 01/31/21 00:54 acetaminophen AdvReac Intermediate GI SYMPTOMS Verified 01/31/21 00:54 quetiapine [From Seroquel] AdvReac Mild patient Verified 01/31/21 00:54 did not like how he felt with this Home Medications Medication Instructions Recorded Confirmed Type atorvastatin 40 mg tablet 40 mg PO DAILY #90 tab 10/15/20 01/31/21 Rx lisinopril 5 mg tablet 5 mg PO QAM #90 tab 10/15/20 01/31/21 Rx pantoprazole 40 mg tablet,delayed 40 mg PO BID #180 tab 10/15/20 01/31/21 Rx release cyclobenzaprine 10 mg tablet 10 mg PO TID PRN #60 tab 10/24/20 01/31/21 Rx insulin aspart U-100 100 unit/mL See Rx Instructions SQ DIRECTED 11/09/20 01/31/21 Rx (3 mL) subcutaneous pen #96 ml promethazine 25 mg tablet 25 mg PO Q6H PRN #30 tab 12/04/20 01/31/21 Rx pen needle, diabetic 31 gauge x #500 ea 12/14/20 01/23/21 Rx /" blood sugar diagnostic #500 ea 12/18/20 01/23/21 Rx blood-glucose meter #1 ea 12/18/20 01/23/21 Rx oxycodone 10 mg tablet 10 mg PO Q6H PRN #120 tab 01/23/21 01/31/21 Rx diazepam 5 mg PO TID PRN 01/31/21 01/31/21 History insulin glargine [Lantus Solostar 65 unit SQ BID 01/31/21 01/31/21 History U-100 Insulin] Patient History Medical History (Updated 01/31/21 @ 10:09 by Nehemiah Reilly PA-C) Anxiety Diabetes mellitus type 1 Dyslipidemia Exercise-induced asthma no inhaler GERD (gastroesophageal reflux disease) Hypertension Migraine Substance abuse Surgical History History of appendectomy History of hand surgery History of inguinal hernia repair S/P shoulder surgery Family History Mother Gastroparesis Gastro-esophageal reflux Hypertension Family history of diabetes mellitus Father Hyperlipidemia Gastro-esophageal reflux Brother ADHD Grandfather Prostate cancer Myocardial infarction Aunt Diabetes Breast cancer Family history of diabetes mellitus Grandmother Liver cancer Lung cancer Family/Other Family history of diabetes mellitus cousin Other No family history of adverse response to anesthesia Denies family history of Ovarian cancer Colorectal cancer Social History Smoking Status: Never smoker Tobacco Type: Smokeless Tobacco (Dip or Chew) Cigarettes Per Day: 1 can a day; Second Hand Exposure: No; Hx Alcohol Use: Yes Alcohol type: beer and hard liquor Hx Substance Use: No Preferred Language: Chadian Communication Ability: Effective Visual Impairment: No Limitations Hearing Ability: Normal Glaze Handler Required: No Beliefs That Will Affect Care: Tenriism Tenriism Beliefs: Yarsanism marital status: Single Current Living Situation: Family Feels Safe at Home: Yes Childhood Exposure to Second-Hand Smoke: No Dental Care, Regularly: Yes Physical Activity Frequency: 5-6 Times per Week Assistive Devices: Walker Physical Exam Physical Exam: Examination of the right hip reveals 3 previous arthroscopic portals that appear well-healed without obvious evidence of infection. There is no erythema, swelling, induration, warmth, fluctuance, or palpable fluid collection. Minimal tenderness palpation. He has some discomfort on hip range of motion, as would be expected from a recent hip arthroscopy. Results & Data ([facility]) Vital Signs (Past 12 Hours) Vital Signs Temp Pulse Pulse Resp BP BP Pulse Ox 01/31/21 15:21 36.9 C 98 H 18 124/79 97 01/31/21 15:11 105 H 01/31/21 12:46 100 H 01/31/21 12:45 36.4 C L 100 H 18 136/86 97 01/31/21 11:33 36.6 C 110 H 20 152/90 H 99 01/31/21 10:27 115 H 14 151/93 H 98 01/31/21 09:30 102 H 16 124/85 95 01/31/21 09:01 104 H 17 91 01/31/21 09:00 108 H 16 132/87 94 01/31/21 08:54 101 H 12 97 01/31/21 08:53 103 H 19 135/93 97 01/31/21 07:30 100 H 20 95 01/31/21 07:00 96 H 20 92 01/31/21 06:30 97 H 16 94 01/31/21 06:21 102 H 16 142/91 H 96 01/31/21 06:20 94 H 18 142/91 H 01/31/21 05:30 111 H 16 133/81 95 01/31/21 05:00 102 H 21 140/72 93 01/31/21 04:30 93 H 22 131/88 97 Laboratory Results White blood cell count is normal at 6.4. Current ESR and CRP are pending. Previous ESR was 55 on 01/28 and CRP was 5.81 on 01/28. Diagnostic Findings CT scan of the hip is largely unremarkable. MRI is pending.
[2021-01-31 16:38] LABS: BUN Creatinine Ratio 11.6 (10-20); Calcium 8.4 mg/dl (8.5-10.1); Est GFR (African American) 116.5 ml/min; Est GFR (Non-African American) 100.6 ml/min; Potassium 3.4 mmol/L (3.5-5.1)
[2021-01-31 16:39] LABS: C Reactive Protein 3.77 mg/dl (0-0.29)
[2021-01-31] MEDS ORDERED: GADOBUTROL 65ML VIAL IV ONE (17:06)
[2021-01-31] MEDS: oxyCODONE HCL IR 5 MG TAB (IMMEDIATE RELEASE) PO PRN (17:27)
--- NOTE | 2021-01-31 17:39 | Magnetic Resonance Report ---
MR hip RT wo/w con HISTORY: Right hip pain. Status post labral repair. COMPARISON: None. Correlation is made with CT of abdomen and pelvis performed on January 31, 2021 at 15: 37 hours TECHNIQUE: Multiplanar, multisequence MRI of right hip were performed. FINDINGS: Evaluation is significantly limited due to motion artifact. No definite acute fracture or dislocation seen. There is possible asymmetrical enhancement within superior and anterior aspect of the right acetabulu m when compared to the contralateral side which could represent osteomyelitis, however evaluation is limited due to motion artifact. There is prominent peripheral enhancement within soft tissue extending from subcutaneous aspect of th e right anterior hip of the right hip joint containing foci of decreased T2 signal which could repres ent gas or focal fluid collection. There is definite enhancement within right hip joint is seen. IMPRESSION: Postcontrast enhancement within soft tissue surrounding right hip joint extending from the skin surf denis which might represent abscess formation. Few foci of decreased signal might represent gas or flui d collection. Enhancement within the right hip joint might represent septic arthritis. Asymmetrical enhancement of superior and anterior aspect of the right acetabulum is concerning for os teomyelitis. Limited exam due to significant motion artifact. ACT 112: Positive. There are findings on this exam that require communication between the performing entity and the patient following Patient Test Result Information Act ([place] Act 112) guidelines. The above report was generated using voice recognition software. It may contain grammatical, syntax o r spelling errors. Electronically signed by: Angela Landry DO 01/31/2021 5:38 PM
[2021-01-31 17:51] LABS: Appearance Urine Clear (Clear); Bilirubin Urine Negative (Negative); Blood Urine Negative (Negative); Color Urine Yellow; Glucose Urine UA 2+ (Negative); Ketones Urine Negative (Negative); Leukocyte Esterase Urine Negative (Negative); Nitrite Urine Negative (Negative); Protein Urine Negative (Negative); Specific Gravity Urine 1.021 (1.000-1.030); Urobilinogen Urine Negative (Negative); pH Urine 6.5 (4.5-7.5)
[2021-01-31 19:48] LABS: BUN Creatinine Ratio 11.4 (10-20); Calcium 8.6 mg/dl (8.5-10.1); Creatinine Clr Calc Pharmacy 115.5 ml/min; Est GFR (African American) 112.5 ml/min; Potassium 3.9 mmol/L (3.5-5.1)
[2021-01-31] MEDS: INSULIN GLARGINE SOLOSTAR 100 UNITS/ML 3 ML PEN SQ SCH (21:01)
[2021-02-01] MEDS ORDERED: INSULIN ASPART 100 UNITS/ML VIAL SC SCH
[2021-02-01] MEDS: oxyCODONE HCL IR 5 MG TAB (IMMEDIATE RELEASE) PO PRN (02:05)
[2021-02-01] MEDS: NSS + 20MEQ KCL 20 MEQ/1,000 ML BAG IV SCH ×5 (03:46→23:28)
[2021-02-01] MEDS: PIPERACILLIN/TAZOBACTAM 4.5 GM in DEXTROSE 5% 100 ML IV SCH ×3 (04:07→20:22)
[2021-02-01 06:26] LABS: Basophils # (auto) 0.01 K/uL (0-0.2); Basophils % (auto) 0.2 %; Eosinophils # (auto) 0.12 K/uL (0-0.5); Eosinophils % (auto) 2.3 %; Hematocrit (blood only) 30.9 % (42-52); Hemoglobin 10.2 g/dL (14.0-18.0); Immature Granulocytes # (auto) 0.01 K/uL (0.00-0.02); Immature Granulocytes % (auto) 0.2 %; Lymphocytes % (auto) 41.4 %; Mean Corpuscular Hemoglobin 25.9 pg (25-34); Mean Corpuscular Volume 78.4 fL (80-100); Mean Platelet Volume 9.3 fL (7.4-10.4); Monocytes # (auto) 0.62 K/uL (0.11-0.59); Monocytes % (auto) 11.7 %; Neutrophils # (auto) 2.35 K/uL (1.4-6.5); Neutrophils % (auto) 44.2 %; Platelet Count 391 K/uL (130-400); RDW Coefficient of Variation 13.5 % (11.5-14.5); RDW Standard Deviation 38.5 fL (36.4-46.3); Red Blood Count 3.94 M/uL (4.7-6.1); White Blood Count 5.31 K/uL (4.8-10.8)
[2021-02-01 06:44] LABS: Estimated Average Glucose 237 mg/dl; Hemoglobin A1C 9.9 % (4.5-5.6)
[2021-02-01 06:57] LABS: Albumin Level 2.6 gm/dl (3.4-5.0); Calcium 8.5 mg/dl (8.5-10.1); Creatinine Clr Calc Pharmacy 113.3 ml/min; Est GFR (Non-African American) 101.8 ml/min; Magnesium 1.6 mg/dl (1.8-2.4); Potassium 4.1 mmol/L (3.5-5.1)
[2021-02-01 07:06] LABS: Albumin Globulin Ratio 0.6 (0.9-2); Bilirubin,Total 0.6 mg/dl (0.2-1); Globulin 4.3 gm/dl (2.5-4.0); Total Protein 6.9 gm/dl (6.4-8.2)
[2021-02-01] MEDS: ATORVASTATIN 40 MG TAB PO SCH (08:24)
[2021-02-01] MEDS: PANTOprazole 40 MG TAB PO SCH ×2 (08:25→20:22)
[2021-02-01] MEDS ORDERED: NovoLIN-R INSULIN PER UNIT CHARGE SQ SCH (08:30)
[2021-02-01] MEDS: INSULIN ASPART 100 UNITS/ML VIAL SC SCH ×4 (08:47→21:09)
[2021-02-01] MEDS: INSULIN GLARGINE SOLOSTAR 100 UNITS/ML 3 ML PEN SQ SCH ×2 (08:48→21:10)
[2021-02-01] MEDS: DAPTOmycin 475 MG in SYRINGE 0 ML IV SCH (12:16)
[2021-02-01] MEDS: SODIUM CHLORIDE 0.9% 1000ML 1,000 ML IV SCH (12:31)
--- NOTE | 2021-02-01 14:50 | Pharmacy Report ---
Pharmacy Glycemic Short Note 2 - Date of Service February 01, 2021 - Glycemic Short BSG Results (Last 24 hours): 01/31/21 01/31/21 01/31/21 15:30 16:14 18:57 Glucose 143 H 138 H POC Glucose 80 01/31/21 02/01/21 02/01/21 20:39 00:15 06:08 Glucose 143 H POC Glucose 96 78 02/01/21 02/01/21 07:40 11:47 Glucose POC Glucose 142 H 124 H OUTPATIENT ANTIDIABETIC REGIMEN: * Lantus 65 units bid, Novolog SSI * A1c 10.3 - 04/19/20 / repeat ordered for tomorrow ASSESSMENT: 02/01 * Patient received total of 218 units of insulin yesterday, of which 130 units were basal insulin (home basal dose 65 units bid) * Fasting BSG 143 mg/dL - will try an aim for more of a 50/50 split with novolog and Lantus insulin. Continue with 65 units this AM of basal but will add a scale for HS time with reduced dosing * BSGs yesterday trending down quickly, loosened CF/CR today 01/31 * Patient admitted with concerns of postop wound infection of R hip, started on dapto/zosyn. Pharmacy consulted for diabetes management. Patient type 1 DM. BSGs on arrival in the upper 300s, given IV insulin in ER and also correctional. Home basal dose of Lantus ordered for this AM * Anticipate BSGs trending down with insulin given this AM. Patient on very large amounts of insulin at home * Plan to continue same basal insulin for now. Will start novolog at lunch time based upon stress of 2 dosing of home basal. Appears patient admitted last Apr 2020. Plan to utilize similar parameters from that admission as BSGs relatively controlled. PLAN FOR INPATIENT GLYCEMIC CONTROL: * Hold outpatient oral diabetes medications * Basal insulin * Lantus 65 this AM * Lantus 40-50 units PM * Bolus insulin * NovoLog per scale ACHS or Q6hrs while NPO * Goal Range: Low 110 mg/dL - High 140 mg/dL * Correction Factor: 15 mg/dL/unit * Nutritional / Prandial insulin per carb ratio of 1 unit per 7 grams CHO consumed PLAN FOR DISCHARGE: * tbd
[2021-02-01] MEDS ORDERED: HYDROmorphone INJ 0.5 MG/0.5 ML SYR IV PRN (15:59)
--- NOTE | 2021-02-01 16:05 | Discharge Summary ---
Date of Service February 01, 2021 Admission HPI Per Admitting Provider The patient is a 30-year-old male with a past medical history including acute encephalopathy, right psoas abscess, vitamin D deficiency, tear of right acetabular labrum, tobacco use disorder, staph epidermidis infection, diabetic ulcer of left foot, tinea corporis, hypertension, elevated LFTs, uncontrolled diabetes mellitus type 1, insomnia, anxiety and depression, dyslipidemia and GERD. The patient initially underwent right labral repair on 01/03/2021. He later became confused, presented to the emergency department and do boys and was found to have psoas muscle abscess and was sent to [facility] on 01/12/2021. He underwent joint washout surgery on 01/18/2021. He was started on IV vancomycin twice daily x6 weeks discontinued home on 01/22/2021 with home nursing care and the PICC line is left upper arm. He was to follow-up with ID in [place] in 3 weeks, and had plans to follow-up with orthopedic surgery in 2 months when noted at his last primary care visit on 01/23/2021. Due to worsening pain, not controlled by his oral pain medications, he presented to the emergency department at [facility] for further assessment of. CT scan of abdomen and pelvis at [facility] was read as the following: Stranding within the right hip with small amount of gas and fluid within the musculature extending toward the right hip and a small right hip joint effusion. These findings may be postsurgical. In addition, suspected right hip joint effusion with osseous irregularity of the right acetabulum. This irregularity could be postsurgical however an infectious process cannot be excluded. Right hip joint space narrowing. Correlation with surgical history is recommended. [facility]. Berman, who is on-call, agreed to see the patient in hospital, until the patient can be transferred to [facility] at [facility], where the right hip washout was performed. Principal Diagnosis right hip post operative infection Discharge Exam The patient appeared well Vital signs as documented. Lungs are clear to auscultation and appear unlabored Cardiac exam, Rhythm is regular.. No murmurs, rubs or gallops. Abdominal exam reveals normal bowel sounds, soft non tender, no masses Significant right hip discomfort some doughy edema is also present no erythema there are 3 but appears to be probably laparoscopic entry sites on his anterior hip Neurologic exam is alert and oriented, no focal loss of strength or sensation Skin is without bruises or rashes Psychologically is without concerns for anxiety or depression. Discharge Data Allergies Allergy/AdvReac Type Severity Reaction Status Date / Time cephalexin Allergy Intermediate hives Verified 01/31/21 00:54 ondansetron Allergy Intermediate HIVES Verified 01/31/21 00:54 acetaminophen AdvReac Intermediate GI SYMPTOMS Verified 01/31/21 00:54 quetiapine [From Seroquel] AdvReac Mild patient Verified 01/31/21 00:54 did not like how he felt with this Consultations 01/31/21 06:32 ED Decision to Admit Stat 01/31/21 10:51 Consult Orthopedic Surgery Routine 02/01/21 16:00 Burn CD for patient Routine Ordered Studies 01/31/21 02:53 CT abd pelvis IV con only Urgent 01/31/21 05:07 US venous doppler LE RT Stat 01/31/21 06:44 MR hip RT wo/w con Stat Diabetes Follow up Diabetes Follow-up Needed for HgbA1c >9% Hospital Course (1) Psoas abscess, right: Right psoas abscess/postoperative wound infection of right hip- Body fluid culture growth from washout collected on 01/18/2021 showed coag negative staph epidermidis that is resistant to clindamycin, erythromycin and oxacillin. Patient will be placed empirically on daptomycin IV and Zosyn IV. We will discontinue his current medication of vancomycin IV. Consult to [place] [facility] Dr. Berman, MRI of the hip suggest possible acetabular osteomyelitis, Dr. Graham recommends return to [facility] for definitive care from surgery team that the patient is known to. 1 of 4 blood cultures grew gram-positive cocci in clusters. PCR does not suggested this to be staph aureus or MRSA. He continues on daptomycin and Zosyn although Zosyn may be continued at the discretion of the accepting team at [facility] Patient is on hold to be transferred to [facility] when bed is available Patient did require hydromorphone MARINE WELDER for pain control this is held for transport (2) Postoperative wound infection of right hip: See above (3) Staph infection: As noted above staph epidermidis, coag negative infection with above sensitivities (4) Uncontrolled type 1 diabetes mellitus: Uncontrolled diabetes mellitus type 1/mild DKA- Patient has received dosages of regular insulin IV from the ED, along with 3 L normal saline. Placed on normal saline plus KCl 20 mEq at 200 mils per hour Patient needed to be transition to insulin drip. Diabetic nurse educator found out that the patient's prescriptions for insulin was less than he was taking at home subsequently was try to conserve insulin by only using 1 dose of glargine a day instead of 2. His usage of insulin over 24. With the drip suggest his dose for outpatient glargine may be 80 units twice daily. Subsequently he is on that currently while an inpatient although he is having an infection and once his infection clears his dosing may be reduced back to his preillness dose of 65 units twice daily (5) Hypertension: Hold lisinopril (6) Anxiety and depression: Continue diazepam (7) Dyslipidemia: Continue atorvastatin (8) GERD (gastroesophageal reflux disease): Continue pantoprazole Total Time Total Time Spent Total Time Spent (In Minutes): It required greater than 30 minutes to prepare this patient for discharge Discharge Plan Discharge Items Patient Disposition: Transfer Acute Care Hospital Reason For Visit: R HIP PAIN POST OP DKA Discharge Diagnosis: possible right his osteomyelitis Condition on Discharge: Good Activity: As commented below Activity Comment: bed rest Non-emergency contact: Surgeon and Specialist Call non-emergency contact if: your symptoms worsen and you have a fever Follow-up/Referrals: Yamilex Booker CRNP [Primary Care Provider] - Diet: Carb Consistent or DM2 Addtl Attending Provider Instructions: Patient presented to the emergency department with severe right hip pain marked hyperglycemia, no significant fever or leukocytosis currently 1 of 4 blood cultures positive for gram-positive cocci in clusters however PCR for MRSA or staph ROS is negative at this time Sed rate was 98, CRP 3.7 Covid test PCR 01/31/2021 - Initially due to significantly high glucoses patient was placed temporarily on insulin drip which controlled his glucose and then returned to basal bolus insulin. He was changed from vancomycin to daptomycin and Zosyn therapy. Orthopedics saw in consultation and recommended return to [facility] where his initial surgery for washout of the wound was performed. Patient has had pain stabilized with MARINE WELDER pump please follow instructions from [place] on discharge ask for a change in your diabetic medications to better control your glucose Pending Studies at Discharge: Yes Stand-Alone Forms: My [facility] Skilled Items Patient informed of condition?: Yes DNR: No Discharge Level of Care: Other Communicable Disease: No Discharge Prognosis: Stable Lines: Peripheral IV Urinary Catheter: No Medications and DC Order Prescriptions: Continued insulin aspart U-100 [Novolog Flexpen U-100 Insulin] 100 unit/mL (3 mL) insulin pen See Rx Instructions SQ DIRECTED Qty: 96 RF: 5 (DME) Contour Next Test Strips Strip See Rx Instructions .ROUTE .MEDSUPPLY Qty: 500 RF: 5 (DME) blood-glucose meter [Contour Next Meter] Misc See Rx Instructions .ROUTE .MEDSUPPLY Qty: 1 RF: 0 cyclobenzaprine 10 mg tablet 10 mg PO TID PRN (Reason: muscle spasm) Qty: 60 RF: 5 pantoprazole 40 mg tablet,delayed release (DR/EC) 40 mg PO BID Qty: 180 RF: 3 atorvastatin 40 mg tablet 40 mg PO DAILY Qty: 90 RF: 3 lisinopril 5 mg tablet 5 mg PO QAM Qty: 90 RF: 3 promethazine 25 mg tablet 25 mg PO Q6H PRN (Reason: nausea and vomiting) Qty: 30 RF: 5 (DME) pen needle, diabetic [1st Tier Unifine Pentips Plus] 31 gauge x 5/16" needle See Rx Instructions .ROUTE .MEDSUPPLY Qty: 500 RF: 5 oxycodone 10 mg tablet 10 mg PO Q6H PRN (Reason: pain) Qty: 120 RF: 0 diazepam 5 mg tablet 5 mg PO TID PRN (Reason: Muscle Spasm) RF: 0 Lantus Solostar U-100 Insulin 100 unit/mL (3 mL) insulin pen 80 unit SQ BID Qty: 0 RF: 0 Discharge Orders: Discharge Order (Routine); Ordered 02/01/21 Ordered By: Sumit Aquino Admission Data Admit Date/Time: 01/31/21 06:44 Attending Provider: Dilan Christianson Admit Provider: Dilan Christianson Primary Care Provider: Yamilex Booker Other Providers: Dilan Christianson ; Adnres Berman ; [facility] Coding Level of Care Code D/C Day Management >30 mins Diagnoses Psoas abscess, right K68.12 Postoperative wound infection of right hip T81.49XA Staph infection B95.8 Uncontrolled type 1 diabetes mellitus E10.65 Coma presence: without coma Hypertension I10 Anxiety and depression F41.9; F32.9 Dyslipidemia E78.5 GERD (gastroesophageal reflux disease) K21.9
--- NOTE | 2021-02-01 16:06 | Hospitalist Progress Note ---
Date of Service February 01, 2021 Assessment & Plan (1) Psoas abscess, right: Right psoas abscess/postoperative wound infection of right hip- Body fluid culture growth from washout collected on 01/18/2021 showed coag negative staph epidermidis that is resistant to clindamycin, erythromycin and oxacillin. Patient will be placed empirically on daptomycin IV and Zosyn IV. We will discontinue his current medication of vancomycin IV. Consult to [facility] Dr. Berman, MRI of the hip suggest possible acetabular osteomyelitis, Dr. Berman recommends return to [facility] for definitive care from surgery team that the patient is known to that system. I did speak to Dr MCCOLLUM and they accepted him in transfer. 1 of 4 blood cultures grew gram-positive cocci in clusters. PCR does not suggested this to be staph aureus or MRSA. He continues on daptomycin and Zosyn although Zosyn may be continued at the discretion of the accepting team at [facility] Patient is on hold to be transferred to [facility] when bed is available Patient did require hydromorphone PULP MIXER for pain control this is held for transport (2) Postoperative wound infection of right hip: See above (3) Staph infection: As noted above staph epidermidis, coag negative infection with above sensitivities repeat cultures here grew gram-positive in clusters. PCR testing is negative for MRSA or staph aureus (4) Uncontrolled type 1 diabetes mellitus: Uncontrolled diabetes mellitus type 1/mild DKA- According to diabetic nurse educator the patient typically takes less than prescribed insulin at home because his prescription is for less than he actually needs. He should be on somewhere around 65 units of glargine twice daily however he states his prescriptions for last night so he typically only takes 1 dose today. Currently in the hospital with his increased metabolic state he is taking 80 units twice daily. (5) Hypertension: Hold lisinopril (6) Anxiety and depression: Continue diazepam (7) Dyslipidemia: Continue atorvastatin (8) GERD (gastroesophageal reflux disease): Continue pantoprazole Admission and Anticipated Discharge Date Admission Date: January 31, 2021 Subjective Patient's pain has been improved the PULP MIXER still has a significant pain with movement. He had a long discussion with orthopedics and is agreeable to go to [facility] after he was spoken to by Dr. Berman. Review of Systems Review of Systems: Moderate distress and fatigue significant pain with movement no headache, no visual changes no speech or swallowing issues no chest pain, pressure or palpitations no shortness of breath, cough or wheezes no abdominal pain, nausea or vomiting, diarrhea or constipation no dysuria, hematuria or frequency Right hip pain with movement some edema no erythema no purulence from his previous arthroscopic access sites no back pain, CVA tenderness or radicular pain no bruising, bleeding or rashes Does have decreased use of his right leg due to pain no complaints of anxiety or depression.. Physical Exam Physical Exam: The patient appeared well nourished and normally developed. He is mildly obese with a BMI of 33 he is in discomfort Vital signs as documented. Head exam is normocephalic atraumatic Neck is without JVD, thyromegaly, or carotid bruits. Lungs are clear to auscultation, no focal loss of breath sounds Cardiac exam, Rhythm is regular.. No murmurs, rubs or gallops. Abdominal exam reveals normal bowel sounds, soft non tender, no masses right hip is tender to movement and examination Neurologic exam is alert and oriented, no focal loss of strength or sensation Skin is without bruises or rashes no obvious signs of cellulitis seen with a surface Psychologically is without concerns for anxiety or depression Results & Data Results & Data ([facility]) Vital Signs (Past 12 Hours) Vital Signs Temp Pulse Pulse Resp BP Pulse Ox 02/01/21 15:28 98.8 F 98 H 20 124/82 95 02/01/21 15:04 99 H 02/01/21 11:58 97.9 F 97 H 16 135/80 95 02/01/21 07:49 98.2 F 98 H 18 109/69 02/01/21 07:16 97 H PG Care Time/CCT Total # of Minutes Spent Total Time Spent with Patient: Total time spent is greater than 50% in coordination of care (as documented) at patient's floor/unit and/or counseling patient: Coding Level of Care Code 69391 Subseq Hosp Care Lvl 3 Diagnoses Psoas abscess, right K68.12 Postoperative wound infection of right hip T81.49XA Staph infection B95.8 Uncontrolled type 1 diabetes mellitus E10.65 Coma presence: without coma Hypertension I10 Anxiety and depression F41.9; F32.9 Dyslipidemia E78.5 GERD (gastroesophageal reflux disease) K21.9 (1) Uncontrolled type 1 diabetes mellitus Coma presence: without coma
--- NOTE | 2021-02-01 16:49 | XCELERA ---
[id number]
[2021-02-01] MEDS: HYDROmorphone PCA 30 MG/30 ML IV PRN (23:29)
[2021-02-02] MEDS ORDERED: INSULIN ASPART 100 UNITS/ML VIAL SC SCH
[2021-02-02] MEDS: NSS + 20MEQ KCL 20 MEQ/1,000 ML BAG IV SCH ×2 (04:35→09:41)
[2021-02-02] MEDS: PIPERACILLIN/TAZOBACTAM 4.5 GM in DEXTROSE 5% 100 ML IV SCH (04:39)
[2021-02-02 07:44] LABS: Eosinophils # (auto) 0.14 K/uL (0-0.5); Hematocrit (blood only) 30.1 % (42-52); Hemoglobin 9.7 g/dL (14.0-18.0); Immature Granulocytes # (auto) 0.01 K/uL (0.00-0.02); Immature Granulocytes % (auto) 0.2 %; Lymphocytes # (auto) 1.83 K/uL (1.2-3.4); Lymphocytes % (auto) 38.9 %; Mean Corpuscular Hemoglobin 25.3 pg (25-34); Mean Corpuscular Hgb Conc 32.2 g/dL (32-36); Mean Corpuscular Volume 78.4 fL (80-100); Mean Platelet Volume 9.2 fL (7.4-10.4); Monocytes % (auto) 10.6 %; Neutrophils # (auto) 2.23 K/uL (1.4-6.5); Neutrophils % (auto) 47.3 %; Platelet Count 346 K/uL (130-400); RDW Coefficient of Variation 13.5 % (11.5-14.5); RDW Standard Deviation 38.7 fL (36.4-46.3); Red Blood Count 3.84 M/uL (4.7-6.1); White Blood Count 4.71 K/uL (4.8-10.8)
[2021-02-02 08:16] LABS: Albumin Level 2.5 gm/dl (3.4-5.0); BUN Creatinine Ratio 8.6 (10-20); Calcium 8.4 mg/dl (8.5-10.1); Creatinine Clr Calc Pharmacy 115.4 ml/min; Est GFR (African American) 116.5 ml/min; Est GFR (Non-African American) 100.6 ml/min; Magnesium 1.6 mg/dl (1.8-2.4); Potassium 4.2 mmol/L (3.5-5.1)
[2021-02-02 08:21] LABS: Albumin Globulin Ratio 0.6 (0.9-2); Bilirubin,Total 0.4 mg/dl (0.2-1); Globulin 4.1 gm/dl (2.5-4.0); Total Protein 6.6 gm/dl (6.4-8.2)
[2021-02-02] MEDS: PANTOprazole 40 MG TAB PO SCH (08:49)
[2021-02-02] MEDS: ATORVASTATIN 40 MG TAB PO SCH (08:49)
[2021-02-02] MEDS: INSULIN GLARGINE SOLOSTAR 100 UNITS/ML 3 ML PEN SQ SCH (08:50)
[2021-02-02] MEDS: INSULIN ASPART 100 UNITS/ML VIAL SC SCH ×2 (08:53→12:31)
--- NOTE | 2021-02-02 12:11 | Pharmacy Report ---
Pharmacy Glycemic Short Note 2 - Date of Service February 02, 2021 - Glycemic Short BSG Results (Last 24 hours): 02/01/21 02/01/21 02/02/21 16:47 20:34 02:24 Glucose POC Glucose 193 H 94 142 H 02/02/21 02/02/21 02/02/21 07:24 07:35 11:36 Glucose 153 H POC Glucose 156 H 145 H OUTPATIENT ANTIDIABETIC REGIMEN: * Lantus 65 units bid, Novolog SSI * A1c 10.3 - 04/19/20 / repeat ordered for tomorrow ASSESSMENT: 02/02 * Pt has received 134 units of insulin over the past 24hrs * 105 units of basal with Lantus * 29 units of bolus with NovoLog * BSGs [phone] mg/dl * Regimen is weighted towards basal insulin - but this is c/w outpatient dosing. * BSG increases when only CHO coverage given indicating that CR needs tightened * BSG drops significantly when both CR + CF are given. If CR is tighten and CF is given together concern for hypo - will loosen CF. Regimen is weighted towards basal insulin so loose CF warranted. 02/01 * Patient received total of 218 units of insulin yesterday, of which 130 units were basal insulin (home basal dose 65 units bid) * Fasting BSG 143 mg/dL - will try an aim for more of a 50/50 split with novolog and Lantus insulin. Continue with 65 units this AM of basal but will add a scale for HS time with reduced dosing * BSGs yesterday trending down quickly, loosened CF/CR today 01/31 * Patient admitted with concerns of postop wound infection of R hip, started on dapto/zosyn. Pharmacy consulted for diabetes management. Patient type 1 DM. BSGs on arrival in the upper 300s, given IV insulin in ER and also correctional. Home basal dose of Lantus ordered for this AM * Anticipate BSGs trending down with insulin given this AM. Patient on very large amounts of insulin at home * Plan to continue same basal insulin for now. Will start novolog at lunch time based upon stress of 2 dosing of home basal. Appears patient admitted last Apr 2020. Plan to utilize similar parameters from that admission as BSGs relatively controlled. PLAN FOR INPATIENT GLYCEMIC CONTROL: * Hold outpatient oral diabetes medications * Basal insulin * Lantus 45-50 units SQ BID - dose based on BSG see MAR for details. * Bolus insulin * NovoLog per scale ACHS or Q6hrs while NPO * Goal Range: Low 110 mg/dL - High 140 mg/dL * loosen Correction Factor: 20 mg/dL/unit * tighten Nutritional / Prandial insulin per carb ratio of 1 unit per 6 grams CHO consumed PLAN FOR DISCHARGE: * tbd
[2021-02-02] MEDS: SODIUM CHLORIDE 0.9% 1000ML 1,000 ML IV SCH (12:15)
[2021-02-02] MEDS: DAPTOmycin 475 MG in SYRINGE 0 ML IV SCH (12:21)
== END 2021-02-02 13:22 | disposition short-term general hospital (02) | DRG 372 ==
LOC: ED 23:57 → INTOOBSV 01-31 06:44 → EDINP 01-31 06:44 → SUATTDRO 01-31 06:44 → 2N 01-31 10:44

== ENCOUNTER 2024-05-07 14:20 | Observation (INO) ==
--- NOTE | 2024-05-07 14:44 | Emergency Department Note ---
History of Present Illness General Chief complaint: Wound Recheck Stated complaint: FINGER WOULD LIKE STICHES CHECKED, VOMITING Time Seen by Provider: 05/07/24 14:31 History of Present Illness Maximum Pain Intensity: 9 This is a [id number] 33-year-old male who presents to the emergency department via private vehicle with complaints of "left index finger injury". Patient notes that he was seen here earlier for evaluation of left index finger laceration and it was repaired. However he notes continued discomfort. He also notes hyperglycemia with his meter reading "high" as he believes this indicates that is over 500. He also notes start and continuation of vomiting. He notes pain in the left 2nd finger radiates into the left hand and current pain 9/10. The pain has been worsening. No fever. He has been taking ibuprofen. He recently was started on doxycycline prophylactically to prevent infection at this injury site. The patient notes the injury occurred yesterday evening around 8:30 PM. He states that the finger was shut in a door causing the laceration. He notes he cannot extend the left second digit but is able to flex. Patient expresses great concern about history of infections. He took the doxycycline and then vomited not long after. Home Medications Medication Instructions Recorded Confirmed Type blood-glucose meter (Contour Next #1 ea 07/02/21 12/02/22 Rx Meter) pantoprazole 40 mg tablet,delayed 40 mg PO BID #180 tabs 03/23/23 05/07/24 Rx release atorvastatin 40 mg tablet 40 mg PO DAILY #90 tabs 04/21/23 05/07/24 Rx lisinopril 5 mg tablet 5 mg PO QAM #90 tabs 04/21/23 05/07/24 Rx ibuprofen 800 mg tablet 800 mg PO Q8H PRN pain #90 tabs 04/27/23 05/07/24 Rx promethazine 25 mg tablet 25 mg PO Q6H PRN nausea and 08/25/23 05/07/24 Rx vomiting #30 tabs blood sugar diagnostic (Contour #500 ea 09/15/23 Rx Next Test Strips) blood-glucose sensor ([employer] G7 #3 ea 09/15/23 Rx Sensor device) insulin aspart U-100 100 unit/mL See Rx Instructions subcut 12/14/23 05/07/24 Rx (3 mL) subcutaneous pen (Novolog DIRECTED #96 mL FlexPen U-100 Insulin aspart) insulin glargine 100 unit/mL (3 80 unit subcut HS 05/07/24 05/07/24 History mL) subcutaneous pen (Lantus Solostar U-100 Insulin) lorazepam 1 mg tablet 1 mg PO HS PRN sleep/anxiety 05/07/24 05/07/24 History Allergies Allergy/AdvReac Type Severity Reaction Status Date / Time cephalexin Allergy Intermediate hives Verified 05/07/24 16:30 ondansetron Allergy Intermediate HIVES Verified 05/07/24 16:30 acetaminophen AdvReac Intermediate GI SYMPTOMS Verified 05/07/24 16:30 quetiapine [From Seroquel] AdvReac Mild patient Verified 05/07/24 16:30 did not like how he felt with this gabapentin AdvReac Patient Unverified 05/07/24 16:30 did not like how it made him feel Past Med/Surg History Problem List (Updated 05/07/24 @ 16:38 by Nehemiah Reilly PA-C) Emesis (Acute) Finger pain, left (Acute) Injury of extensor tendon of left hand (Acute) Laceration of left index finger w/o foreign body w/o damage to nail (Acute) Diabetic foot ulcer Burn of left foot Tear of left biceps muscle Epigastric pain Diarrhea Obesity (BMI 30-39.9) Insulin resistance Right knee pain COVID-19 Burn of knee, right, second degree Acute diarrhea Exposure to COVID-19 virus Hypokalemia Osteomyelitis of right hip Hip pain, right (Acute) Hyperglycemia (Acute) Acute encephalopathy Postoperative wound infection of right hip Nausea & vomiting Allergic rhinitis Vitamin D deficiency Tear of right acetabular labrum Right hip pain Low back pain with right-sided sciatica Dental caries Tobacco use disorder Staph infection (Acute) Diabetic ulcer of left foot associated with diabetes mellitus due to underlying condition, limited to breakdown of skin (Acute) Tinea corporis Foot pain, left (Acute) Hypertension Dysphagia Hyperglycemia (Acute) Elevated LFTs (Acute) Elevated lactic acid level (Acute) Cellulitis of left foot (Acute) Uncontrolled type 1 diabetes mellitus (Chronic) Smokeless tobacco use (Acute) Insomnia (Chronic) Anxiety and depression (Acute) Acid reflux disease with ulcer (Acute) Diarrhea (Acute) Dysphagia (Acute) Left hand pain Dyslipidemia (Chronic) GERD (gastroesophageal reflux disease) (Chronic) Medical History Lab test negative for COVID-19 virus Spider bite Migraine Exercise-induced asthma no inhaler Substance abuse Surgical History History of inguinal hernia repair S/P shoulder surgery History of appendectomy History of hand surgery Family History Mother Gastroparesis Gastro-esophageal reflux Hypertension Family history of diabetes mellitus Father Hyperlipidemia Gastro-esophageal reflux Brother ADHD Grandfather Prostate cancer Myocardial infarction Aunt Diabetes Breast cancer Family history of diabetes mellitus Grandmother Liver cancer Lung cancer Family/Other Family history of diabetes mellitus cousin Other No family history of adverse response to anesthesia Denies family history of Ovarian cancer Colorectal cancer Social History Smoking Status: Former smoker Tobacco Type: Smokeless Tobacco (Dip or Chew) Cigarettes Per Day: 1 can a day; Second Hand Exposure: No; Do You Dip or Chew Tobacco: Yes; Tobacco Cessation Education Requested by Patient: Yes Hx Alcohol Use: No Hx Substance Use: No Preferred Language: Danish Communication Ability: Effective Visual Impairment: No Limitations Hearing Ability: Normal Repairer Controller Tester Required: No Beliefs That Will Affect Care: None marital status: Single Current Living Situation: Family current occupational status: employed 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 How many Children do You have: 0 Other Information That Helps Us Care for You: No Feels Safe at Home: Yes Safety Concerns: Feels Safe At This Time Childhood Exposure to Second-Hand Smoke: No Diet: regular caffeine: Yes Dental Care, Regularly: Yes Physical Activity Frequency: 5-6 Times per Week Seatbelt Use: always Sunscreen Use: Yes Assistive Devices: Contacts and Glasses Review of Systems A total of 10 systems reviewed and were otherwise negative Physical Exam Vital Signs Vital Signs - 24 hr 05/07/24 14:22 05/07/24 15:16 Temperature 36.0 C L Temperature Source Temporal Artery Scan Pulse Rate 101 H Pulse Rate [Finger] 94 H Respiratory Rate 20 18 Respiratory Effort / Characteristics Non-Labored Spontaneous Non-Labored Spontaneous Respiratory Depth Normal Normal Respiratory Pattern Regular Blood Pressure 152/89 H Blood Pressure [Right Arm] 159/93 H Blood Pressure Mean 110 Blood Pressure Mean [Right Arm] 115 Pulse Oximetry 97 96 Oxygen Delivery Method Room Air Room Air Sepsis Recent Fever Within 48 Hours No Sepsis New/Unexplained Change in Mental Status N/A Sepsis Action Taken by Nursing No Action Required VITAL SIGNS - Vital signs and nursing notes were reviewed. Hypertensive, borderline tachycardic at 101, otherwise stable and afebrile. GENERAL -33-year-old male appearing his stated age who is in no acute distress. Communicates well with provider and answers questions appropriately. SKIN - Without rashes. There is a sutured wound to the dorsum of the second digit of the left hand. No erythema. Mild edema noted. No dehiscence. No purulence. No lymphangitic streaking. HEAD - NC/AT. EYES - PERRL with EOMI bilaterally. Sclera anicteric. LUNGS - Chest wall symmetric without accessory muscle use, intercostals retractions, or central cyanosis. Normal vesicular breath sounds CTA B/L. No wheezes, rales, or rhonchi appreciated. CARDIAC - RRR ABDOMEN - Abdominal contour normal without pulsations or visible masses. BS normoactive all four quadrants. No tenderness, palpable masses, hepatosplenomegaly, or ascites noted. EXTREMITIES - No clubbing or peripheral cyanosis. Left second is a tender on the dorsal aspect. Patient unable to actively extend at the left second digit. He is able to flex the left second digit. Tenderness also tracks to the left second metacarpal. +5/5 strength noted in UE/LE bilaterally. NEUROLOGIC -sensory intact to light touch throughout the left second digit without deficit. PSYCH -alert, oriented and pleasant on exam. pt is very pleasant and interacts well with examiner. Course Administered Medications Enoxaparin Sodium (Enoxaparin Inj 40 Mg/0.4 Ml Syr) 40 mg SQ Q12H [facility] Stop: 06/06/24 20:59 Last Admin: 05/07/24 22:04 Dose: 40 mg Documented By: ANN MARIE Lactated Ringer's (Lr) 1,000 mls @ 125 mls/hr IV .Q8H FELICITA Stop: 05/08/24 08:59 Last Admin: 05/08/24 02:12 Dose: 125 mls/hr Documented By: ANN MARIE Infusion: 05/08/24 01:16 Dose: Infused Documented By: ANN MARIE Admin: 05/07/24 17:16 Dose: 125 mls/hr Documented By: BS Promethazine HCl (Phenergan) 12.5 mg in 50.5 mls @ 202 mls/hr IV Q6H PRN PRN Reason: Nausea And Vomiting Stop: 06/06/24 16:54 Last Infusion: 05/08/24 02:56 Dose: Infused Documented By: ANN MARIE Admin: 05/08/24 02:14 Dose: 202 mls/hr Documented By: ANN MARIE Ampicillin Sodium/Sulbactam Sodium (Unasyn) 3,000 mg in 100 mls @ 200 mls/hr IV Q6H FELICITA Stop: 05/14/24 21:59 Last Infusion: 05/08/24 06:06 Dose: Infused Documented By: ANN MARIE Admin: 05/08/24 05:29 Dose: 200 mls/hr Documented By: ANN MARIE Infusion: 05/08/24 01:33 Dose: Infused Documented By: ANN MARIE Admin: 05/08/24 00:49 Dose: 200 mls/hr Documented By: ANN MARIE Insulin Aspart (Insulin Aspart Per Unit Charge) 0 units SC Q4 FELICITA Stop: 06/07/24 00:00 Last Admin: 05/08/24 04:22 Dose: 4 units Documented By: ANN MARIE Co-signed By: NARCISA Admin: 05/08/24 00:42 Dose: 12 units Documented By: ANN MARIE Co-signed By: [id number] Ketorolac Tromethamine (Ketorolac Tromethamine 15 Mg/Ml Vial) 15 mg IV Q6H PRN PRN Reason: Pain(1-4), headache,fever Stop: 05/12/24 16:53 Last Admin: 05/07/24 18:14 Dose: 15 mg Documented By: LEXII Lorazepam (Lorazepam 1 Mg Tab) 1 mg PO HS PRN PRN Reason: sleep/anxiety Stop: 06/06/24 20:01 Last Admin: 05/07/24 22:11 Dose: 1 mg Documented By: ANN MARIE Morphine Sulfate (Morphine Sulfate 4 Mg/Ml 1 Ml Carp\\Vial) 3 mg IV Q4H PRN PRN Reason: Pain(5+) Stop: 05/21/24 16:53 Last Admin: 05/08/24 05:44 Dose: 3 mg Documented By: ANN MARIE Admin: 05/08/24 00:46 Dose: 3 mg Documented By: ANN MARIE Admin: 05/07/24 20:22 Dose: 3 mg Documented By: TRANG Oxycodone HCl (Oxycodone Hcl Ir 5 Mg Tab (Immediate Release)) 10 mg PO Q4H PRN PRN Reason: SEVERE Pain (7,8,9,10) Stop: 05/21/24 20:06 Last Admin: 05/08/24 02:13 Dose: 10 mg Documented By: ANN MARIE Admin: 05/07/24 21:46 Dose: 10 mg Documented By: ANN MARIE Pantoprazole Sodium (Pantoprazole 40 Mg Tab) 40 mg PO BID FELICITA Stop: 06/06/24 20:59 Last Admin: 05/07/24 22:05 Dose: 40 mg Documented By: ANN MARIE Discontinued Medications Sodium Chloride (Nss) 1,000 mls @ 999 mls/hr IV .Q1H1M FELICITA Stop: 05/07/24 15:45 Last Infusion: 05/07/24 16:15 Dose: Infused Documented By: Admin: 05/07/24 15:12 Dose: 999 mls/hr Documented By: SARAI Ampicillin Sodium/Sulbactam Sodium (Unasyn) 3,000 mg in 100 mls @ 200 mls/hr IV NOW STA Stop: 05/07/24 16:41 Last Infusion: 05/07/24 17:24 Dose: Infused Documented By: Admin: 05/07/24 16:50 Dose: 200 mls/hr Documented By: SERGE Famotidine (Pepcid 20mg Iv Push) 20 mg in 5 mls @ 2.5 mls/min IV NOW STA Stop: 05/07/24 16:55 Last Admin: 05/07/24 17:16 Dose: 2.5 mls/min Documented By: CRISTINO Vancomycin HCl 2,250 mg/ (Sodium Chloride) 545 mls @ 200 mls/hr IV 2030 ONE Stop: 05/07/24 23:13 Last Infusion: 05/08/24 01:10 Dose: Infused Documented By: ANN MARIE Admin: 05/07/24 22:05 Dose: 200 mls/hr Documented By: ANN MARIE Insulin Human Regular 10 units (/ Syringe) 10 mls @ 30 mls/min IV NOW ONE Stop: 05/08/24 00:36 Last Admin: 05/08/24 00:56 Dose: 30 mls/min Documented By: ANN MARIE Co-signed By: ANGELA Insulin Aspart (Insulin Aspart Per Unit Charge) 0 units SC Q6 FELICITA Stop: 06/06/24 17:59 Last Admin: 05/07/24 21:43 Dose: 7 units Documented By: ANN MARIE Co-signed By: NARCISA Insulin Glargine (Lantus Per Unit Charge) 40 units SQ BID FELICITA Stop: 06/06/24 20:59 Last Admin: 05/07/24 22:11 Dose: 40 units Documented By: ANN MARIE Co-signed By: ANGELA Insulin Glargine (Lantus Per Unit Charge) 40 units SQ ONE ONE Stop: 05/08/24 00:31 Last Admin: 05/08/24 00:43 Dose: 40 units Documented By: ANN MARIE Co-signed By: [id number] Morphine Sulfate (Morphine Sulfate 2 Mg/Ml Carp) 2 mg IV NOW STA Stop: 05/07/24 14:42 Last Admin: 05/07/24 15:12 Dose: 2 mg Documented By: SARAI Morphine Sulfate (Morphine Sulfate 2 Mg/Ml Carp) 2 mg IV NOW STA Stop: 05/07/24 16:09 Last Admin: 05/07/24 16:13 Dose: 2 mg Documented By: TAVARES Medical Decision Making Laboratory Data 05/07/24 15:06 05/07/24 15:06 Lab Results 05/07/24 Range/Units 15:06 WBC 5.66 (4.8-10.8) K/ul RBC 5.52 (4.70-6.10) M/uL Hgb 14.6 (14.0-18.0) g/dl Hct 43.1 (42.0-52.0) % MCV 78.1 L (80.0-100.0) fL MCH 26.4 (25.0-34.0) pg MCHC 33.9 (32.0-36.0) g/dL RDW Std Deviation 36.0 L (36.4-46.3) fL RDW Coeff of Lana 12.8 (11.5-14.5) % Plt Count 199 (130-400) K/uL MPV 11.1 (9.4-12.4) fL Immature Gran % (Auto) 0.4 % Neut % (Auto) 54.8 % Lymph % (Auto) 37.5 % [place] % (Auto) 6.0 % Eos % (Auto) 0.9 % Baso % (Auto) 0.4 % Neut # (Auto) 3.11 (1.40-6.50) K/uL Lymph # (Auto) 2.12 (1.20-3.40) K/uL [place] # (Auto) 0.34 (0.11-0.59) K/uL Eos # (Auto) 0.05 (0.00-0.50) K/uL Baso # (Auto) 0.02 (0.00-0.20) K/uL Immature Gran # (Auto) 0.02 (0.01-0.20) K/uL VBG pH 7.38 (7.36-7.41) VBG pCO2 49 (38-50) mmHg VBG pO2 31 mmHg VBG HCO3 29 mmol/L VBG O2 Saturation < 60.0 % VBG Base Excess 3.0 mEq/L Sodium 133 L (136-145) mmol/L Potassium 4.1 (3.5-5.1) mmol/L Chloride 98 (98-107) mmol/L Carbon Dioxide 26 (21-32) mmol/L Anion Gap 9 (3-11) BUN 12 (6-23) mg/dl Creatinine 0.98 (0.6-1.4) mg/dl Est Cr Clr Drug Dosing 123.6 ml/min Est GFR ( Amer) 116.9 ml/min Est GFR (Non-Af Amer) 100.9 ml/min BUN/Creatinine Ratio 12.2 (10-20) Glucose 286 H (70-99(Fasting)) mg/dl Calcium 9.2 (8.6-10.3) mg/dl Total Bilirubin 0.9 (0.2-1.0) mg/dl AST 69 H (13-39) U/L ALT 89 H (7-52) U/L Alkaline Phosphatase 88 (34-104) U/L Total Protein 7.5 (6.0-8.3) gm/dl Albumin 4.4 (3.4-5.0) gm/dl Globulin 3.1 (2.5-4.0) gm/dl Albumin/Globulin Ratio 1.4 (0.9-2) Imaging Data Radiologist's Impression: Hand X-Ray 05/07/24 14:38 XR hand LT min 3V routine HISTORY: 33 years-old Male L 2nd digit injury, pain into hand acute left hand pain status post trauma COMPARISON: Radiographs 04/18/2019 TECHNIQUE: 3 views of the left hand FINDINGS: Mild diffuse soft tissue swelling. No acute fracture, dislocation, osseous erosion or opaque foreign body. IMPRESSION: No acute fracture or dislocation. ACT 112: Negative or not required by law. The above report was generated using voice recognition software. It may contain grammatical, syntax or spelling errors. Electronically signed by: Randy Kevin M.D. 05/07/2024 2:54 PM MDM Narrative Patient was seen and evaluated as above in room D06. Review was performed of triage nursing notes and vital signs. I did review pertinent previous visits and patient history. After obtaining a thorough history and physical examination the above work up was performed. Patient presents to us today for assessment of left second digit pain. Patient was seen here recently and noted to have a laceration to his left second digit, dorsal aspect. The wound was recently repaired. He was started on oral doxy to help prevent infection at the laceration site. He cannot extend at the l 2nd digit, therefore there is concern for possible extensor tendon injury. He now notes vomiting. He was prescribed oral doxycycline prophylactically noting the injury and he is vomiting. He is also a diabetic with sugars likely greater than 500 as his phone reads "high" and he notes that is normally with numbers over 500. He then administered himself 80 units of insulin. On assessment the left dorsal index of the sutured site is edematous without erythema. There is tenderness though that tracks proximal to the area. Options of care were discussed with the patient. IV access was established. Labs were drawn. No leukocytosis or concerning anemia. No emergent metabolic disturbance. Mild hyponatremia 133. Glucose now 286 however this is after the patient administered 80 units of insulin prior to arrival plus receiving IV fluids. Transaminitis noted. X-ray of the left hand was obtained and per my interpretation without fracture. Radiologist results as above. 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 I discussed IV in about a choices with the patient. He is tolerated Augmentin before he notes for a full course without issue. IV Unasyn felt to be warranted noting specific case. Patient aware of potential risk. It was felt that the benefit outweighed risk. He seemed to tolerate this without issue. Case discussed with the hospitalist service. Please refer to further documentation regarding his stay. Patient will require orthopedic follow-up for the finger. GCS: 15 In the evaluation and treatment of this patient the following differential diagnoses were entertained: Cellulitis, abscess, laceration, extensor tendon injury, among others Impression & Plan Finger pain, left, Emesis Discharge Plan Visit Data Chief Complaint: Wound Recheck Stated Complaint: FINGER WOULD LIKE STICHES CHECKED, VOMITING ED Provider: Tashi Holland ED Midlevel Provider: Nehemiah Reilly Discharge Problem: Finger pain, left, Emesis Patient Disposition: Admitted As Inpatient Condition: Good Discharge Instructions Interventions: ED Discharge Assessment Last Done: 05/07/24 20:03
--- NOTE | 2024-05-07 14:56 | XRay Report ---
XR hand LT min 3V routine HISTORY: 33 years-old Male L 2nd digit injury, pain into hand acute left hand pain status post traum a COMPARISON: Radiographs 04/18/2019 TECHNIQUE: 3 views of the left hand FINDINGS: Mild diffuse soft tissue swelling. No acute fracture, dislocation, osseous erosion or opaque foreign body. IMPRESSION: No acute fracture or dislocation. ACT 112: Negative or not required by law. The above report was generated using voice recognition software. It may contain grammatical, syntax o r spelling errors. Electronically signed by: Randy Kevin M.D. 05/07/2024 2:54 PM
[2024-05-07] MEDS: MoRPHine SULFATE 2 MG/ML CARP IV STA ×2 (15:12→16:13)
[2024-05-07] MEDS: SODIUM CHLORIDE 0.9% 1,000 ML IV SCH (15:12)
[2024-05-07 15:17] LABS: HCO3 VBG 29 mmol/L; Oxygen Saturation VBG < 60.0 %; PCO2 VBG 49 mmHg (38-50); PO2 VBG 31 mmHg; pH VBG 7.38 (7.36-7.41)
[2024-05-07 15:27] LABS: Basophils # (auto) 0.02 K/uL (0.00-0.20); Basophils % (auto) 0.4 %; Eosinophils # (auto) 0.05 K/uL (0.00-0.50); Eosinophils % (auto) 0.9 %; Hematocrit (blood only) 43.1 % (42.0-52.0); Hemoglobin 14.6 g/dl (14.0-18.0); Immature Granulocytes # (auto) 0.02 K/uL (0.01-0.20); Immature Granulocytes % (auto) 0.4 %; Lymphocytes # (auto) 2.12 K/uL (1.20-3.40); Lymphocytes % (auto) 37.5 %; Mean Corpuscular Hemoglobin 26.4 pg (25.0-34.0); Mean Corpuscular Hgb Conc 33.9 g/dL (32.0-36.0); Mean Corpuscular Volume 78.1 fL (80.0-100.0); Mean Platelet Volume 11.1 fL (9.4-12.4); Monocytes # (auto) 0.34 K/uL (0.11-0.59); Neutrophils # (auto) 3.11 K/uL (1.40-6.50); Neutrophils % (auto) 54.8 %; Platelet Count 199 K/uL (130-400); RDW Coefficient of Variation 12.8 % (11.5-14.5); Red Blood Count 5.52 M/uL (4.70-6.10); White Blood Count 5.66 K/ul (4.8-10.8)
[2024-05-07 15:52] LABS: Albumin Globulin Ratio 1.4 (0.9-2); Albumin Level 4.4 gm/dl (3.4-5.0); BUN Creatinine Ratio 12.2 (10-20); Bilirubin,Total 0.9 mg/dl (0.2-1.0); Calcium 9.2 mg/dl (8.6-10.3); Creatinine Clr Calc Pharmacy 123.6 ml/min; Est GFR (African American) 116.9 ml/min; Est GFR (Non-African American) 100.9 ml/min; Globulin 3.1 gm/dl (2.5-4.0); Potassium 4.1 mmol/L (3.5-5.1); Total Protein 7.5 gm/dl (6.0-8.3)
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
[2024-05-07] MEDS ORDERED: PHARMACY GLYCEMIC MGMT CONSULT PRN (16:49)
[2024-05-07] MEDS ORDERED: DEXTROSE 50% 50 ML SYRINGE IV PRN (16:49)
[2024-05-07] MEDS ORDERED: GLUCOSE 10 TAB/TUBE PO PRN (16:49)
[2024-05-07] MEDS ORDERED: GLUCAGON FOR INJ 1 MG VIAL SQ PRN (16:49)
[2024-05-07] MEDS ORDERED: GLUCOSE 40% GEL 15 GM TUBE PO PRN (16:49)
[2024-05-07] MEDS ORDERED: CARBOHYDRATES FOR HYPOGLYCEMIA PO PRN (16:49)
[2024-05-07] MEDS: AMPICILLIN/SULBACTAM SOD 3,000 MG/100 ML BAG IV STA (16:50)
[2024-05-07] MEDS ORDERED: NALOXONE HCL 0.4 MG/1 ML VIAL/CARP IV PRN (16:54)
[2024-05-07] MEDS: LACTATED RINGER'S 1,000 ML IV SCH (17:16)
[2024-05-07] MEDS: FAMOTIDINE 20MG IV PUSH 20 MG/5 ML SYR IV STA (17:16)
[2024-05-07] MEDS: KETOROLAC TROMETHAMINE 15 MG/ML VIAL IV PRN (18:14)
[2024-05-07] MEDS ORDERED: VANCOMYCIN CONSULT ACTIVE PRN (20:04)
[2024-05-07] MEDS ORDERED: oxyCODONE HCL IR 5 MG TAB (IMMEDIATE RELEASE) PO PRN (20:07)
[2024-05-07] MEDS: MoRPHine SULFATE 4 MG/ML 1 ML CARP\\VIAL IV PRN (20:22)
[2024-05-07] MEDS: INSULIN ASPART PER UNIT CHARGE SC SCH (21:43)
[2024-05-07] MEDS: oxyCODONE HCL IR 5 MG TAB (IMMEDIATE RELEASE) PO PRN (21:46)
[2024-05-07] MEDS: ENOXAPARIN INJ 40 MG/0.4 ML SYR SQ SCH (22:04)
[2024-05-07] MEDS: VANCOMYCIN HCL 2,250 MG in SODIUM CHLORIDE 0.9% 500 ML IV ONE (22:05)
[2024-05-07] MEDS: PANTOprazole 40 MG TAB PO SCH (22:05)
[2024-05-07] MEDS: LORazepam 1 MG TAB PO PRN (22:11)
[2024-05-07] MEDS: LANTUS PER UNIT CHARGE SQ SCH (22:11)
[2024-05-08] MEDS: INSULIN ASPART PER UNIT CHARGE SC SCH ×2 (00:42→09:51)
[2024-05-08] MEDS: LANTUS PER UNIT CHARGE SQ ONE (00:43)
[2024-05-08] MEDS: AMPICILLIN/SULBACTAM SOD 3,000 MG/100 ML BAG IV SCH (00:49)
[2024-05-08] MEDS: INSULIN HUMAN REGULAR PER UNIT 10 UNITS in SYRINGE 9.9 ML IV ONE (00:56)
[2024-05-08] MEDS: PROMETHAZINE 12.5 MG/50.5 ML BAG IV PRN (02:14)
[2024-05-08] MEDS: lisinopril 5 MG TAB PO SCH (07:42)
[2024-05-08] MEDS: ATORVASTATIN 40 MG TAB PO SCH (07:42)
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
[2024-05-08] MEDS: VANCOMYCIN HCL 1,500 MG in SODIUM CHLORIDE 0.9% 500 ML IV SCH (07:48)
[2024-05-08 08:11] LABS: Basophils # (auto) 0.01 K/uL (0.00-0.20); Basophils % (auto) 0.2 %; Eosinophils # (auto) 0.15 K/uL (0.00-0.50); Hematocrit (blood only) 39.8 % (42.0-52.0); Hemoglobin 13.6 g/dl (14.0-18.0); Immature Granulocytes # (auto) 0.02 K/uL (0.01-0.20); Immature Granulocytes % (auto) 0.4 %; Lymphocytes # (auto) 2.25 K/uL (1.20-3.40); Lymphocytes % (auto) 44.6 %; Mean Corpuscular Hgb Conc 34.2 g/dL (32.0-36.0); Mean Corpuscular Volume 79.1 fL (80.0-100.0); Mean Platelet Volume 10.9 fL (9.4-12.4); Monocytes # (auto) 0.48 K/uL (0.11-0.59); Monocytes % (auto) 9.5 %; Neutrophils # (auto) 2.14 K/uL (1.40-6.50); Neutrophils % (auto) 42.3 %; Platelet Count 196 K/uL (130-400); RDW Coefficient of Variation 13.1 % (11.5-14.5); RDW Standard Deviation 36.9 fL (36.4-46.3); Red Blood Count 5.03 M/uL (4.70-6.10); White Blood Count 5.05 K/ul (4.8-10.8)
[2024-05-08 08:38] LABS: Alanine Aminotransferase 73 U/L (7-52); Albumin Globulin Ratio 1.4 (0.9-2); Albumin Level 3.8 gm/dl (3.4-5.0); Alkaline Phosphatase 82 U/L (34-104); Anion Gap 5 (3-11); BUN Creatinine Ratio 12.8 (10-20); Bilirubin,Total 0.7 mg/dl (0.2-1.0); Blood Urea Nitrogen 12 mg/dl (6-23); Calcium 8.7 mg/dl (8.6-10.3); Carbon Dioxide 32 mmol/L (21-32); Chloride 100 mmol/L (98-107); Creatinine Clr Calc Pharmacy 129.3 ml/min; Est GFR (Non-African American) 106.1 ml/min; Globulin 2.7 gm/dl (2.5-4.0); Glucose 109 mg/dl (70-99(Fasting)); Sodium 137 mmol/L (136-145); Total Protein 6.5 gm/dl (6.0-8.3)
[2024-05-08 09:31] LABS: Magnesium 1.7 mg/dl (1.7-2.4); Potassium 4.1 mmol/L (3.5-5.1)
--- NOTE | 2024-05-08 09:36 | Pharmacy Report ---
Pharmacy PK ABX Note - Date of Service May 08, 2024 - Assessment and Plan Assessment 33 year old M receiving vancomycin and unasyn for treatment of a finger laceration. Significant PMH: pt is a type 1 diabetic who has a history of infections including postop hip infection and cellulitis. * Labs/vitals: afebrile, no leukocytosis, stable renal function, BSG on admit 424 mg/dL but down to 99 mg/dL this morning Day # 1 of antimicrobial therapy. Plan Vancomycin * Loading dose: 2250 mg IV x 1 * Maintenance dose: 1500 mg IV every 12 hours * Regimen is predicted to achieve target AUC/JASON of 400-600 mg/L.hr * Trough Random level ordered for: 05/09/24 with AM labs Pharmacy will continue to follow and will adjust dose/frequency as necessary. Thank you. Pharmacy has transitioned to AUC monitoring for vancomycin. AUC/JASON is the preferred PK/PD target and is associated with decreased risk of nephrotoxicity compared to traditional trough targets.
[2024-05-08 09:52] LABS: Ferritin 99.7 ng/ml (8-388)
[2024-05-08] MEDS ORDERED: MoRPHine SULFATE 4 MG/ML 1 ML CARP\\VIAL IV PRN (11:54)
--- NOTE | 2024-05-08 12:14 | Orthopedic Progress Note ---
Date of Service May 08, 2024 Assessment & Plan (1) Finger pain, left: Plan: Radiographs are negative for fracture. I do not see any evidence of infection. Recommend elevation and icing. He may go with or without a splint. I do not see a need for operative intervention. Extensor tendon was not noted to be injured at the time of the ER evaluation and appears to be intact at present. Will monitor. I suspect significant contusion of the hand related to the injury. Fortunately no fractures. He may follow-up with me or his orthopedic doctor back home. Compartments are soft. (2) Laceration of left index finger w/o foreign body w/o damage to nail: Admission and Anticipated Discharge Date Admission Date: May 07, 2024 Dionne Cox is 33 years old. He sustained a laceration to his left index finger 2 days ago. It was slammed in a door at work. It was out addressed and repaired in the emergency room here. The report is reviewed. There was no note of any extensor tendon exposure or damage. Radiographs done of the hand are negative for fracture. His incision was repaired. He has a history of developing infections with prior injuries. 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 He complains of pain in the left index finger and thumb where the injury occurred. He also notes that his thumb has been snapping since the injury. He has a prior history of a laceration on the dorsal aspect of the second metacarpal as well as a prior fracture and tendon injury to the left thumb. Physical Exam Physical Exam: Median radial and ulnar motor and sensory functions are intact. There is no erythema. He does have mild swelling over the thumb index finger and back of the hand. Capillary refills less than 2 seconds. Finger movement is limited secondary to pain. He can flex and extend the IP joint of the left thumb. There is no obvious tenderness of the A1 brian of the thumb. There is no clinical trigger finger present. There is mild tenderness to palpation mainly over the MP joint which is stable. There is a 1-1/2 cm transverse laceration over the proximal phalanx of the index finger benign in appearance without any fluctuance erythema or drainage. He has near full extension with a trace lag and good extensor strength. FDP and FDS are intact. There is limited movement of the index finger and thumb secondary to pain and swelling. Results & Data Vital Signs (Past 12 Hours) Vital Signs Temp Pulse Pulse Resp BP Pulse Ox O2 Del Method 05/08/24 08:00 79 05/08/24 07:46 36.6 C 81 18 133/82 97 Room Air 05/08/24 04:28 36.8 C 65 20 119/76 96 Room Air 05/08/24 00:45 36.6 C 78 20 155/89 H 97 Room Air Laboratory Results Laboratory Results WBC 5.05 K/ul (4.8-10.8) 05/08/24 07:44 RBC 5.03 M/uL (4.70-6.10) 05/08/24 07:44 Hgb 13.6 g/dl (14.0-18.0) L 05/08/24 07:44 Hct 39.8 % (42.0-52.0) L 05/08/24 07:44 MCV 79.1 fL (80.0-100.0) L 05/08/24 07:44 MCH 27.0 pg (25.0-34.0) 05/08/24 07:44 MCHC 34.2 g/dL (32.0-36.0) 05/08/24 07:44 RDW Std Deviation 36.9 fL (36.4-46.3) 05/08/24 07:44 RDW Coeff of Lana 13.1 % (11.5-14.5) 05/08/24 07:44 Plt Count 196 K/uL (130-400) 05/08/24 07:44 MPV 10.9 fL (9.4-12.4) 05/08/24 07:44 Immature Gran % (Auto) 0.4 % 05/08/24 07:44 Neut % (Auto) 42.3 % 05/08/24 07:44 Lymph % (Auto) 44.6 % 05/08/24 07:44 [place] % (Auto) 9.5 % 05/08/24 07:44 Eos % (Auto) 3.0 % 05/08/24 07:44 Baso % (Auto) 0.2 % 05/08/24 07:44 Neut # (Auto) 2.14 K/uL (1.40-6.50) 05/08/24 07:44 Lymph # (Auto) 2.25 K/uL (1.20-3.40) 05/08/24 07:44 [place] # (Auto) 0.48 K/uL (0.11-0.59) 05/08/24 07:44 Eos # (Auto) 0.15 K/uL (0.00-0.50) 05/08/24 07:44 Baso # (Auto) 0.01 K/uL (0.00-0.20) 05/08/24 07:44 Immature Gran # (Auto) 0.02 K/uL (0.01-0.20) 05/08/24 07:44 VBG pH 7.38 (7.36-7.41) 05/07/24 15:06 VBG pCO2 49 mmHg (38-50) 05/07/24 15:06 VBG pO2 31 mmHg 05/07/24 15:06 VBG HCO3 29 mmol/L 05/07/24 15:06 VBG O2 Saturation < 60.0 % 05/07/24 15:06 VBG Base Excess 3.0 mEq/L 05/07/24 15:06 Sodium 137 mmol/L (136-145) 05/08/24 07:44 Potassium 4.1 mmol/L (3.5-5.1) 05/08/24 09:00 Chloride 100 mmol/L (98-107) 05/08/24 07:44 Carbon Dioxide 32 mmol/L (21-32) 05/08/24 07:44 Anion Gap 5 (3-11) 05/08/24 07:44 BUN 12 mg/dl (6-23) 05/08/24 07:44 Creatinine 0.94 mg/dl (0.6-1.4) 05/08/24 07:44 Est Cr Clr Drug Dosing 129.3 ml/min 05/08/24 07:44 Est GFR ( Amer) 123.0 ml/min 05/08/24 07:44 Est GFR (Non-Af Amer) 106.1 ml/min 05/08/24 07:44 BUN/Creatinine Ratio 12.8 (10-20) 05/08/24 07:44 Glucose 109 mg/dl (70-99(Fasting)) H 05/08/24 07:44 POC Glucose 99 mg/dl (70-99) 05/08/24 08:11 Calcium 8.7 mg/dl (8.6-10.3) 05/08/24 07:44 Magnesium 1.7 mg/dl (1.7-2.4) 05/08/24 09:00 Iron 49 mcg/dl (35-175) 05/08/24 09:00 TIBC 292 mcg/dl (250-450) 05/08/24 09:00 Unsaturated IBC 243 mcg/dl (155-355) 05/08/24 09:00 Transferrin % Sat 17 % (20-50) L 05/08/24 09:00 Ferritin 99.7 ng/ml (8-388) 05/08/24 09:00 Total Bilirubin 0.7 mg/dl (0.2-1.0) 05/08/24 07:44 AST 51 U/L (13-39) H 05/08/24 09:00 ALT 73 U/L (7-52) H 05/08/24 07:44 Alkaline Phosphatase 82 U/L (34-104) 05/08/24 07:44 Total Protein 6.5 gm/dl (6.0-8.3) 05/08/24 07:44 Albumin 3.8 gm/dl (3.4-5.0) 05/08/24 07:44 Globulin 2.7 gm/dl (2.5-4.0) 05/08/24 07:44 Albumin/Globulin Ratio 1.4 (0.9-2) 05/08/24 07:44 Impressions Hand X-Ray 05/07/24 14:38 XR hand LT min 3V routine HISTORY: 33 years-old Male L 2nd digit injury, pain into hand acute left hand pain status post trauma COMPARISON: Radiographs 04/18/2019 TECHNIQUE: 3 views of the left hand FINDINGS: Mild diffuse soft tissue swelling. No acute fracture, dislocation, osseous erosion or opaque foreign body. IMPRESSION: No acute fracture or dislocation. ACT 112: Negative or not required by law. The above report was generated using voice recognition software. It may contain grammatical, syntax or spelling errors. Electronically signed by: Randy Kevin M.D. 05/07/2024 2:54 PM
--- NOTE | 2024-05-08 15:41 | Pharmacy Report ---
Pharmacy Glycemic Short Note 2 - Date of Service May 08, 2024 - Glycemic Short BSG Results (Last 24 hours): 05/07/24 05/07/24 05/07/24 15:06 18:54 21:28 Glucose 286 H POC Glucose 180 H 416 H* 05/07/24 05/08/24 05/08/24 21:48 00:13 00:14 Glucose POC Glucose 424 H* 479 H* 557 H* 05/08/24 05/08/24 05/08/24 00:24 04:11 07:44 Glucose 109 H POC Glucose 439 H* 226 H 05/08/24 05/08/24 08:11 12:34 Glucose POC Glucose 99 154 H OUTPATIENT ANTIDIABETIC REGIMEN: * Lantus 80 units SQ HS * Novolog 60-100 units up to 6x per day (most recent fill 45 mL for 8 day supply) ASSESSMENT: * Kenny is a 33 YOM who is admitted for a finger injury/hyperglycemia with a history of T1DM. Pharmacy has been consulted to assist with glycemic management while inpatient. * Hyperglycemic upon admission, but does not appear to be in DKA however did present with nausea and vomiting. Ten units of IV regular insulin given and BSGs trended down overnight. Basal insulin given at his reported home dosage, will continue at this time. * Novolog initiated at a weight based stress of~1, patient reportedly requires much more insulin than this at home. Tightened to a weight based stress of 2. This was sufficient from last admission when the glycemic service followed, although will provide significantly less than reported home bolus dosing and may need uptitrated. PLAN FOR INPATIENT GLYCEMIC CONTROL: * Hold outpatient oral diabetes medications * Basal insulin * Lantus 80 units SQ HS * Bolus insulin * NovoLog per scale ACHS or Q6hrs while NPO * Goal Range: Low 110 mg/dL - High 140 mg/dL * Correction Factor: 25 mg/dL/unit * Nutritional / Prandial insulin per carb ratio of 1 unit per 7 grams CHO consumed
[2024-05-08] MEDS: KETOROLAC TROMETHAMINE 15 MG/ML VIAL IV ONE (17:23)
[2024-05-08 20:12] VITALS: RESP 18
[2024-05-08] MEDS ORDERED: LANTUS PER UNIT CHARGE SQ SCH (21:00)
[2024-05-08] MEDS: MoRPHine SULFATE 2 MG/ML CARP IV PRN (21:30)
[2024-05-08] MEDS: LANTUS PER UNIT CHARGE SQ SCH (22:07)
[2024-05-09 06:30] LABS: Basophils # (auto) 0.01 K/uL (0.00-0.20); Basophils % (auto) 0.2 %; Eosinophils # (auto) 0.09 K/uL (0.00-0.50); Eosinophils % (auto) 1.6 %; Hematocrit (blood only) 37.6 % (42.0-52.0); Hemoglobin 13.3 g/dl (14.0-18.0); Immature Granulocytes # (auto) 0.02 K/uL (0.01-0.20); Immature Granulocytes % (auto) 0.4 %; Lymphocytes # (auto) 0.95 K/uL (1.20-3.40); Lymphocytes % (auto) 16.8 %; Mean Corpuscular Hgb Conc 35.4 g/dL (32.0-36.0); Mean Corpuscular Volume 76.4 fL (80.0-100.0); Mean Platelet Volume 11.3 fL (9.4-12.4); Monocytes % (auto) 7.1 %; Neutrophils # (auto) 4.17 K/uL (1.40-6.50); Neutrophils % (auto) 73.9 %; Platelet Count 180 K/uL (130-400); RDW Coefficient of Variation 12.7 % (11.5-14.5); RDW Standard Deviation 34.6 fL (36.4-46.3); Red Blood Count 4.92 M/uL (4.70-6.10); White Blood Count 5.64 K/ul (4.8-10.8)
[2024-05-09 07:02] LABS: Albumin Globulin Ratio 1.4 (0.9-2); BUN Creatinine Ratio 11.4 (10-20); Bilirubin,Total 1.2 mg/dl (0.2-1.0); Calcium 8.8 mg/dl (8.6-10.3); Creatinine Clr Calc Pharmacy 115.9 ml/min; Est GFR (African American) 107.6 ml/min; Est GFR (Non-African American) 92.8 ml/min; Globulin 2.9 gm/dl (2.5-4.0); Magnesium 1.4 mg/dl (1.7-2.4); Potassium 4.3 mmol/L (3.5-5.1); Total Protein 6.9 gm/dl (6.0-8.3)
[2024-05-09 07:51] LABS: Estimated Average Glucose 249 mg/dl; Hemoglobin A1C 10.3 % (4.5-5.6)
[2024-05-09] MEDS: LANTUS PER UNIT CHARGE SQ SCH ×2 (08:58→12:08)
[2024-05-09] MEDS: VANCOMYCIN LEVEL ONE (08:58)
[2024-05-09] MEDS: ENOXAPARIN INJ 40 MG/0.4 ML SYR SQ SCH (10:24)
[2024-05-09] MEDS: MAGNESIUM OXIDE 400 MG TAB PO SCH (10:25)
--- NOTE | 2024-05-09 10:59 | Orthopedic Progress Note ---
Date of Service May 09, 2024 Assessment & Plan (1) Finger pain, left: Plan: Patient reports that he feels sick in the stomach and feverish. He also reports that 2 of his stitches fell out since yesterday. Hemoglobin A1c is 10. Temperature 37.8. There is at most mild swelling of the hand. No bruising is noted. Resting posture symmetric. No erythema or drainage. There is tenderness around the thumb MP joint and he reports clicking which I cannot say comes from any specific structure. Does not feel like it is the trigger finger obviously but I do feel something faintly clicking. He can flex and extend the IP joint of the thumb. On the index finger the wound edges are reapproximated. Yesterday there were 3 perfectly normal-appearing sutures in place. Today there is only 1. It to looks like a normal stitch. There is no hint of it coming undone nor was there anything like that for the other stitches yesterday. He reports that he may have bumped his finger on the table. The wound edges are approximated. When I ask him to extend the finger I can feel him putting flexion pressure on the finger. There is a trace extensor lag. When I assist and put the finger in full extension he can hold it there. There is limited PIP joint flexion however he can extend the PIP joint from the minimally flexed position. Sensation and capillary refill are intact. There is no evidence of infection. No erythema or drainage or swelling. No fluctuance. Skin-Prep applied and then Steri-Strips were applied on the remaining laceration. Covered with a gauze pad and wrapped with soft wrap and Coban. The impression is a left index finger laceration with intact extensor tendon and a left hand contusion. I do not have an explanation for why perfectly normal-appearing sutures would fall out. The wound was left open yesterday. Today we will apply reinforcement and cover it. There is not any evidence of infection. His extensor tendon appears to be intact. I do not see an indication for surgical intervention. The patient is from [place]. He can follow-up with his orthopedic doctor or family doctor there 7 to 10 days after the laceration for wound check and suture removal. He may do range of motion as tolerated. Continue to elevate and ice. (2) Laceration of left index finger w/o foreign body w/o damage to nail: Admission and Anticipated Discharge Date Admission Date: May 07, 2024
--- NOTE | 2024-05-09 11:02 | Pharmacy Report ---
Pharmacy PK ABX Note - Date of Service May 09, 2024 - Assessment and Plan Assessment * 33 year old M receiving vancomycin and Unasyn for treatment of a finger L index finger laceration w/ concern for infection. Pt was initially seen in the ED for injury to L hand, he had the wound sutured and was d/c on doxycycline PO however returned to ED w/ NV and hyperglycemia. * Significant PMH: Pt is a type 1 diabetic who has a history of infections including postop hip infection and cellulitis. Per H&P, pt had reported prior h/o MRSA infection. Nasal swab was negative for MRSA. No cultures have been collected. * Day # 2 of antimicrobial therapy. * Renal fxn stable Plan Vancomycin * Level drawn this AM = 13.4mcg/mL * Continue maintenance dose of 1500 mg IV every 12 hours * Current regimen is still predicted to achieve target AUC/JASON of 400-600 mg/L.h r * Will check level again in 48 hrs if therapy to continue Pharmacy will continue to follow and will adjust dose/frequency as necessary. Thank you. Pharmacy has transitioned to AUC monitoring for vancomycin. AUC/JASON is the preferred PK/PD target and is associated with decreased risk of nephrotoxicity compared to traditional trough targets.
[2024-05-09] MEDS: METOCLOPRAMIDE HCL INJ 5 MG/ML 2 ML VIAL IV SCH (12:08)
[2024-05-09] MEDS: ASPIRIN/ALUM/MAGNES/CAL CARB 325 MG TAB PO PRN (13:03)
--- NOTE | 2024-05-09 13:28 | Hospitalist Progress Note ---
Date of Service May 09, 2024 Assessment & Plan (1) Laceration of left index finger w/o foreign body w/o damage to nail: Plan: s/p sutures in ER, splinted/wrapped and sensation intact. Reports UTD on tetanus shot ~2 days ago. Xray without acute fracture. Was sent home from the ER initially on pain control medication and doxycycline but represented for nausea/vomiting and inability to keep Doxy down and associated hyperglycemia and was subsequently admitted. Orthopedic consultation and recommendations appreciated. No apparent infection and no indication for incision and drainage at this time. Antibiotics have been discontinued. (2) Hyperglycemia: Plan: With insulin-dependent diabetes. He usually takes Lantus 80 units at bedtime. Currently on 40 units twice daily while hospitalized. Sliding scale insulin coverage as needed. ADA diet. I question his diabetic management compliance at home. (3) Nausea & vomiting: Plan: Appears to have started after taking doxycycline which has been discontinued. Scheduled dosing of intravenous Reglan ordered. Supportive care. Will avoid Zofran as he has a past allergy history with this (4) Hypertension: Plan: Stable. Continue lisinopril Plan Hopefully home tomorrow, May 10 Admission and Anticipated Discharge Date Admission Date: May 07, 2024 Subjective Alert and oriented. No distress. He has developed a low-grade fever however. Orthopedic consultation noted. No evidence of infection and no indication for I&D. Antibiotics have been discontinued. Oral magnesium replacement has been started. Scheduled parenteral Reglan administered for persistent nausea. Will use Lantus 40 units twice daily in place of 80 units at bedtime while hospitalized. Review of Systems 2 Review of Systems: Constitutionalno fever or chills ENTno blurred vision, no double vision, no epistaxis, no sore throat Respiratoryno cough, no wheezing, no shortness of breath Cardiacno palpitations, no chest pain, no syncope GIpersistent nausea. No vomiting. No diarrhea, melena, hematochezia GUno urinary retention, no urinary incontinence, no dysuria, no hematuria Musculoskeletalleft first finger is heavily bandaged Skinno bruising, no rashes, no pruritus Neurono isolated weakness, no paresthesia Psychno depression, no anxiety Physical Exam 2 Physical Exam: General-alert and oriented x3, no fever, no chills HEENT-head atraumatic and normocephalic, pupils equal and reactive to light, extraocular muscles intact Neck-no lymphadenopathy or thyromegaly, trachea midline Chest-clear to auscultation. No rales, wheezing or rhonchi Cardiac-regular rate and rhythm, normal S1 and S2 Abdomen-normal bowel sounds, no hepatosplenomegaly Extremities-left index finger is heavily bandaged Neuro-cranial nerves II through XII intact, motor and sensory function within normal limits, strength symmetrical, no focal deficits Psych-normal affect, normal mood Results & Data Results & Data Vital Signs (Past 12 Hours) Vital Signs Temp Pulse Pulse Pulse Resp BP Pulse Ox 05/09/24 11:52 38.9 C H 111 H 18 132/82 94 05/09/24 07:50 37.8 C H 103 H 18 165/84 H 96 05/09/24 07:00 102 H 05/09/24 04:00 37.1 C 92 H 18 156/85 H 98 05/09/24 02:03 85 Pulse Ox O2 Del Method O2 Del Method 05/09/24 11:52 Room Air 05/09/24 07:50 Room Air 05/09/24 07:00 05/09/24 04:00 Room Air 05/09/24 02:03 95 Room Air Laboratory Results 05/09/24 05:53 05/09/24 05:53 PG Care Time/CCT Total # of Minutes Spent Total Time Spent with Patient: Total time spent is greater than 50% in coordination of care (as documented) at patient's floor/unit and/or counseling patient: Coding Level of Care Code 10056 SUB INP/OBS CARE 3/50MIN Diagnoses Laceration of left index finger w/o foreign body w/o damage to nail S61.211A Hyperglycemia R73.9 Nausea & vomiting R11.2 Hypertension I10
[2024-05-10 06:41] LABS: Basophils # (auto) 0.01 K/uL (0.00-0.20); Basophils % (auto) 0.2 %; Eosinophils # (auto) 0.06 K/uL (0.00-0.50); Eosinophils % (auto) 1.3 %; Hematocrit (blood only) 36.4 % (42.0-52.0); Hemoglobin 12.6 g/dl (14.0-18.0); Immature Granulocytes # (auto) 0.01 K/uL (0.01-0.20); Immature Granulocytes % (auto) 0.2 %; Lymphocytes % (auto) 35.4 %; Mean Corpuscular Hemoglobin 26.4 pg (25.0-34.0); Mean Corpuscular Hgb Conc 34.6 g/dL (32.0-36.0); Mean Corpuscular Volume 76.3 fL (80.0-100.0); Mean Platelet Volume 11.4 fL (9.4-12.4); Monocytes # (auto) 0.68 K/uL (0.11-0.59); Neutrophils # (auto) 2.16 K/uL (1.40-6.50); Neutrophils % (auto) 47.9 %; Platelet Count 166 K/uL (130-400); RDW Coefficient of Variation 12.7 % (11.5-14.5); RDW Standard Deviation 34.6 fL (36.4-46.3); Red Blood Count 4.77 M/uL (4.70-6.10); White Blood Count 4.52 K/ul (4.8-10.8)
[2024-05-10 06:56] LABS: Albumin Globulin Ratio 1.2 (0.9-2); Albumin Level 3.7 gm/dl (3.4-5.0); BUN Creatinine Ratio 13.7 (10-20); Calcium 8.5 mg/dl (8.6-10.3); Creatinine Clr Calc Pharmacy 130.5 ml/min; Est GFR (African American) 121.4 ml/min; Est GFR (Non-African American) 104.8 ml/min; Magnesium 1.6 mg/dl (1.7-2.4); Potassium 4.1 mmol/L (3.5-5.1); Total Protein 6.7 gm/dl (6.0-8.3)
--- NOTE | 2024-05-10 07:57 | Hospitalist Progress Note ---
Date of Service May 10, 2024 Assessment & Plan (1) Laceration of left index finger w/o foreign body w/o damage to nail: Plan: s/p sutures in ER, splinted/wrapped and sensation intact. Reports UTD on tetanus shot ~2 days ago. Xray without acute fracture. Was sent home from the ER initially on pain control medication and doxycycline but represented for nausea/vomiting and inability to keep Doxy down and associated hyperglycemia and was subsequently admitted. Orthopedic consultation and recommendations appreciated. No apparent infection and no indication for incision and drainage at this time. Antibiotics have been discontinued. (2) Hyperglycemia: Plan: With insulin-dependent diabetes. He usually takes Lantus 80 units at bedtime. Currently on 40 units twice daily while hospitalized. Sliding scale insulin coverage as needed. ADA diet. I question his diabetic management compliance at home. (3) Nausea & vomiting: Plan: Appears to have started after taking doxycycline which has been discontinued. Scheduled dosing of intravenous Reglan ordered. Supportive care. Will avoid Zofran as he has a past allergy history with this (4) Hypertension: Plan: Stable. Continue lisinopril Admission and Anticipated Discharge Date Admission Date: May 07, 2024 Results & Data Results & Data Vital Signs (Past 12 Hours) Vital Signs Temp Pulse Pulse Resp BP BP Pulse Ox 05/10/24 07:27 98 H 05/10/24 07:20 99.7 F H 95 H 18 133/72 95 05/10/24 00:00 84 05/09/24 22:32 98.8 F 87 18 166/99 H 97 05/09/24 19:56 98.5 F 90 18 127/83 95 O2 Del Method 05/10/24 07:27 05/10/24 07:20 Room Air 05/10/24 00:00 05/09/24 22:32 Room Air 05/09/24 19:56 Room Air PG Care Time/CCT Total # of Minutes Spent Total Time Spent with Patient: Total time spent is greater than 50% in coordination of care (as documented) at patient's floor/unit and/or counseling patient: Coding Diagnoses Laceration of left index finger w/o foreign body w/o damage to nail S61.211A Hyperglycemia R73.9 Nausea & vomiting R11.2 Hypertension I10
[2024-05-10] MEDS: PANTOprazole 40 MG TAB PO SCH (08:38)
[2024-05-10] MEDS: KETOROLAC TROMETHAMINE 15 MG/ML VIAL IV PRN (08:41)
[2024-05-10] MEDS: MAGNESIUM SULFATE / D5W 1 GM/100 ML BAG IV SCH (08:41)
[2024-05-10 11:05] VITALS: PULSE 87; TEMP 98.3; O2SAT 96
[2024-05-10 11:07] VITALS: BP 129/81
--- NOTE | 2024-05-10 16:55 | Discharge Summary ---
Discharge Summary Date of Service May 10, 2024 Principal Dx & Hospital Course #1 = Principal Diagnosis (1) Laceration of left index finger w/o foreign body w/o damage to nail: s/p sutures in ER, splinted/wrapped and sensation intact. Reports UTD on tetanus shot ~2 days ago. Xray without acute fracture. Was sent home from the ER initially on pain control medication and doxycycline but represented for nausea/vomiting and inability to keep Doxy down and associated hyperglycemia and was subsequently admitted. Orthopedic consultation and recommendations appreciated. No apparent infection and no indication for incision and drainage at this time. Antibiotics have been discontinued. pt states will follow up with ortho in home town 10 oxycodone 5 mg Rx at dc (2) Hyperglycemia: With insulin-dependent diabetes. He usually takes Lantus 80 units at bedtime. A1c is 10.3, states he is going to work on diabetic control with pcp (3) Nausea & vomiting: Appears to have started after taking doxycycline which has been discontinued. resolved (4) Hypertension: Stable. Continue lisinopril Notes For Next Care Provider will need ortho re eval for tendon injury work on diabetic management Admission HPI Per Admitting Provider Kenny is a 33-year-old male with past medical history significant for diabetes mellitus type 1, morbid obesity, tobacco abuse, GERD, fatty liver disease, and dyslipidemia who presented to the [facility] ED for the second time in approximately 12 hours due to concerns for inability to keep consistent p.o. intake and hyperglycemia at home. Patient was initially evaluated in emergency department earlier this morning around 0100 due to ongoing pain and bleeding from left index finger laceration experience at approximately 6 PM when he struck the left index finger on a door frame. His laceration was repaired in the ED and he was discharged on oral doxycycline for infection prevention. He presented back to the ED this afternoon due to recurrence nausea/vomiting and inability to keep consistent p.o. intake. Patient reports his blood glucose meter reading high on multiple readings prior to arrival. He was noted to be tachycardic on arrival at 101 but otherwise stable. Labs were significant for glucose of 286, corrected sodium of 135, improving transaminitis. X-ray of the left hand was negative for acute fracture or dislocation. Prior to admission the patient was given a dose of Unasyn, 2 doses 4 mg IV morphine, and 1 L normal saline. We are asked to admit the patient for ongoing IV antibiotics and control of his blood glucose to prevent patient from going into DKA. Patient was sitting in bed in mild distress due to pain and nausea at the time of exam. States that at approximately 8 PM on 05/06/24 he had his left index finger caught in his apartment door while it is closing. States that he was going to visit his mother who was already admitted and stopped to the ED to have it. States that since his initial ED visit earlier this morning he has had ongoing nausea/vomiting, severe pain in the left index finger. And hyperglycemia so elevated that glucose monitor would just read "high". Denies recent fever, chills, chest pain, shortness of breath, hematemesis, abdominal pain, dysuria/hematuria, diarrhea. States that he normally takes 80 units at bedtime Lantus, he did have his dose last night but has not had basal insulin today. States that he took approximately 80 units of insulin aspart at approximately 2 PM, just prior to ED arrival today. States that he was using ibuprofen at home as Tylenol for some GI upset. Confirms he has hives with Keflex and ondansetron use. States that Phenergan typically works well for his nausea and does not cause adverse reactions. Please refer to Dr. Jane's attestation for any changes to the treatment plan Discharge Exam and is with dressing in place, good distal cap refill and sensation Discharge Plan Discharge Items Patient Disposition: Home - Self-Care Reason For Visit: HYPERGLYCEMIA, NAUSEA/VOMITING, LEFT FINGER LACERA Discharge Diagnosis: finger laceration diabetes Condition on Discharge: Good Activity: Per Instructions section Non-emergency contact: Primary Care Provider Call non-emergency contact if: your symptoms worsen Follow-up/Referrals: Chava Arguello DO [Primary Care Provider] - 05/17/24 12:00 pm Diet: Carb Consistent or DM2 Addtl Attending Provider Instructions: please keep your finger clean and dry, cover if wound is open or having discharge please see orthopedics in follow up as well as your primary care doctors Pending Studies at Discharge: No Stand-Alone Forms: My FUZE Fit For A Kid!, Smoking Cessation Medications and DC Order Prescriptions: New oxycodone 5 mg Tablet 5 mg PO Q4H PRN (Reason: pain) Qty: 10 0RF Continued pantoprazole 40 mg tablet,delayed release (DR/EC) 40 mg PO BID Qty: 180 3RF atorvastatin 40 mg tablet 40 mg PO DAILY Qty: 90 3RF lisinopril 5 mg tablet 5 mg PO QAM Qty: 90 3RF ibuprofen 800 mg tablet 800 mg PO Q8H PRN (Reason: pain) Qty: 90 5RF promethazine 25 mg tablet 25 mg PO Q6H PRN (Reason: nausea and vomiting) Qty: 30 5RF (DME) Dexcom G7 Sensor Device See Rx Instructions .Route Qty: 3 5RF Rx Instructions: As directed (DME) Contour Next Test Strips Strip See Rx Instructions .ROUTE .MEDSUPPLY Qty: 500 5RF Rx Instructions: checks up to 5 times per day DX E10.65 insulin aspart U-100 [Novolog FlexPen U-100 Insulin] 100 unit/mL (3 mL) insulin pen See Rx Instructions SQ DIRECTED Qty: 96 0RF Rx Instructions: 50-60 units based on scale subcut 4-6x a day. 1 month supply. (DME) blood-glucose meter [Contour Next Meter] Misc See Rx Instructions .ROUTE .MEDSUPPLY Qty: 1 0RF Rx Instructions: As directed lorazepam 1 mg Tablet 1 mg PO HS PRN (Reason: sleep/anxiety) insulin glargine [Lantus Solostar U-100 Insulin] 100 unit/mL (3 mL) insulin pen 80 unit SQ HS Discharge Orders: Discharge Order (Routine); Ordered 05/10/24 Ordered By: Sumit Aquino Admission Data Admit Date/Time: 05/07/24 16:41 Attending Provider: Sumit Aquino Admit Provider: Selwyn Jane Primary Care Provider: Chava Arguello Other Providers: Glen Rodriguez Other Interventions: Discharge Summary Assessment (RN) Last Done: 05/10/24 13:49 Hospital Stay Data Consultations 05/07/24 20:09 Consult Orthopedic Surgery Routine Pending Results Patient Have Any Pending Studies at Discharge: No Discharge Instructions Given to Patient (Per Discharging Provider) please keep your finger clean and dry, cover if wound is open or having discharge please see orthopedics in follow up as well as your primary care doctors Total Time Total Time Spent Total Time Spent (In Minutes): It required greater than 30 minutes to prepare this patient for discharge. Coding Level of Care Code 67995 INP/OBS DISCH >30 MIN Diagnoses Laceration of left index finger w/o foreign body w/o damage to nail S61.211A Hyperglycemia R73.9 Nausea & vomiting R11.2 Hypertension I10
== END 2024-05-10 14:16 | disposition home or self-care (01) ==
LOC: ED 14:20 → EDINP 16:41 → SUATTDRO 16:41 → INTOOBSV 16:41 → 2W 20:03